=== PATIENT | male | born 1935 | race Caucasian/White ===

== ENCOUNTER → 2017-11-20 | Outpatient (REF) | payer MEDICARE, OTHER ==
[2017-11-21 13:00] LABS: FERRITIN 219 NG/ML (26-388)
== END ==
LOC: M LAB REF 12:25
DX: D64.9 Anemia, unspecified (principal)
CPT/HCPCS: 82728

== ENCOUNTER 2018-11-12 15:25 | Emergency (ER) | payer MEDICARE, OTHER ==
[~2018-11-12] VITALS: Ht 177.8 cm; Wt 84.6 kg
[~2018-11-12 15:25] MED LIST: /AUGM875TA; LIPI80TA; PACE0.05; TENO50TA; VITA500T; ZITH250T
[2018-11-12] MEDS ORDERED: AMIO200T PO (16:07)
[2018-11-12] MEDS ORDERED: PROT1TAB2 PO (16:07)
[2018-11-12] MEDS ORDERED: SAW160CA9 PO (16:07)
[2018-11-12] MEDS ORDERED: VITA1CAP25 PO (16:07)
[2018-11-12] MEDS ORDERED: TAMS1CAP17 PO (16:07)
[2018-11-12] MEDS ORDERED: WARF-21 PO (16:07)
[2018-11-12] MEDS ORDERED: WARF-23 PO (16:07)
[2018-11-12] MEDS ORDERED: CENT1TAB PO (16:07)
[2018-11-12] MEDS ORDERED: LIPI80TA PO (16:07)
[2018-11-12] MEDS ORDERED: ASPIRIN 81 MG CHEW TABLET PO ONE (16:15)
[2018-11-12 16:33] LABS: BASO % 0.3 % (0.0-1.0); EOS # 0.1 10^3/uL (0.0-0.50); EOS % 0.8 % (0.0-3.0); HEMATOCRIT 38.3 % (42.0-52.0); HEMOGLOBIN 12.6 g/dl (13.5-17.5); LYMPH # 1.1 10^3/uL (1.5-4.5); LYMPH % 12.6 % (24.0-44.0); MEAN CORPUSCULAR HEMOGLOBIN 29.9 pg (27.0-33.0); MEAN CORPUSCULAR HGB CONC 32.9 g/dl (32.0-36.5); MEAN CORPUSCULAR VOLUME 90.8 fl (80.0-96.0); MONO # 0.7 10^3/uL (0.0-0.8); MONO % 7.7 % (0.0-5.0); NEUTROPHILS % 78.2 % (36.0-66.0); PLATELET COUNT, AUTOMATED 250 10^3/uL (150-450); RED BLOOD COUNT 4.22 10^6/uL (4.30-6.10)
[2018-11-12 16:44] LABS: INR 2.66; PARTIAL THROMBOPLASTIN TIME 38.1 SECONDS (25.0-38.4); PROTHROMBIN TIME 28.2 SECONDS (11.8-14.0)
[2018-11-12 17:05] LABS: ALBUMIN 3.5 GM/DL (3.2-5.2); BILIRUBIN,DIRECT 0.1 MG/DL (0.0-0.2); BILIRUBIN,TOTAL 0.3 MG/DL (0.2-1.0); CALCIUM LEVEL 8.6 MG/DL (8.8-10.2); CK-MB VALUE MASS 4.6 NG/ML (<3.6); CREATININE FOR GFR 2.19 MG/DL (0.70-1.30); GLOMERULAR FILTRATION RATE 30.7 (>35); MB/CK RELATIVE INDEX 1.97 (< OR =4); POTASSIUM SERUM 4.7 MEQ/L (3.5-5.1); THYROID STIMULATING HORMONE 5.17 uIU/ML (0.358-3.740); TOTAL PROTEIN 6.7 GM/DL (6.4-8.2); TROPONIN I 0.13 NG/ML (< 0.10)
[2018-11-12] MEDS ORDERED: NS 500 ML IV ONE (18:00)
[2018-11-12 20:18] LABS: CK-MB VALUE MASS 5.2 NG/ML (<3.6); MB/CK RELATIVE INDEX 2.6 (< OR =4); TROPONIN I 0.4 NG/ML (< 0.10)
--- NOTE | 2018-11-12 20:51 | ECGEPIP ---
[facility] - ED Test Date: 2018-11-12 Pat Name: BRISA ROMO Department: Room: - Gender: Male Strategy Intern: : 1935 Requested By: DAMEON Gil Order Number: [id number] Reading MD: Alfredo Tran Measurements Intervals [place] Rate: 79 P: 53 HI: 215 QRS: -2 QRSD: 124 T: 40 QT: 400 QTc: 459 Interpretive Statements SINUS RHYTHM WITH FIRST DEGREE AV BLOCK RIGHT BUNDLE BRANCH BLOCK NO PRIORS FOR COMPARISON Electronically Signed on 11-12-2018 20:51:20 EDT by Alfredo Tran
--- NOTE | 2018-11-12 21:01 | ECGEPIP ---
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
[2018-11-12 22:00] VITALS: BP 140/76
--- NOTE | 2018-11-13 07:40 | REP ---
PORTABLE CHEST X-RAY: Single view. HISTORY: Chest pain. COMPARISON STUDY: March 08, 2016. FINDINGS: There is a large hiatal hernia behind the heart. Lungs are symmetrically aerated. Pleural angles are sharp. There is bibasilar plate-like atelectasis or fibrosis pattern in the lateral lung bases, which is new from the prior study. There are old healed rib fractures on the left. The thoracic aorta is slightly calcific. IMPRESSION: Mild cardiomegaly and large hiatal hernia. Bibasilar fibrosis versus plate-like atelectasis. Electronically Signed by Gregory Perez MD 11/13/2018 07:19 P
== END 2018-11-12 22:19 | disposition short-term general hospital (02) ==
LOC: M ED 15:25
DX: I24.9 Acute ischemic heart disease, unspecified (principal); I21.4 Non-ST elevation (NSTEMI) myocardial infarction; R00.1 Bradycardia, unspecified; I44.0 Atrioventricular block, first degree; I45.10 Unspecified right bundle-branch block; I48.91 Unspecified atrial fibrillation; K21.9 Gastro-esophageal reflux disease without esophagitis; E87.5 Hyperkalemia; R06.02 Shortness of breath; N40.0 Benign prostatic hyperplasia without lower urinary tract symptoms; R97.20 Elevated prostate specific antigen [PSA]; J44.9 Chronic obstructive pulmonary disease, unspecified; Z79.01 Long term (current) use of anticoagulants; Z79.899 Other long term (current) drug therapy

== ENCOUNTER → 2019-10-17 | Outpatient (REF) | payer MEDICARE, OTHER ==
[~2019-10-17] MED LIST changes: +AMIO200T3 PO; +CENT1TAB PO; +LIPI80TA PO; +PROT1TAB2 PO; +SAW160CA9 PO; +TAMS1CAP17 PO; +VITA1CAP25 PO; +WARF-21 PO; +WARF-23 PO
[2019-10-17 19:45] LABS: APPEARANCE, URINE HAZY (CLEAR); BACTERIA, URINE AUTO NEGATIVE (NEGATIVE); BILIRUBIN, URINE AUTO NEGATIVE (NEGATIVE); BLOOD, URINE BLOOD NEGATIVE (NEGATIVE); COLOR, URINE YELLOW (YELLOW); GLUCOSE, URINE (UA) AUTO NEGATIVE (NEGATIVE); KETONE, URINE AUTO NEGATIVE (NEGATIVE); LEUKOCYTE ESTERASE, URINE AUTO TRACE (NEGATIVE); NITRITE, URINE AUTO NEGATIVE (NEGATIVE); PROTEIN, URINE AUTO NEGATIVE (NEGATIVE); RBC, URINE AUTO 2 /HPF (0-3); SPECIFIC GRAVITY URINE AUTO 1.021 (1.002-1.035); SQUAMOUS EPITHELIAL CELL UR AU 0 /HPF (0-6); UROBILINOGEN, URINE AUTO 0.2 mg/dL (0.0-2.0); WBC, URINE AUTO 5 /HPF (0-3)
== END ==
LOC: M SMT 17:24
PROVIDERS: ATTEND Urology
DX: R97.20 Elevated prostate specific antigen [PSA] (principal); N40.0 Benign prostatic hyperplasia without lower urinary tract symptoms
CPT/HCPCS: 81001; 87086; G0463

== ENCOUNTER 2020-04-06 10:56 | Emergency (ER) | payer MEDICARE, OTHER ==
[~2020-04-06] VITALS: Ht 177.8 cm; Wt 87.5 kg
[2020-04-06 11:36] LABS: BASO % 0.4 % (0.0-1.0); HEMATOCRIT 39.4 % (42.0-52.0); HEMOGLOBIN 12.3 g/dl (13.5-17.5); LYMPH # 1.1 10^3/uL (1.5-5.0); LYMPH % 19.4 % (24.0-44.0); MEAN CORPUSCULAR HEMOGLOBIN 29.1 pg (27.0-33.0); MEAN CORPUSCULAR HGB CONC 31.2 g/dl (32.0-36.5); MEAN CORPUSCULAR VOLUME 93.4 fl (80.0-96.0); MONO # 0.4 10^3/uL (0.0-0.8); MONO % 7.8 % (0.0-5.0); NEUTROPHILS # 3.9 10^3/uL (1.5-8.5); PLATELET COUNT, AUTOMATED 172 10^3/uL (150-450); RED BLOOD COUNT 4.22 10^6/uL (4.30-6.10); WHITE BLOOD COUNT 5.4 10^3/uL (4.0-10.0)
[2020-04-06 11:51] LABS: INR 1.53; PROTHROMBIN TIME 18.7 SECONDS (12.5-14.3)
[2020-04-06 11:52] LABS: PARTIAL THROMBOPLASTIN TIME 38.1 SECONDS (24.2-38.5)
[2020-04-06 11:54] LABS: D-DIMER QUANT 1650.9 ng/ml (<500)
[2020-04-06 12:10] LABS: ALT/SGPT 26 U/L (12-78); BILIRUBIN,TOTAL 0.3 MG/DL (0.2-1.0); BLOOD UREA NITROGEN 34 MG/DL (7-18); C REACTIVE PROTEIN QUANTITATIV 6.29 MG/DL (0.00-0.30); CALCIUM LEVEL 7.7 MG/DL (8.8-10.2); CARBON DIOXIDE LEVEL 22 MEQ/L (21-32); CHLORIDE LEVEL 108 MEQ/L (98-107); CK-MB VALUE MASS 2.1 NG/ML (<3.6); CREATININE FOR GFR 1.74 MG/DL (0.70-1.30); GLUCOSE, FASTING 132 MG/DL (70-100); LDH LACTATE DEHYDROGENASE 318 U/L (87-241); MAGNESIUM LEVEL 2.2 MG/DL (1.8-2.4); POTASSIUM SERUM 4.2 MEQ/L (3.5-5.1); SODIUM LEVEL 136 MEQ/L (136-145); TOTAL PROTEIN 6.5 GM/DL (6.4-8.2); TROPONIN I < 0.02 NG/ML (< 0.10)
--- NOTE | 2020-04-06 12:11 | REP ---
INDICATION: multiple falls on coumadin - known man aquino is rn. COMPARISON: Comparison head CT study June 21, 2019.. TECHNIQUE: Helical scanning is acquired. 5 mm axial images were reformatted. Coronal MPR images were generated. FINDINGS: Bone window settings demonstrate an intact bony calvarium. There is no evidence of skull fracture or incidental bony calvarial lesion. The visualized paranasal sinuses appear clear. No intraorbital abnormality is seen. On soft tissue window setting images; the lateral, third, and fourth ventricles are normal in size and position. Montejo-white differentiation pattern is normal above and below the tentorium. There are is no evidence of intracranial hemorrhage. No mass, edema, infarction, or midline shift is seen. No extra-axial fluid collection is appreciated. There is generalized volume loss. Vascular calcification is observed. There are punctate physiologic calcifications in the basal ganglia bilaterally. These findings are unchanged. There are mucous retention cysts in the maxillary sinuses bilaterally noted incidentally. IMPRESSION: Generalized volume loss and vascular calcification. No acute intracranial abnormality.. <Electronically signed by Ankur Perez > 04/06/20 [id number]
--- NOTE | 2020-04-06 12:12 | REP ---
INDICATION: Coronavirus workup. COMPARISON: 11/11/2019. TECHNIQUE: SINGLE PORTABLE AP VIEW OF THE CHEST WAS PERFORMED. FINDINGS: There are mild interstitial fibrotic changes bilaterally which are stable. There is no acute infiltrate. The heart is not significantly enlarged. There is a large hiatal hernia again noted. There is calcification of the thoracic aorta. The mediastinal silhouette is unchanged. IMPRESSION: Stable chronic findings. No acute infiltrate identified. <Electronically signed by Giovanni Montejo > 04/06/20 [id number]
[2020-04-06 12:15] LABS: CPK CREATINE PHOSPHOKINASE 357 U/L (39-308); DIGOXIN LEVEL 0.2 NG/ML (0.5-2.0); FERRITIN 640 NG/ML (26-388); MB/CK RELATIVE INDEX 0.59 (< OR =4)
[2020-04-06] MEDS ORDERED: ACET-897 PO (13:04)
--- NOTE | 2020-04-06 14:56 | CR.PDOC ---
General Date of Consultation: Apr 06, 2020 Consultation Chief complaint: Who presented to the ER after he had fallen at home History of present illness: Patient is an 84-year-old male with a PMHx of A. fib (on Amiodarone / Coumadin), CAD (Hx of [place] 2018l w/o stent), DLP, BPH, Vitamin D deficiency, who presented to the emergency room after he was reported weakness and falls while at home. Patient reported that he had tested positive for COVID19 on 04/01/2020. Patient reported that he had had gone for testing after reporting flulike symptoms since 03/29. He has remained home under quarantine since that point. Patient denies any shortness of breath, cough, chest pain or palpitations. Has not experience any nausea, vomiting, abdominal pain, constipation, diarrhea, or urinary discomfort. Patient has a low-grade temperature of 100.2. While in the ER, however, had reported fevers while at home as per his . Patient reported some chills while at home. Patient denies any changes in his weight and reports that his appetite is fairly normal. Today patient reported that he was putting on his shoes and fell over to his side. He denied any lightheadedness or any loss of consciousness. Past Medical History: A. 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 Review of Systems: 10 point review of systems complete, all negative otherwise stated in HPI Physical exam: - Vitals: BP [145/70], HR [75], RR [20], Sat [93%RA], Temp [100.2F] - General: Lying in bed, No acute distress, Speaking in full sentences, AAOx3 - HEENT: NC, AT, PERRLA - CVS: IrIr, +S1S2 - Lungs: Fair air entry bilaterally, No appreciable wheezing / rales / rhonchi - Abdomen: Soft, Non-distended, Non-tender - Extremities: No lower extremity edema, No calf tenderness - Neuro: No focal motor or sensory deficit - Skin: No visible rashes Labs: See below Imaging: CXR 04/06: Stable chronic findings. No acute infiltrate identified. CT head 04/06: Generalized volume loss and vascular calcification. No acute intracranial abnormality. EKG: EKG 04/06: Atrial fibrillation Assessment and Plan: Weakness / Falls - likely 2/2 COIVD19 viral infection - Patient reports that he feels weak over the last 2 weeks; had fallen while putting on shoes at home - Orthostatic vital signs negative - Electrolyte reviewed - CT head negative for acute pathology - Patient has worked with physical therapy in the ER; as a home safety evaluation - patient has been cleared for DC home with services - I have discussed the case with PCP, Dr. Shlomo Rea and ER, Dr. Eduard Montejo; agreeable to plane to have patient discharged home with outpatient home services - confirmed that they will visit him in the home tomorrow (04/07/2020) - Patient has been advised to continue the use of a rolling walker while at home COVID19 - Currently patient appears to be experiencing weakness and fatigue - Hemodynamically stable; saturations have remains greater than 92% while at rest and have reached 100% with ambulation - Evaluate her markers are slightly elevated - Chest x-ray is without any acute pathology - Currently no indications to start corticosteroids or anti-viral therapy - [facility] follow up with saturations; confirmed visit tomorrow (04/07/2020) Chronic A. fib - Rate appears well controlled - INR sub-therapeutic - EKG reviewed - Currently on Amiodarone and Coumadin - Patient has been advised to take an extra half tablet of Coumadin tonight to bring INR into therapeutic range - Will have follow up with PCP for INR checks CKD3 - Creatinine 11/2018 was 2.19 - Cr currently of 1.74 - likely at baseline - Will avoid nephrotoxic medications CAD - Hx of [place] 2018l w/o stent DLP - c/w Atorvastatin BPH - c/w Tamsulosin Vitamin D deficiency - c/w Vitamin D supplementation DVT prophylaxis - Will c/w full anticoagulation with Coumadin Disposition: - I have called his , Marisol Loera and provided her with an update about the plan of care; advised her that I have reached out to Dr. Rea as well and will establish public health visit prior appointment prior to discharge - Patient has been advised to continue the use of a rolling walker while at home Vital Signs/I&O Vital Signs Date Time Temp Pulse Resp B/P (MAP) Pulse Ox O2 Delivery O2 Flow Rate FiO2 04/06/20 14:15 75 20 145/70 (95) 91 Nasal Cannula 1.0 04/06/20 11:49 100.2 Laboratory Data Labs 24H Laboratory Tests 2 04/06/20 11:27: Immature Granulocyte % (Auto) 0.4, Neutrophils (%) (Auto) 72.0H, Lymphocytes (%) (Auto) 19.4L, Monocytes (%) (Auto) 7.8H, Eosinophils (%) (Auto) 0.0, Basophils (%) (Auto) 0.4, Neutrophils # (Auto) 3.9, Lymphocytes # (Auto) 1.1L, Monocytes # (Auto) 0.4, Eosinophils # (Auto) 0.0, Basophils # (Auto) 0.0, Nucleated Red Blood Cells % (auto) 0.0, Prothrombin Time 18.7H, Prothromb Time International Ratio 1.53, Activated Partial Thromboplast Time 38.1, Fibrinogen 552H, D-Dimer, Quantitative 1650.90H, Anion Gap 6L, Glomerular Filtration Rate 40.0, Lactic Acid Level 1.3, Calcium Level 7.7L, Magnesium Level 2.2, Ferritin 640H, Total Bilirubin 0.3, Aspartate Amino Transf (AST/SGOT) 37, Alanine Aminotransferase (ALT/SGPT) 26, Alkaline Phosphatase 59, Lactate Dehydrogenase 318H, Total Creatine Kinase 357H, Creatine Kinase MB 2.1, Creatine Kinase MB Relative Index 0.59, Troponin I < 0.02, C-Reactive Protein, Quantitative 6.29H, Total Protein 6.5, Albumin 3.0L, Albumin/Globulin Ratio 0.9, Procalcitonin 0.24, Digoxin Level 0.2L CBC/BMP Laboratory Tests 04/06/20 11:27 Microbiology Microbiology 04/06/20 Blood Culture, Received Pending 04/06/20 Blood Culture, Received Pending Allergies Coded Allergies: No Known Allergies (Unverified , 11/12/18) Home Medications Scheduled Acetaminophen (Tylenol Extra Strength) 500 Mg Tablet, 1,000 MG PO TID, (Reported) STARTED 04/04/[address] REA'S DIRECTION FOR FEVER Amiodarone HCl (Amiodarone HCl) 200 Mg Tablet, 200 MG PO 5XW, (Reported) TAKES MONDAY-MONDAY Atorvastatin Calcium (Lipitor) 80 Mg Tablet, 80 MG PO 2XW, (Reported) Mon & morning Cholecalciferol (Vitamin D3) (Vitamin D3) 50,000 Unit Capsule, 50,000 CAP PO Q2WK, (Reported) Q2WK ON MONDAY AM. TOOK 04/06/20 Multivit-Min/FA/Lycopen/Lutein (Centrum Silver Tablet) 1 Each Tablet, 1 TAB PO BID, (Reported) Tamsulosin Hcl (Tamsulosin HCl) 0.4 Mg Capsule, 0.4 MG PO DAILY, (Reported) Warfarin Sodium (Warfarin Sodium) 5 Mg Tablet, 5 MG PO QPM, (Reported) DAVID JIMENEZ MD Apr 06, 2020 14:56
[2020-04-06 15:00] VITALS: BP 147/70
--- NOTE | 2020-04-07 06:14 | ECGEPIP ---
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
== END 2020-04-06 15:27 | disposition home or self-care (01) ==
LOC: M ED 10:56
DX: R29.6 Repeated falls (principal); U07.1 COVID-19; I45.19 Other right bundle-branch block; J44.9 Chronic obstructive pulmonary disease, unspecified; N40.0 Benign prostatic hyperplasia without lower urinary tract symptoms; K21.9 Gastro-esophageal reflux disease without esophagitis; I67.2 Cerebral atherosclerosis; I70.0 Atherosclerosis of aorta; K44.9 Diaphragmatic hernia without obstruction or gangrene; Z79.01 Long term (current) use of anticoagulants; Z79.899 Other long term (current) drug therapy

== ENCOUNTER 2020-04-11 14:26 | Inpatient (IN) | payer MEDICARE, OTHER ==
[~2020-04-11] VITALS: Ht 177.8 cm; Wt 88.6 kg
[~2020-04-11 14:26] MED LIST changes: +ACET-897 PO
[2020-04-11] MEDS ORDERED: methylPREDNISolone 125MG 2ML VIAL IV ONE (15:45)
--- NOTE | 2020-04-11 16:11 | REP ---
INDICATION: Coronavirus workup COMPARISON: 04/06/2020 TECHNIQUE: Portable AP view of the chest FINDINGS: Moderate to significant diffuse bilateral infiltrates and airspace disease consistent with COVID-19 pulmonary disease. No obvious effusion. No pneumothorax. Cardiac silhouette and mediastinum are stable including large hiatal hernia. IMPRESSION: Moderate to significant diffuse bilateral infiltrates consistent with COVID-19 pulmonary disease. Known large hiatal hernia. <Electronically signed by Dilshad Erickson > 04/11/20 0582
[2020-04-11] MEDS: ALBUTEROL 90 MCG/ACT 8GM HFA INHALER INH SCH ×2 (16:16→16:17)
[2020-04-11 16:17] LABS: ABG BASE EXCESS 0.3 (-2.0-2.0); ABG HCO3 22.8 MEQ/L (22.0-26.0); ABG O2 SATURATION 92.7 % (95.0-99.0); ABG PARTIAL PRESSURE CO2 30.7 mmHg (35.0-45.0); ABG PARTIAL PRESSURE O2 57.9 mmHg (75.0-100.0); ABG STANDARD HCO3 24.7 MEQ/L (22.0-26.0); ABG TOTAL CO2 23.8 MEQ/L (23.0-31.0); ABG pH (ARTERIAL) 7.489 UNITS (7.350-7.450)
[2020-04-11] MEDS ORDERED: cefTRIAXone SOD 2 GM in D5W MINI-BAG PLUS 50 ML IV ONE (16:50)
[2020-04-11 17:16] LABS: BASO % 0.2 % (0.0-1.0); EOS % 0.3 % (0.0-3.0); HEMATOCRIT 41.3 % (42.0-52.0); HEMOGLOBIN 12.8 g/dl (13.5-17.5); LYMPH # 2.4 10^3/uL (1.5-5.0); MEAN CORPUSCULAR HEMOGLOBIN 28.9 pg (27.0-33.0); MEAN CORPUSCULAR VOLUME 93.2 fl (80.0-96.0); MONO # 0.5 10^3/uL (0.0-0.8); MONO % 4.9 % (0.0-5.0); NEUTROPHILS # 6.6 10^3/uL (1.5-8.5); NEUTROPHILS % 68.1 % (36.0-66.0); PLATELET COUNT, AUTOMATED 319 10^3/uL (150-450); RED BLOOD COUNT 4.43 10^6/uL (4.30-6.10); WHITE BLOOD COUNT 9.8 10^3/uL (4.0-10.0)
[2020-04-11] MEDS ORDERED: DOXYCYCLINE HYCLATE 100 MG in D5W MINI-BAG PLUS 100 ML IV ONE (17:30)
[2020-04-11 17:43] LABS: ALBUMIN 2.8 GM/DL (3.2-5.2); ALT/SGPT 101 U/L (12-78); BILIRUBIN,TOTAL 0.5 MG/DL (0.2-1.0); BLOOD UREA NITROGEN 31 MG/DL (7-18); CALCIUM LEVEL 7.9 MG/DL (8.8-10.2); CARBON DIOXIDE LEVEL 24 MEQ/L (21-32); CHLORIDE LEVEL 108 MEQ/L (98-107); CK-MB VALUE MASS 1.1 NG/ML (<3.6); CPK CREATINE PHOSPHOKINASE 110 U/L (39-308); CREATININE FOR GFR 1.61 MG/DL (0.70-1.30); FERRITIN 1581 NG/ML (26-388); GLOMERULAR FILTRATION RATE 43.7 (>35); GLUCOSE, FASTING 142 MG/DL (70-100); LDH LACTATE DEHYDROGENASE 446 U/L (87-241); POTASSIUM SERUM 4.4 MEQ/L (3.5-5.1); SODIUM LEVEL 139 MEQ/L (136-145); TOTAL PROTEIN 6.6 GM/DL (6.4-8.2); TROPONIN I < 0.02 NG/ML (< 0.10)
[2020-04-11 17:46] LABS: INR 4.19; PROTHROMBIN TIME 41.4 SECONDS (12.5-14.3)
[2020-04-11 17:47] LABS: PARTIAL THROMBOPLASTIN TIME 68.4 SECONDS (24.2-38.5)
[2020-04-11 17:49] LABS: D-DIMER QUANT 1803.85 ng/ml (<500)
--- NOTE | 2020-04-11 19:11 | HPEPDOC ---
[facility] Medical History & Physical Date of Admission Apr 11, 2020 Date of Service: Apr 11, 2020 Attending Physician: AMNA SHEPARD MD History and Physical CHIEF COMPLAINT: Shortness of breath HISTORY OF PRESENT ILLNESS: 84 y.o male w/ PMH of CAD, Afib (on Coumadin), BPH & HTN who was recently diagnosed with COVID presents with worsening dyspnea. In the ED, he is febrile, hypoxemic with worsening CXR findings. He was not examined due to COVID status. He is seen from outside the room, laying comfo rtably in bed, on oxygen via NC, satting into the 90s. He is hemodynamically stable, doesn't appear distressed or tachypneic. PAST MEDICAL HISTORY: 1. CAD. 2. Afib 3. BPH PAST SURGICAL HISTORY: 1. not obtained SOCIAL HISTORY: Not obtained FAMILY HISTORY: Not obtained ALLERGIES: Please see below. REVIEW OF SYSTEMS: Not obtained HOME MEDICATIONS: Please see below. PHYSICAL EXAMINATION: Not examined LABORATORY DATA: See below. IMAGING: CXR w/ worsening infiltrates MICROBIOLOGY: Please see below. ASSESSMENT: 84 y.o w/ PMH of CAD, Afib & BPH is being admitted for worsening symptoms related to COVID pneumonia. PLAN: 1. COVID Pneumonia - ?superimposed bacterial pneumonia - febrile, hypoxemic, diagnosed ~10 days ago. - Decadron, Ceftriaxone, Doxy & supplemental oxygen. - Will hold off on Remdesivir - already on coumadin for Afib. - lactate elevated - gentle IV hydration 2) Afib - continue Amiodarone - INR Supratherapeutic, hold Coumadin today DVT Prophylaxis - INR supratherapeutic GI Prophylaxis - not needed Vital Signs Vital Signs Date Time Temp Pulse Resp B/P (MAP) Pulse Ox O2 Delivery O2 Flow Rate FiO2 04/11/20 14:50 18 90 Nasal Cannula 2.0 04/11/20 14:44 100.9 93 135/77 (96) Laboratory Data Labs 24H Laboratory Tests 2 04/11/20 16:10: Blood Gas Bicarbonate Standard 24.7, Arterial Blood pH 7.489H, Arterial Blood Partial Pressure CO2 30.7L, Arterial Blood Partial Pressure O2 57.9L, Arterial Blood Total CO2 23.8, Arterial Blood HCO3 22.8, Arterial Blood Base Excess 0.3, Arterial Blood Oxygen Saturation 92.7L 04/11/20 16:42: Immature Granulocyte % (Auto) 1.5, Neutrophils (%) (Auto) 68.1H, Lymphocytes (%) (Auto) 25.0, Monocytes (%) (Auto) 4.9, Eosinophils (%) (Auto) 0.3, Basophils (%) (Auto) 0.2, Neutrophils # (Auto) 6.6, Lymphocytes # (Auto) 2.4, Monocytes # (Auto) 0.5, Eosinophils # (Auto) 0.0, Basophils # (Auto) 0.0, Nucleated Red Blood Cells % (auto) 0.0, Prothrombin Time 41.4H, Prothromb Time International Ratio 4.19, Activated Partial Thromboplast Time 68.4H, Fibrinogen 750H, D-Dimer, Quantitative 1803.85H, Anion Gap 7L, Glomerular Filtration Rate 43.7, Lactic Acid Level 2.6*H, Calcium Level 7.9L, Magnesium Level 2.0, Ferritin 1581H, Total Bilirubin 0.5, Aspartate Amino Transf (AST/SGOT) 115H, Alanine Aminotransferase (ALT/SGPT) 101H, Alkaline Phosphatase 80, Lactate Dehydrogenase 446H, Total Creatine Kinase 110, Creatine Kinase MB 1.1, Creatine Kinase MB Relative Index 1.00, Troponin I < 0.02, C-Reactive Protein, Quantitative 15.20H, Total Protein 6.6, Albumin 2.8L, Albumin/Globulin Ratio 0.7, Procalcitonin 0.21 04/11/20 17:12: POC Glucose (Misc Panel) 141H, POC Sodium (Misc Panel) 140, POC Potassium (Misc Panel) 4.0, POC Chloride (Misc Panel) 106, POC Total CO2 (Misc Panel) 23.0, POC Blood Urea Nitrogen (Misc Panel 29H, POC Ionized Calcium (Misc Panel) 4.3L, POC Creatinine (Misc Panel) 1.6H, POC Hematocrit (Misc Panel) 40.0 CBC/BMP Laboratory Tests 04/11/20 16:42 Home Medications Scheduled Acetaminophen (Tylenol Extra Strength) 500 Mg Tablet, 1,000 MG PO TID STARTED 04/04/[address] REA'S DIRECTION FOR FEVER Amiodarone HCl (Amiodarone HCl) 200 Mg Tablet, 200 MG PO 5XW TAKES MONDAY-MONDAY Atorvastatin Calcium (Lipitor) 80 Mg Tablet, 80 MG PO 2XW Mon & Th morning Cholecalciferol (Vitamin D3) (Vitamin D3) 50,000 Unit Capsule, 50,000 CAP PO Q2WK Q2WK ON MONDAY AM. TOOK 04/06/20 Multivit-Min/FA/Lycopen/Lutein (Centrum Silver Tablet) 1 Each Tablet, 1 TAB PO BID Tamsulosin Hcl (Tamsulosin HCl) 0.4 Mg Capsule, 0.4 MG PO DAILY Warfarin Sodium (Warfarin Sodium) 5 Mg Tablet, 5 MG PO QPM Allergies Coded Allergies: No Known Allergies (Unverified , 11/12/18) A-FIB/CHADSVASC A-FIB History Current/History of A-Fib/PAF?: Yes Current PO Anticoag Therapy: Yes AMNA SHEPARD MD Apr 11, 2020 19:10
--- NOTE | 2020-04-11 19:22 | ECGEPIP ---
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
[2020-04-11] MEDS: NS 1,000 ML IV SCH (19:25)
[2020-04-12 02:56] VITALS: BP 156/66
[2020-04-12 06:00] VITALS: BP 154/62
[2020-04-12 06:49] LABS: HEMATOCRIT 39.2 % (42.0-52.0); HEMOGLOBIN 12.5 g/dl (13.5-17.5); MEAN CORPUSCULAR HEMOGLOBIN 29.6 pg (27.0-33.0); MEAN CORPUSCULAR HGB CONC 31.9 g/dl (32.0-36.5); MEAN CORPUSCULAR VOLUME 92.9 fl (80.0-96.0); PLATELET COUNT, AUTOMATED 336 10^3/uL (150-450); RED BLOOD COUNT 4.22 10^6/uL (4.30-6.10); WHITE BLOOD COUNT 7.4 10^3/uL (4.0-10.0)
[2020-04-12 07:11] LABS: ALBUMIN 2.5 GM/DL (3.2-5.2); BILIRUBIN,TOTAL 0.3 MG/DL (0.2-1.0); CALCIUM LEVEL 7.9 MG/DL (8.8-10.2); CREATININE FOR GFR 1.32 MG/DL (0.70-1.30); MAGNESIUM LEVEL 2.2 MG/DL (1.8-2.4); POTASSIUM SERUM 4.9 MEQ/L (3.5-5.1); TOTAL PROTEIN 6.3 GM/DL (6.4-8.2)
[2020-04-12 08:00] VITALS: BP 152/69
[2020-04-12] MEDS: TAMSULOSIN 0.4 MG CAP PO SCH (08:15)
[2020-04-12] MEDS: dexameTHASONE 4 MG/ML 1ML VIAL (J1100 PER 1MG) IV SCH (08:15)
[2020-04-12] MEDS: DOXYCYCLINE HYCLATE 100 MG in D5W MINI-BAG PLUS 100 ML IV SCH ×2 (08:15→20:26)
[2020-04-12] MEDS: NS 1,000 ML IV SCH (08:15)
[2020-04-12 11:59] VITALS: BP 144/72
--- NOTE | 2020-04-12 15:55 | IPNPDOC ---
Date Seen The patient was seen on 04/12/20. Progress Note SUBJECTIVE: Comfortable, no new complaints, respiratory status stable, no dyspnea at rest. PHYSICAL EXAMINATION: VITAL SIGNS: Please see below. GENERAL: No distress HEENT: moist mucous membranes NECK: Supple CARDIOVASCULAR EXAMINATION: S1, S2, no murmurs RESPIRATORY EXAMINATION: Scattered rhonchi, no wheezing ABDOMINAL EXAMINATION: Soft, nontender, nondistended, positive bowel sounds EXTREMITIES: Range of motion intact SKIN: No rash NEUROLOGICAL EXAMINATION: Alert and oriented 3, no focal deficits PSYCHIATRIC EXAMINATION: Calm and cooperative LABORATORY DATA, IMAGING STUDIES, MICROBIOLOGY: Please see below. ASSESSMENT AND PLAN: 84-year-old male with past medical history of atrial fi brillation and coronary artery disease is admitted for acute hypoxemic respiratory failure secondary to Covid pneumonia. PROBLEMS: 1. Acute hypoxemic respiratory failure secondary to Covid pneumonia: Requiring supplemental oxygen via nasal cannula, respiratory status has been stable over the past 24 hours. Continue Decadron and empiric antibiotics. 2. Acute on chronic kidney disease. Renal function improving, close to baseline, discontinue IV fluids, by mouth intake is adequate. 3. Atrial fibrillation. Continue amiodarone. INR pending, restart Coumadin. DVT prophylaxis: On Coumadin. GI prophylaxis: Not needed VS, I&O, 24H, Fishbone Vital Signs/I&O Vital Signs Date Time Temp Pulse Resp B/P (MAP) Pulse Ox O2 Delivery O2 Flow Rate FiO2 04/12/20 12:00 6.0 04/12/20 11:59 96.0 81 19 144/72 (96) 94 04/12/20 08:00 Nasal Cannula I&O- Last 24 Hours up to 6 AM 04/12/20 06:00 Intake Total 810 ml Output Total 0 ml Balance 810 ml Laboratory Data 24H LABS Laboratory Tests 2 04/11/20 16:10: Blood Gas Bicarbonate Standard 24.7, Arterial Blood pH 7.489H, Arterial Blood Partial Pressure CO2 30.7L, Arterial Blood Partial Pressure O2 57.9L, Arterial Blood Total CO2 23.8, Arterial Blood HCO3 22.8, Arterial Blood Base Excess 0.3, Arterial Blood Oxygen Saturation 92.7L 04/11/20 16:42: Immature Granulocyte % (Auto) 1.5, Neutrophils (%) (Auto) 68.1H, Lymphocytes (%) (Auto) 25.0, Monocytes (%) (Auto) 4.9, Eosinophils (%) (Auto) 0.3, Basophils (%) (Auto) 0.2, Neutrophils # (Auto) 6.6, Lymphocytes # (Auto) 2.4, Monocytes # (Auto) 0.5, Eosinophils # (Auto) 0.0, Basophils # (Auto) 0.0, Nucleated Red Blood Cells % (auto) 0.0, Prothrombin Time 41.4H, Prothromb Time International Ratio 4.19, Activated Partial Thromboplast Time 68.4H, Fibrinogen 750H, D-Dimer, Quantitative 1803.85H, Anion Gap 7L, Glomerular Filtration Rate 43.7, Lactic Acid Level 2.6*H, Calcium Level 7.9L, Magnesium Level 2.0, Ferritin 1581H, Total Bilirubin 0.5, Aspartate Amino Transf (AST/SGOT) 115H, Alanine Aminotransferase (ALT/SGPT) 101H, Alkaline Phosphatase 80, Lactate Dehydrogenase 446H, Total Creatine Kinase 110, Creatine Kinase MB 1.1, Creatine Kinase MB Relative Index 1.00, Troponin I < 0.02, C-Reactive Protein, Quantitative 15.20H, Total Protein 6.6, Albumin 2.8L, Albumin/Globulin Ratio 0.7, Procalcitonin 0.21 04/11/20 17:12: POC Glucose (Misc Panel) 141H, POC Sodium (Misc Panel) 140, POC Potassium (Misc Panel) 4.0, POC Chloride (Misc Panel) 106, POC Total CO2 (Misc Panel) 23.0, POC Blood Urea Nitrogen (Misc Panel 29H, POC Ionized Calcium (Misc Panel) 4.3L, POC Creatinine (Misc Panel) 1.6H, POC Hematocrit (Misc Panel) 40.0 04/11/20 21:37: Lactic Acid Followup at 4 Hours 1.7 04/12/20 06:08: Nucleated Red Blood Cells % (auto) 0.0, Anion Gap 9, Glomerular Filtration Rate 55.0, Calcium Level 7.9L, Magnesium Level 2.2, Total Bilirubin 0.3, Aspartate Amino Transf (AST/SGOT) 99H, Alanine Aminotransferase (ALT/SGPT) 99H, Alkaline Phosphatase 77, Total Protein 6.3L, Albumin 2.5L, Albumin/Globulin Ratio 0.7 CBC/BMP Laboratory Tests 04/11/20 16:42 04/12/20 06:08 AMNA SHEPARD MD Apr 12, 2020 15:55
[2020-04-12 16:00] VITALS: BP 133/75
[2020-04-12] MEDS: cefTRIAXone SOD 1 GM in D5W MINI-BAG PLUS 50 ML IV SCH (16:36)
[2020-04-12 17:42] LABS: PROTHROMBIN TIME 49.7 SECONDS (12.5-14.3)
[2020-04-12 17:51] LABS: INR 5.28
[2020-04-12 20:00] VITALS: BP 156/75
[2020-04-12] MEDS ORDERED: WARFARIN SOD 5MG TAB PO SCH (21:00)
[2020-04-13] VITALS: BP 176/79
[2020-04-13 04:00] VITALS: BP 156/75
[2020-04-13 07:49] VITALS: BP 140/73
[2020-04-13] MEDS ORDERED: ATORVASTATIN 20 MG TAB PO SCH (09:00)
[2020-04-13] MEDS: TAMSULOSIN 0.4 MG CAP PO SCH (09:42)
[2020-04-13] MEDS: AMIODARONE 200 MG TAB (PACERONE) PO SCH (09:42)
[2020-04-13] MEDS: dexameTHASONE 4 MG/ML 1ML VIAL (J1100 PER 1MG) IV SCH (09:42)
[2020-04-13] MEDS: DOXYCYCLINE HYCLATE 100 MG in D5W MINI-BAG PLUS 100 ML IV SCH ×2 (09:42→21:41)
[2020-04-13 10:46] LABS: HEMATOCRIT 39.3 % (42.0-52.0); HEMOGLOBIN 12.5 g/dl (13.5-17.5); MEAN CORPUSCULAR HEMOGLOBIN 29.8 pg (27.0-33.0); MEAN CORPUSCULAR HGB CONC 31.8 g/dl (32.0-36.5); MEAN CORPUSCULAR VOLUME 93.6 fl (80.0-96.0); PLATELET COUNT, AUTOMATED 413 10^3/uL (150-450); WHITE BLOOD COUNT 14.7 10^3/uL (4.0-10.0)
[2020-04-13 11:11] LABS: CALCIUM LEVEL 8.7 MG/DL (8.8-10.2); CREATININE FOR GFR 1.45 MG/DL (0.70-1.30); GLOMERULAR FILTRATION RATE 49.4 (>35); POTASSIUM SERUM 4.1 MEQ/L (3.5-5.1)
[2020-04-13 11:20] LABS: INR 4.99; PROTHROMBIN TIME 47.5 SECONDS (12.5-14.3)
[2020-04-13 12:00] VITALS: BP 130/67
[2020-04-13] MEDS ORDERED: DEXA2TA PO (12:32)
[2020-04-13] MEDS ORDERED: VENTAER INH (12:32)
[2020-04-13] MEDS ORDERED: AUGM875T28 PO (12:32)
[2020-04-13] MEDS ORDERED: WARF-20 PO (12:32)
--- NOTE | 2020-04-13 14:54 | IPNPDOC ---
Text Note Date of Service The patient was seen on 04/13/20. NOTE Subjective Comfortable, no new complaints, respiratory status stable, no dyspnea at rest. Physical examination GENERAL: No distress HEENT: moist mucous membranes NECK: Supple CARDIOVASCULAR EXAMINATION: S1, S2, no murmurs RESPIRATORY EXAMINATION: Scattered rhonchi, no wheezing ABDOMINAL EXAMINATION: Soft, nontender, nondistended, positive bowel sounds EXTREMITIES: Range of motion intact SKIN: No rash NEUROLOGICAL EXAMINATION: Alert and oriented 3, no focal deficits PSYCHIATRIC EXAMINATION: Calm and cooperative Labs reviewed Radiology reviewed Assessment and plan 84-year-old male with past medical history of atrial fibrillation and coronary artery disease is admitted for acute hypoxemic respiratory failure secondary to Covid pneumonia. 1. Acute hypoxemic respiratory failure secondary to Covid pneumonia: Improving and currently requiring only 3 L Requiring supplemental oxygen via nasal cannula, respiratory status has been stable over the past 24 hours. Continue Decadron and empiric antibiotics. PT, OT. 2. Acute on chronic kidney disease. Renal function improving, close to baseline, discontinue IV fluids, by mouth intake is adequate. 3. Atrial fibrillation. With supratherapeutic INR Continue amiodarone. Been held. GI prophylaxis: Not needed PT, OT evaluation. The patient is medically improving but on physical therapy standpoint would require a couple of worsening before the patient can be discharged home. Will require home O2 evaluation on discharge as well. VS,Fishbone, I+O VS, Fishbone, I+O Laboratory Tests 04/13/20 09:42 Vital Signs Date Time Temp Pulse Resp B/P (MAP) Pulse Ox O2 Delivery O2 Flow Rate FiO2 04/13/20 12:00 96.2 80 32 130/67 (88) 94 Nasal Cannula 4.0 I&O- Last 24 Hours up to 6 AM 04/13/20 06:00 Intake Total 1870 ml Output Total 1000 ml Balance 870 ml ANIBAL SOLIS MD Apr 13, 2020 14:54
[2020-04-13 16:31] VITALS: BP 135/67
[2020-04-13] MEDS: cefTRIAXone SOD 1 GM in D5W MINI-BAG PLUS 50 ML IV SCH (16:31)
[2020-04-13 20:00] VITALS: BP 141/65
[2020-04-14] VITALS: BP 174/96
[2020-04-14 04:00] VITALS: BP 155/91
[2020-04-14 08:00] VITALS: BP 178/91
[2020-04-14 09:26] LABS: INR 4.69; PROTHROMBIN TIME 45.2 SECONDS (12.5-14.3)
[2020-04-14] MEDS: AMIODARONE 200 MG TAB (PACERONE) PO SCH (10:11)
[2020-04-14] MEDS: dexameTHASONE 4 MG/ML 1ML VIAL (J1100 PER 1MG) IV SCH (10:11)
[2020-04-14] MEDS: TAMSULOSIN 0.4 MG CAP PO SCH (10:11)
[2020-04-14] MEDS: DOXYCYCLINE HYCLATE 100 MG in D5W MINI-BAG PLUS 100 ML IV SCH ×2 (10:14→20:22)
[2020-04-14 13:00] VITALS: BP 161/86
--- NOTE | 2020-04-14 14:59 | IPNPDOC ---
Text Note Date of Service The patient was seen on 04/14/20. NOTE Comfortable, no new complaints, respiratory status stable, no dyspnea at rest. Physical examination GENERAL: No distress HEENT: moist mucous membranes NECK: Supple CARDIOVASCULAR EXAMINATION: S1, S2, no murmurs RESPIRATORY EXAMINATION: Scattered rhonchi, no wheezing ABDOMINAL EXAMINATION: Soft, nontender, nondistended, positive bowel sounds EXTREMITIES: Range of motion intact SKIN: No rash NEUROLOGICAL EXAMINATION: Alert and oriented 3, no focal deficits PSYCHIATRIC EXAMINATION: Calm and cooperative Labs reviewed Radiology reviewed Assessment and plan 84-year-old male with past medical history of atrial fibrillation and coronary a rtery disease is admitted for acute hypoxemic respiratory failure secondary to Covid pneumonia. 1. Acute hypoxemic respiratory failure secondary to Covid pneumonia: Improving and currently on RA. PT, OT. 2. Acute on chronic kidney disease. Renal function resolved. discontinue IV fluids, by mouth intake is adequate. 3. Atrial fibrillation. With supratherapeutic INR. Continue amiodarone. GI prophylaxis: Not needed PT, OT evaluation. The patient is medically improving but on physical therapy standpoint would require a one more session before the patient can be discharged home. Will require home O2 evaluation on discharge as well. VS,Fishbone, I+O VS, Fishbone, I+O Vital Signs Date Time Temp Pulse Resp B/P (MAP) Pulse Ox O2 Delivery O2 Flow Rate FiO2 04/14/20 13:00 97.4 68 19 161/86 (111) 88 Room Air 04/14/20 04:00 5.0 I&O- Last 24 Hours up to 6 AM 04/14/20 06:00 Intake Total 960 ml Output Total 800 ml Balance 160 ml ANIBAL SOLIS MD Apr 14, 2020 14:59
[2020-04-14 16:00] VITALS: BP 156/86
[2020-04-14] MEDS: cefTRIAXone SOD 1 GM in D5W MINI-BAG PLUS 50 ML IV SCH (17:46)
[2020-04-14 20:00] VITALS: BP 141/73
[2020-04-15 04:00] VITALS: BP 163/79
[2020-04-15 07:09] LABS: INR 4.11; PROTHROMBIN TIME 40.8 SECONDS (12.5-14.3)
[2020-04-15] MEDS: dexameTHASONE 4 MG/ML 1ML VIAL (J1100 PER 1MG) IV SCH (10:30)
[2020-04-15] MEDS: AMIODARONE 200 MG TAB (PACERONE) PO SCH (10:30)
[2020-04-15] MEDS: TAMSULOSIN 0.4 MG CAP PO SCH (10:30)
[2020-04-15] MEDS: DOXYCYCLINE HYCLATE 100 MG in D5W MINI-BAG PLUS 100 ML IV SCH (10:30)
--- NOTE | 2020-04-15 10:46 | DS.PDOC ---
Discharge Summary General Date of Admission Apr 11, 2020 at 18:39 Date of Discharge 04/15/20 Discharge Summary Chief complaint Shortness of breath Final diagnosis Hypoxic respiratory failure Covid 19. Pneumonia Super therapeutic INR History of present illness and Hospital course 84 y.o male w/ PMH of CAD, Afib (on Coumadin), BPH & HTN who was recently diagnosed with COVID presents with worsening dyspnea. In the ED, he is febrile, hypoxemic with worsening CXR findings. . She was initially requiring around 4-5 L of oxygen and was started on dexamethasone and IV antibiotics with Rocephin and azithromycin. He was diagnosed with Covid 1910 days prior to his admission and was not a candidate for antiviral remdesvir. . He was continued on dexamethasone as well as prophylactic Lovenox for DVT prophylaxis. He improved and eventually is saturating well on room air. His lungs have been sounding better. He will be discharged on dexamethasone for the next 4 days along with Augmentin as there was suspicion for superimposed bacterial pneumonia as well. Physical therapy worked with him and he is cleared for discharge from physical therapy and occupational therapy standpoint as well. He also was having supratherapeutic INR and his Coumadin was held and currently it is 4.1. He was on 5 mg and it has been be escalated to 4 mg daily, and he has been advised to skip 3 more doses of his Coumadin and resume it after 3 days and get INR checked with the PCP follow-up in one week. He understands he is clinically stable for discharge. Also the home oxygen evaluation will be done on discharge in case he requires any oxygen. Physical examination GENERAL: No distress HEENT: moist mucous membranes NECK: Supple CARDIOVASCULAR EXAMINATION: S1, S2, no murmurs RESPIRATORY EXAMINATION: Scattered rhonchi, no wheezing ABDOMINAL EXAMINATION: Soft, nontender, nondistended, positive bowel sounds EXTREMITIES: Range of motion intact SKIN: No rash NEUROLOGICAL EXAMINATION: Alert and oriented 3, no focal deficits PSYCHIATRIC EXAMINATION: Calm and cooperative Mediictations. As per discharge reconciliation medication list Activity as tolerated Diet. 2 g sodium diet Follow-up appointments. PCP in 1 week. Condition on discharge. Patient is medically optimized for discharge Discharge disposition: Home Total time spent on this discharge including coordination of care, review of chart documentation and actual patient contact is around 35 minutes Vital Signs/I&Os Vital Signs Date Time Temp Pulse Resp B/P (MAP) Pulse Ox O2 Delivery O2 Flow Rate FiO2 04/15/20 04:00 97.3 61 18 163/79 (107) 92 Room Air 04/14/20 04:00 5.0 I&O- Last 24 Hours up to 6 AM 04/15/20 06:00 Intake Total 480 ml Output Total 1300 ml Balance -820 ml Laboratory Data Labs 24H Laboratory Tests 2 04/15/20 06:32: Prothrombin Time 40.8H, Prothromb Time International Ratio 4.11 Discharge Medications Scheduled Acetaminophen (Tylenol Extra Strength) 500 Mg Tablet, 1,000 MG PO TID, (Reported) STARTED 04/04/[address] REA'S DIRECTION FOR FEVER Amiodarone HCl (Amiodarone HCl) 200 Mg Tablet, 200 MG PO 5XW, (Reported) TAKES MONDAY-MONDAY Amoxicillin/Potassium Clav (Augmentin 875-125 Tablet) 1 Each Tablet, 875 MG PO BID Atorvastatin Calcium (Lipitor) 80 Mg Tablet, 80 MG PO 2XW, (Reported) Mon & morning Cholecalciferol (Vitamin D3) (Vitamin D3) 50,000 Unit Capsule, 50,000 CAP PO Q2WK, (Reported) Q2WK ON MONDAY AM. TOOK 04/06/20 Dexamethasone (Dexamethasone) 2 Mg Tablet, 2 MG PO DAILY Multivit-Min/FA/Lycopen/Lutein (Centrum Silver Tablet) 1 Each Tablet, 1 TAB PO BID, (Reported) Tamsulosin Hcl (Tamsulosin HCl) 0.4 Mg Capsule, 0.4 MG PO DAILY, (Reported) Warfarin Sodium (Warfarin Sodium) 4 Mg Tablet, 4 MG PO DAILY restart 04/17/20. at 4mg hs Scheduled PRN Albuterol Sulfate (Ventolin Hfa) 18 Gm Hfa.aer.ad, 2 PUFF INH Q4-6HP PRN for wheezing Allergies Coded Allergies: No Known Allergies (Unverified , 11/12/18) ANIBAL SOLIS MD Apr 15, 2020 10:42
[2020-04-15 14:33] VITALS: BP 148/88
== END 2020-04-15 15:45 | disposition home or self-care (01) | DRG 177 ==
LOC: M ED 14:26 → EDBEDREQSVC 17:37 → M ED INP 18:39 → M 4MAIN 04-12 02:57
PROVIDERS: ADMIT Internal Medicine; ATTEND Internal Medicine
DX: U07.1 COVID-19 (principal); J12.89 Other viral pneumonia; J96.01 Acute respiratory failure with hypoxia; I48.91 Unspecified atrial fibrillation; I25.10 Atherosclerotic heart disease of native coronary artery without angina pectoris; Z79.01 Long term (current) use of anticoagulants; I10 Essential (primary) hypertension; Z79.899 Other long term (current) drug therapy; N40.0 Benign prostatic hyperplasia without lower urinary tract symptoms

== ENCOUNTER 2020-05-02 08:23 | Inpatient (IN) | payer MEDICARE, OTHER ==
[~2020-05-02] VITALS: Ht 177.8 cm; Wt 80.3 kg
[~2020-05-02 08:23] MED LIST changes: +AUGM875T28 PO; +DEXA2TA PO; +VENTAER INH; +WARF-20 PO
[2020-05-02 09:04] LABS: BASO % 0.1 % (0.0-1.0); HEMATOCRIT 42.3 % (42.0-52.0); HEMOGLOBIN 13.5 g/dl (13.5-17.5); LYMPH # 1.4 10^3/uL (1.5-5.0); MEAN CORPUSCULAR HEMOGLOBIN 29.3 pg (27.0-33.0); MEAN CORPUSCULAR HGB CONC 31.9 g/dl (32.0-36.5); MONO # 0.8 10^3/uL (0.0-0.8); MONO % 4.5 % (0.0-5.0); NEUTROPHILS % 86.2 % (36.0-66.0); PLATELET COUNT, AUTOMATED 292 10^3/uL (150-450); WHITE BLOOD COUNT 17.4 10^3/uL (4.0-10.0)
--- OUTSIDE RECORDS SUMMARY | 2020-05-02 09:08 | CCD | Continuity of Care Document ---
Author Author Jamil BENITEZ-C Organization Unknown Address [address], [place] [address] Phone [phone] Care Team Providers Care Electrical Sign Servicer Name Role Phone Steven Alvares DO AUTM [phone] Saadia GaitanC AUTM [phone] Juan M Covarrubias MD AUTM [phone] Shlomo Goins MD AUTM [phone] Rebekah Burroughs MD AUTM [phone] Problems Active Problems Provider Date Atrial fibrillation Bal Tolbert MD Onset: 12/12/2011 Electrocardiogram abnormal Bal Tolbert MD Onset: 2011 Right bundle branch block Bal Tolbert MD Onset: 012 Atrioventricular block Bal Tolbert MD Onset: 12/12/2011 Dyspnea Bal Tolbert MD Onset: 12/12/2011 Mitral valve disorder Bal Tolbert MD Onset: 12/12/2011 Abnormal vision Bal Tolbert MD Onset: 12/12/2011 Pure hypercholesterolemia Bal Tolbert MD Onset: 012 Aortic valve disorder Bal Tolbert MD Onset: 12/26/2013 Disturbance in sleep behavior Bal Tolbert MD Onset: Paroxysmal atrial fibrillation Bal Tolbert MD Onset: Obstructive sleep apnea syndrome Bal Tolbert MD Onset: 03/08/2016 Hemoptysis Bal Tolbert MD Onset: 03/08/2016 Edema Bal Tolbert MD Onset: 08/17/2018 Precordial pain Bal Tolbert MD Onset: 12/04/2018 Premature beats Bal Tolbert MD Onset: 03/23/2020 Cough Bal Tolbert MD Onset: 03/23/2020 Social History Type Date Description Comments Sex Unknown Tobacco Use Start: Unknown Never Smoked Cigarettes ETOH Use Does not consume alcohol Tobacco Use Start: Unknown Patient has never smoked 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 Bal Tolbert MD 03/07/2016 Vitamin D [id number] Capsules 1 po every other week Lexx Givens MD 06/14/2012 Amiodarone HCL 200mg Tablets take one tablet by mouth every day for monday-monday 75tabs Michael Tolbert MD 12/11/2008 Warfarin Sodium 5mg Tablets Mitesh 1-2 Tablets By Mouth Daily as Directed 180tabs Bal de leon MD 08/03/2007 Flomax 0.4mg Caps ER 24HR 1 P O daily Lexx Gviens MD 05/15/2007 Multivitamins Tablets 1 PO d aily Unknown 05/15/2007 Immunizations Description No Information Available Vital Signs Date Vital Result Comment 03/23/2020 12:21pm Weight 192.00 lb Height 69 inches 5'9" BMI (Body Mass Index) 28.4 kg/m2 Heart Rate 62 /min regular Respiratory Rate 16 /min BP Systolic Sitting 123 mmHg Medium cuff, Ra BP Diastolic Sitting 64 mmHg Medium cuff, Ra BP Systolic Lying Down 138 mmHg BP Diastolic Lying Down 68 mmHg 09/25/2019 10:17am Weight 190.00 lb Height 69 inches 5'9" BMI (Body Mass Index) 28.1 kg/m2 Heart Rate 60 /min regular Respiratory Rate 16 /min BP Systolic Sitting 126 mmHg Medium cuff, Ra BP Diastolic Sitting 60 mmHg Medium cuff, Ra BP Systolic Lying Down 128 mmHg BP Diastolic Lying Down 66 mmHg Results Test Acquired Date Facility Test Result H/L Range Note Prothrombin Time (PT) 03/23/2020 [facility] Inr 2.2 High 0.9-1.2 1 Prothrombin Time 22.7 sec High 9.1-12.0 Laboratory test finding 03/23/2020 [facility] PDF [id number] SEE IMAGE Renal Profile 03/06/2020 [facility] Glucose 77 Blood Urea Nitrogen 33.7 Creatinine 1.6 GFR (Calculated) 41 Sodium 143.7 Potassium 4.4 Chloride 108.7 Carbon Dioxide 26.6 Calcium 8.6 Phosphorus 3.7 Albumin 3.9 CBC without Differential 03/06/2020 [facility] White Blood Count 7.9 Red Blood Count 4.32 Platelets 296 Hemoglobin 13.3 Hematocrit 40.6 Laboratory test finding 03/06/2020 [facility] Magnesium Level 1.83 Prothrombin Time (PT) 02/24/2020 [facility] Inr 1.9 High 0.9-1.2 2 Prothrombin Time 19.1 sec High 9.1-12.0 Laboratory test finding 02/24/2020 [facility] [id number] SEE IMAGE Prothrombin Time (PT) 01/23/2020 [facility] Inr 1.9 High 0.9-1.2 3 Prothrombin Time 19.3 sec High 9.1-12.0 4 Laboratory test finding 01/23/2020 [facility] [place] [id number] SEE IMAGE Laboratory test finding 12/25/2019 [facility] [place] [id number] SEE IMAGE Prothrombin Time (PT) 12/25/2019 [facility] Inr 2.3 High 0.8-1.2 5 Prothrombin Time 23.0 sec High 9.1-12.0 Lab Results 12/20/2019 [facility] T4 Free 1.17 ng/dL 0.76-1.46 Comprehensive Chem Profile 12/20/2019 [facility] CC D Import Glucose 93 mg/dL 74-99 6 BUN 36 mg/dL High 7-18 Creatinine 1.9 mg/dL High 0.6-1.3 Sodium 142 mEq/L 136-145 Potassium 4.5 mEq/L 3.5-5.1 Chloride 108 mEq/L High 98-107 Carbon Dioxide 27 mEq/L 21-32 Calcium 8.6 mg/dL 8.5-10.1 Alk. Phosphatase 68 mg/dL 46-116 Total Bilirubin 0.5 mg/dL 0.2-1.0 Ast (Sgot) 21 U/L 15-37 Alt (SGPT) 28 U/L 12-78 Albumin 3.8 g/dL 3.4-5.0 Total Protein 7.2 g/dL 6.4-8.2 A/G Ratio 1.12 CALC 1.00-1.90 GFR 34 mL/min Low GFR 41 mL/min Low 7 Lipid Profile 12/20/2019 [facility] Cholesterol 173 mg/dL 131-200 Triglycerides 106 mg/dL 30-150 HDL Cholesterol 42 mg/dL 35-60 LDL (Calculated) 110 CALC 50-159 Lab Results 12/20/2019 [facility] Thyroid Stimulating Hormone 4.02 uIU/mL High 0.36-3.74 Prothrombin Time (PT) 11/26/2019 [facility] Inr 2.2 High 0.8-1.2 8 Prothrombin Time 21.7 sec High 9.1-12.0 Laboratory test finding 11/26/2019 [facility] [place] [id number] SEE IMAGE Prothrombin Time (PT) 10/28/2019 [facility] Inr 2.3 High 0.8-1.2 9 Prothrombin Time 22.8 sec High 9.1-12.0 Laboratory test finding 10/28/2019 [facility] [place] [id number] SEE IMAGE 1 Reference interval is for no n-anticoagulated patients. Suggested INR therapeutic range for Vitamin K antagonist therapy: Standard Dose (moderate intensity therapeutic range): 2.0 - 3.0 Higher intensity therapeutic range 2.5 - 3.5 2 Reference interval is for no n-anticoagulated patients. Suggested INR therapeutic range for Vitamin K antagonist therapy: Standard Dose (moderate intensity therapeutic range): 2.0 - 3.0 Higher intensity therapeutic range 2.5 - 3.5 3 Reference interval is for no n-anticoagulated patients. Suggested INR therapeutic range for Vitamin K antagonist therapy: Standard Dose (moderate intensity therapeutic range): 2.0 - 3.0 Higher intensity therapeutic range 2.5 - 3.5 Please note reference interval change 4 Please note reference inte rval change 5 Reference interval is for no n-anticoagulated patients. Suggested INR therapeutic range for Vitamin K antagonist therapy: Standard Dose (moderate intensity therapeutic range): 2.0 - 3.0 Higher intensity therapeutic range 2.5 - 3.5 6 100-125 mg/dL PRE-DIABET ES/FASTING >126 mg/dL DIABETES/FASTING 7 CHRONIC KIDNEY DISEASE STAGI NG PER NKF STAGE I & II GFR >= 60 NORMAL TO MILDLY DECREASED STAGE III GFR 30-59 MODERATELY DECREASED STAGE IV GFR 15-29 SEVERELY DECREASED STAGE V GFR <15 VERY LITTLE GFR LEFT ESRD GFR <15 ON STITCH RUBBER 8 Reference interval is for no n-anticoagulated patients. Suggested INR therapeutic range for Vitamin K antagonist therapy: Standard Dose (moderate intensity therapeutic range): 2.0 - 3.0 Higher intensity therapeutic range 2.5 - 3.5 9 Reference interval is for no n-anticoagulated patients. Suggested INR therapeutic range for Vitamin K antagonist therapy: Standard Dose (moderate intensity therapeutic range): 2.0 - 3.0 Higher intensity therapeutic range 2.5 - 3.5 Procedures Date Code Description Status 04/20/2020 65273 Anticoagulant MGMT F or Patient Taking Warfarin, Inc Review & Intr Completed 03/24/2020 15907 Anticoagulant MGMT F or Patient Taking Warfarin, Inc Review & Intr Completed 03/23/2020 04409 ECG 12-Lead Completed 02/25/2020 86749 Anticoagulant MGMT F or Patient Taking Warfarin, Inc Review & Intr Completed 01/24/2020 95837 Anticoagulant MGMT F or Patient Taking Warfarin, Inc Review & Intr Completed 12/26/2019 96534 Anticoagulant MGMT F or Patient Taking Warfarin, Inc Review & Intr Completed 11/27/2019 24079 Anticoagulant MGMT F or Patient Taking Warfarin, Inc Review & Intr Completed 10/29/2019 00493 Anticoagulant MGMT F or Patient Taking Warfarin, Inc Review & Intr Completed Medical Devices Description No Information Available Encounters Type Date Location Provider Dx Diagnosis Office Visit 03/23/2020 12:15p Main Office Bal Tolbert MD R05 Cough I48.0 Paroxysmal atrial fibrillati on I49.3 Ventricular premature depola rization I45.19 Other right bundle-branch bl ock R94.31 Abnormal electrocardiogram [ ECG] [EKG] I34.0 Nonrheumatic mitral (valve) insufficiency G47.33 Obstructive sleep apnea (dillan lt) (pediatric) Assessments Date Code Description Provider 04/20/2020 I48.0 Paroxysmal atrial fibrillation Sebasitan Benitez PA-C 04/20/2020 Z79.01 alf (current) use of antic oagulants Lynsey Benitez PA-C 03/24/2020 I48.0 Paroxysmal atrial fibrillation Sebastian Benitez PA-C 03/24/2020 Z79.01 vermin exterminator (current) use of antic oagulants Lynsey Benitez, PA-C 03/23/2020 R05 Cough Bal Tolbert MD 03/23/2020 I48.0 Paroxysmal atrial fibrillation Peter Tolbert MD 03/23/2020 I49.3 Ventricular premature depolariza tion Bal Tolbert MD 03/23/2020 I45.19 Other right bundle-branch block Bal Tolbert MD 03/23/2020 R94.31 Abnormal electrocardiogram [ECG] [EKG] Bal Tolbert MD 03/23/2020 I34.0 Nonrheumatic mitral (valve) insu fficiency Bal Tolbert MD 03/23/2020 G47.33 Obstructive sleep apnea (adult) (pediatric) Bal Tolbert MD 02/25/2020 I48.0 Paroxysmal atrial fibrillation K yvonne Benitez, PA-C 02/25/2020 Z79.01 vermin exterminator (current) use of antic oagulants Lynsey Benitez, PA-C 01/24/2020 I48.0 Paroxysmal atrial fibrillation K yvonne Benitez, PA-C 01/24/2020 Z79.01 alf (current) use of antic oagulants Lynsey Benitez, PA-C 12/26/2019 I48.0 Paroxysmal atrial fibrillation A jaret Hillman, PA 12/26/2019 Z79.01 alf (current) use of antic oagulants Alicja Hillman PA 11/27/2019 Z79.01 vermin exterminator (current) use of antic oagulants INÉS Manriquez 10/29/2019 I48.0 Paroxysmal atrial fibrillation K yvonne Benitez, PA-C 10/29/2019 Z79.01 vermin exterminator (current) use of antic oagulants Lynsey Benitez, PA-C Plan of Treatment 03/23/2020 - Bal Tolbert MD* R05 Cough* Recommendations:* We will plan on obtaining follow-up pulmonary function testing next month. Have requested they keep me posted should his cough become more frequent or distressing. * I48.0 Paroxysmal atrial fibrillation* New Labs:* TSH Ultrasensitive, Ordered: 03/23/20 * Recommendations:* Has been free of any awareness of his heart action. His rhythm on examination is quite regular. EKG shows a sinus mechanism. Has been tolerating his amiodarone without problem but cough as mentioned above and chest x-ray last November showing some fibrotic changes. Should his pulmonary function test show worsening abnormalities, we will plan on a follow-up chest x-ray, otherwise follow-up chest x-ray will be next July. Stable borderline abnormal thyroid stimulating hormone level, a follow-up TSH will be obtained with his next PT blood draw next month. * I49.3 Ventricular premature depolarization* Recommendations:* As per assessment #2 * I45.19 Other right bundle-branch block* Recommendations:* No special measures deemed necessary at this time. We will continue to monitor his conduction disturbance. * R94.31 Abnormal electrocardiogram [ECG] [EKG]* Recommendations:* Remains on protective Lipitor and warfarin shown to reduce his risk of stroke and heart attack. Requested that he contact us should he develop effort related chest, jaw, or arm discomforts. * I34.0 Nonrheumatic mitral (valve) insufficiency* Recommendations:* No special measures deemed necessary. SBE antibiotic prophylaxis prior to dental or surgical procedures, is not indicated for this condition according to the [place] [employer] guidelines July 2006. * G47.33 Obstructive sleep apnea (adult) (pediatric)* Recommendations:* Encouraged his continued compliance with CPAP therapy as directed by pulmonary medicine. Their service also monitors his pulmonary function on his amiodarone therapy * All * Comments:* I will ensure that the aforementioned test findings are reported to you along with any further recommendations. Thank you for allowing me to participate in the care of your patient. Best regards. * Follow up:* Pending his pulmonary function test findings, we would tentatively plan for a followup appointment with EKG and blood work in 6 months. We would be pleased to reassess the patient at any time. Functional Status Functional Condition Comment Date Status Independent with all ADL's Activ e Mental Status Description No Information Available Referrals Description No Information Available
--- OUTSIDE RECORDS SUMMARY | 2020-05-02 09:08 | CCD | Continuity of Care Document ---
Author Author Jamil REA M.D. Organization Unknown Address [address] [place] [address] Phone [phone] Care Team Providers Care Survey Chief Name Role Phone Shlomo Rea MD AUTM [phone] Bal Tolbert MD AUTM Unavailable Juan M Covarrubias MD AUTM [phone] Rebekah Burroughs MD AUTM [phone] Problems Active Problems Provider Date Atrial fibrillation Shlomo Rea M.D. Onset: 09/18/2017 Long-term current use of anticoagulant Shlomo Rea M.D. Onset: 09/18/2017 Obstructive sleep apnea syndrome Shlomo Rea M.D. Onset: 09/18/2017 Pure hypercholesterolemia Shlomo Rea M.D. Onset: 2017 Chronic kidney disease stage 3 Shlomo Rea M.D. Onset: 0 09/18/2017 Social History Type Date Description Comments Sex Unknown ETOH Use Denies alcohol use Tobacco Use Start: Unknown Patient has never smoked Allergies, Adverse Reactions, Alerts Description No Known Drug Allergies Medications Active Medications SIG Qnty Indications Ordering Provide r Date Vitamin D (Ergocalciferol) 1.25mg (32138 Ut) Capsules take one once a week 24caps Shlomo Rea M.D. 12/23/2019 Triamcinolone Acetonide 0.5% Cream apply twice a day as directed - do not overuse, risk of atropy. 45gm Shlomo Rea M.D. 12/23/2019 Cefuroxime Axetil 500mg Tablets by mouth twice a day 20tabs Shlomo Rea M.D. 12/11/2018 Bill Rea M.D. 09/01 Tamsulosin HCL 0.4mg Capsules take one tablet by mouth daily 90caps Shlomo Rea M.D. Amiodarone HCL 200mg Tablets Take One Tablet By Mouth Mon, ,Mon, Th And Fri. Wi Bal cruz MD Warfarin Sodium 5mg Tablets Take One Tablet By Mouth Sun, , Mon,Mon And Sat. Take 7.5 On Mon And . Bal Tolbert MD Atorvastatin Calcium 80mg Tablets 1 by mouth twice a week (Monday and Unknown Centrum Men Tablets Take one tablet twice a week Unknown Amoxicillin/Clavulanate Potassium 875-125mg Tablets 1 by mouth twice a day Unknown Dexamethasone 2mg Tablets 2 p o b.i.d. Unknown Albuterol Sulfate HFA 108(90Base) mcg/Act Aerosol inhale 2 puffs by mouth four times daily as needed Unknown History Medications Vitamin A Powder take one once a week 24units Shlomo Rea M.D. 12/23/2019 - 2019 Medications Administered in Office Medication SIG Qnty Indications Ordering Provider Date Administration Of Flu Vaccine Inj tia Rea M.D. 12/23/2019 Administration Of Flu Vaccine Inj tia Rea M.D. 01/16/2019 Administration Of Flu Vaccine Inj tia Rea M.D. 01/04/2018 Immunizations CPT Code Status Date Vaccine Lot # [id number] Given 12/23/2019 Influenza Vaccin e Quadrivalent Preser/Antibiotic Free Im Use [id number] 07836 Given 11/27/2019 Adacel- Tetanus Diphtheria P ertussis (Age64 & Under) 67946 Given 01/16/2019 Influenza Vaccin e Quadrivalent Preser/Antibiotic Free Im Use [id number] 77440 Given 01/04/2018 Influenza Virus Vaccine, Quadrivalent (Cciiv4), Derived From Cell 486230 U-PneuC Given 01/02/2017 Prevnar 13 U-Flu Given 01/02/2017 Influenza,Unspecified 56898 Given 01/11/2012 Zostavax U-Td Given 01/11/2012 Td(Adult)(Tetanus, Diphtheri a) unspecified Vital Signs Date Vital Result Comment 04/20/2020 10:48am BP Systolic 102 mmHg BP Diastolic 58 mmHg Heart Rate 70 /min Height 65.5 inches 5'5.50" Weight 182.00 lb O2 % BldC Oximetry 94 % BMI (Body Mass Index) 29.8 kg/m2 12/23/2019 8:35am BP Systolic 118 mmHg BP Diastolic 70 mmHg Heart Rate 74 /min Weight 190.00 lb Results Test Acquired Date Facility Test Result H/L Range Note Istat Chem8+ Panel 04/11/2020 [facility] [address] [place] [address] [phone] iSTAT HCT 40.0 % Normal 38.0-51.0 iSTAT Glucose 141 mg/dL High 70-105 iSTAT Sodium 140 mEq/L Normal 136-145 iSTAT Potassium 4.0 mEq/L Normal 3.5-5.1 iSTAT CA++ 4.3 mg/dL Low 4.5-5.3 iSTAT Chloride 106 mEq/L Normal 98-109 iSTAT Co2 23.0 MM/L Normal 23.0-27.0 iSTAT BUN 29 mg/dL High 8-26 iSTAT Creatinine 1.6 mg/dL High 0.6-1.3 CBC With Differential 04/11/2020 [facility] [address] [place] [address] [phone] White Blood Count 9.8 10 Normal 4.0-10.0 Red Blood Count 4.43 10 Normal 4.30-6.10 Hemoglobin 12.8 g/dL Low 13.5-17.5 Hematocrit 41.3 % Low 42.0-52.0 Mean Corpuscular Volume 93.2 fl Normal 80.0-96.0 Mean Corpuscular Hemoglobin 28.9 pg Normal 27.0-33.0 Mean Corpuscular HGB Conc 31.0 g/dL Low 32.0-36.5 Red Cell Distribution Width 14.5 % Normal 11.5-14.5 Platelet Count, Automated 319 10 Normal 150-450 Neutrophils % 68.1 % High 36.0-66.0 Lymph % 25.0 % Normal 24.0-44.0 Tripp % 4.9 % Normal 0.0-5.0 Eos % 0.3 % Normal 0.0-3.0 Baso % 0.2 % Normal 0.0-1.0 Immature Granulocyte % 1.5 % Normal 0-3.0 Nucleated Red Blood Cell % 0.0 % Normal 0-0 Neutrophils # 6.6 10 Normal 1.5-8.5 Lymph # 2.4 10 Normal 1.5-5.0 Tripp # 0.5 10 Normal 0.0-0.8 Eos # 0.0 10 Normal 0.0-0.5 Baso # 0.0 10 Normal 0.0-0.2 Comprehensive Metabolic Profil 04/11/[address] [address] [phone] Glucose, Fasting 142 mg/dL High 70-100 Blood Urea Nitrogen 31 mg/dL High 7-18 Creatinine For GFR 1.61 mg/dL High 0.70-1.30 Glomerular Filtration Rate 43.7 Normal >35 1 Sodium Level 139 mEq/L Normal 136-145 Potassium Serum 4.4 mEq/L Normal 3.5-5.1 Chloride Level 108 mEq/L High 98-107 Carbon Dioxide Level 24 mEq/L Normal 21-32 Anion Gap 7 mEq/L Low 8-16 Calcium Level 7.9 mg/dL Low 8.8-10.2 Ast/Sgot 115 U/L High 7-37 Alt/SGPT 101 U/L High 12-78 Alkaline Phosphatase 80 U/L Normal 45-117 Bilirubin,Total 0.5 mg/dL Normal 0.2-1.0 Total Protein 6.6 GM/DL Normal 6.4-8.2 Albumin 2.8 GM/DL Low 3.2-5.2 Albumin/Globulin Ratio 0.7 Normal Cardiac Marker Panel 04/11/[address] [address] [phone] CPK Creatine Phosphokinase 110 U/L Normal 39-30 8 CK-MB Value Mass 1.1 NG/ML Normal <3.6 MB/CK Relative Index 1.00 Normal < Or =4 2 Troponin I < 0.02 NG/ML Normal < 0.10 3 Laboratory test finding 04/11/[address] [address] [phone] LDH Lactate Dehydrogenase 446 U/L High 87-241 Magnesium Level 2.0 mg/dL Normal 1.8-2.4 Ferritin 1581 NG/ML High 26-388 C Reactive Protein Quantitativ 15.20 mg/dL High 0.00-0.30 Lactic Acid Sepsis Protocol 2.6 mmol/L Critical high 0.4-2.0 4 PT & Aptt 04/11/2020 [facility] [address] [place] [address] [phone] Prothrombin Time 41.4 seconds High 12.5-14.3 Inr 4.19 Normal 5 Partial Thromboplastin Time 68.4 seconds High 24.2-38.5 Laboratory test finding 04/11/[address] [address] [phone] Fibrinogen 750 mg/dL High 221-452 D-Dimer Quant 1803.85 ng/ml High <500 Procalcitonin 0.21 Normal 6 Arterial Blood Gas 04/11/2020 [facility] [address] [place] [address] [phone] ABG pH (Arterial) 7.489 units High 7.350-7.450 ABG Partial Pressure Co2 30.7 mmHg Low 35.0-45.0 ABG Partial Pressure O2 57.9 mmHg Low 75.0-100.0 ABG Total Co2 23.8 mEq/L Normal 23.0-31.0 ABG Hco3 22.8 mEq/L Normal 22.0-26.0 ABG Base Excess 0.3 Normal -2.0-2.0 ABG Standard Hco3 24.7 mEq/L Normal 22.0-26.0 ABG O2 Saturation 92.7 % Low 95.0-99.0 Laboratory test finding 04/06/[address] [address] [phone] LDH Lactate Dehydrogenase 318 U/L High 87-241 Magnesium Level 2.2 mg/dL Normal 1.8-2.4 Digoxin Level 0.2 NG/ML Low 0.5-2.0 Ferritin 640 NG/ML High 26-388 C Reactive Protein Quantitativ 6.29 mg/dL High 0.00-0.30 Procalcitonin 0.24 Normal 7 Blood Culture No growth after <SEE NOTE> 8 Cardiac Marker Panel 04/06/2020 [facility] [address] [place] [address] [phone] CPK Creatine Phosphokinase 357 U/L High 39-30 8 CK-MB Value Mass 2.1 NG/ML Normal <3.6 MB/CK Relative Index 0.59 Normal < Or =4 9 Troponin I < 0.02 NG/ML Normal < 0.10 10 Comprehensive Metabolic Profil 04/06/2020 [facility] [address] [place] [address] [phone] Glucose, Fasting 132 mg/dL High 70-100 Blood Urea Nitrogen 34 mg/dL High 7-18 Creatinine For GFR 1.74 mg/dL High 0.70-1.30 Glomerular Filtration Rate 40.0 Normal >35 1 1 Sodium Level 136 mEq/L Normal 136-145 Potassium Serum 4.2 mEq/L Normal 3.5-5.1 Chloride Level 108 mEq/L High 98-107 Carbon Dioxide Level 22 mEq/L Normal 21-32 Anion Gap 6 mEq/L Low 8-16 Calcium Level 7.7 mg/dL Low 8.8-10.2 Ast/Sgot 37 U/L Normal 7-37 Alt/SGPT 26 U/L Normal 12-78 Alkaline Phosphatase 59 U/L Normal 45-117 Bilirubin,Total 0.3 mg/dL Normal 0.2-1.0 Total Protein 6.5 GM/DL Normal 6.4-8.2 Albumin 3.0 GM/DL Low 3.2-5.2 Albumin/Globulin Ratio 0.9 Normal Laboratory test finding 04/06/2020 [facility] [address] [place] [address] [phone] Fibrinogen 552 mg/dL High 221-452 D-Dimer Quant 1650.90 ng/ml High <500 Lactic Acid Sepsis Protocol 1.3 mmol/L Normal 0.4-2.0 12 PT & Aptt 04/06/2020 [facility] [address] [place] [address] [phone] Prothrombin Time 18.7 seconds High 12.5-14.3 Inr 1.53 Normal 13 Partial Thromboplastin Time 38.1 seconds Normal 24.2-38.5 CBC With Differential 04/06/2020 [facility] [address] [place] [address] [phone] White Blood Count 5.4 10 Normal 4.0-10.0 Red Blood Count 4.22 10 Low 4.30-6.10 Hemoglobin 12.3 g/dL Low 13.5-17.5 Hematocrit 39.4 % Low 42.0-52.0 Mean Corpuscular Volume 93.4 fl Normal 80.0-96.0 Mean Corpuscular Hemoglobin 29.1 pg Normal 27.0-33.0 Mean Corpuscular HGB Conc 31.2 g/dL Low 32.0-36.5 Red Cell Distribution Width 14.5 % Normal 11.5-14.5 Platelet Count, Automated 172 10 Normal 150-450 Neutrophils % 72.0 % High 36.0-66.0 Lymph % 19.4 % Low 24.0-44.0 Tripp % 7.8 % High 0.0-5.0 Eos % 0.0 % Normal 0.0-3.0 Baso % 0.4 % Normal 0.0-1.0 Immature Granulocyte % 0.4 % Normal 0-3.0 Nucleated Red Blood Cell % 0.0 % Normal 0-0 Neutrophils # 3.9 10 Normal 1.5-8.5 Lymph # 1.1 10 Low 1.5-5.0 Tripp # 0.4 10 Normal 0.0-0.8 Eos # 0.0 10 Normal 0.0-0.5 Baso # 0.0 10 Normal 0.0-0.2 Blood Culture 04/06/2020 [facility] [address] [place] [address] [phone] Blood Culture No growth after <SEE NOTE> 14 Laboratory test finding 12/20/2019 [facility] [employer] Wall Taper Helper: [place] [address] [phone] T4 Free 1.17 ng/dL 0.76 - 1.46 Complete Blood Count 12/20/2019 [facility] Wall Taper Helper: [place] [address] [phone] WBC 7.5 x10*3/UL 4.1 - 10.9 RBC 4.34 x10*6/UL 4.20 - 6.30 Hemoglobin 13.3 g/dL 12.0 - 18.0 Hematocrit 37.7 % 37.0 - 51.0 MCV 86.8 fL 80.0 - 97.0 MCH 30.7 pg 26.0 - 32.0 MCHC 35.3 g/dL 31.0 - 38.0 RDW 12.9 % 11.6 - 13.7 PLT 263 x10*3/UL 140 - 440 MPV 7.6 FL Low 7.8 - 11.0 Lymph % 19.9 % 10.0 - 58.5 Mid % 5.2 % 1.7 - 9.3 Neut % 74.9 % 37.0 - 92.0 Lymph # 1.4 x10*3/UL 0.6 - 4.1 Mid # 0.5 x10*3/UL 0.1 - 0.6 Neut # 5.6 x10*3/UL 2.0 - 7.8 Comprehensive Chem Profile 12/20/2019 [facility] Wall Taper Helper: Dr Hu [place] [address] [phone] Glucose 93 mg/dL 74 - 99 15 BUN 36 mg/dL High 7 - 18 Creatinine 1.9 mg/dL High 0.6 - 1.3 Sodium 142 mEq/L 136 - 145 Potassium 4.5 mEq/L 3.5 - 5.1 Chloride 108 mEq/L High 98 - 107 Carbon Dioxide 27 mEq/L 21 - 32 Calcium 8.6 mg/dL 8.5 - 10.1 Alk. Phosphatase 68 mg/dL 46 - 116 Total Bilirubin 0.5 mg/dL 0.2 - 1.0 Ast (Sgot) 21 U/L 15 - 37 Alt (SGPT) 28 U/L 12 - 78 Albumin 3.8 g/dL 3.4 - 5.0 Total Protein 7.2 g/dL 6.4 - 8.2 A/G Ratio 1.12 CALC 1.00 - 1.90 GFR 34 mL/min Low >60 GFR 41 mL/min Low >60 16 Lipid Profile 12/20/2019 [facility] Wall Taper Helper: Dr Hu [place] [address] [phone] Cholesterol 173 mg/dL 131 - 200 Triglycerides 106 mg/dL 30 - 150 HDL Cholesterol 42 mg/dL 35 - 60 LDL (Calculated) 110 CALC 50 - 159 Laboratory test finding 12/20/2019 [facility] Wall Taper Helper: Dr Hu [place] [address] [phone] Thyroid Stimulating Hormone 4.02 uIU/mL High 0.3 6 - 3.74 1 Units are mL/min/1.73 m2 Chronic Kidney Disease Staging per NKF: Stage I & II GFR >=60 Normal to Mildly Decreased Stage III GFR 30-59 Moderately Decreased Stage IV GFR 15-29 Severely Decreased Stage V GFR <15 Very Little GFR Left ESRD GFR <15 on RECYCLABLE MATERIALS COLLECTOR 2 DIAGNOSIS CRITERIA MMB ng/ml Relative Index (RI) NON-AMI < or = 5 N/A MATAMOROS ZONE > 5 < or = 4 AMI > 5 > 4 3 Troponin I Reference Interva l for [facility] [place] LOCI: 99th Percentile= 0.00-0.045 ng/ml Risk Stratification: <= 0.10 ng/ml Decreased Risk for Adverse Clinical Events. 0.10-1.50 ng/ml Increased Risk for Adv erse Clinical Events. Evaluation of additional criterion and/or repeat testing in 2-6 hours is suggested to rule out myocardial damage. >= 1.50 ng/ml Indicative of Myocardial Injury. 4 Y/N query for Sepsis Lactate Rule: Y 5 THERAPUTIC HUMAN INR VALUES INDICATIONS NORMAL RANGES PROPHYLAXIS/TREATMENT OF: VENOUS THROMBOSIS 2.0-3.0 PULMONARY EMBOLISM 2.0-3.0 PREVENTION OF SYSTEMIC EMBOLISM FROM: TISSUE HEART VALVES 2.0-3.0 ACUTE MYOCARDIAL INFARCTION 2.0-3.0 VALVULAR HEART DISEASE 2.0-3.0 ATRIAL FIBRILLATION 2.0-3.0 MECHANICAL VALVES(HIGH RISK) 2.5-3.5 RECURRENT MYOCARDIAL INFARCTION 2.5-3.5 6 SEPSIS INTERPRETATION OF RES ULTS <0.5 ng/ml Low risk for progression to severe sepsis and or septic shock. 0.50-2.00 ng/ml Sepsis should be consid ered. >2.00 ng/ml High risk for progression to severe sepsis and or septic shock. LOWER RESPIRATORY TRACT INFECTION REFERENCE INTERVAL <0.1 ng/ml Antibiotics strongly discouraged. 0.1-0.25 ng/ml Antibiotics are disc ouraged. 0.26-0.5 ng/ml Antibiotics are enco uraged. >0.5 ng/ml Antibiotics are strongly encouraged. 7 SEPSIS INTERPRETATION OF RES ULTS <0.5 ng/ml Low risk for progression to severe sepsis and or septic shock. 0.50-2.00 ng/ml Sepsis should be consid ered. >2.00 ng/ml High risk for progression to severe sepsis and or septic shock. LOWER RESPIRATORY TRACT INFECTION REFERENCE INTERVAL <0.1 ng/ml Antibiotics strongly discouraged. 0.1-0.25 ng/ml Antibiotics are disc ouraged. 0.26-0.5 ng/ml Antibiotics are enco uraged. >0.5 ng/ml Antibiotics are strongly encouraged. 8 No growth after 72 hours . A ll specimens observed for 5 days. Results final at that time. No growth after 48 hours . All specimens observed for 5 days. Results final at that time. No growth after 24 hours . All specimens observed for 5 days. Results final at that time. NO GROWTH AFTER 5 DAYS 9 DIAGNOSIS CRITERIA MMB ng/ml Relative Index (RI) NON-AMI < or = 5 N/A MATAMOROS ZONE > 5 < or = 4 AMI > 5 > 4 10 Troponin I Reference Interva l for [facility] [place] LOCI: 99th Percentile= 0.00-0.045 ng/ml Risk Stratification: <= 0.10 ng/ml Decreased Risk for Adverse Clinical Events. 0.10-1.50 ng/ml Increased Risk for Adv erse Clinical Events. Evaluation of additional criterion and/or repeat testing in 2-6 hours is suggested to rule out myocardial damage. >= 1.50 ng/ml Indicative of Myocardial Injury. 11 Units are mL/min/1.73 m2 Chronic Kidney Disease Staging per NKF: Stage I & II GFR >=60 Normal to Mildly Decreased Stage III GFR 30-59 Moderately Decreased Stage IV GFR 15-29 Severely Decreased Stage V GFR <15 Very Little GFR Left ESRD GFR <15 on RECYCLABLE MATERIALS COLLECTOR 12 Y/N query for Sepsis Lactate Rule: Y 13 THERAPUTIC HUMAN INR VALUES INDICATIONS NORMAL RANGES PROPHYLAXIS/TREATMENT OF: VENOUS THROMBOSIS 2.0-3.0 PULMONARY EMBOLISM 2.0-3.0 PREVENTION OF SYSTEMIC EMBOLISM FROM: TISSUE HEART VALVES 2.0-3.0 ACUTE MYOCARDIAL INFARCTION 2.0-3.0 VALVULAR HEART DISEASE 2.0-3.0 ATRIAL FIBRILLATION 2.0-3.0 MECHANICAL VALVES(HIGH RISK) 2.5-3.5 RECURRENT MYOCARDIAL INFARCTION 2.5-3.5 14 No growth after 72 hours . A ll specimens observed for 5 days. Results final at that time. No growth after 48 hours . All specimens observed for 5 days. Results final at that time. No growth after 24 hours . All specimens observed for 5 days. Results final at that time. NO GROWTH AFTER 5 DAYS 15 100-125 mg/dL PRE-DIABET ES/FASTING >126 mg/dL DIABETES/FASTING 16 CHRONIC KIDNEY DISEASE STAGI NG PER NKF STAGE I & II GFR >= 60 NORMAL TO MILDLY DECREASED STAGE III GFR 30-59 MODERATELY DECREASED STAGE IV GFR 15-29 SEVERELY DECREASED STAGE V GFR <15 VERY LITTLE GFR LEFT ESRD GFR <15 ON RECYCLABLE MATERIALS COLLECTOR Procedures Date Code Description Status 11/03/2008 05051042 Colonoscopy Completed Medical Devices Description No Information Available Encounters Description No Information Available Assessments Date Code Description Provider 12/23/2019 Z23 Encounter for immunization Shlomo Rea M.D. 12/20/2019 E78.00 Pure hypercholesterolemia, unspe cified Shlomo Rea M.D. 12/20/2019 E78.00 Pure hypercholesterolemia, unspe cified Lab Schedule 12/20/2019 N18.3 Chronic kidney disease, stage 3 (moderate) Shlomo Rea M.D. 12/20/2019 N18.3 Chronic kidney disease, stage 3 (moderate) Lab Schedule 12/20/2019 I48.91 Unspecified atrial fibrillation Shlomo Rea M.D. 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 12/20/2019 E07.9 Disorder of thyroid, unspecified Lab Schedule Plan of Treatment Future Appointment(s):* 06/22/2020 7:50 am - Lab Schedule at [facility] * 06/23/2020 8:30 am - Shlomo Rea M.D. at [facility] 12/23/2019 - Shlomo Rea M.D.* Z23 Encounter for immunization * Functional Status Description No Information Available Mental Status Description No Information Available Referrals Description No Information Available
--- OUTSIDE RECORDS SUMMARY | 2020-05-02 09:08 | CCD ---
Continuity of Care Document (CCD) Created on: 04/20/2020 Jamil Loera External Reference #: [id number] : [id number] Sex: Male Author Author Jamil BENITEZ-C Organization Unknown Address [address], [place] [address] Phone [phone] Care Team Providers Care General Claims Agent Name Role Phone Steven Alvares DO AUTM [phone] Saadia GaitanC AUTM [phone] Juan M Covarrubias MD AUTM [phone] Shlomo Goins MD AUTM [phone] Rebekah Burroughs MD AUTM [phone] Problems Active Problems Provider Date Atrial fibrillation [...] . Bal Tolbert MD 03/07/2016 Vitamin D 97556Hhih Capsules 1 po every other week Lexx Givens MD 06/14/2012 Amiodarone HCL 200mg Tablets take one tablet by mouth every day for monday-monday 75tabs Michael Tolbert MD 12/11/2008 Warfarin Sodium 5mg Tablets Mitesh 1-2 Tablets By Mouth Daily as Directed 180tabs Bal de leon MD 08/03/2007 Flomax 0.4mg Caps ER 24HR 1 P O daily Lexx Givens MD 05/15/2007 Multivitamins Tablets 1 PO d [...] Laboratory test finding 03/23/2020 [facility] PDF [id number] SEE IMAGE Renal Profile 03/06/2020 [facility] [...] sec High 9.1-12.0 [facility] test [facility] [id number] SEE IMAGE Prothrombin Time (PT) 01/23/2020 [facility] Inr 1.9 High 0.9-1.2 3 Prothrombin Time 19.3 sec High 9.1-12.0 4 Laboratory test finding 01/23/2020 [facility] PDF [id number] SEE IMAGE Laboratory test finding 12/25/2019 [facility] PDF [id number] SEE IMAGE Prothrombin Time (PT) 12/25/2019 [facility] [...] Laboratory test finding 11/26/2019 [facility] PDF [id number] SEE IMAGE Prothrombin Time (PT) 10/28/2019 [facility] Inr 2.3 High 0.8-1.2 9 Prothrombin Time 22.8 sec High 9.1-12.0 Laboratory test finding 10/28/2019 [facility] PDF [id number] SEE IMAGE 1 Reference interval is for [...] LITTLE GFR LEFT ESRD GFR <15 ON DEBURRING TECHNICIAN 8 Reference interval is for no n-anticoagulated [...] - 3.5 Procedures Date Code Description Status 03/24/2020 19458 Anticoagulant MGMT F or Patient Taking Warfarin, Inc Review & Intr Completed 03/23/2020 86975 ECG 12-Lead Completed 02/25/2020 00882 Anticoagulant MGMT F or Patient Taking Warfarin, Inc Review & Intr Completed 01/24/2020 71625 Anticoagulant MGMT F or Patient Taking Warfarin, Inc Review & Intr Completed 12/26/2019 00516 Anticoagulant MGMT F or Patient Taking Warfarin, Inc Review & Intr Completed 11/27/2019 48867 Anticoagulant MGMT F or Patient Taking Warfarin, Inc Review & Intr Completed 10/29/2019 18757 Anticoagulant MGMT F or Patient Taking Warfarin, [...] lt) (pediatric) Assessments Date Code Description Provider 03/24/2020 I48.0 Paroxysmal atrial fibrillation Sebastian Benitez PA-C 03/24/2020 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 Lynsey Benitez PA-C 03/23/2020 R05 Cough Bal Tolbert MD [...] fibrillation K yvonne Benitez, PA-C 02/25/2020 Z79.01 [facility]CC (current) use of antic oagulants Lynsey Hicksw, PA-C 01/24/2020 I48.0 Paroxysmal atrial fibrillation K yvonne Benitez, PA-C 01/24/2020 Z79.01 [facility] (current) use of antic oagulants Lynsey Hicksw, PA-C 12/26/2019 I48.0 Paroxysmal atrial fibrillation A INÉS Bautista 12/26/2019 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
--- OUTSIDE RECORDS SUMMARY | 2020-05-02 09:08 | CCD | Continuity of Care Document ---
Author Author Jamil REA M.D. Organization Unknown Address [address] [facility] [address] [place] [address] Phone [phone] Care Team Providers Care Computer Repair Technician Name Role Phone Shlomo Rea MD AUTM [phone] Bal Tolbert MD AUTM Unavailable Jaun M Covarrubias MD AUTM [phone] HeikeRebekah serra MD AUTM [phone] [facility] Hea AUTM [phone] Problems Active Problems Provider Date Atrial fibrillation Sholmo Rea M.D. Onset: 09/18/2017 Long-term current use [...] Provide r Date Vitamin D (Ergocalciferol) 1.25mg (83969 Ut) Capsules take one once a week 24caps Shlomo Rea M.D. 12/23/2019 Triamcinolone Acetonide 0.5% Cream apply twice a day as directed - do not overuse, risk of atropy. 45gm Shlomo Rea M.D. 12/23/2019 Cefuroxime Axetil 500mg Tablets by mouth twice a day 20tabs Shlomo Rea M.D. 12/11/2018 Cpap Shlomo Rea M.D. 09/01 Tamsulosin HCL 0.4mg Capsules take one tablet by mouth daily 90caps Shlomo Rea M.D. Amiodarone HCL 200mg Tablets Take One Tablet By Mouth Mon, ,Mon, And Fri. Wi Bal cruz MD Warfarin Sodium 5mg Tablets Take One Tablet By Mouth Mon, , Mon,Mon And Sat. Take 7.5 On [...] CPT Code Status Date Vaccine Lot # [id number] Given 12/23/2019 Influenza Vaccin e Quadrivalent Preser/Antibiotic Free Im Use [id number] 42854 Given 11/27/2019 Adacel- Tetanus Diphtheria P ertussis (Age64 & Under) 44260 Given 01/16/2019 Influenza Vaccin e Quadrivalent Preser/Antibiotic Free Im Use [id number] 82421 Given 01/04/2018 Influenza Virus Vaccine, Quadrivalent (Cciiv4), Derived From Cell [id number] -PneuC Given 01/02/2017 Prevnar 13 U-Flu Given 01/02/2017 Influenza,Unspecified 06257 Given 01/11/2012 Zostavax U-Td Given 01/11/2012 Td(Adult)(Tetanus, [...] Date Facility Test Result H/L Range Note Laboratory test finding 04/20/2020 Wi-Inr Inr 2.4 Istat Chem8+ Panel 04/11/2020 [facility] nter [address] [place] [address] [phone] iSTAT HCT 40.0 % Normal 38.0-51.0 iSTAT Glucose 141 mg/dL High 70-105 iSTAT Sodium 140 mEq/L Normal 136-145 iSTAT Potassium 4.0 mEq/L Normal 3.5-5.1 iSTAT CA++ 4.3 mg/dL Low 4.5-5.3 iSTAT Chloride 106 mEq/L Normal 98-109 iSTAT Co2 23.0 MM/L Normal 23.0-27.0 iSTAT BUN 29 mg/dL High 8-26 iSTAT Creatinine 1.6 mg/dL High 0.6-1.3 CBC With Differential 04/11/2020 [facility] [address] [place] [address] [phone] White Blood Count 9.8 10 Normal 4.0-10.0 [...] 36.0-66.0 Lymph % 25.0 % Normal 24.0-44.0 Terry % 4.9 % Normal 0.0-5.0 Eos % 0.3 % Normal 0.0-3.0 Baso % 0.2 % Normal 0.0-1.0 Immature Granulocyte % 1.5 % Normal 0-3.0 Nucleated Red Blood Cell % 0.0 % Normal 0-0 Neutrophils # 6.6 10 Normal 1.5-8.5 Lymph # 2.4 10 Normal 1.5-5.0 Terry # 0.5 10 Normal 0.0-0.8 Eos # 0.0 10 Normal 0.0-0.5 Baso # 0.0 10 Normal 0.0-0.2 Comprehensive Metabolic Profil 04/11/[address] [address] [phone] Glucose, Fasting 142 mg/dL High 70-100 Blood [...] Ratio 0.7 Normal Cardiac Marker Panel 04/11/[address] [address] [phone] CPK Creatine Phosphokinase 110 U/L Normal 39-30 8 CK-MB Value Mass 1.1 NG/ML Normal <3.6 MB/CK Relative Index 1.00 Normal < Or =4 2 Troponin I < 0.02 NG/ML Normal < 0.10 3 Laboratory test finding 04/11/2020 [place] [address] [phone] LDH Lactate Dehydrogenase 446 U/L High 87-241 Magnesium Level 2.0 mg/dL Normal 1.8-2.4 Ferritin 1581 NG/ML High 26-388 C Reactive Protein Quantitativ 15.20 mg/dL High 0.00-0.30 Lactic Acid Sepsis Protocol 2.6 mmol/L Critical high 0.4-2.0 4 PT & Aptt 04/11/[address] [address] [phone] Prothrombin Time 41.4 seconds High 12.5-14.3 Inr 4.19 Normal 5 Partial Thromboplastin Time 68.4 seconds High 24.2-38.5 Laboratory test finding 04/11/2020 [place] [id number] [phone] Fibrinogen 750 mg/dL High 221-452 D-Dimer Quant 1803.85 ng/ml High <500 Procalcitonin 0.21 Normal 6 Arterial Blood Gas 04/11/[address] [address] [phone] ABG pH (Arterial) 7.489 units High 7.350-7.450 ABG Partial Pressure Co2 30.7 mmHg Low 35.0-45.0 ABG Partial Pressure O2 57.9 mmHg Low 75.0-100.0 ABG Total Co2 23.8 mEq/L Normal 23.0-31.0 ABG Hco3 22.8 mEq/L Normal 22.0-26.0 ABG Base Excess 0.3 Normal -2.0-2.0 ABG Standard Hco3 24.7 mEq/L Normal 22.0-26.0 ABG O2 Saturation 92.7 % Low 95.0-99.0 Laboratory test finding 04/06/[address] [address] [phone] LDH Lactate Dehydrogenase 318 U/L High 87-241 Magnesium Level 2.2 mg/dL Normal 1.8-2.4 Digoxin Level 0.2 NG/ML Low 0.5-2.0 Ferritin 640 NG/ML High 26-388 C Reactive Protein Quantitativ 6.29 mg/dL High 0.00-0.30 Procalcitonin 0.24 Normal 7 Blood Culture No growth after <SEE NOTE> 8 Cardiac Marker Panel 04/06/2020 [facility] [address] [place] [address] [phone] CPK Creatine Phosphokinase 357 U/L High 39-30 8 CK-MB Value Mass 2.1 NG/ML Normal <3.6 MB/CK Relative Index 0.59 Normal < Or =4 9 Troponin I < 0.02 NG/ML Normal < 0.10 10 Comprehensive Metabolic Profil 04/06/[address] [address] [phone] Glucose, Fasting 132 mg/dL High 70-100 Blood [...] Ratio 0.9 Normal Laboratory test finding 04/06/2020 [facility] [address] [place] [address] [phone] Fibrinogen 552 mg/dL High 221-452 D-Dimer Quant 1650.90 ng/ml High <500 Lactic Acid Sepsis Protocol 1.3 mmol/L Normal 0.4-2.0 12 PT & Aptt 04/06/2020 [facility] n[facility] [address] [place] [address] [phone] Prothrombin Time 18.7 seconds High 12.5-14.3 Inr 1.53 Normal 13 Partial Thromboplastin Time 38.1 seconds Normal 24.2-38.5 CBC With Differential 04/06/2020 [place] [address] [place] [address] [phone] White Blood Count 5.4 10 Normal 4.0-10.0 [...] 36.0-66.0 Lymph % 19.4 % Low 24.0-44.0 Terry % 7.8 % High 0.0-5.0 Eos % 0.0 % Normal 0.0-3.0 Baso % 0.4 % Normal 0.0-1.0 Immature Granulocyte % 0.4 % Normal 0-3.0 Nucleated Red Blood Cell % 0.0 % Normal 0-0 Neutrophils # 3.9 10 Normal 1.5-8.5 Lymph # 1.1 10 Low 1.5-5.0 Terry # 0.4 10 Normal 0.0-0.8 Eos # 0.0 10 Normal 0.0-0.5 Baso # 0.0 10 Normal 0.0-0.2 Blood Culture 04/06/2020 [facility] [address] [place] [address] [phone] Blood Culture No growth after <SEE NOTE> 14 Laboratory test finding 12/20/2019 [facility] Chronic Disease Manager: [place] [address] [phone] T4 Free 1.17 ng/dL 0.76 - 1.46 Complete Blood Count 12/20/2019 [facility] Chronic Disease Manager: [place] [address] [phone] WBC 7.5 x10*3/UL 4.1 - 10.9 RBC [...] 2.0 - 7.8 Comprehensive Chem Profile 12/20/2019 [facility] Chronic Disease Manager: [place] [address] [phone] Glucose 93 mg/dL 74 - 99 15 [...] mL/min Low >60 16 Lipid Profile 12/20/2019 [facility] Chronic Disease Manager: [place] [address] [phone] Cholesterol 173 mg/dL 131 - 200 Triglycerides 106 mg/dL 30 - 150 HDL Cholesterol 42 mg/dL 35 - 60 LDL (Calculated) 110 CALC 50 - 159 Laboratory test finding 12/20/2019 [facility] Chronic Disease Manager: [place] [address] [phone] Thyroid Stimulating Hormone 4.02 uIU/mL High 0.3 6 - 3.74 1 Units are mL/min/1.73 m2 Chronic Kidney Disease Staging per NKF: Stage I & II GFR >=60 Normal to Mildly Decreased Stage III GFR 30-59 Moderately Decreased Stage IV GFR 15-29 Severely Decreased Stage V GFR <15 Very Little GFR Left ESRD GFR <15 on OIL DISPENSER 2 DIAGNOSIS CRITERIA MMB ng/ml Relative Index (RI) NON-AMI < or = 5 N/A MATAMOROS ZONE > 5 < or = 4 AMI > 5 > 4 3 Troponin I Reference Interva l for [place] LOCI: 99th Percentile= 0.00-0.045 ng/ml Risk Stratification: [...] 10 Troponin I Reference Interva l for [place] LOCI: 99th Percentile= 0.00-0.045 ng/ml Risk Stratification: [...] Little GFR Left ESRD GFR <15 on OIL DISPENSER 12 Y/N query for Sepsis Lactate Rule: [...] LITTLE GFR LEFT ESRD GFR <15 ON OIL DISPENSER Procedures Date Code Description Status 11/03/2008 13134812 Colonoscopy Completed Medical Devices Description No Information Available Encounters Type Date Location Provider Dx Diagnosis Office Visit 04/20/2020 11:00a [facility] Shlomo Rea M.D. J12.82 Pneumonia due to coronavirus disease 201 9 J96.01 Acute respiratory failure wi th hypoxia Assessments Date Code Description Provider 04/20/2020 J12.82 Pneumonia due to coronavirus dis ease 2018 Shlomo Rea M.D. 04/20/2020 J96.01 Acute respiratory failure with h ypoxia Shlomo Rea M.D. 12/23/2019 Z23 Encounter for immunization Shlomo Rea M.D. 12/20/2019 E78.00 Pure hypercholesterolemia, unspe cified Shlomo Rea M.D. 12/20/2019 E78.00 Pure hypercholesterolemia, unspe cified Lab Schedule 12/20/2019 N18.3 Chronic kidney disease, stage 3 (moderate) Shlomo Rea M.D. 12/20/2019 N18.3 Chronic kidney disease, stage 3 (moderate) Lab Schedule 12/20/2019 I48.91 Unspecified atrial fibrillation Shlomo Rea M.D. 12/20/2019 I48.91 Unspecified atrial fibrillation Lab Schedule 12/20/2019 Z79.01 detention (current) use of antic oagulants Shlomo Rea M.D. 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 12/20/2019 E07.9 Disorder of thyroid, unspecified Lab Schedule Plan of Treatment Future Appointment(s):* 06/22/2020 7:50 am - [facility] * 06/23/2020 8:30 am - Shlomo Rea M.D. at [facility] 04/20/2020 - Shlomo Rea M.D.* J12.82 Pneumonia due to coronavirus disease 2019 * J96.01 Acute respiratory failure with hypoxia * * Comments:* 1. Pneumonia due to coronavirus disease 2019: He appears to be recovering well from Covid-19. He is active now and has no significant breathing issues. I have encouraged them to go to the ER if his oxygen saturation level goes down or if he has significant issues with heavy breathing. 2. Acute respiratory failure with hypoxia: Improved oxygen saturations. He is doing well at home. Her is monitoring his oxygen saturation closely at home. We will monitor.Ongoing cares: They will call us in 2 weeks and let us know how he is doing. We will obtain INR level today and will send it to Dr. Tolbert's office. Education was done on Covid-19 vaccine. I have encouraged them to get the Covid-19 vaccine appropriately after 3 months as they have been exposed to coronavirus lately. I am going to see him again as scheduled. If he has new problems or issues sooner he will let us know. Functional Status Description No Information Available Mental Status Description No Information Available Referrals Description No Information Available
--- OUTSIDE RECORDS SUMMARY | 2020-05-02 09:09 | CCD | Continuity of Care Document ---
Author Organization Unknown Address Unknown Phone Unavailable Care Team Providers Care Spooling Supervisor Name Role Phone Shlomo Goins MD AUTM [phone] Bal Tolbert MD AUTM Unavailable Juan M Covarrubias MD AUTM [phone] Rebekah Burroughs MD AUTM [phone] Problems Active Problems Provider Date Atrial fibrillation Shlomo Goins M.D. Onset: 09/18/2017 Long-term current use of anticoagulant Shlomo Goins M.D. Onset: 09/18/2017 Obstructive sleep apnea syndrome Shlomo Goins M.D. Onset: 09/18/2017 Pure hypercholesterolemia Shlomo Goins M.D. Onset: 2017 Chronic kidney disease stage 3 Shlomo Goins M.D. Onset: 0 09/18/2017 Social History Type Date Description Comments Sex Unknown ETOH Use Denies alcohol use Tobacco Use Start: Unknown Patient has never smoked Allergies, Adverse Reactions, Alerts Description No Known Drug Allergies Medications Active Medications SIG Qnty Indications Ordering Provide r Date Vitamin D (Ergocalciferol) 1.25mg (36695 Ut) Capsules take one once a week 24caps Shlomo Goins M.D. 12/23/2019 Triamcinolone Acetonide 0.5% Cream apply twice a day as directed - do not overuse, risk of atropy. 45gm Shlomo Goins M.D. 12/23/2019 Cefuroxime Axetil 500mg Tablets by mouth twice a day 20tabs Shlomo Goins M.D. 12/11/2018 Cpap Shlomo Goins M.D. 09/01 Tamsulosin HCL 0.4mg Capsules take one tablet by mouth daily 90caps Shlomo Goins M.D. Amiodarone HCL 200mg Tablets Take One Tablet By Mouth Mon, ,Mon, ur And Fri. Bal Barlow MD Warfarin Sodium 5mg Tablets Take One Tablet By Mouth Sun, , Mon,Mon And Sat. Take 7.5 On Mon And . Bal Tolbert MD Atorvastatin Calcium 80mg Tablets 1 by mouth twice a week (Monday and Unknown Centrum Men Tablets Take one tablet twice a week Unknown History Medications Vitamin A Powder take one once a week 24units Shlomo Goins M.D. 12/23/2019 - 2019 Medications Administered in Office Medication SIG Qnty Indications Ordering Provider Date Administration Of Flu Vaccine Inj boniion Shlomo Goins M.D. 12/23/2019 Administration Of Flu Vaccine Inj ection Shlomo Goins M.D. 01/16/2019 Administration Of Flu Vaccine Inj ection Shlomo Goins M.D. 01/04/2018 Immunizations CPT Code Status Date Vaccine Lot # [id number] Given 12/23/2019 Influenza Vaccin e Quadrivalent Preser/Antibiotic Free Im Use [id number] 38024 Given 11/27/2019 Adacel- Tetanus Diphtheria P ertussis (Age64 & Under) 95141 Given 01/16/2019 Influenza Vaccin e Quadrivalent Preser/Antibiotic Free Im Use [id number] 66208 Given 01/04/2018 Influenza Virus Vaccine, Quadrivalent (Cciiv4), Derived From Cell [id number] U-PneuC Given 01/02/2017 Prevnar 13 U-Flu Given 01/02/2017 Influenza,Unspecified 32089 Given 01/11/2012 Zostavax U-Td Given 01/11/2012 Td(Adult)(Tetanus, Diphtheri a) unspecified Vital Signs Date Vital Result Comment 12/23/2019 8:35am BP Systolic 118 mmHg BP Diastolic 70 mmHg Heart Rate 74 /min Weight 190.00 lb 06/12/2019 8:08am BP Systolic 114 mmHg BP Diastolic 58 mmHg Heart Rate 75 /min Height 65.5 inches 5'5.50" Weight 196.38 lb BMI (Body Mass Index) 32.2 kg/m2 Results Test Acquired Date Facility Test Result H/L Range Note CBC With Differential 04/06/2020 [facility] [address] [place] [address] [phone] White Blood Count 5.4 10 Normal 4.0-10.0 [...] 36.0-66.0 Lymph % 19.4 % Low 24.0-44.0 [place] % 7.8 % High 0.0-5.0 Eos % 0.0 % Normal 0.0-3.0 Baso % 0.4 % Normal 0.0-1.0 Immature Granulocyte % 0.4 % Normal 0-3.0 Nucleated Red Blood Cell % 0.0 % Normal 0-0 Neutrophils # 3.9 10 Normal 1.5-8.5 Lymph # 1.1 10 Low 1.5-5.0 [place] # 0.4 10 Normal 0.0-0.8 Eos # 0.0 10 Normal 0.0-0.5 Baso # 0.0 10 Normal 0.0-0.2 PT & Aptt 04/06/2020 [facility] nter [address] [place] [address] [phone] Prothrombin Time 18.7 seconds High 12.5-14.3 Inr 1.53 Normal 1 Partial Thromboplastin Time 38.1 seconds Normal 24.2-38.5 Laboratory test finding 04/06/2020 [facility] [address] [place] [address] [phone] Fibrinogen 552 mg/dL High 221-452 D-Dimer Quant 1650.90 ng/ml High <500 Lactic Acid Sepsis Protocol 1.3 mmol/L Normal 0.4-2.0 2 Comprehensive Metabolic Profil 04/06/2020 [facility] [address] [place] [address] [phone] Glucose, Fasting 132 mg/dL High 70-100 Blood Urea Nitrogen 34 mg/dL High 7-18 Creatinine For GFR 1.74 mg/dL High 0.70-1.30 Glomerular Filtration Rate 40.0 Normal >35 3 Sodium Level 136 mEq/L Normal 136-145 Potassium [...] GM/DL Low 3.2-5.2 Albumin/Globulin Ratio 0.9 Normal Cardiac Marker Panel 04/06/2020 [facility] [address] [place] [address] [phone] CPK Creatine Phosphokinase 357 U/L High 39-30 8 CK-MB Value Mass 2.1 NG/ML Normal <3.6 MB/CK Relative Index 0.59 Normal < Or =4 4 Troponin I < 0.02 NG/ML Normal < 0.10 5 Laboratory test finding 04/06/2020 [facility] [address] [place] [address] [phone] LDH Lactate Dehydrogenase 318 U/L High 87-241 Magnesium Level 2.2 mg/dL Normal 1.8-2.4 Digoxin Level 0.2 NG/ML Low 0.5-2.0 Ferritin 640 NG/ML High 26-388 C Reactive Protein Quantitativ 6.29 mg/dL High 0.00-0.30 Procalcitonin 0.24 Normal 6 Laboratory test finding 12/20/2019 [facility] Sewer Pipe Layer: Dr Lui [place], [place] [address] [phone] T4 Free 1.17 ng/dL 0.76 - 1.46 Complete Blood Count 12/20/2019 [facility] Sewer Pipe Layer: [place] [address] [phone] WBC 7.5 x10*3/UL 4.1 - 10.9 RBC [...] 2.0 - 7.8 Comprehensive Chem Profile 12/20/2019 [facility] Sewer Pipe Layer: [place] [address] [phone] Glucose 93 mg/dL 74 - 99 7 BUN 36 mg/dL High 7 - 18 [...] Low >60 GFR 41 mL/min Low >60 8 Lipid Profile 12/20/2019 [facility] Sewer Pipe Layer: Dr Hu Reina [place], [place] [address] [phone] Cholesterol 173 mg/dL 131 - 200 Triglycerides 106 mg/dL 30 - 150 HDL Cholesterol 42 mg/dL 35 - 60 LDL (Calculated) 110 CALC 50 - 159 Laboratory test finding 12/20/2019 [facility] Sewer Pipe Layer: [place] [address] [phone] Thyroid Stimulating Hormone 4.02 uIU/mL High 0.3 6 - 3.74 1 THERAPUTIC HUMAN INR VALUES INDICATIONS NORMAL RANGES PROPHYLAXIS/TREATMENT OF: VENOUS THROMBOSIS 2.0-3.0 PULMONARY EMBOLISM 2.0-3.0 PREVENTION OF SYSTEMIC EMBOLISM FROM: TISSUE HEART VALVES 2.0-3.0 ACUTE MYOCARDIAL INFARCTION 2.0-3.0 VALVULAR HEART DISEASE 2.0-3.0 ATRIAL FIBRILLATION 2.0-3.0 MECHANICAL VALVES(HIGH RISK) 2.5-3.5 RECURRENT MYOCARDIAL INFARCTION 2.5-3.5 2 Y/N query for Sepsis Lactate Rule: Y 3 Units are mL/min/1.73 m2 Chronic Kidney Disease Staging per NKF: Stage I & II GFR >=60 Normal to Mildly Decreased Stage III GFR 30-59 Moderately Decreased Stage IV GFR 15-29 Severely Decreased Stage V GFR <15 Very Little GFR Left ESRD GFR <15 on PLASTIC MAKER 4 DIAGNOSIS CRITERIA MMB ng/ml Relative Index (RI) NON-AMI < or = 5 N/A MATAMOROS ZONE > 5 < or = 4 AMI > 5 > 4 5 Troponin I Reference Interva l for [employer] LOCI: 99th Percentile= 0.00-0.045 ng/ml Risk Stratification: <= 0.10 ng/ml Decreased Risk for Adverse Clinical Events. 0.10-1.50 ng/ml Increased Risk for Adv erse Clinical Events. Evaluation of additional criterion and/or repeat testing in 2-6 hours is suggested to rule out myocardial damage. >= 1.50 ng/ml Indicative of Myocardial Injury. 6 SEPSIS INTERPRETATION OF RES ULTS <0.5 [...] >0.5 ng/ml Antibiotics are strongly encouraged. 7 100-125 mg/dL PRE-DIABET ES/FASTING >126 mg/dL DIABETES/FASTING 8 CHRONIC KIDNEY DISEASE STAGI NG PER NKF STAGE I & II GFR >= 60 NORMAL TO MILDLY DECREASED STAGE III GFR 30-59 MODERATELY DECREASED STAGE IV GFR 15-29 SEVERELY DECREASED STAGE V GFR <15 VERY LITTLE GFR LEFT ESRD GFR <15 ON PLASTIC MAKER Procedures Date Code Description Status 11/03/2008 [id number] Colonoscopy Completed Medical Devices Description No Information Available Encounters Description No Information Available Assessments Date Code Description Provider 12/23/2019 Z23 Encounter for immunization Shlomo Goins M.D. 12/20/2019 E78.00 Pure hypercholesterolemia, unspe cified Shlomo Goins M.D. 12/20/2019 E78.00 Pure hypercholesterolemia, unspe cified Lab Schedule 12/20/2019 N18.3 Chronic kidney disease, stage 3 (moderate) Shlomo oGins M.D. 12/20/2019 N18.3 Chronic kidney disease, stage 3 (moderate) Lab Schedule 12/20/2019 I48.91 Unspecified atrial fibrillation Shlomo Goins M.D. 12/20/2019 I48.91 Unspecified atrial fibrillation Lab Schedule 12/20/2019 Z79.01 FPC (current) use of antic oagulants Shlomo Goins M.D. 12/20/2019 Z79.01 FPC (current) use of antic oagulants Lab Schedule 12/20/2019 E07.9 Disorder of thyroid, unspecified Shlomo Goins M.D. 12/20/2019 E07.9 Disorder of thyroid, unspecified Lab Schedule Plan of Treatment Future Appointment(s):* 06/22/2020 7:50 am - Lab Schedule at [facility] * 06/23/2020 8:30 am - [facility]. at [facility] 12/23/2019 - Shlomo Goins M.D.* Z23 Encounter for immunization * Functional Status Description No Information Available Mental Status Description No Information Available Referrals Description No Information Available
--- OUTSIDE RECORDS SUMMARY | 2020-05-02 09:09 | CCD | Continuity of Care Document ---
Author Author Jamil REA M.D. Organization Unknown Address [address] [place] [address] Phone [phone] Care Team Providers Care Director Of Reimbursement Name Role Phone Shlomo Rea MD AUTM [phone] Bal Tolbert MD AUTM Unavailable Juan M Covarrubias MD AUTM [phone] Rebekah Burroughs MD AUTM [phone] Problems Active Problems Provider Date Atrial fibrillation [...] Provide r Date Vitamin D (Ergocalciferol) 1.25mg (36700 Ut) Capsules take one once a week [...] Take One Tablet By Mouth Mon, ,Mon, Thur And Fri. Wi Bal cruz MD Warfarin [...] Provider Date Administration Of Flu Vaccine Inj ection Shlomo Rea M.D. 12/23/2019 Administration Of Flu Vaccine Inj ection Shlomo Rea M.D. 01/16/2019 Administration Of Flu Vaccine Inj ection Shlomo Rea M.D. 01/04/2018 Immunizations CPT Code Status Date Vaccine Lot # [id number] Given 12/23/2019 Influenza Vaccin e Quadrivalent Preser/Antibiotic Free Im Use [id number] 03346 Given 11/27/2019 Adacel- Tetanus Diphtheria P ertussis (Age64 & Under) 78609 Given 01/16/2019 Influenza Vaccin e Quadrivalent Preser/Antibiotic Free Im Use [id number] 90600 Given 01/04/2018 Influenza Virus Vaccine, Quadrivalent (Cciiv4), Derived From Cell [id number] U-PneuC Given 01/02/2017 Prevnar 13 U-Flu Given 01/02/2017 Influenza,Unspecified 50508 Given 01/11/2012 Zostavax U-Td Given 01/11/2012 Td(Adult)(Tetanus, [...] H/L Range Note Istat Chem8+ Panel 04/11/2020 [facility] nter [address] [place], [place] [id number] [phone] iSTAT HCT 40.0 % Normal 38.0-51.0 iSTAT Glucose 141 mg/dL High 70-105 iSTAT Sodium 140 mEq/L Normal 136-145 iSTAT Potassium 4.0 mEq/L Normal 3.5-5.1 iSTAT CA++ 4.3 mg/dL Low 4.5-5.3 iSTAT Chloride 106 mEq/L Normal 98-109 iSTAT Co2 23.0 MM/L Normal 23.0-27.0 iSTAT BUN 29 mg/dL High 8-26 iSTAT Creatinine 1.6 mg/dL High 0.6-1.3 CBC With Differential 04/11/2020 [facility] [address] [place], [place] [id number] [phone] White Blood Count 9.8 10 Normal 4.0-10.0 [...] 36.0-66.0 Lymph % 25.0 % Normal 24.0-44.0 [place] % 4.9 % Normal 0.0-5.0 Eos % 0.3 % Normal 0.0-3.0 Baso % 0.2 % Normal 0.0-1.0 Immature Granulocyte % 1.5 % Normal 0-3.0 Nucleated Red Blood Cell % 0.0 % Normal 0-0 Neutrophils # 6.6 10 Normal 1.5-8.5 Lymph # 2.4 10 Normal 1.5-5.0 [place] # 0.5 10 Normal 0.0-0.8 Eos # 0.0 10 Normal 0.0-0.5 Baso # 0.0 10 Normal 0.0-0.2 Comprehensive Metabolic Profil 04/11/[address] [address] [phone] Glucose, Fasting 142 mg/dL High 70-100 Blood [...] Ratio 0.7 Normal Cardiac Marker Panel 04/11/[address] [address] [phone] CPK Creatine Phosphokinase 110 U/L Normal 39-30 8 CK-MB Value Mass 1.1 NG/ML Normal <3.6 MB/CK Relative Index 1.00 Normal < Or =4 2 Troponin I < 0.02 NG/ML Normal < 0.10 3 Laboratory test finding 04/11/2020 [facility] [address] [place] [address] [phone] LDH Lactate Dehydrogenase 446 U/L High 87-241 Magnesium Level 2.0 mg/dL Normal 1.8-2.4 Ferritin 1581 NG/ML High 26-388 C Reactive Protein Quantitativ 15.20 mg/dL High 0.00-0.30 Lactic Acid Sepsis Protocol 2.6 mmol/L Critical high 0.4-2.0 4 PT & Aptt 04/11/2020 [facility] nter [address] [place] [address] [phone] Prothrombin Time 41.4 seconds High 12.5-14.3 Inr 4.19 Normal 5 Partial Thromboplastin Time 68.4 seconds High 24.2-38.5 Laboratory test finding 04/11/2020 [facility] [address] [place] [address] [phone] Fibrinogen 750 mg/dL High 221-452 D-Dimer Quant 1803.85 ng/ml High <500 Procalcitonin 0.21 Normal 6 Arterial Blood Gas 04/11/2020 [facility] nter [address] [place] [address] [phone] ABG pH (Arterial) 7.489 units High 7.350-7.450 ABG Partial Pressure Co2 30.7 mmHg Low 35.0-45.0 ABG Partial Pressure O2 57.9 mmHg Low 75.0-100.0 ABG Total Co2 23.8 mEq/L Normal 23.0-31.0 ABG Hco3 22.8 mEq/L Normal 22.0-26.0 ABG Base Excess 0.3 Normal -2.0-2.0 ABG Standard Hco3 24.7 mEq/L Normal 22.0-26.0 ABG O2 Saturation 92.7 % Low 95.0-99.0 Laboratory test finding 04/06/2020 [facility] [address] [place] [address] [phone] LDH Lactate Dehydrogenase 318 U/L High 87-241 Magnesium Level 2.2 mg/dL Normal 1.8-2.4 Digoxin Level 0.2 NG/ML Low 0.5-2.0 Ferritin 640 NG/ML High 26-388 C Reactive Protein Quantitativ 6.29 mg/dL High 0.00-0.30 Procalcitonin 0.24 Normal 7 Blood Culture No growth after <SEE NOTE> 8 Cardiac Marker Panel 04/06/2020 [facility] enter [address] [place] [address] [phone] CPK Creatine Phosphokinase 357 U/L High 39-30 8 CK-MB Value Mass 2.1 NG/ML Normal <3.6 MB/CK Relative Index 0.59 Normal < Or =4 9 Troponin I < 0.02 NG/ML Normal < 0.10 10 Comprehensive Metabolic Profil 04/06/[address] [address] [phone] Glucose, Fasting 132 mg/dL High 70-100 Blood [...] Ratio 0.9 Normal Laboratory test finding 04/06/2020 [facility] [address] [place] [address] [phone] Fibrinogen 552 mg/dL High 221-452 D-Dimer Quant 1650.90 ng/ml High <500 Lactic Acid Sepsis Protocol 1.3 mmol/L Normal 0.4-2.0 12 PT & Aptt 04/06/2020 [facility] n[facility] [address] [place] [address] [phone] Prothrombin Time 18.7 seconds High 12.5-14.3 Inr 1.53 Normal 13 Partial Thromboplastin Time 38.1 seconds Normal 24.2-38.5 CBC With Differential 04/06/[address] [address] [phone] White Blood Count 5.4 10 Normal 4.0-10.0 [...] 36.0-66.0 Lymph % 19.4 % Low 24.0-44.0 [place] % 7.8 % High 0.0-5.0 Eos % 0.0 % Normal 0.0-3.0 Baso % 0.4 % Normal 0.0-1.0 Immature Granulocyte % 0.4 % Normal 0-3.0 Nucleated Red Blood Cell % 0.0 % Normal 0-0 Neutrophils # 3.9 10 Normal 1.5-8.5 Lymph # 1.1 10 Low 1.5-5.0 [place] # 0.4 10 Normal 0.0-0.8 Eos # 0.0 10 Normal 0.0-0.5 Baso # 0.0 10 Normal 0.0-0.2 Blood Culture 04/06/2020 [facility] nter [address] [place] [address] [phone] Blood Culture No growth after <SEE NOTE> 14 Laboratory test finding 12/20/2019 [facility] First Aid Instructor: [place] [address] [phone] T4 Free 1.17 ng/dL 0.76 - 1.46 Complete Blood Count 12/20/2019 [facility] First Aid Instructor: [place] [address] [phone] WBC 7.5 x10*3/UL 4.1 - 10.9 RBC [...] 2.0 - 7.8 Comprehensive Chem Profile 12/20/2019 [facility], First Aid Instructor: [place] [address] [phone] Glucose 93 mg/dL 74 - 99 15 [...] mL/min Low >60 16 Lipid Profile 12/20/2019 [facility] , First Aid Instructor: [place] [address] [phone] Cholesterol 173 mg/dL 131 - 200 Triglycerides 106 mg/dL 30 - 150 HDL Cholesterol 42 mg/dL 35 - 60 LDL (Calculated) 110 CALC 50 - 159 Laboratory test finding 12/20/2019 [facility] [employer] First Aid Instructor: [place] [address] [phone] Thyroid Stimulating Hormone 4.02 uIU/mL High 0.3 6 - 3.74 1 Units are mL/min/1.73 m2 Chronic Kidney Disease Staging per NKF: Stage I & II GFR >=60 Normal to Mildly Decreased Stage III GFR 30-59 Moderately Decreased Stage IV GFR 15-29 Severely Decreased Stage V GFR <15 Very Little GFR Left ESRD GFR <15 on FRUIT PEELER 2 DIAGNOSIS CRITERIA MMB ng/ml Relative Index (RI) NON-AMI < or = 5 N/A MATAMOROS ZONE > 5 < or = 4 AMI > 5 > 4 3 Troponin I Reference Interva l for [employer] LOCI: 99th Percentile= 0.00-0.045 ng/ml Risk Stratification: [...] 10 Troponin I Reference Interva l for [employer] [place] LOCI: 99th Percentile= 0.00-0.045 ng/ml Risk Stratification: [...] Little GFR Left ESRD GFR <15 on FRUIT PEELER 12 Y/N query for Sepsis Lactate Rule: [...] LITTLE GFR LEFT ESRD GFR <15 ON FRUIT PEELER Procedures Date Code Description Status 11/03/2008 [id number] Colonoscopy Completed Medical Devices Description No Information [...] Unspecified atrial fibrillation Lab Schedule 12/20/2019 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 12/20/2019 E07.9 Disorder of thyroid, unspecified Lab Schedule Plan of Treatment Future Appointment(s):* 06/22/2020 7:50 am - Lab Schedule at [facility] * 06/23/2020 8:30 am - Shlomo Rea M.D. at [facility] 12/23/2019 - Shlomo Rea M.D.* Z23 Encounter for immunization * Functional Status Description No Information Available Mental Status Description No Information Available Referrals Description No Information Available
--- OUTSIDE RECORDS SUMMARY | 2020-05-02 09:09 | CCD | Continuity of Care Document ---
Author Organization Unknown Address Unknown Phone Unavailable Care Team Providers Care [employer]cher [employer] Name Role Phone Shlomo Goins MD AUTM [phone] Bal Tolbert MD AUTM Unavailable Juan M Covarrubias MD AUTM [phone] Rebekah Burroughs MD AUTM [phone] Problems Active Problems Provider Date Atrial fibrillation [...] Provide r Date Vitamin D (Ergocalciferol) 1.25mg (58460 Ut) Capsules take one once a week [...] CPT Code Status Date Vaccine Lot # 21939 Given 12/23/2019 Influenza Vaccin e Quadrivalent Preser/Antibiotic Free Im Use 247261 00142 Given 11/27/2019 Adacel- Tetanus Diphtheria P ertussis (Age64 & Under) 68283 Given 01/16/2019 Influenza Vaccin e Quadrivalent Preser/Antibiotic Free Im Use 379246 83072 Given 01/04/2018 Influenza Virus Vaccine, Quadrivalent (Cciiv4), Derived From Cell [id number] U-PneuC Given 01/02/2017 Prevnar 13 U-Flu Given 01/02/2017 Influenza,Unspecified 66146 Given 01/11/2012 Zostavax U-Td Given 01/11/2012 Td(Adult)(Tetanus, [...] Date Facility Test Result H/L Range Note Blood Culture 04/06/2020 [facility] nter [address] [place] [address] [phone] Blood Culture No growth after <SEE NOTE> 1 CBC With Differential 04/06/[address] [address] [phone] White Blood Count 5.4 10 Normal 4.0-10.0 [...] 36.0-66.0 Lymph % 19.4 % Low 24.0-44.0 [place] % 7.8 % High 0.0-5.0 Eos % 0.0 % Normal 0.0-3.0 Baso % 0.4 % Normal 0.0-1.0 Immature Granulocyte % 0.4 % Normal 0-3.0 Nucleated Red Blood Cell % 0.0 % Normal 0-0 Neutrophils # 3.9 10 Normal 1.5-8.5 Lymph # 1.1 10 Low 1.5-5.0 [place] # 0.4 10 Normal 0.0-0.8 Eos # 0.0 10 Normal 0.0-0.5 Baso # 0.0 10 Normal 0.0-0.2 PT & Aptt 04/06/2020 [facility] nter [address] [place] [address] [phone] Prothrombin Time 18.7 seconds High 12.5-14.3 Inr 1.53 Normal 2 Partial Thromboplastin Time 38.1 seconds Normal 24.2-38.5 Laboratory test finding 04/06/[address], [place] [address] [phone] Fibrinogen 552 mg/dL High 221-452 D-Dimer Quant 1650.90 ng/ml High <500 Lactic Acid Sepsis Protocol 1.3 mmol/L Normal 0.4-2.0 3 Comprehensive Metabolic Profil 04/06/2020 [facility] [address] [place] [address] [phone] Glucose, Fasting 132 mg/dL High 70-100 Blood Urea Nitrogen 34 mg/dL High 7-18 Creatinine For GFR 1.74 mg/dL High 0.70-1.30 Glomerular Filtration Rate 40.0 Normal >35 4 Sodium Level 136 mEq/L Normal 136-145 Potassium [...] Ratio 0.9 Normal Cardiac Marker Panel 04/06/2020 [facility] enter [address] [place] [address] [phone] CPK Creatine Phosphokinase 357 U/L High 39-30 8 CK-MB Value Mass 2.1 NG/ML Normal <3.6 MB/CK Relative Index 0.59 Normal < Or =4 5 Troponin I < 0.02 NG/ML Normal < 0.10 6 Laboratory test finding 04/06/2020 [facility] [address] [place] [address] [phone] LDH Lactate Dehydrogenase 318 U/L High 87-241 Magnesium Level 2.2 mg/dL Normal 1.8-2.4 Digoxin Level 0.2 NG/ML Low 0.5-2.0 Ferritin 640 NG/ML High 26-388 C Reactive Protein Quantitativ 6.29 mg/dL High 0.00-0.30 Procalcitonin 0.24 Normal 7 Blood Culture No growth after <SEE NOTE> 8 Laboratory test finding 12/20/2019 [facility] [employer] [employer] Cloud Infrastructure Architect: [place] [address] [phone] T4 Free 1.17 ng/dL 0.76 - 1.46 Complete Blood Count 12/20/2019 [facility] Infrastructure Architect: [place] [address] [phone] WBC 7.5 x10*3/UL 4.1 - 10.9 RBC [...] 2.0 - 7.8 Comprehensive Chem Profile 12/20/2019 [facility] [employer] Cloud Infrastructure Architect: [place] [address] [phone] Glucose 93 mg/dL 74 - 99 9 BUN 36 mg/dL High 7 - 18 [...] Low >60 GFR 41 mL/min Low >60 10 Lipid Profile 12/20/2019 [facility] , Cloud Infrastructure Architect: Dr Hu Reina [place], [place] [address] [phone] Cholesterol 173 mg/dL 131 - 200 Triglycerides 106 mg/dL 30 - 150 HDL Cholesterol 42 mg/dL 35 - 60 LDL (Calculated) 110 CALC 50 - 159 Laboratory test finding 12/20/2019 [facility] [employer] [employer] [facility] [employer], Cloud Infrastructure Architect: Dr Hu Reina [place], [place] [id number] [phone] Thyroid Stimulating Hormone 4.02 uIU/mL High 0.3 6 - 3.74 1 No growth after 24 hours . A ll specimens observed for 5 days. Results final at that time. No Growth after 48 hours. All Specimens observed for 5 days. Results final at that time. 2 THERAPUTIC HUMAN INR VALUES INDICATIONS NORMAL RANGES PROPHYLAXIS/TREATMENT OF: VENOUS THROMBOSIS 2.0-3.0 PULMONARY EMBOLISM 2.0-3.0 PREVENTION OF SYSTEMIC EMBOLISM FROM: TISSUE HEART VALVES 2.0-3.0 ACUTE MYOCARDIAL INFARCTION 2.0-3.0 VALVULAR HEART DISEASE 2.0-3.0 ATRIAL FIBRILLATION 2.0-3.0 MECHANICAL VALVES(HIGH RISK) 2.5-3.5 RECURRENT MYOCARDIAL INFARCTION 2.5-3.5 3 Y/N query for Sepsis Lactate Rule: Y 4 Units are mL/min/1.73 m2 Chronic Kidney Disease Staging per NKF: Stage I & II GFR >=60 Normal to Mildly Decreased Stage III GFR 30-59 Moderately Decreased Stage IV GFR 15-29 Severely Decreased Stage V GFR <15 Very Little GFR Left ESRD GFR <15 on HAY BUCKLER 5 DIAGNOSIS CRITERIA MMB ng/ml Relative Index (RI) NON-AMI < or = 5 N/A MATAMOROS ZONE > 5 < or = 4 AMI > 5 > 4 6 Troponin I Reference Interva l for [employer] LOCI: 99th Percentile= 0.00-0.045 ng/ml Risk Stratification: <= 0.10 ng/ml Decreased Risk for Adverse Clinical Events. 0.10-1.50 ng/ml Increased Risk for Adv erse Clinical Events. Evaluation of additional criterion and/or repeat testing in 2-6 hours is suggested to rule out myocardial damage. >= 1.50 ng/ml Indicative of Myocardial Injury. 7 SEPSIS INTERPRETATION OF RES ULTS <0.5 [...] are strongly encouraged. 8 No growth after 24 hours . A ll specimens observed for 5 days. Results final at that time. No Growth after 48 hours. All Specimens observed for 5 days. Results final at that time. 9 100-125 mg/dL PRE-DIABET ES/FASTING >126 mg/dL DIABETES/FASTING 10 CHRONIC KIDNEY DISEASE STAGI NG PER NKF STAGE I & II GFR >= 60 NORMAL TO MILDLY DECREASED STAGE III GFR 30-59 MODERATELY DECREASED STAGE IV GFR 15-29 SEVERELY DECREASED STAGE V GFR <15 VERY LITTLE GFR LEFT ESRD GFR <15 ON HAY BUCKLER Procedures Date Code Description Status 11/03/2008 [id number] Colonoscopy Completed Medical Devices Description No Information Available Encounters Description No Information Available Assessments Date Code Description Provider 12/23/2019 Z23 Encounter for immunization Shlomo Goins M.D. 12/20/2019 E78.00 Pure hypercholesterolemia, unspe cified Shlomo Goins M.D. 12/20/2019 E78.00 Pure hypercholesterolemia, unspe cified Lab Schedule 12/20/2019 N18.3 Chronic kidney disease, stage 3 (moderate) Shlomo Goins M.D. 12/20/2019 N18.3 Chronic kidney disease, stage 3 (moderate) Lab Schedule 12/20/2019 I48.91 Unspecified atrial fibrillation Shlomo Goins M.D. 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 12/20/2019 E07.9 Disorder of thyroid, unspecified Lab Schedule Plan of Treatment Future Appointment(s):* 06/22/2020 7:50 am - Lab Schedule at [facility] * 06/23/2020 8:30 am - Shlomo Goins M.D. at [facility] 12/23/2019 - Shlomo Goins M.D.* Z23 Encounter for immunization * Functional Status Description No Information Available Mental Status Description No Information Available Referrals Description No Information Available
--- OUTSIDE RECORDS SUMMARY | 2020-05-02 09:09 | CCD | Continuity of Care Document ---
Author Organization Unknown Address Unknown Phone Unavailable Care Team Providers Care Payment Collector Name Role Phone Shlomo Goins MD AUTM [phone] Bla Tolbert MD AUTM Unavailable Juan M Covarrubias MD AUTM [phone] Rebekah Burroughs MD AUTM [phone] Problems Active Problems Provider Date Atrial fibrillation [...] Provide r Date Vitamin D (Ergocalciferol) 1.25mg (66162 Ut) Capsules take one once a week [...] CPT Code Status Date Vaccine Lot # [id number] Given 12/23/2019 Influenza Vaccin e Quadrivalent Preser/Antibiotic Free Im Use [id number] [id number] Given 11/27/2019 Adacel- Tetanus Diphtheria P ertussis (Age64 & Under) 33710 Given 01/16/2019 Influenza Vaccin e Quadrivalent Preser/Antibiotic Free Im Use [id number] Given 01/04/2018 Influenza Virus Vaccine, Quadrivalent (Cciiv4), Derived From Cell [id number] U-PneuC Given 01/02/2017 Prevnar 13 U-Flu Given 01/02/2017 Influenza,Unspecified 58471 Given 01/11/2012 Zostavax U-Td Given 01/11/2012 Td(Adult)(Tetanus, [...] H/L Range Note Istat Chem8+ Panel 04/11/2020 [facility] nter [address] [place] [address] [phone] iSTAT HCT 40.0 % Normal 38.0-51.0 iSTAT Glucose 141 mg/dL High 70-105 iSTAT Sodium 140 mEq/L Normal 136-145 iSTAT Potassium 4.0 mEq/L Normal 3.5-5.1 iSTAT CA++ 4.3 mg/dL Low 4.5-5.3 iSTAT Chloride 106 mEq/L Normal 98-109 iSTAT Co2 23.0 MM/L Normal 23.0-27.0 iSTAT BUN 29 mg/dL High 8-26 iSTAT Creatinine 1.6 mg/dL High 0.6-1.3 CBC With Differential 04/11/2020 [facility] [address] [place] [address] [phone] White Blood Count 9.8 10 Normal 4.0-10.0 [...] 36.0-66.0 Lymph % 25.0 % Normal 24.0-44.0 [place] % 4.9 % Normal 0.0-5.0 Eos % 0.3 % Normal 0.0-3.0 Baso % 0.2 % Normal 0.0-1.0 Immature Granulocyte % 1.5 % Normal 0-3.0 Nucleated Red Blood Cell % 0.0 % Normal 0-0 Neutrophils # 6.6 10 Normal 1.5-8.5 Lymph # 2.4 10 Normal 1.5-5.0 [place] # 0.5 10 Normal 0.0-0.8 Eos # 0.0 10 Normal 0.0-0.5 Baso # 0.0 10 Normal 0.0-0.2 Comprehensive Metabolic Profil 04/11/2020 [place] [id number] [phone] Glucose, Fasting 142 mg/dL High 70-100 Blood [...] Ratio 0.7 Normal Cardiac Marker Panel 04/11/2020 [place] [address] [place] [address] [phone] CPK Creatine Phosphokinase 110 U/L Normal 39-30 8 CK-MB Value Mass 1.1 NG/ML Normal <3.6 MB/CK Relative Index 1.00 Normal < Or =4 2 Troponin I < 0.02 NG/ML Normal < 0.10 3 Laboratory test finding 04/11/2020 [facility] [address] [place] [address] [phone] LDH Lactate Dehydrogenase 446 U/L High 87-241 Magnesium Level 2.0 mg/dL Normal 1.8-2.4 Ferritin 1581 NG/ML High 26-388 C Reactive Protein Quantitativ 15.20 mg/dL High 0.00-0.30 Lactic Acid Sepsis Protocol 2.6 mmol/L Critical high 0.4-2.0 4 PT & Aptt 04/11/2020 [facility] nter [address] [place] [address] [phone] Prothrombin Time 41.4 seconds High 12.5-14.3 Inr 4.19 Normal 5 Partial Thromboplastin Time 68.4 seconds High 24.2-38.5 Laboratory test finding 04/11/[address] [address] [phone] Fibrinogen 750 mg/dL High 221-452 D-Dimer Quant 1803.85 ng/ml High <500 Procalcitonin 0.21 Normal 6 Arterial Blood Gas 04/11/2020 [facility] [address] [place] [address] [phone] ABG pH (Arterial) 7.489 units High 7.350-7.450 ABG Partial Pressure Co2 30.7 mmHg Low 35.0-45.0 ABG Partial Pressure O2 57.9 mmHg Low 75.0-100.0 ABG Total Co2 23.8 mEq/L Normal 23.0-31.0 ABG Hco3 22.8 mEq/L Normal 22.0-26.0 ABG Base Excess 0.3 Normal -2.0-2.0 ABG Standard Hco3 24.7 mEq/L Normal 22.0-26.0 ABG O2 Saturation 92.7 % Low 95.0-99.0 Laboratory test finding 04/06/[address] [address] [phone] LDH Lactate Dehydrogenase 318 U/L High 87-241 Magnesium Level 2.2 mg/dL Normal 1.8-2.4 Digoxin Level 0.2 NG/ML Low 0.5-2.0 Ferritin 640 NG/ML High 26-388 C Reactive Protein Quantitativ 6.29 mg/dL High 0.00-0.30 Procalcitonin 0.24 Normal 7 Blood Culture No growth after <SEE NOTE> 8 Cardiac Marker Panel 04/06/2020 [facility] enter [address] [place] [address] [phone] CPK Creatine Phosphokinase 357 U/L High 39-30 8 CK-MB Value Mass 2.1 NG/ML Normal <3.6 MB/CK Relative Index 0.59 Normal < Or =4 9 Troponin I < 0.02 NG/ML Normal < 0.10 10 Comprehensive Metabolic Profil 04/06/2020 [facility] [address] [place] [address] [phone] Glucose, Fasting 132 mg/dL High 70-100 Blood [...] Ratio 0.9 Normal Laboratory test finding 04/06/2020 [facility] [address] [place] [address] [phone] Fibrinogen 552 mg/dL High 221-452 D-Dimer Quant 1650.90 ng/ml High <500 Lactic Acid Sepsis Protocol 1.3 mmol/L Normal 0.4-2.0 12 PT & Aptt 04/06/2020 [facility] nter [address] [place] [address] [phone] Prothrombin Time 18.7 seconds High 12.5-14.3 Inr 1.53 Normal 13 Partial Thromboplastin Time 38.1 seconds Normal 24.2-38.5 CBC With Differential 04/06/2020 [facility] [address] [place] [address] [phone] White Blood Count 5.4 10 Normal 4.0-10.0 [...] 36.0-66.0 Lymph % 19.4 % Low 24.0-44.0 [place] % 7.8 % High 0.0-5.0 Eos % 0.0 % Normal 0.0-3.0 Baso % 0.4 % Normal 0.0-1.0 Immature Granulocyte % 0.4 % Normal 0-3.0 Nucleated Red Blood Cell % 0.0 % Normal 0-0 Neutrophils # 3.9 10 Normal 1.5-8.5 Lymph # 1.1 10 Low 1.5-5.0 [place] # 0.4 10 Normal 0.0-0.8 Eos # 0.0 10 Normal 0.0-0.5 Baso # 0.0 10 Normal 0.0-0.2 Blood Culture 04/06/2020 [facility] nter [address], [place] [id number] [phone] Blood Culture No growth after <SEE NOTE> 14 Laboratory test finding 12/20/2019 [facility] Retail Grocer: [place] [address] [phone] T4 Free 1.17 ng/dL 0.76 - 1.46 Complete Blood Count 12/20/2019 [facility] [employer] Retail Grocer: [place] [address] [phone] WBC 7.5 x10*3/UL 4.1 - 10.9 RBC [...] 2.0 - 7.8 Comprehensive Chem Profile 12/20/2019 [facility] Retail Grocer: [place] [address] [phone] Glucose 93 mg/dL 74 - 99 15 [...] mL/min Low >60 16 Lipid Profile 12/20/2019 [facility] Retail Grocer: [place] [address] [phone] Cholesterol 173 mg/dL 131 - 200 Triglycerides 106 mg/dL 30 - 150 HDL Cholesterol 42 mg/dL 35 - 60 LDL (Calculated) 110 CALC 50 - 159 Laboratory test finding 12/20/2019 [facility] Retail Grocer: [place] [address] [phone] Thyroid Stimulating Hormone 4.02 uIU/mL High 0.3 6 - 3.74 1 Units are mL/min/1.73 m2 Chronic Kidney Disease Staging per NKF: Stage I & II GFR >=60 Normal to Mildly Decreased Stage III GFR 30-59 Moderately Decreased Stage IV GFR 15-29 Severely Decreased Stage V GFR <15 Very Little GFR Left ESRD GFR <15 on DRAMATIC ARTS HISTORIAN 2 DIAGNOSIS CRITERIA MMB ng/ml Relative Index (RI) NON-AMI < or = 5 N/A MATAMOROS ZONE > 5 < or = 4 AMI > 5 > 4 3 Troponin I Reference Interva l for [employer] [place] LOCI: 99th Percentile= 0.00-0.045 ng/ml Risk Stratification: [...] 10 Troponin I Reference Interva l for [employer] [place] LOCI: 99th Percentile= 0.00-0.045 ng/ml Risk Stratification: [...] Little GFR Left ESRD GFR <15 on DRAMATIC ARTS HISTORIAN 12 Y/N query for Sepsis Lactate Rule: [...] LITTLE GFR LEFT ESRD GFR <15 ON DRAMATIC ARTS HISTORIAN Procedures Date Code Description Status 11/03/2008 38992078 Colonoscopy Completed Medical Devices Description No Information [...] Unspecified atrial fibrillation Lab Schedule 12/20/2019 Z79.01 [facility] (current) use of antic oagulants Shlomo Goins M.D. 12/20/2019 Z79.01 [facility] (current) use of antic oagulants Lab Schedule 12/20/2019 E07.9 Disorder of thyroid, unspecified Shlomo Goins M.D. 12/20/2019 E07.9 Disorder of thyroid, unspecified Lab Schedule Plan of Treatment Future Appointment(s):* 06/22/2020 7:50 am - Lab Schedule at [facility] * 06/23/2020 8:30 am - Shlomo Goins M.D. at [facility] 12/23/2019 - Shlomo Goins M.D.* Z23 Encounter for immunization * Functional Status Description No Information Available Mental Status Description No Information Available Referrals Description No Information Available
--- OUTSIDE RECORDS SUMMARY | 2020-05-02 09:09 | CCD | Continuity of Care Document ---
Author Organization Unknown Address Unknown Phone Unavailable Care Team Providers Care Epic Beacon Analyst Name Role Phone Shlomo Goins MD AUTM [phone] Bal Tolbert MD AUTM Unavailable Juan M Covarrubias MD AUTM [phone] Rebekah Burroughs MD AUTM [phone] Problems Active Problems Provider Date Atrial fibrillation [...] Provide r Date Vitamin D (Ergocalciferol) 1.25mg (11715 Ut) Capsules take one once a week [...] CPT Code Status Date Vaccine Lot # [id number] Given 12/23/2019 Influenza Vaccin e Quadrivalent Preser/Antibiotic Free Im Use [id number] 95389 Given 11/27/2019 Adacel- Tetanus Diphtheria P ertussis (Age64 & Under) 78102 Given 01/16/2019 Influenza Vaccin e Quadrivalent Preser/Antibiotic Free Im Use [id number] 96944 Given 01/04/2018 Influenza Virus Vaccine, Quadrivalent (Cciiv4), Derived From Cell 234189 U-PneuC Given 01/02/2017 Prevnar 13 U-Flu Given 01/02/2017 Influenza,Unspecified 92691 Given 01/11/2012 Zostavax U-Td Given 01/11/2012 Td(Adult)(Tetanus, [...] H/L Range Note Istat Chem8+ Panel 04/11/2020 [facility] nter [address] [place] [address] [phone] iSTAT HCT 40.0 % Normal 38.0-51.0 iSTAT Glucose 141 mg/dL High 70-105 iSTAT Sodium 140 mEq/L Normal 136-145 iSTAT Potassium 4.0 mEq/L Normal 3.5-5.1 iSTAT CA++ 4.3 mg/dL Low 4.5-5.3 iSTAT Chloride 106 mEq/L Normal 98-109 iSTAT Co2 23.0 MM/L Normal 23.0-27.0 iSTAT BUN 29 mg/dL High 8-26 iSTAT Creatinine 1.6 mg/dL High 0.6-1.3 CBC With Differential 04/11/2020 [facility] [address] [place] [address] [phone] White Blood Count 9.8 10 Normal 4.0-10.0 [...] 36.0-66.0 Lymph % 25.0 % Normal 24.0-44.0 [place] % 4.9 % Normal 0.0-5.0 Eos % 0.3 % Normal 0.0-3.0 Baso % 0.2 % Normal 0.0-1.0 Immature Granulocyte % 1.5 % Normal 0-3.0 Nucleated Red Blood Cell % 0.0 % Normal 0-0 Neutrophils # 6.6 10 Normal 1.5-8.5 Lymph # 2.4 10 Normal 1.5-5.0 [place] # 0.5 10 Normal 0.0-0.8 Eos # 0.0 10 Normal 0.0-0.5 Baso # 0.0 10 Normal 0.0-0.2 Comprehensive Metabolic Profil 04/11/2020 [place] [id number] [phone] Glucose, Fasting 142 mg/dL High 70-100 Blood [...] Ratio 0.7 Normal Cardiac Marker Panel 04/11/2020 [place] [address] [place] [address] [phone] CPK Creatine Phosphokinase 110 U/L Normal 39-30 8 CK-MB Value Mass 1.1 NG/ML Normal <3.6 MB/CK Relative Index 1.00 Normal < Or =4 2 Troponin I < 0.02 NG/ML Normal < 0.10 3 Laboratory test finding 04/11/2020 [facility] [address] [place] [address] [phone] LDH Lactate Dehydrogenase 446 U/L High 87-241 Magnesium Level 2.0 mg/dL Normal 1.8-2.4 Ferritin 1581 NG/ML High 26-388 C Reactive Protein Quantitativ 15.20 mg/dL High 0.00-0.30 Lactic Acid Sepsis Protocol 2.6 mmol/L Critical high 0.4-2.0 4 PT & Aptt 04/11/2020 [facility] nter [address] [place] [address] [phone] Prothrombin Time 41.4 seconds High 12.5-14.3 Inr 4.19 Normal 5 Partial Thromboplastin Time 68.4 seconds High 24.2-38.5 Laboratory test finding 04/11/[address] [address] [phone] Fibrinogen 750 mg/dL High 221-452 D-Dimer Quant 1803.85 ng/ml High <500 Procalcitonin 0.21 Normal 6 Arterial Blood Gas [facility] [address] [place] [address] [phone] ABG pH (Arterial) 7.489 units High 7.350-7.450 ABG Partial Pressure Co2 30.7 mmHg Low 35.0-45.0 ABG Partial Pressure O2 57.9 mmHg Low 75.0-100.0 ABG Total Co2 23.8 mEq/L Normal 23.0-31.0 ABG Hco3 22.8 mEq/L Normal 22.0-26.0 ABG Base Excess 0.3 Normal -2.0-2.0 ABG Standard Hco3 24.7 mEq/L Normal 22.0-26.0 ABG O2 Saturation 92.7 % Low 95.0-99.0 Laboratory test finding 04/06/[address] [address] [phone] LDH Lactate Dehydrogenase 318 U/L High 87-241 Magnesium Level 2.2 mg/dL Normal 1.8-2.4 Digoxin Level 0.2 NG/ML Low 0.5-2.0 Ferritin 640 NG/ML High 26-388 C Reactive Protein Quantitativ 6.29 mg/dL High 0.00-0.30 Procalcitonin 0.24 Normal 7 Blood Culture No growth after <SEE NOTE> 8 Cardiac Marker Panel 04/06/2020 [facility] enter [address] [place] [address] [phone] CPK Creatine Phosphokinase 357 U/L High 39-30 8 CK-MB Value Mass 2.1 NG/ML Normal <3.6 MB/CK Relative Index 0.59 Normal < Or =4 9 Troponin I < 0.02 NG/ML Normal < 0.10 10 Comprehensive Metabolic Profil 04/06/2020 [facility] [address] [place] [address] [phone] Glucose, Fasting 132 mg/dL High 70-100 Blood [...] Ratio 0.9 Normal Laboratory test finding 04/06/2020 [facility] [address] [place] [address] [phone] Fibrinogen 552 mg/dL High 221-452 D-Dimer Quant 1650.90 ng/ml High <500 Lactic Acid Sepsis Protocol 1.3 mmol/L Normal 0.4-2.0 12 PT & Aptt 04/06/2020 [facility] nter [address] [place] [address] [phone] Prothrombin Time 18.7 seconds High 12.5-14.3 Inr 1.53 Normal 13 Partial Thromboplastin Time 38.1 seconds Normal 24.2-38.5 CBC With Differential 04/06/2020 [facility] [address] [place] [address] [phone] White Blood Count 5.4 10 Normal 4.0-10.0 [...] 36.0-66.0 Lymph % 19.4 % Low 24.0-44.0 [place] % 7.8 % High 0.0-5.0 Eos % 0.0 % Normal 0.0-3.0 Baso % 0.4 % Normal 0.0-1.0 Immature Granulocyte % 0.4 % Normal 0-3.0 Nucleated Red Blood Cell % 0.0 % Normal 0-0 Neutrophils # 3.9 10 Normal 1.5-8.5 Lymph # 1.1 10 Low 1.5-5.0 [place] # 0.4 10 Normal 0.0-0.8 Eos # 0.0 10 Normal 0.0-0.5 Baso # 0.0 10 Normal 0.0-0.2 Blood Culture 04/06/2020 [facility] nter [address] [place], [place] [address] [phone] Blood Culture No growth after <SEE NOTE> 14 Laboratory test finding 12/20/2019 [facility] [facility] Manager Wellness: [place] [address] [phone] T4 Free 1.17 ng/dL 0.76 - 1.46 Complete Blood Count 12/20/2019 [facility] Manager Wellness: [place] [address] [phone] WBC 7.5 x10*3/UL 4.1 - 10.9 RBC [...] 2.0 - 7.8 Comprehensive Chem Profile 12/20/2019 [facility], Manager Wellness: [place] [address] [phone] Glucose 93 mg/dL 74 - 99 15 [...] mL/min Low >60 16 Lipid Profile 12/20/2019 [facility] Manager Wellness: [place] [address] [phone] Cholesterol 173 mg/dL 131 - 200 Triglycerides 106 mg/dL 30 - 150 HDL Cholesterol 42 mg/dL 35 - 60 LDL (Calculated) 110 CALC 50 - 159 Laboratory test finding 12/20/2019 [facility] Manager Wellness: [place] [address] [phone] Thyroid Stimulating Hormone 4.02 uIU/mL High 0.3 6 - 3.74 1 Units are mL/min/1.73 m2 Chronic Kidney Disease Staging per NKF: Stage I & II GFR >=60 Normal to Mildly Decreased Stage III GFR 30-59 Moderately Decreased Stage IV GFR 15-29 Severely Decreased Stage V GFR <15 Very Little GFR Left ESRD GFR <15 on WET WASH ASSEMBLER 2 DIAGNOSIS CRITERIA MMB ng/ml Relative Index (RI) NON-AMI < or = 5 N/A MATAMOROS ZONE > 5 < or = 4 AMI > 5 > 4 3 Troponin I Reference Interva l for [employer] [place] LOCI: 99th Percentile= 0.00-0.045 ng/ml Risk Stratification: [...] 10 Troponin I Reference Interva l for [employer] [place] LOCI: 99th Percentile= 0.00-0.045 ng/ml Risk Stratification: [...] Little GFR Left ESRD GFR <15 on WET WASH ASSEMBLER 12 Y/N query for Sepsis Lactate Rule: [...] LITTLE GFR LEFT ESRD GFR <15 ON WET WASH ASSEMBLER Procedures Date Code Description Status 11/03/2008 [id number] Colonoscopy Completed Medical Devices Description No Information [...] Unspecified atrial fibrillation Lab Schedule 12/20/2019 Z79.01 custodial (current) use of antic oagulants Shlomo Goins M.D. 12/20/2019 Z79.01 custodial (current) use of antic oagulants Lab Schedule 12/20/2019 E07.9 Disorder of thyroid, unspecified Shlomo Goins M.D. 12/20/2019 E07.9 Disorder of thyroid, unspecified Lab Schedule Plan of Treatment Future Appointment(s):* 06/22/2020 7:50 am - Lab Schedule at [facility] * 06/23/2020 8:30 am - Shlomo Goins M.D. at [facility] 12/23/2019 - Shlomo Goins M.D.* Z23 Encounter for immunization * Functional Status Description No Information Available Mental Status Description No Information Available Referrals Description No Information Available
--- OUTSIDE RECORDS SUMMARY | 2020-05-02 09:09 | CCD | Continuity of Care Document ---
Author Author Jamil REA M.D. Organization Unknown Address [address] [place] [address] Phone [phone] Care Team Providers Care Exhibition Carver Name Role Phone Shlomo Rea MD AUTM [phone] Bal Tolbert MD AUTM Unavailable Juan M Covarrubias MD AUTM [phone] Rebekah Burroughs MD AUTM [phone] Problems Active Problems Provider Date Atrial fibrillation [...] Provide r Date Vitamin D (Ergocalciferol) 1.25mg (64645 Ut) Capsules take one once a week [...] CPT Code Status Date Vaccine Lot # [id number] Given 12/23/2019 Influenza Vaccin e Quadrivalent Preser/Antibiotic Free Im Use [id number] Given 11/27/2019 Adacel- Tetanus Diphtheria P ertussis (Age64 & Under) 99430 Given 01/16/2019 Influenza Vaccin e Quadrivalent Preser/Antibiotic Free Im Use [id number] 61383 Given 01/04/2018 Influenza Virus Vaccine, Quadrivalent (Cciiv4), Derived From Cell 978316 U-PneuC Given 01/02/2017 Prevnar 13 U-Flu Given 01/02/2017 Influenza,Unspecified 14121 Given 01/11/2012 Zostavax U-Td Given 01/11/2012 Td(Adult)(Tetanus, [...] H/L Range Note Istat Chem8+ Panel 04/11/2020 [facility] [address] [place], [place] [id number] [phone] iSTAT HCT 40.0 % Normal 38.0-51.0 iSTAT Glucose 141 mg/dL High 70-105 iSTAT Sodium 140 mEq/L Normal 136-145 iSTAT Potassium 4.0 mEq/L Normal 3.5-5.1 iSTAT CA++ 4.3 mg/dL Low 4.5-5.3 iSTAT Chloride 106 mEq/L Normal 98-109 iSTAT Co2 23.0 MM/L Normal 23.0-27.0 iSTAT BUN 29 mg/dL High 8-26 iSTAT Creatinine 1.6 mg/dL High 0.6-1.3 CBC With Differential 04/11/2020 [facility] [address] [place], [place] [id number] [phone] White Blood Count 9.8 10 Normal 4.0-10.0 [...] 36.0-66.0 Lymph % 25.0 % Normal 24.0-44.0 Hickman % 4.9 % Normal 0.0-5.0 Eos % 0.3 % Normal 0.0-3.0 Baso % 0.2 % Normal 0.0-1.0 Immature Granulocyte % 1.5 % Normal 0-3.0 Nucleated Red Blood Cell % 0.0 % Normal 0-0 Neutrophils # 6.6 10 Normal 1.5-8.5 Lymph # 2.4 10 Normal 1.5-5.0 Hickman # 0.5 10 Normal 0.0-0.8 Eos # 0.0 10 Normal 0.0-0.5 Baso # 0.0 10 Normal 0.0-0.2 Comprehensive Metabolic Profil 04/11/[address] [address] [phone] Glucose, Fasting 142 mg/dL High 70-100 Blood [...] Ratio 0.7 Normal Cardiac Marker Panel 04/11/[address] [address] [phone] CPK Creatine Phosphokinase 110 U/L Normal 39-30 8 CK-MB Value Mass 1.1 NG/ML Normal <3.6 MB/CK Relative Index 1.00 Normal < Or =4 2 Troponin I < 0.02 NG/ML Normal < 0.10 3 Laboratory test finding 04/11/[address] [facility] [address] [place] [address] [phone] LDH Lactate Dehydrogenase 446 U/L High 87-241 Magnesium Level 2.0 mg/dL Normal 1.8-2.4 Ferritin 1581 NG/ML High 26-388 C Reactive Protein Quantitativ 15.20 mg/dL High 0.00-0.30 Lactic Acid Sepsis Protocol 2.6 mmol/L Critical high 0.4-2.0 4 PT & Aptt 04/11/2020 [facility] [address] [place] [address] [phone] Prothrombin Time 41.4 seconds High 12.5-14.3 Inr 4.19 Normal 5 Partial Thromboplastin Time 68.4 seconds High 24.2-38.5 Laboratory test finding 04/11/[address] [facility] [address] [place] [address] [phone] Fibrinogen 750 mg/dL High 221-452 D-Dimer Quant 1803.85 ng/ml High <500 Procalcitonin 0.21 Normal 6 Arterial Blood Gas 04/11/2020 [facility] [address] [place] [address] [phone] ABG pH (Arterial) 7.489 units High 7.350-7.450 ABG Partial Pressure Co2 30.7 mmHg Low 35.0-45.0 ABG Partial Pressure O2 57.9 mmHg Low 75.0-100.0 ABG Total Co2 23.8 mEq/L Normal 23.0-31.0 ABG Hco3 22.8 mEq/L Normal 22.0-26.0 ABG Base Excess 0.3 Normal -2.0-2.0 ABG Standard Hco3 24.7 mEq/L Normal 22.0-26.0 ABG O2 Saturation 92.7 % Low 95.0-99.0 Laboratory test finding 04/06/2020 [address] [place] [address] [phone] LDH Lactate Dehydrogenase 318 U/L High 87-241 Magnesium Level 2.2 mg/dL Normal 1.8-2.4 Digoxin Level 0.2 NG/ML Low 0.5-2.0 Ferritin 640 NG/ML High 26-388 C Reactive Protein Quantitativ 6.29 mg/dL High 0.00-0.30 Procalcitonin 0.24 Normal 7 Blood Culture No growth after <SEE NOTE> 8 Cardiac Marker Panel 04/06/2020 [facility] [address] [place] [address] [phone] CPK Creatine Phosphokinase 357 U/L High 39-30 8 CK-MB Value Mass 2.1 NG/ML Normal <3.6 MB/CK Relative Index 0.59 Normal < Or =4 9 Troponin I < 0.02 NG/ML Normal < 0.10 10 Comprehensive Metabolic Profil 04/06/[address] [address] [phone] Glucose, Fasting 132 mg/dL High 70-100 Blood [...] Ratio 0.9 Normal Laboratory test finding 04/06/[address] [facility] [address] [place] [address] [phone] Fibrinogen 552 mg/dL High 221-452 D-Dimer Quant 1650.90 ng/ml High <500 Lactic Acid Sepsis Protocol 1.3 mmol/L Normal 0.4-2.0 12 PT & Aptt 04/06/2020 [facility] [address] [place] [address] [phone] Prothrombin Time 18.7 seconds High 12.5-14.3 Inr 1.53 Normal 13 Partial Thromboplastin Time 38.1 seconds Normal 24.2-38.5 CBC With Differential 04/06/[address] [address] [phone] White Blood Count 5.4 10 Normal 4.0-10.0 [...] 36.0-66.0 Lymph % 19.4 % Low 24.0-44.0 Hickman % 7.8 % High 0.0-5.0 Eos % 0.0 % Normal 0.0-3.0 Baso % 0.4 % Normal 0.0-1.0 Immature Granulocyte % 0.4 % Normal 0-3.0 Nucleated Red Blood Cell % 0.0 % Normal 0-0 Neutrophils # 3.9 10 Normal 1.5-8.5 Lymph # 1.1 10 Low 1.5-5.0 Hickman # 0.4 10 Normal 0.0-0.8 Eos # 0.0 10 Normal 0.0-0.5 Baso # 0.0 10 Normal 0.0-0.2 Blood Culture 04/06/2020 [facility] [address] [place] [address] [phone] Blood Culture No growth after <SEE NOTE> 14 Laboratory test finding 12/20/2019 [facility] [employer]ard Plate Maker: [place] [address] [phone] T4 Free 1.17 ng/dL 0.76 - 1.46 Complete Blood Count 12/20/2019 [facility] [employer] Plate Maker: [place] [address] [phone] WBC 7.5 x10*3/UL 4.1 - 10.9 RBC [...] 2.0 - 7.8 Comprehensive Chem Profile 12/20/2019 [facility] [employer] Plate Maker: [place] [address] [phone] Glucose 93 mg/dL 74 - 99 15 [...] mL/min Low >60 16 Lipid Profile 12/20/2019 [facility] , Jacquard Plate Maker: [place] [address] [phone] Cholesterol 173 mg/dL 131 - 200 Triglycerides 106 mg/dL 30 - 150 HDL Cholesterol 42 mg/dL 35 - 60 LDL (Calculated) 110 CALC 50 - 159 Laboratory test finding 12/20/2019 [facility] [employer], nikkie Jacquard Plate Maker: [place] [address] [phone] Thyroid Stimulating Hormone 4.02 uIU/mL High 0.3 6 - 3.74 1 Units are mL/min/1.73 m2 Chronic Kidney Disease Staging per NKF: Stage I & II GFR >=60 Normal to Mildly Decreased Stage III GFR 30-59 Moderately Decreased Stage IV GFR 15-29 Severely Decreased Stage V GFR <15 Very Little GFR Left ESRD GFR <15 on WASHER ENGINEER 2 DIAGNOSIS CRITERIA MMB ng/ml Relative Index (RI) NON-AMI < or = 5 N/A [place] ZONE > 5 < or = 4 AMI > 5 > 4 3 Troponin I Reference Interva l for [employer] LOCI: 99th Percentile= 0.00-0.045 ng/ml Risk Stratification: [...] 10 Troponin I Reference Interva l for [employer] [place] LOCI: 99th Percentile= 0.00-0.045 ng/ml Risk Stratification: [...] Little GFR Left ESRD GFR <15 on WASHER ENGINEER 12 Y/N query for Sepsis Lactate Rule: [...] LITTLE GFR LEFT ESRD GFR <15 ON WASHER ENGINEER Procedures Date Code Description Status 11/03/2008 [id number] Colonoscopy Completed Medical Devices Description No Information [...] Unspecified atrial fibrillation Lab Schedule 12/20/2019 Z79.01 terminologist (current) use of antic oagulants Shlomo Rea M.D. 12/20/2019 Z79.01 terminologist (current) use of antic oagulants Lab Schedule 12/20/2019 E07.9 Disorder of thyroid, unspecified Shlomo Rea M.D. 12/20/2019 E07.9 Disorder of thyroid, unspecified Lab Schedule Plan of Treatment Future Appointment(s):* 06/22/2020 7:50 am - Lab Schedule at [facility] * 06/23/2020 8:30 am - Shlomo Rea M.D. at [facility] 12/23/2019 - Shlomo Rea M.D.* Z23 Encounter for immunization * Functional Status Description No Information Available Mental Status Description No Information Available Referrals Description No Information Available
--- OUTSIDE RECORDS SUMMARY | 2020-05-02 09:11 | CCD ---
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 Name Role Phone Gurpreet Goins MD Unavailable Unavailable Gurpreet Goins MD Unavailable Unavailable Gurpreet Goins MD Unavailable Unavailable Gurpreet Goins MD Unavailable Unavailable Gurpreet Goins MD Unavailable Unavailable Gurpreet Goins MD Unavailable Unavailable Gurpreet Goins MD Unavailable Unavailable Gurpreet Goins MD Unavailable Unavailable Gurpreet Goins MD Unavailable Unavailable Gurpreet Goins MD Unavailable Unavailable Gurpreet Goins MD Unavailable Unavailable Gurpreet Goins MD Unavailable Unavailable Gurpreet Goins MD Unavailable Unavailable Gurpreet Goins MD Unavailable Unavailable Gurpreet Goins MD Unavailable Unavailable Gurpreet Goins MD Unavailable Unavailable Gurpreet Goins MD Unavailable Unavailable Gurpreet Goins MD Unavailable Unavailable Gurpreet Goins MD Unavailable Unavailable Gurpreet Goins MD Unavailable Unavailable Gurpreet Goins MD Unavailable Unavailable Gurpreet Goins MD Unavailable Unavailable Gurpreet Goins MD Unavailable Unavailable Gurpreet Goins MD Unavailable Unavailable Gurpreet Goins MD Unavailable Unavailable Gurpreet Goins MD Unavailable Unavailable Gurpreet Goins MD Unavailable Unavailable Gurpreet Goins MD Unavailable Unavailable Gurpreet Goins MD Unavailable Unavailable Gurpreet Goins MD Unavailable Unavailable Gurpreet Goins MD Unavailable Unavailable Gurpreet Goins MD Unavailable Unavailable Gurpreet Goins MD Unavailable Unavailable Gurpreet Goins MD Unavailable Unavailable Gurpreet Goins MD Unavailable Unavailable Gurpreet Goins MD Unavailable Unavailable Gurpreet Goins MD Unavailable Unavailable Gurpreet Goins MD Unavailable Unavailable Gurpreet Goins MD Unavailable Unavailable Gurpreet Goins MD Unavailable Unavailable Gurpreet Goins MD Unavailable Unavailable Gurpreet Goins MD Unavailable Unavailable Gurpreet Goins MD Unavailable Unavailable Gurpreet Goins MD Unavailable Unavailable Gurpreet Goins MD Unavailable Unavailable Gurpreet Goins MD Unavailable Unavailable Gurpreet Goins MD Unavailable Unavailable Gurpreet Goins MD Unavailable Unavailable Gurpreet Goins MD Unavailable Unavailable Gurpreet Goins MD Unavailable Unavailable Gurpreet Goins MD Unavailable Unavailable Gurpreet Goins MD Unavailable Unavailable Gurpreet Goins MD Unavailable Unavailable Gurpreet Goins MD Unavailable Unavailable Gurpreet Goins MD Unavailable Unavailable Gurpreet Goins MD Unavailable Unavailable Gurpreet Goins MD Unavailable Unavailable Gurpreet Goins MD Unavailable Unavailable Gurpreet Goins MD Unavailable Unavailable Gurpreet Goins MD Unavailable Unavailable Gurpreet Goins MD Unavailable Unavailable Gurpreet Goins MD Unavailable Unavailable Gurpreet Goins MD Unavailable Unavailable Gurpreet Goins MD Unavailable Unavailable Gurpreet Goins MD Unavailable Unavailable Gurpreet Goins MD Unavailable Unavailable Gurpreet Goins MD Unavailable Unavailable Gurpreet Goins MD Unavailable Unavailable Gurpreet Goins MD Unavailable Unavailable Gurpreet Goins MD Unavailable Unavailable Gurpreet Goins MD Unavailable Unavailable Gurpreet Goins MD Unavailable Unavailable Gurpreet Goins MD Unavailable Unavailable Marie MUKHERJEE MD Unavailable Unavailable Marie MUKHERJEE MD Unavailable Unavailable Marie MUKHERJEE MD Unavailable Unavailable Marie MUKHERJEE MD Unavailable Unavailable Marie MUKHERJEE MD Unavailable Unavailable Marie MUKHERJEE MD Unavailable Unavailable Marie MUKHERJEE MD Unavailable Unavailable Marie MUKHERJEE MD Unavailable Unavailable Marie MUKHERJEE MD Unavailable Unavailable Marie MUKHERJEE MD Unavailable Unavailable Marie MUKHERJEE MD Unavailable Unavailable Marie MUKHERJEE MD Unavailable Unavailable Marie MUKHERJEE MD Unavailable Unavailable Marie MUKHERJEE MD Unavailable Unavailable Marie MUKHERJEE MD Unavailable Unavailable Marie MUKHERJEE MD Unavailable Unavailable Marie MUKHERJEE MD Unavailable Unavailable Marie MUKHERJEE MD Unavailable Unavailable Marie MUKHERJEE MD Unavailable Unavailable Marie MUKHERJEE MD Unavailable Unavailable Marie MUKHERJEE MD Unavailable Unavailable Marie MUKHERJEE MD Unavailable Unavailable Marie MUKHERJEE MD Unavailable Unavailable Marie MUKHERJEE MD Unavailable Unavailable Marie MUKHERJEE MD Unavailable Unavailable Marie MUKHERJEE MD Unavailable Unavailable Marie MUKHERJEE MD Unavailable Unavailable MUKHERJEE E ORAL NOYOLA Unavailable Unavailable MUKHERJEE, E ORAL NOYOLA Unavailable Unavailable MUKHERJEE, E ORAL NOYOLA Unavailable Unavailable MUKHERJEE, E ORAL NOYOLA Unavailable Unavailable MUKHERJEE, E ORAL NOYOLA Unavailable Unavailable MUKHERJEE, E ORAL NOYOLA Unavailable Unavailable MUKHERJEE, E ORAL NOYOLA Unavailable Unavailable MUKHERJEE, E ORAL NOYOLA Unavailable Unavailable MUKHERJEE, E ORAL NOYOLA Unavailable Unavailable MUKHERJEE, E ORAL NOYOLA Unavailable Unavailable MUKHERJEE, E ORAL NOYOLA Unavailable Unavailable MUKHERJEE, E ORAL NOYOLA Unavailable Unavailable MUKHERJEE, E ORAL NOYOLA Unavailable Unavailable MUKHERJEE, E ORAL NOYOLA Unavailable Unavailable MUKHERJEE, E ORAL NOYOLA Unavailable Unavailable MUKHERJEE, E ORAL NOYOLA Unavailable Unavailable MUKHERJEE, E ORAL NOYOLA Unavailable Unavailable MUKHERJEE, E ORAL NOYOLA Unavailable Unavailable MUKHERJEE, E ORAL NOYOLA Unavailable Unavailable MUKHERJEE, E ORAL NOYOLA Unavailable Unavailable MUKHERJEE, E ORAL NOYOLA Unavailable Unavailable MUKHERJEE, E ORAL NOYOLA Unavailable Unavailable MUKHERJEE, E ORAL NOYOLA Unavailable Unavailable MUKHERJEE, E ORAL NOYOLA Unavailable Unavailable MUKHERJEE, E ORAL NOYOLA Unavailable Unavailable MUKHERJEE, E ORAL NOYOLA Unavailable Unavailable MUKHERJEE, E ORAL NOYOLA Unavailable Unavailable MUKHERJEE, E ORAL NOYOLA Unavailable Unavailable MUKHERJEE, E ORAL NOYOLA Unavailable Unavailable MUKHERJEE, E ORAL NOYOLA Unavailable Unavailable Barrett, Calli STORAGE WHARFAGE CLERK Unavailable Unavailable Barrett, Calli STORAGE WHARFAGE CLERK Unavailable Unavailable Barrett, Calli STORAGE WHARFAGE CLERK Unavailable Unavailable Barrett, Calli STORAGE WHARFAGE CLERK Unavailable Unavailable Barrett, Calli STORAGE WHARFAGE CLERK Unavailable Unavailable Barrett, Calli STORAGE WHARFAGE CLERK Unavailable Unavailable Barrett, Calli STORAGE WHARFAGE CLERK Unavailable Unavailable Barrett, Calli STORAGE WHARFAGE CLERK Unavailable Unavailable Barrett, Calli STORAGE WHARFAGE CLERK Unavailable Unavailable Barrett, Calli STORAGE WHARFAGE CLERK Unavailable Unavailable Barrett, Calli STORAGE WHARFAGE CLERK Unavailable Unavailable LETTIERE, A JENNYFER PA Unavailable Unavailable LETTIERE, A JENNYFER PA Unavailable Unavailable LETTIERE, A JENNYFER PA Unavailable Unavailable LETTIERE, A JENNYFER PA Unavailable Unavailable LETTIERE, A JENNYFER PA Unavailable Unavailable LETTIERE, A JENNYFER PA Unavailable Unavailable LETTIERE, A JENNYFER PA Unavailable Unavailable LETTIERE, A JENNYFER PA Unavailable Unavailable LETTIERE, A JENNYFER PA Unavailable Unavailable LETTIERE, A JENNYFER PA Unavailable Unavailable LETTIERE, A JENNYFER PA Unavailable Unavailable LETTIERE, A JENNYFER PA Unavailable Unavailable LETTIERE, A JENNYFER PA Unavailable Unavailable LETTIERE, A JENNFYER PA Unavailable Unavailable LETTIERE, A JENNYFER PA Unavailable Unavailable LETTIERE, A JENNYFER PA Unavailable Unavailable LETTIERE, A JENNYFER PA Unavailable Unavailable LETTIERE, A JENNYFER PA Unavailable Unavailable LETTIERE, A JENNYFER PA Unavailable Unavailable LETTIERE, A JENNYFER PA Unavailable Unavailable LETTIERE, A JENNYFER PA Unavailable Unavailable LETTIERE, A JENNYFER PA Unavailable Unavailable LETTIERE, A JENNYFER PA Unavailable Unavailable LETTIERE, A JENNYFER PA Unavailable Unavailable LETTIERE, A JENNYFER PA Unavailable Unavailable LETTIERE, A JENNYFER PA Unavailable Unavailable LETTIERE, A JENNYFER PA Unavailable Unavailable LETTIERE, A JENNYFER PA Unavailable Unavailable LETTIERE, A JENNYFER PA Unavailable Unavailable Re-disclosure Warning The records that you are about to access may contain information from federally-assisted alcohol or drug abuse programs. If such information is present, then the following federally mandated warning applies: This information has been disclosed to you from records protected by federal confidentiality rules (42 CFR part 2). The federal rules prohibit you from making any further disclosure of this information unless further disclosure is expressly permitted by the written consent of the person to whom it pertains or as otherwise permitted by 42 CFR part 2. A general authorization for the release of medical or other information is NOT sufficient for this purpose. The Federal rules restrict any use of the information to criminally investigate or prosecute any alcohol or drug abuse patient.The records that you are about to access may contain highly sensitive health information, the redisclosure of which is protected by Article 27-F of the [facility] Public Health law. If you continue you may have access to information: Regarding HIV / AIDS; Provided by facilities licensed or operated by the [facility] Office of Mental Health; or Provided by the [facility] Office for People With Developmental Disabilities. If such information is present, then the following [facility] mandated warning applies: This information has been disclosed to you from confidential records which are protected by state law. State law prohibits you from making any further disclosure of this information without the specific written consent of the person to whom it pertains, or as otherwise permitted by law. Any unauthorized further disclosure in violation of state law may result in a fine or residential sentence or both. A general authorization for the release of medical or other information is NOT sufficient authorization for further disc losure. Family History Family Member Name Family Member Gender Family Member Status Date o f Status Description Data Source(s) Unknown Unknown Problem [facility] ([facility]) daughters, all healthy Unknown Unknown Problem [facility] ([facility]) Unknown Male Problem [facility] ([facility] () Unknown Female Problem [facility] ([facility]) Encounters Encounter Providers Location Date Indications Data Source(s ) Outpatient Attender: Shlomo San 04/20 10:00:00 AM EST MEDENT ([facility] ) Outpatient Attender: JENNYFER savage 04/01/2020 03:50:00 PM EST MED[facility] ([facility]) Outpatient Attender: ORAL MUKHERJEE MD Main Office 03/23/2020 11:15:00 AM EST MED[facility] ([facility]) Outpatient Attender: Calli rico 11/27/2019 03:20:00 PM EDT MED[facility] ([facility]) Outpatient [facility] [address] 10/17/2019 12:00:00 AM EDT eCW1 ([facility]) Outpatient Attender: ORAL MUKHERJEE MD Main Office 09/25/2019 10:15:00 AM EDT MED[facility] ([facility]) Outpatient Nuno San 06/12/2019 08:00:00 AM EDT MED[facility] ([facility]) Outpatient Attender: ORAL MUKHERJEE MD Main Office 03/12/2019 11:30:00 AM EST MED[facility] ([facility]) Immunizations Vaccine Date Status Description Data Source(s) Influenza, injectable, MDCK, preservative free, anaya valent 12/23/2019 09:44:00 AM EDT completed MED[facility] ([facility]) Tdap 11/27/2019 03:56:00 PM EDT completed M EDENT ([facility]) Tdap 11/27/2019 03:55:00 PM EDT completed M EDENT ([facility], [facility]) Medications Medication Brand Name Start Date Product Form Dose Route Admi nistrative Instructions Pharmacy Instructions Status Indications Reaction Description Data Source(s) 875-125 mg 04/13/2020 12:00:00 AM EST tablet 8 TAKE ONE TABLET BY MOUTH TWICE A DAY TAKE ONE TABLET BY MOUTH TWICE A DAY SOLD: 04/15/2020 [facility] 4 mg 04/13/2020 12:00:00 AM EST tablet 30 TAKE ONE TABLET BY MOUTH AT BEDTIME RESTART 04/17/2020 TAKE ONE TABLET BY MOUTH AT BEDTIME RESTART 04/17/2020 SOLD: 04/15/2020 [facility] 90 mcg/actuation 04/13/2020 12:00:00 AM EST HFA aerosol inha ler 18 INHALE 2 PUFFS BY MOUTH EVERY 4-6 HOUR NEEDED FOR WHEEZING INHALE 2 PUFFS BY MOUTH EVERY 4-6 HOUR NEEDED FOR WHEEZING SOLD: 04/15/2020 [facility] 2 mg 04/13/2020 12:00:00 AM EST tablet 5 TAKE ONE TABLET BY MOUTH EVERY DAY TAKE ONE TABLET BY MOUTH EVERY DAY SOLD: 04/15/2020 [facility] Amiodarone hydrochloride 200 MG Oral Tablet AMIODARONE HCL 03/16/2020 12:00:00 AM EST tablet 75 TAKE ONE TABLET BY MOUTH BRANDEE Monday-MONDAY TAKE ONE TABLET BY MOUTH EVERY DAY MONDAY-MONDAY SOLD: 03/17/2020 [facility] 1,250 mcg (50,000 unit) 12/30/2019 12:00:00 AM EDT capsule 12 TAKE 1 CAPSULE BY MOUTH ONCE WEEKLY TAKE 1 CAPSULE BY MOUTH ONCE WEEKLY SOLD: 04/10/2020 [facility] 1,250 mcg (50,000 unit) 12/30/2019 12:00:00 AM EDT capsule 12 TAKE 1 CAPSULE BY MOUTH ONCE WEEKLY TAKE 1 CAPSULE BY MOUTH ONCE WEEKLY SOLD: 01/06/2020 [facility] 0.5 % 12/23/2019 12:00:00 AM EDT cream 45 APPLY TWO TIMES A DAY DIRECTED, DO NOT OVERUSE, RISK OF ATROPY APPLY TWO TIMES A DAY DIRECTED, DO NO T OVERUSE, RISK OF ATROPY SOLD: 12/25/2019 [facility] Vitamin A 12/23/2019 12:00:00 AM EDT complete d MEDENT ([facility]) Administration Of Flu Vaccine 12/23/2019 12:00:00 AM EDT completed [facility] ([facility]) Medication administered onsite 0.4 mg 12/23/2019 12:00:00 AM EDT capsule 90 TAKE ONE CAPSULE BY MOUTH EVERY DAY TAKE ONE CAPSULE BY MOUTH EVERY DAY SOLD: 04/10/2020 [facility] 0.4 mg 12/23/2019 12:00:00 AM EDT capsule 90 TAKE ONE CAPSULE BY MOUTH EVERY DAY TAKE ONE CAPSULE BY MOUTH EVERY DAY SOLD: 12/25/2019 [facility] 500 mg 12/23/2019 12:00:00 AM EDT tablet 20 TAKE ONE TABLET BY MOUTH TWICE A DAY TAKE ONE TABLET BY MOUTH TWICE A DAY SOLD: 12/25/2019 [facility] Ergocalciferol 44139 UNT Oral Capsule Vitamin D (Ergocalcife rol) 12/23/2019 12:00:00 AM EDT active M EDENT ([facility]) Triamcinolone Acetonide 5 MG/ML Topical Cream Triamcinolone Acetonide 12/23/2019 12:00:00 AM EDT active M EDENT ([facility]) Mupirocin 0.02 MG/MG Topical Ointment Mupirocin 11/27/2019 12:00:00 AM EDT completed MEDENT ([facility]) Amoxicillin 875 MG / Clavulanate 125 MG Oral Tablet Am oxicillin/Clavulanate Potassium 11/27/2019 12:00:00 AM EDT ORAL completed [facility] ([facility]) 2 % 11/27/2019 12:00:00 AM EDT ointment 22 APPLY TO AFFECTED AREA(S) TWO TIMES A DAY FOR 7 DAYS APPLY TO AFFECTED AREA(S) TWO TIMES A DAY FOR 7 DAYS SOLD: 11/27/2019 [facility] 875-125 mg 11/27/2019 12:00:00 AM EDT tablet 20 TAKE ONE TABLET BY MOUTH TWICE A DAY DIRECTED FOR 10 DAYS TAKE ONE TABLET BY MOUTH TWICE A DAY DIRECTED FOR 10 DAYS SOLD: 11/27/2019 [facility] 5 mg 02/15/2019 12:00:00 AM EST tablet 170 KAMI 1-2 TABLETS BY MOUTH DAILY DIRECTED KAMI 1-2 TABLETS BY MOUTH DAILY DIRECTED SOLD: 08/05/2019 [facility] 5 mg 02/15/2019 12:00:00 AM EST tablet 180 KAMI 1-2 TABLETS BY MOUTH DAILY DIRECTED KAMI 1-2 TABLETS BY MOUTH DAILY DIRECTED SOLD: 01/31/2020 [facility] 200 mg 01/15/2019 12:00:00 AM EDT tablet 75 TAKE ONE TABLET BY MOUTH EVERY DAY FOR MONDAY-MONDAY TAKE ONE TABLET BY MOUTH EVERY DAY FOR S OLD: 08/03/2019 [facility] 200 mg 01/15/2019 12:00:00 AM EDT tablet 75 TAKE ONE TABLET BY MOUTH EVERY DAY FOR TAKE ONE TABLET BY MOUTH EVERY DAY FOR S OLD: 04/27/2019 [facility] 200 mg 01/15/2019 12:00:00 AM EDT tablet 75 TAKE ONE TABLET BY MOUTH EVERY DAY FOR MONDAY-MONDAY TAKE ONE TABLET BY MOUTH EVERY DAY FOR S OLD: 12/02/2019 [facility] 0.4 mg 12/11/2018 12:00:00 AM EDT capsule 90 TAKE ONE CAPSULE BY MOUTH EVERY DAY TAKE ONE CAPSULE BY MOUTH EVERY DAY SOLD: 09/30/2019 [facility] 0.4 mg 12/11/2018 12:00:00 AM EDT capsule 90 TAKE ONE CAPSULE BY MOUTH EVERY DAY TAKE ONE CAPSULE BY MOUTH EVERY DAY SOLD: 06/15/2019 [facility] 1,250 mcg (50,000 unit) 12/11/2018 12:00:00 AM EDT capsule 12 TAKE 1 CAPSULE BY MOUTH ONCE A WEEK TAKE 1 CAPSULE BY MOUTH ONCE A WEEK SOLD: 10/30/2019 [facility] 0.4 mg 12/11/2018 12:00:00 AM EDT capsule 90 TAKE ONE CAPSULE BY MOUTH EVERY DAY TAKE ONE CAPSULE BY MOUTH EVERY DAY SOLD: 03/29/2019 [facility] 1,250 mcg (50,000 unit) 12/11/2018 12:00:00 AM EDT capsule 12 TAKE 1 CAPSULE BY MOUTH ONCE A WEEK TAKE 1 CAPSULE BY MOUTH ONCE A WEEK SOLD: 08/05/2019 [facility] Insurance Providers Payer name Policy type / Coverage type Policy ID Covered alliance party ID Covered alliance party's relationship to mathew Policy Mathew Plan Information [facility] [id number] WI2 [id number] MEDICARE [id number] SP [id number] MEDICARE C [id number] S [id number] [facility] O [id number] S [id number] MEDICARE [id number] SP [id number] A [facility] [id number] WI2 [id number] UMR [id number] Spo [id number] MEDICARE [id number] Beatrice [id number] UMR [id number] MEDICARE [id number] [facility] [id number] WI2 [id number] [place] Medigap Part B [id number] Family Dependent [id number] Medicare [facility] Medicare Primary [id number] Self [id number] [place] Medigap Part B [id number] Family Dependent [id number] Umr Commercial [id number] Family Dependent [id number] Umr Medigap Part B [id number] Family Dependent [id number] Medicare (Part B) Medicare Primary [id number] Self [id number] Medicare (Part B) Medicare Primary [id number] Self [id number] [place] PHCS Ppo Medigap Part B [id number] Self [id number] Umr Medigap Part B [id number] Family Dependent [id number] Medicare (Part B) Medicare Primary [id number] Self [id number] Medicare (Part B) Medicare Primary [id number] Self [id number] [place]/Umr (Old) Medigap Part B [id number] Family Dependent [id number] Umr (New [place]) Medigap Part B [id number] Family Dependent [id number] Medicare [place] Govt Serv Medicare Primary [id number] Self [id number] Umr Medigap Part B [id number] Family Dependent [id number] Medicare (Part B) Medicare Primary [id number] Self [id number] Medicare (Part B) Medicare Primary [id number] Self [id number] Umr Medigap Part B [id number] Family Dependent [id number] Medicare (Part B) Medicare Primary [id number] Self [id number] Medicare (Part B) Medicare Primary [id number] Self [id number] MEDICARE C [id number] S [id number] A [place] Medigap Part B [id number] Family Dependent [id number] [place] Primary [id number] Self [id number] [place]/Um[place] (Old) Medigap Part B [id number] Family Dependent [id number] Medicare Natl Govt Servic Medicare Primary [id number] Self [id number] [employer] PPO O [id number] P [id number] Medicare (Part B) Medicare Primary [id number] Self [id number] [place] PHCS Ppo Medigap Part B [id number] Self [id number] Medicare (Part B) Medicare Primary [id number] Self [id number] [place] Ppo Medigap Part B [id number] Family Dependent [id number] Medicare [place] Govt Servic Medicare Primary [id number] Self [id number] [place] Ppo Medigap Part B [id number] Family Dependent [id number] Medicare [place] Govt Servic Medicare Primary [id number] Self [id number] Medicare (Part B) Medicare Primary [id number] Self [id number] [place] Ppo Medigap Part B [id number] Family Dependent [id number] Medicare Natl Govt Servic Medicare Primary Self POMCO [id number] [place]2 [id number] [place] UNAVAILABLE UNAVAILA BLE Medicare (Part B) Medicare Primary Self [place] Medigap Part B Family Dependent [place] (pr) Medigap Part B Family Dependent [place] Primary Self Medicare Medicare Primary Self [employer]OM[employer] O [id number] U [id number] MEDICARE INPATIENT M [id number] S [id number] A [id number] Problems, Conditions, and Diagnoses Code Display Name Description Problem Type Effective Dates Data Source(s) 72469563 Cough Cough Problem 03/23/2020 12:00:00 AM ES T MEDLADI ([facility]) 11815324 Premature beats Premature beats Problem 03/23/2020 12:0 0:00 AM EST MEDENT ([facility]) R97.20 Elevated PSA Elevated PSA Problem 10/17/2019 12:00:00 A M EDT eCW1 ([facility]) Surgeries/Procedures Procedure Description Date Indications Data Source(s) Anticoagulant MGMT For Patient Taking Warfarin, Inc Review & Intr 04/20/2020 12:00:00 AM EST MED[facility] ([facility]) Anticoagulant MGMT For Patient Taking Warfarin, Inc Review & Intr 03/24/2020 12:00:00 AM EST [facility] ([facility]) ECG ROUTINE ECG W/LEAST 12 LDS W/I&R 03/23/2020 12:00: 00 AM EST MED[facility] ([facility]) Anticoagulant MGMT For Patient Taking Warfarin, Inc Review & Intr 02/25/2020 12:00:00 AM EST [facility] ([facility]) Anticoagulant MGMT For Patient Taking Warfarin, Inc Review & Intr 01/24/2020 12:00:00 AM EDT MED[facility] ([facility]) Anticoagulant MGMT For Patient Taking Warfarin, Inc Review & Intr 12/26/2019 12:00:00 AM EDT MED[facility] ([facility]) Anticoagulant MGMT For Patient Taking Warfarin, Inc Review & Intr 11/27/2019 12:00:00 AM EDT MED[facility] ([facility]) Anticoagulant MGMT For Patient Taking Warfarin, Inc Review & Intr 10/29/2019 12:00:00 AM EDT MED[facility] ([facility]) ECHO TTHRC R-T 2D W/WOM-MODE COMPL SPEC&COLR DOP 10/15 12:00:00 AM EDT MED[facility] ([facility]) Anticoagulant MGMT For Patient Taking Warfarin, Inc Review & Intr 10/01/2019 12:00:00 AM EDT MED[facility] ([facility]) ECG ROUTINE ECG W/LEAST 12 LDS W/I&R 09/25/2019 12:00: 00 AM EDT MED[facility] ([facility]) Anticoagulant MGMT For Patient Taking Warfarin, Inc Review & Intr 08/30/2019 12:00:00 AM EDT MED[facility] ([facility]) Anticoagulant MGMT For Patient Taking Warfarin, Inc Review & Intr 08/02/2019 12:00:00 AM EDT MED[facility] ([facility]) Anticoagulant MGMT For Patient Taking Warfarin, Inc Review & Intr 06/27/2019 12:00:00 AM EDT MED[facility] ([facility]) Anticoagulant MGMT For Patient Taking Warfarin, Inc Review & Intr 05/29/2019 12:00:00 AM EST [facility] ([facility]) Anticoagulant MGMT For Patient Taking Warfarin, Inc Review & Intr 05/02/2019 12:00:00 AM EST [facility] ([facility]) Anticoagulant MGMT For Patient Taking Warfarin, Inc Review & Intr 04/18/2019 12:00:00 AM EST [facility] ([facility]) Anticoagulant MGMT For Patient Taking Warfarin, Inc Review & Intr 03/22/2019 12:00:00 AM EST [facility] ([facility]) ECG ROUTINE ECG W/LEAST 12 LDS W/I&R 03/12/2019 12:00: 00 AM EST MED[facility] ([facility]) Results ID Date Data Source [id number] 04/20/2020 12:42:00 PM EST MEDENT ([facility]) Name Value Range Interpretation Code Description Data Gabriela rce(s) Supporting Document(s) INR in Platelet poor plasma by Coagulation assay 2.4 [facility] ID Date Data Source [id number] 04/11/2020 05:12:00 PM EST MEDENT ([facility]) Name Value Range Interpretation Code Description Data Gabriela rce(s) Supporting Document(s) Laboratory test finding (navigational concept) 40.0 % 38.0-51.0 MED[facility] ([facility]) Laboratory test finding (navigational concept) 141 mg/dL 70-105 MED[facility] ([facility]) Laboratory test finding (navigational concept) 4.0 meq/L 3.5-5.1 [facility] ([facility]) Laboratory test finding (navigational concept) 140 meq/L 136-145 MED[facility] ([facility]) Laboratory test finding (navigational concept) 4.3 mg/dL 4.5-5.3 [facility] ([facility]) Laboratory test finding (navigational concept) 106 meq/L 98-109 [facility] ([facility]) Laboratory test finding (navigational concept) 23.0 MM/L 23.0-27.0 [facility] ([facility]) Laboratory test finding (navigational concept) 1.6 mg/dL 0.6-1.3 [facility] ([facility]) Laboratory test finding (navigational concept) 29 mg/dL 8-26 [facility] ([facility]) ID Date Data Source [id number] 04/11/2020 04:42:00 PM EST [facility] Name Value Range Interpretation Code Description Data Gabriela rce(s) Supporting Document(s) Fibrinogen [Mass/volume] in Platelet poor plasma by Coagulat ion assay 750 mg/dL 221-452 [facility] ([facility]) Fibrin D-dimer FEU [Mass/volume] in Platelet poor plasma 1803.85 ng/m L [facility] ([facility]) Procalcitonin [Mass/volume] in Serum or Plasma 0.21 [facility] <content>SEPSIS INTERPRETATION OF RESULT S</content>
<content><0.5 ng/ml Low risk for progression to severe</content>
<content>sepsis and or septic shock.</content>
<content>0.50-2.00 ng/ml Sepsis should be considered.</content>
<content>>2.00 ng/ml High risk for progression to severe</content>
<content>sepsis and or septic shock.</content>
<content></content>
<content>LOWER RESPIRATORY TRACT INFECTION REFERENCE INTERVAL</content>
<content><0.1 ng/ml Antibiotics strongly discouraged.</content>
<content>0.1-0.25 ng/ml Antibiotics are discouraged.</content>
<content>0.26-0.5 ng/ml Antibiotics are encouraged.</content>
<content>>0.5 ng/ml Antibiotics are strongly encouraged.</content>
<content></content> ID Date Data Source [id number] 04/11/2020 04:42:[address] [facility] ([facility]) Name Value Range Interpretation Code Description Data Gabriela rce(s) Supporting Document(s) Inr 4.19 [facility] ([facility]) THERAPUTIC HUMAN INR VALUES INDICATIONS NORMAL RANGES PROPHYLAXIS/TREATMENT OF: VENOUS THROMBOSIS 2.0-3.0 PULMONARY EMBOLISM 2.0-3.0 PREVENTION OF SYSTEMIC EMBOLISM FROM: TISSUE HEART VALVES 2.0-3.0 ACUTE MYOCARDIAL INFARCTION 2.0-3.0 VALVULAR HEART DISEASE 2.0-3.0 ATRIAL FIBRILLATION 2.0-3.0 MECHANICAL VALVES(HIGH RISK) 2.5-3.5 RECURRENT MYOCARDIAL INFARCTION 2.5-3.5 Prothrombin Time 41.4 s 12.5-14.3 [facility] ([facility]) Partial Thromboplastin Time 68.4 s 24.2-38.5 [facility] ([facility]) ID Date Data Source [id number] 04/11/2020 04:42:00 PM EST [facility] ([facility]) Name Value Range Interpretation Code Description Data Gabriela rce(s) Supporting Document(s) Lactate dehydrogenase [Enzymatic activit y/volume] in Serum or Plasma by Lactate to pyruvate reaction 446 U/L 87-241 [facility] ([facility]) Magnesium [Moles/volume] in Serum or Plasma 2.0 mg/dL 1.8-2.4 [facility] ([facility]) Ferritin [Mass/volume] in Serum or Plasma 1581 ng/mL 26-388 [facility] Lactate [Mass/volume] in Serum or Plasma 2.6 mmol/L 0.4-2.[address] panic limits [facility] ([facility]) Y/N query for Sepsis Lactate Rule: Y C reactive protein [Mass/volume] in Serum or Plasma by High sensitivity method 15.20 mg/dL 0.00-0.30 [facility] ([facility] ID Date Data Source [id number] 04/11/2020 04:42:[address] [facility] ([facility]) Name Value Range Interpretation Code Description Data Gabriela rce(s) Supporting Document(s) CPK Creatine Phosphokinase 110 U/L 39-308 [facility]) MB/CK Relative Index 1.00 [facility] ([facility] <content>DIAGNOSIS CRITERIA</content>
<content>MMB ng/ml Relative Index (RI)</content>
<content>NON-AMI < or = 5 N/A</content>
<content>MATAMOROS ZONE > 5 < or = 4</content>
<content>AMI > 5 > 4</content>
<content></content> CK-MB Value Mass 1.1 ng/mL [facility] ([facility]) Troponin I Laboratory test result [facility] ([facility]) <content>Troponin I Reference Interval f or Siemens [place] LOCI:</content>
<content></content>
<content>99th Percentile= 0.00-0.045 ng/ml</content>
<content></content>
<content>Risk Stratification:</content>
<content><= 0.10 ng/ml Decreased Risk for Adverse Clinical</content>
<content>Events.</content>
<content>0.10-1.50 ng/ml Increased Risk for Adverse Clinical</content>
<content>Events. Evaluation of additional</content>
<content>criterion and/or repeat testing in 2-6</content>
<content>hours is suggested to rule out myocardial</content>
<content>damage.</content>
<content>>= 1.50 ng/ml Indicative of Myocardial Injury.</content>
<content></content> ID Date Data Source [id number] 04/11/2020 04:42:00 PM EST [facility] ([facility]) Name Value Range Interpretation Code Description Data Gabriela rce(s) Supporting Document(s) Glucose, Fasting 142 mg/dL 70-100 [facility] ([facility]) Blood Urea Nitrogen 31 mg/dL 7-18 [facility] ([facility]) Creatinine For GFR 1.61 mg/dL 0.70-1.30 [facility] ([facility]) Glomerular Filtration Rate 43.7 [facility] ([facility]) <content>Units are mL/min/1.73 m2</content>
<content></content>
<content>Chronic Kidney Disease Staging per NKF:</content>
<content></content>
<content>Stage I & II GFR >=60 Normal to Mildly Decreased</content>
<content>Stage III GFR 30- 59 Moderately Decreased</content>
<content>Stage IV GFR 15-29 Severely Decreased</content>
<content>Stage V GFR <15 Very Little GFR Left</content>
<content>ESRD GFR <15 on SECRETARY OFFICE CLERK</content>
<content></content> Sodium Level 139 meq/L 136-145 [facility] ([facility]) Potassium Serum 4.4 meq/L 3.5-5.1 [facility] ([facility]) Chloride Level 108 meq/L 98-107 [facility] ([facility]) Carbon Dioxide Level 24 meq/L 21-32 [facility] ([facility]) Anion Gap 7 meq/L 8-16 [facility] ([facility]) Calcium Level 7.9 mg/dL 8.8-10.2 [facility] ([facility]) Ast/Sgot 115 U/L 7-37 [facility] ([facility]) Alt/SGPT 101 U/L 12-78 [facility] ([facility]) Total Protein 6.6 GM/DL 6.4-8.2 [facility] ([facility]) Bilirubin,Total 0.5 mg/dL 0.2-1.0 [facility] ([facility]) Alkaline Phosphatase 80 U/L 45-117 [facility] ([facility]) Albumin/Globulin Ratio 0.7 [facility] ([facility]) Albumin 2.8 GM/DL 3.2-5.2 [facility] ([facility]) ID Date Data Source [id number] 04/11/2020 04:42:00 PM EST [facility] ([facility]) Name Value Range Interpretation Code Description Data Gabriela rce(s) Supporting Document(s) White Blood Count 9.8 10 4.0-10.0 [facility] ([facility]) Hemoglobin 12.8 g/dL 13.5-17.5 [facility] ([facility]) Red Blood Count 4.43 10 4.30-6.10 [facility] ([facility]) Hematocrit 41.3 % 42.0-52.0 [facility] ([facility]) Mean Corpuscular Volume 93.2 fl 80.0-96.0 [facility] ([facility]) Mean Corpuscular Hemoglobin 28.9 pg 27.0-33.0 [facility] ([facility]) Platelet Count, Automated 319 10 150-450 [facility] ([facility]) Mean Corpuscular HGB Conc 31.0 g/dL 32.0-36.5 [facility] ([facility]) Red Cell Distribution Width 14.5 % 11.5-14.5 [facility] ([facility]) Walker % 4.9 % 0.0-5.0 [facility] ([facility]) Lymph % 25.0 % 24.0-44.0 [facility] ([facility]) Neutrophils % 68.1 % 36.0-66.0 [facility] ([facility]) Eos % 0.3 % 0.0-3.0 [facility] ([facility]) Immature Granulocyte % 1.5 % 0-3.0 [facility] ([facility]) Baso % 0.2 % 0.0-1.0 [facility] ([facility]) Nucleated Red Blood Cell % 0.0 % 0-0 [facility] ([facility]) Walker # 0.5 10 0.0-0.8 [facility] ([facility]) Neutrophils # 6.6 10 1.5-8.5 [facility] ([facility]) Lymph # 2.4 10 1.5-5.0 [facility] ([facility]) Baso # 0.0 10 0.0-0.2 [facility] ([facility]) Eos # 0.0 10 0.0-0.5 [facility] ([facility]) ID Date Data Source [id number] 04/11/2020 04:10:00 PM EST [facility] ([facility]) Name Value Range Interpretation Code Description Data Gabriela rce(s) Supporting Document(s) ABG Partial Pressure Co2 30.7 mmHg 35.0-45.0 [facility] ([facility]) ABG pH (Arterial) 7.489 units 7.350-7.450 [facility] ( [facility]) ABG Partial Pressure O2 57.9 mmHg 75.0-100.0 [facility] ([facility]) ABG Total Co2 23.8 meq/L 23.0-31.0 [facility] ([facility]) ABG Hco3 22.8 meq/L 22.0-26.0 [facility] ABG Standard Hco3 24.7 meq/L 22.0-26.0 [facility] ([facility]) ABG O2 Saturation 92.7 % 95.0-99.0 [facility] ([facility]) ABG Base Excess 0.3 [facility] ([facility]) ID Date Data Source [id number] 04/06/2020 11:34:[address] [facility] ([facility]) Name Value Range Interpretation Code Description Data Gabriela rce(s) Supporting Document(s) Blood Culture Laboratory test result [facility] ([facility]) No growth after 72 hours . All specimens observed for 5 days. Results final at that time. No growth after 48 hours . All specimens observed for 5 days. Results final at that time. No growth after 24 hours . All specimens observed for 5 days. Results final at that time. NO GROWTH AFTER 5 DAYS ID Date Data Source [id number] 04/06/2020 11:27:[address] [facility] ([facility]) Name Value Range Interpretation Code Description Data Gabriela rce(s) Supporting Document(s) White Blood Count 5.4 10 4.0-10.0 [facility] ([facility]) Red Blood Count 4.22 10 4.30-6.10 [facility] ([facility]) Hematocrit 39.4 % 42.0-52.0 [facility] Mean Corpuscular Volume 93.4 fl 80.0-96.0 [facility] ([facility]) Hemoglobin 12.3 g/dL 13.5-17.5 [facility] Mean Corpuscular Hemoglobin 29.1 pg 27.0-33.0 [facility] ([facility]) Mean Corpuscular HGB Conc 31.2 g/dL 32.0-36.5 [facility] Red Cell Distribution Width 14.5 % 11.5-14.5 [facility] ([facility]) Platelet Count, Automated 172 10 150-450 [facility] ([facility]) Neutrophils % 72.0 % 36.0-66.0 [facility] ([facility]) Walker % 7.8 % 0.0-5.0 [facility] Lymph % 19.4 % 24.0-44.0 [facility] Eos % 0.0 % 0.0-3.0 [facility] ([facility]) Nucleated Red Blood Cell % 0.0 % 0-0 [facility] ([facility]) Immature Granulocyte % 0.4 % 0-3.0 [facility] ([facility]) Baso % 0.4 % 0.0-1.0 [facility] ([facility]) Neutrophils # 3.9 10 1.5-8.5 [facility] ([facility]) Lymph # 1.1 10 1.5-5.0 [facility] Walker # 0.4 10 0.0-0.8 [facility] ([facility]) Eos # 0.0 10 0.0-0.5 [facility] ([facility]) Baso # 0.0 10 0.0-0.2 [facility] ID Date Data Source [id number] 04/06/2020 11:27:00 AM EST [facility] ([facility]) Name Value Range Interpretation Code Description Data Gabriela rce(s) Supporting Document(s) Inr 1.53 [facility] ([facility]) THERAPUTIC HUMAN INR VALUES INDICATIONS NORMAL RANGES PROPHYLAXIS/TREATMENT OF: VENOUS THROMBOSIS 2.0-3.0 PULMONARY EMBOLISM 2.0-3.0 PREVENTION OF SYSTEMIC EMBOLISM FROM: TISSUE HEART VALVES 2.0-3.0 ACUTE MYOCARDIAL INFARCTION 2.0-3.0 VALVULAR HEART DISEASE 2.0-3.0 ATRIAL FIBRILLATION 2.0-3.0 MECHANICAL VALVES(HIGH RISK) 2.5-3.5 RECURRENT MYOCARDIAL INFARCTION 2.5-3.5 Partial Thromboplastin Time 38.1 s 24.2-38.5 [facility] ([facility]) Prothrombin Time 18.7 s 12.5-14.3 [facility] ([facility]) ID Date Data Source [id number] 04/06/2020 11:27:00 AM EST [facility] ([facility]) Name Value Range Interpretation Code Description Data Gabriela rce(s) Supporting Document(s) Fibrinogen [Mass/volume] in Platelet poor plasma by Coagulat ion assay 552 mg/dL 221-452 [facility] ([facility]) Fibrin D-dimer FEU [Mass/volume] in Platelet poor plasma 1650.90 ng/m L [facility] ([facility]) Lactate [Mass/volume] in Serum or Plasma 1.3 mmol/L 0.4-2.0 [facility] ([facility]) Y/N query for Sepsis Lactate Rule: Y ID Date Data Source [id number] 04/06/2020 11:27:00 AM EST [facility] ([facility]) Name Value Range Interpretation Code Description Data Gabriela rce(s) Supporting Document(s) Glucose, Fasting 132 mg/dL 70-100 [facility] ([facility]) Creatinine For GFR 1.74 mg/dL 0.70-1.30 [facility] ([facility]) Blood Urea Nitrogen 34 mg/dL 7-18 [facility] ([facility]) Potassium Serum 4.2 meq/L 3.5-5.1 [facility] ([facility]) Glomerular Filtration Rate 40.0 [facility] ([facility]) <content>Units are mL/min/1.73 m2</content>
<content></content>
<content>Chronic Kidney Disease Staging per NKF:</content>
<content></content>
<content>Stage I & II GFR >=60 Normal to Mildly Decreased</content>
<content>Stage III GFR 30- 59 Moderately Decreased</content>
<content>Stage IV GFR 15-29 Severely Decreased</content>
<content>Stage V GFR <15 Very Little GFR Left</content>
<content>ESRD GFR <15 on SECRETARY OFFICE CLERK</content>
<content></content> Sodium Level 136 meq/L 136-145 [facility] ([facility]) Chloride Level 108 meq/L 98-107 [facility] ([facility]) Anion Gap 6 meq/L 8-16 [facility] ([facility]) Carbon Dioxide Level 22 meq/L 21-32 [facility] Calcium Level 7.7 mg/dL 8.8-10.2 [facility] ([facility]) Alt/SGPT 26 U/L 12-78 [facility] ([facility]) Ast/Sgot 37 U/L 7-37 [facility] ([facility]) Bilirubin,Total 0.3 mg/dL 0.2-1.0 [facility] ([facility]) Total Protein 6.5 GM/DL 6.4-8.2 [facility] ([facility]) Alkaline Phosphatase 59 U/L 45-117 [facility] ([facility]) Albumin/Globulin Ratio 0.9 [facility] ([facility]) Albumin 3.0 GM/DL 3.2-5.2 [facility] ([facility]) ID Date Data Source [id number] 04/06/2020 11:27:00 AM EST [facility] Name Value Range Interpretation Code Description Data Gabriela rce(s) Supporting Document(s) CPK Creatine Phosphokinase 357 U/L 39-308 [facility] ([facility]) MB/CK Relative Index 0.59 [facility] ([facility]) <content>DIAGNOSIS CRITERIA</content>
<content>MMB ng/ml Relative Index (RI)</content>
<content>NON-AMI < or = 5 N/A</content>
<content>MATAMOROS ZONE > 5 < or = 4</content>
<content>AMI > 5 > 4</content>
<content></content> CK-MB Value Mass 2.1 ng/mL [facility] Troponin I Laboratory test result [facility] ([facility]) <content>Troponin I Reference Interval f or Siemens [place] LOCI:</content>
<content></content>
<content>99th Percentile= 0.00-0.045 ng/ml</content>
<content></content>
<content>Risk Stratification:</content>
<content><= 0.10 ng/ml Decreased Risk for Adverse Clinical</content>
<content>Events.</content>
<content>0.10-1.50 ng/ml Increased Risk for Adverse Clinical</content>
<content>Events. Evaluation of additional</content>
<content>criterion and/or repeat testing in 2-6</content>
<content>hours is suggested to rule out myocardial</content>
<content>damage.</content>
<content>>= 1.50 ng/ml Indicative of Myocardial Injury.</content>
<content></content> ID Date Data Source [id number] 04/06/2020 11:27:00 AM EST [facility] ([facility]) Name Value Range Interpretation Code Description Data Gabriela rce(s) Supporting Document(s) Lactate dehydrogenase [Enzymatic activit y/volume] in Serum or Plasma by Lactate to pyruvate reaction 318 U/L 87-241 [facility] ([facility] Magnesium [Moles/volume] in Serum or Plasma 2.2 mg/dL 1.8-2.4 [facility] ([facility]) Digoxin [Mass/volume] in Serum or Plasma 0.2 ng/mL 0.5-2.0 [facility] ([facility]) Ferritin [Mass/volume] in Serum or Plasma 640 ng/mL 26-388 [facility] ([facility]) C reactive protein [Mass/volume] in Serum or Plasma by High sensitivity method 6.29 mg/dL 0.00-0.30 [facility] ([facility] Procalcitonin [Mass/volume] in Serum or Plasma 0.24 [facility] ([facility] <content>SEPSIS INTERPRETATION OF RESULT S</content>
<content><0.5 ng/ml Low risk for progression to severe</content>
<content>sepsis and or septic shock.</content>
<content>0.50-2.00 ng/ml Sepsis should be considered.</content>
<content>>2.00 ng/ml High risk for progression to severe</content>
<content>sepsis and or septic shock.</content>
<content></content>
<content>LOWER RESPIRATORY TRACT INFECTION REFERENCE INTERVAL</content>
<content><0.1 ng/ml Antibiotics strongly discouraged.</content>
<content>0.1-0.25 ng/ml Antibiotics are discouraged.</content>
<content>0.26-0.5 ng/ml Antibiotics are encouraged.</content>
<content>>0.5 ng/ml Antibiotics are strongly encouraged.</content>
<content></content> Bacteria identified in Blood by Culture Laboratory test result [facility] ([facility]) No growth after 72 hours . All specimens observed for 5 days. Results final at that time. No growth after 48 hours . All specimens observed for 5 days. Results final at that time. No growth after 24 hours . All specimens observed for 5 days. Results final at that time. NO GROWTH AFTER 5 DAYS ID Date Data Source [id number] 04/01/2020 12:00:00 AM EST [facility] Name Value Range Interpretation Code Description Data Gabriela rce(s) Supporting Document(s) [facility] This lab was reported by [facility]. ID Date Data Source [id number] 03/23/2020 09:36:00 AM EST [facility] Name Value Range Interpretation Code Description Data Gabriela rce(s) Supporting Document(s) Laboratory test finding (navigational concept) Laboratory test result [facility] ([facility]) ID Date Data Source [id number] 03/23/2020 09:36:00 AM EST [facility] Name Value Range Interpretation Code Description Data Gabriela rce(s) Supporting Document(s) INR in Platelet poor plasma by Coagulation assay 2.2 0.9-1.2 [facility] ([facility]) Reference interval is for non-anticoagul ated patients. Suggested INR therapeutic range for Vitamin K antagonist therapy: Standard Dose (moderate intensity therapeutic range): 2.0 - 3.0 Higher intensity therapeutic range 2.5 - 3.5 Prothrombin time (PT) 22.7 sec 9.1-12.0 [facility] ([facility]) ID Date Data Source [id number] 03/24/2020 06:05:00 AM EST [facility] Name Value Range Interpretation Code Description Data Gabriela rce(s) Supporting Document(s) INR 2.2 0.9-1.2 Above high normal [facility] Reference interval is for non-anticoagulated patients. Suggested INR therapeutic range for Vitamin K antagonist therapy: Standard Dose (moderate intensity therapeutic range): 2.0 - 3.0 Higher intensity therapeutic range 2.5 - 3.5 Prothrombin Time 22.7 sec 9.1-12.0 Above high normal [facility] ID Date Data Source [id number] 03/06/2020 08:17:00 AM EST [facility] Name Value Range Interpretation Code Description Data Gabriela rce(s) Supporting Document(s) Magnesium Level 1.83 [facility] ([facility]) ID Date Data Source [id number] 03/06/2020 08:17:00 AM EST [facility] ([facility] Name Value Range Interpretation Code Description Data Gabriela rce(s) Supporting Document(s) White Blood Count 7.9 [facility] ([facility]) Red Blood Count 4.32 [facility] ([facility]) Platelets 296 [facility] Hemoglobin 13.3 [facility] ([facility]) Hematocrit 40.6 [facility] ([facility]) ID Date Data Source [id number] 03/06/2020 08:17:00 AM EST [facility] ([facility]) Name Value Range Interpretation Code Description Data Gabriela rce(s) Supporting Document(s) Glucose 77 [facility] ([facility]) Blood Urea Nitrogen 33.7 [facility] ([facility]) Glomerular filtration rate/1.73 sq M.pre dicted [Volume Rate/Area] in Serum or Plasma by Creatinine-based formula (MDRD) 41 [facility] ([facility]) Sodium 143.7 [facility] ([facility]) Creatinine 1.6 [facility] ([facility]) Potassium 4.4 [facility] ([facility]) Carbon Dioxide 26.6 [facility] ([facility]iol [facility]) Chloride 108.7 [facility] ([facility]) Calcium 8.6 [facility] ([facility]) Phosphorus 3.7 [facility] ([facility]) Albumin 3.9 [facility] ([facility]) ID Date Data Source [id number] 02/24/2020 08:11:00 AM EST [facility] ([facility]) Name Value Range Interpretation Code Description Data Gabriela rce(s) Supporting Document(s) Laboratory test finding (navigational concept) Laboratory test result [facility] ([facility]) ID Date Data Source [id number] 02/24/2020 08:11:00 AM EST [facility] ([facility]) Name Value Range Interpretation Code Description Data Gabriela rce(s) Supporting Document(s) Prothrombin time (PT) 19.1 sec 9.1-12.0 [facility] ([facility]) INR in Platelet poor plasma by Coagulation assay 1.9 0.9-1.2 [facility] ([facility]) Reference interval is for non-anticoagul ated patients. Suggested INR therapeutic range for Vitamin K antagonist therapy: Standard Dose (moderate intensity therapeutic range): 2.0 - 3.0 Higher intensity therapeutic range 2.5 - 3.5 ID Date Data Source [id number] 02/25/2020 06:05:00 AM EST [facility] Name Value Range Interpretation Code Description Data Gabriela rce(s) Supporting Document(s) INR 1.9 0.9-1.2 Above high normal [facility] Reference interval is for non-anticoagulated patients. Suggested INR therapeutic range for Vitamin K antagonist therapy: Standard Dose (moderate intensity therapeutic range): 2.0 - 3.0 Higher intensity therapeutic range 2.5 - 3.5 Prothrombin Time 19.1 sec 9.1-12.0 Above high normal [facility] ID Date Data Source [id number] 01/23/2020 07:55:00 AM EDT [facility] ([facility]) Name Value Range Interpretation Code Description Data Gabriela rce(s) Supporting Document(s) Laboratory test finding (navigational concept) Laboratory test result [facility] ([facility] [place]) ID Date Data Source [id number] 01/23/2020 07:55:00 AM EDT [facility] ([facility] [place]) Name Value Range Interpretation Code Description Data Gabriela rce(s) Supporting Document(s) INR in Platelet poor plasma by Coagulation assay 1.9 0.9-1.2 [facility] ([facility] [place]) Reference interval is for non-anticoagul ated patients. Suggested INR therapeutic range for Vitamin K antagonist therapy: Standard Dose (moderate intensity therapeutic range): 2.0 - 3.0 Higher intensity therapeutic range 2.5 - 3.5 Please note reference interval change Prothrombin time (PT) 19.3 sec 9.1-12.0 [facility] ([facility] [place]) Please note reference interval change* * ID Date Data Source [id number] 01/24/2020 06:05:00 AM EDT [facility] Name Value Range Interpretation Code Description Data Gabriela rce(s) Supporting Document(s) INR 1.9 0.9-1.2 Above high normal [facility] Reference interval is for non-anticoagulated patients. Suggested INR therapeutic range for Vitamin K antagonist therapy: Standard Dose (moderate intensity therapeutic range): 2.0 - 3.0 Higher intensity therapeutic range 2.5 - 3.5 Please note reference interval change Prothrombin Time 19.3 sec 9.1-12.0 Above high normal [facility] Please no te reference interval change ID Date Data Source [id number] 12/25/2019 07:53:00 AM EDT [facility] ([facility] [place]) Name Value Range Interpretation Code Description Data Gabriela rce(s) Supporting Document(s) INR in Platelet poor plasma by Coagulation assay 2.3 0.8-1.2 [facility] ([facility] [place]) Reference interval is for non-anticoagul ated patients. Suggested INR therapeutic range for Vitamin K antagonist therapy: Standard Dose (moderate intensity therapeutic range): 2.0 - 3.0 Higher intensity therapeutic range 2.5 - 3.5 Prothrombin time (PT) 23.0 sec 9.1-12.0 [facility] ([facility]) ID Date Data Source [id number] 12/25/2019 07:53:00 AM EDT [facility] ([facility] [place]) Name Value Range Interpretation Code Description Data Gabriela rce(s) Supporting Document(s) Laboratory test finding (navigational concept) Laboratory test result [facility] ([facility]) ID Date Data Source [id number] 12/26/2019 06:05:00 AM EDT [facility] Name Value Range Interpretation Code Description Data Gabriela rce(s) Supporting Document(s) INR 2.3 0.8-1.2 Above high normal [facility] Reference interval is for non-anticoagulated patients. Suggested INR therapeutic range for Vitamin K antagonist therapy: Standard Dose (moderate intensity therapeutic range): 2.0 - 3.0 Higher intensity therapeutic range 2.5 - 3.5 Prothrombin Time 23.0 sec 9.1-12.0 Above high normal [facility] ID Date Data Source [id number] 12/20/2019 09:11:00 AM EDT [facility] ([facility]) Name Value Range Interpretation Code Description Data Gabriela rce(s) Supporting Document(s) Thyroxine (T4) free [Mass/volume] in Serum or Plasma 1.17 ng/dL 0.76- 1.46 [facility] ([facility]) ID Date Data Source [id number] 12/20/2019 09:11:00 AM EDT [facility] ([facility] [place]) Name Value Range Interpretation Code Description Data Gabriela rce(s) Supporting Document(s) Thyroxine (T4) free [Mass/volume] in Serum or Plasma 1.17 ng/dL 0.76- 1.46 [facility] ([facility] [place]) ID Date Data Source [id number] 12/20/2019 09:10:00 AM EDT [facility] ([facility]) Name Value Range Interpretation Code Description Data Gabriela rce(s) Supporting Document(s) Thyrotropin [Units/volume] in Serum or Plasma by Detec tion limit <= 0.05 mIU/L 4.02 uIU/mL 0.36-3.74 [facility] ([facility] ) ID Date Data Source [id number] 12/20/2019 09:10:00 AM EDT [facility] ([facility]) Name Value Range Interpretation Code Description Data Gabriela rce(s) Supporting Document(s) Triglyceride [Mass/volume] in Serum or Plasma 106 mg/dL 30-150 [facility] ([facility]) Cholesterol [Mass/volume] in Serum or Plasma 173 mg/dL 131-200 [facility] ([facility]) Cholesterol in HDL [Mass/volume] in Serum or Plasma 42 mg/dL 35-60 [facility] ([facility]) Cholesterol in LDL [Mass/volume] in Serum or Plasma by calcu lation 110 CALC 50-159 [facility] ([facility]) ID Date Data Source [id number] 12/20/2019 09:10:00 AM EDT [facility] ([facility]) Name Value Range Interpretation Code Description Data Gabriela rce(s) Supporting Document(s) Glucose [Mass/volume] in Serum or Plasma 93 mg/dL 74-99 [facility] ([facility]) 100-125 mg/dL PRE-DIABETES/FASTING >126 mg/dL DIABETES/FASTING Urea nitrogen [Mass/volume] in Serum or Plasma 36 mg/dL 7-18 [facility] ([facility]) Sodium [Moles/volume] in Serum or Plasma 142 meq/L 136-145 [facility] ([facility]) Creatinine 1.9 mg/dL 0.6-1.3 [facility] Chloride [Moles/volume] in Serum or Plasma 108 meq/L 98-107 [facility] ([facility]) Carbon dioxide, total [Moles/volume] in Serum or Plasma 27 meq/L 21 -32 [facility] ([facility]) Potassium [Moles/volume] in Serum or Plasma 4.5 meq/L 3.5-5.1 [facility] ([facility]) Alkaline phosphatase isoenzyme [Units/volume] in Serum or Pl asma 68 mg/dL 46-116 [facility] ([facility]) Calcium [Mass/volume] in Serum or Plasma 8.6 mg/dL 8.5-10.1 [facility] ([facility]) Total Bilirubin 0.5 mg/dL 0.2-1.0 [facility] ([facility]) Aspartate aminotransferase [Enzymatic activity/volume] in Serum or Plasma 21 U/L 15-37 [facility] ([facility] ) Albumin [Mass/volume] in Serum or Plasma 3.8 g/dL 3.4-5.0 [facility] ([facility]) Alanine aminotransferase [Enzymatic activity/volume] in Seru m or Plasma 28 U/L 12-78 [facility] ([facility]) Glomerular filtration rate/1.73 sq M pre dicted among blacks [Volume Rate/Area] in Serum or Plasma by Creatinine-based formula (MDRD) 41 mL/min [facility] <content>CHRONIC KIDNEY DISEASE STAGING PER NKF</content>
<content></content>
<content>STAGE I & II GFR >= 60 NORMAL TO MILDLY DECREASED</content>
<content>STAGE III GFR 30-59 MODERATELY DECREASED</content>
<content>STAGE IV GFR 15-29 SEVERELY DECREASED</content>
<content>STAGE V GFR <15 VERY LITTLE GFR LEFT</content>
<content>ESRD GFR <15 ON SECRETARY OFFICE CLERK</content>
<content></content> Glomerular filtration rate/1.73 sq M pre dicted among non-blacks [Volume Rate/Area] in Serum or Plasma by Creatinine-based formula (MDRD) 34 mL/min [facility] A/G Ratio 1.12 CALC 1.00-1.90 [facility] Proteinase 3 Ab [Units/volume] in Serum 7.2 g/dL 6.4-8.2 [facility] ([facility]) ID Date Data Source [id number] 12/20/2019 09:10:[address] [facility] ([facility]) Name Value Range Interpretation Code Description Data Gabriela rce(s) Supporting Document(s) Leukocytes [#/volume] in Blood by Automated count 7.5 x10*3/UL 4.1-[address] [facility] ([facility]) Erythrocytes [#/volume] in Blood by Automated count 4.34 x10*6/UL 4.2 0-6.30 [facility] ([facility]) Hematocrit [Volume Fraction] of Blood by Automated count 37.7 % 3 7.0-51.0 [facility] ([facility]) MCV 86.8 fL 80.0-97.0 [facility] Hemoglobin [Mass/volume] in Blood 13.3 g/dL 12.0-18.0 [facility] ([facility]) Erythrocyte distribution width [Ratio] by Automated count 12.9 % 11.6-13.7 [facility] ([facility]) MCHC 35.3 g/dL 31.0-38.0 [facility] MCH 30.7 pg 26.0-32.0 [facility] Platelets [#/volume] in Blood by Automated count 263 x10*3/UL 140-440 [facility] ([facility]) Lymph % 19.9 % 10.0-58.5 [facility] MPV 7.6 FL 7.8-11.0 [facility] Mid % 5.2 % 1.7-9.3 [facility] Lymph # 1.4 x10*3/UL 0.6-4.1 [facility] ([facility]) Neut % 74.9 % 37.0-92.0 [facility] Neut # 5.6 x10*3/UL 2.0-7.8 [facility] ([facility]) Mid # 0.5 x10*3/UL 0.1-0.6 [facility] ([facility]) ID Date Data Source [id number] 12/20/2019 09:10:00 AM EDT [facility] ([facility]) Name Value Range Interpretation Code Description Data Gabriela rce(s) Supporting Document(s) Thyrotropin [Units/volume] in Serum or Plasma by Detec tion limit <= 0.05 mIU/L 4.02 uIU/mL 0.36-3.74 [facility] ([employer] [facility]) ID Date Data Source [id number] 12/20/2019 09:10:00 AM EDT [facility] ([facility] [place]) Name Value Range Interpretation Code Description Data Gabriela rce(s) Supporting Document(s) Triglyceride [Mass/volume] in Serum or Plasma 106 mg/dL 30-150 [facility] ([facility]) Cholesterol in HDL [Mass/volume] in Serum or Plasma 42 mg/dL 35-60 [facility] ([facility]) Cholesterol [Mass/volume] in Serum or Plasma 173 mg/dL 131-200 [facility] ([facility]) Cholesterol in LDL [Mass/volume] in Serum or Plasma by calcu lation 110 CALC 50-159 [facility] ([facility]) ID Date Data Source [id number] 12/20/2019 09:10:00 AM EDT [facility] ([facility] [place]) Name Value Range Interpretation Code Description Data Gabriela rce(s) Supporting Document(s) Urea nitrogen [Mass/volume] in Serum or Plasma 36 mg/dL 7-18 [facility] ([facility]) Glucose [Mass/volume] in Serum or Plasma 93 mg/dL 74-99 [facility] ([facility]) 100-125 mg/dL PRE-DIABETES/FASTING >126 mg/dL DIABETES/FASTING Creatinine 1.9 mg/dL 0.6-1.3 [facility] ([facility]) Sodium [Moles/volume] in Serum or Plasma 142 meq/L 136-145 [facility] ([facility]) Potassium [Moles/volume] in Serum or Plasma 4.5 meq/L 3.5-5.1 [facility] ([facility]) Chloride [Moles/volume] in Serum or Plasma 108 meq/L 98-107 [facility] ([facility]) Calcium [Mass/volume] in Serum or Plasma 8.6 mg/dL 8.5-10.1 [facility] ([facility]) Alkaline phosphatase isoenzyme [Units/volume] in Serum or Pl asma 68 mg/dL 46-116 [facility] ([facility]) Carbon dioxide, total [Moles/volume] in Serum or Plasma 27 meq/L 21 -32 [facility] ([facility]) Aspartate aminotransferase [Enzymatic activity/volume] in Serum or Plasma 21 U/L 15-37 [facility] ([employer] [facility]) Total Bilirubin 0.5 mg/dL 0.2-1.0 [facility] ([facility]) Alanine aminotransferase [Enzymatic activity/volume] in Seru m or Plasma 28 U/L 12-78 [facility] ([facility]) A/G Ratio 1.12 CALC 1.00-1.90 [facility] ([facility]) Proteinase 3 Ab [Units/volume] in Serum 7.2 g/dL 6.4-8.2 [facility] ([facility]) Albumin [Mass/volume] in Serum or Plasma 3.8 g/dL 3.4-5.0 [facility] ([facility]) Glomerular filtration rate/1.73 sq M pre dicted among blacks [Volume Rate/Area] in Serum or Plasma by Creatinine-based formula (MDRD) 41 mL/min [facility] ([facility]) <content>CHRONIC KIDNEY DISEASE STAGING PER NKF</content>
<content></content>
<content>STAGE I & II GFR >= 60 NORMAL TO MILDLY DECREASED</content>
<content>STAGE III GFR 30-59 MODERATELY DECREASED</content>
<content>STAGE IV GFR 15-29 SEVERELY DECREASED</content>
<content>STAGE V GFR <15 VERY LITTLE GFR LEFT</content>
<content>ESRD GFR <15 ON SECRETARY OFFICE CLERK</content>
<content></content>
<content></content> Glomerular filtration rate/1.73 sq M pre dicted among non-blacks [Volume Rate/Area] in Serum or Plasma by Creatinine-based formula (MDRD) 34 mL/min [facility] ([facility]) ID Date Data Source [id number] 11/26/2019 08:24:00 AM EDT [facility] ([facility]) Name Value Range Interpretation Code Description Data Gabriela rce(s) Supporting Document(s) Laboratory test finding (navigational concept) Laboratory test result [facility] ([facility]) ID Date Data Source [id number] 11/26/2019 08:24:00 AM EDT [facility] Name Value Range Interpretation Code Description Data Gabriela rce(s) Supporting Document(s) INR in Platelet poor plasma by Coagulation assay 2.2 0.8-1.2 [facility] ([facility]) Reference interval is for non-anticoagul ated patients. Suggested INR therapeutic range for Vitamin K antagonist therapy: Standard Dose (moderate intensity therapeutic range): 2.0 - 3.0 Higher intensity therapeutic range 2.5 - 3.5 Prothrombin time (PT) 21.7 sec 9.1-12.0 [facility] ([facility]) ID Date Data Source [id number] 11/27/2019 06:05:00 AM EDT [facility] Name Value Range Interpretation Code Description Data Gabriela rce(s) Supporting Document(s) INR 2.2 0.8-1.2 Above high normal [facility] Reference interval is for non-anticoagulated patients. Suggested INR therapeutic range for Vitamin K antagonist therapy: Standard Dose (moderate intensity therapeutic range): 2.0 - 3.0 Higher intensity therapeutic range 2.5 - 3.5 Prothrombin Time 21.7 sec 9.1-12.0 Above high normal [facility] ID Date Data Source [id number] 11/11/2019 12:00:00 AM EDT [facility] Patient Name: RILEY LOERA [facility] Date of : 1935[address] Date of Exam: 11/11/2019LESLIE Case [id number]#: Fax: [phone] EXAM: CHEST (2 VIEW) X-RAYCLINICAL INFORMATION: History of atrial fibrillation.Comparison, multiples, the latest 08/17/2018.Two views.The cardiomediastinal silhouette is unchanged. The heart is not enlarged.There is a hiatal hernia, status quo. Mild fibrotic changes are again seenthroughout the lung brush with basilar predominance, status quo. No acutepatchy parenchymal opacities or pleural effusions have developed. There isno significant change in the appearance of the osseous structures.IMPRESSION:Stable appearing chronic changes without evidence of acute cardiopulmonarydisease.JOSE LUIS Allen JP/Siddharth you for referring BRISA LOERA to our office. Electronically Signed - JANNET PENDLETON DO 11/11/19 19:42 Name Value Range Interpretation Code Description Data Gabriela rce(s) Supporting Document(s) ID Date Data Source [id number] 10/28/2019 08:42:00 AM EDT [facility] ([facility] [place]) Name Value Range Interpretation Code Description Data Gabriela rce(s) Supporting Document(s) Prothrombin time (PT) 22.8 sec 9.1-12.0 [facility] ([facility]) INR in Platelet poor plasma by Coagulation assay 2.3 0.8-1.2 [facility] ([facility]) Reference interval is for non-anticoagul ated patients. Suggested INR therapeutic range for Vitamin K antagonist therapy: Standard Dose (moderate intensity therapeutic range): 2.0 - 3.0 Higher intensity therapeutic range 2.5 - 3.5 ID Date Data Source [id number] 10/28/2019 08:42:00 AM EDT [facility] ([facility] [place]) Name Value Range Interpretation Code Description Data Gabriela rce(s) Supporting Document(s) Laboratory test finding (navigational concept) Laboratory test result [facility] ([facility]) ID Date Data Source [id number] 10/29/2019 08:06:00 AM EDT [facility] Name Value Range Interpretation Code Description Data Gabriela rce(s) Supporting Document(s) INR 2.3 0.8-1.2 Above high normal [facility] Reference interval is for non-anticoagulated patients. Suggested INR therapeutic range for Vitamin K antagonist therapy: Standard Dose (moderate intensity therapeutic range): 2.0 - 3.0 Higher intensity therapeutic range 2.5 - 3.5 Prothrombin Time 22.8 sec 9.1-12.0 Above high normal [facility] ID Date Data Source [id number] 10/01/2019 06:05:00 AM EDT [facility] Name Value Range Interpretation Code Description Data Gabriela rce(s) Supporting Document(s) INR 2.2 0.8-1.2 Above high normal [facility] Reference interval is for non-anticoagulated patients. Suggested INR therapeutic range for Vitamin K antagonist therapy: Standard Dose (moderate intensity therapeutic range): 2.0 - 3.0 Higher intensity therapeutic range 2.5 - 3.5 Prothrombin Time 21.2 sec 9.1-12.0 Above high normal [facility] ID Date Data Source [id number] 09/30/2019 08:08:00 AM EDT [facility] ([facility] [place]) Name Value Range Interpretation Code Description Data Gabriela rce(s) Supporting Document(s) Laboratory test finding (navigational concept) Laboratory test result [facility] ([facility] [place]) ID Date Data Source [id number] 09/30/2019 08:08:00 AM EDT [facility] ([facility] [place]) Name Value Range Interpretation Code Description Data Gabriela rce(s) Supporting Document(s) INR in Platelet poor plasma by Coagulation assay 2.2 0.8-1.2 [facility] ([facility]) Reference interval is for non-anticoagul ated patients. Suggested INR therapeutic range for Vitamin K antagonist therapy: Standard Dose (moderate intensity therapeutic range): 2.0 - 3.0 Higher intensity therapeutic range 2.5 - 3.5 Prothrombin time (PT) 21.2 sec 9.1-12.0 [facility] ([facility] [place]) ID Date Data Source [id number] 10/01/2019 08:06:00 AM EDT [facility] Name Value Range Interpretation Code Description Data Gabriela rce(s) Supporting Document(s) Protein, Total 6.8 g/dL 6.0-8.5 [facility] Albumin 4.3 g/dL 3.6-4.6 [facility] Bilirubin, Total 0.3 mg/dL 0.0-1.2 [facility] Bilirubin, Direct 0.07 mg/dL 0.00-0.40 [facility] Alkaline Phosphatase 62 IU/L 39-117 [facility] AST (SGOT) 23 IU/L 0-40 [facility] ALT (SGPT) 20 IU/L 0-44 [facility] ID Date Data Source [id number] 10/01/2019 08:06:00 AM EDT [facility] Name Value Range Interpretation Code Description Data Gabriela rce(s) Supporting Document(s) TSH 3.760 uIU/mL 0.450-4.500 [facility] ID Date Data Source [id number] 09/30/2019 08:07:00 AM EDT [facility] ([facility] [place]) Name Value Range Interpretation Code Description Data Gabriela rce(s) Supporting Document(s) Laboratory test finding (navigational concept) Laboratory test result [facility] ([facility]) ID Date Data Source [id number] 09/30/2019 08:07:00 AM EDT [facility] ([facility] [place]) Name Value Range Interpretation Code Description Data Gabriela rce(s) Supporting Document(s) Protein [Mass/volume] in Serum or Plasma 6.8 g/dL 6.0-8.5 [facility] ([facility]) Albumin [Mass/volume] in Serum or Plasma 4.3 g/dL 3.6-4.6 [facility] ([facility]) Alkaline phosphatase [Enzymatic activity/volume] in Serum or Plasma 62 IU/L 39-117 [facility] ([facility]) Bilirubin.direct [Mass/volume] in Serum or Plasma 0.07 mg/dL 0.00-0.4 0 [facility] ([facility]) Bilirubin.total [Mass/volume] in Serum or Plasma 0.3 mg/dL 0.0-1.2 [facility] ([facility]) Alanine aminotransferase [Enzymatic activity/volume] in Seru m or Plasma 20 IU/L 0-44 [facility] ([facility]) Aspartate aminotransferase [Enzymatic activity/volume] in Serum or Plasma 23 IU/L 0-40 [facility] ([employer] [facility]) ID Date Data Source [id number] 09/30/2019 08:07:00 AM EDT [facility] ([facility] [place]) Name Value Range Interpretation Code Description Data Gabriela rce(s) Supporting Document(s) TSH 3.760 uIU/mL 0.450-4.500 [facility] ID Date Data Source [id number] 09/05/2019 02:24:00 PM EDT [facility] ([facility]) Name Value Range Interpretation Code Description Data Gabriela rce(s) Supporting Document(s) Platelets 269 130-400 [facility] White Blood Count 8.0 4.3-10.9 [facility] ([facility]) Red Blood Count 3.98 4.70-6.20 [facility] Hemoglobin 12.6 13.0-17.0 [facility] ([facility]) Hematocrit 36.1 39.0-50.0 [facility] ([facility]) ID Date Data Source [id number] 09/05/2019 02:24:00 PM EDT [facility] ([facility]) Name Value Range Interpretation Code Description Data Gabriela rce(s) Supporting Document(s) Glucose 89 70-100 [facility] Blood Urea Nitrogen 26.3 5-21 [facility] ([facility] Creatinine 1.64 0.6-1.5 [facility] ([facility]) Potassium 4.25 3.5-5.3 [facility] Sodium 138.6 136-146 [facility] Glomerular filtration rate/1.73 sq M.pre dicted [Volume Rate/Area] in Serum or Plasma by Creatinine-based formula (MDRD) 40 [facility] ([facility]) Calcium 8.24 8.4-10.4 [facility] Chloride 106.6 98-110 [facility] Carbon Dioxide 27.3 20-32 [facility] ([facility] Albumin 3.9 3.5-4.7 [facility] Phosphorus 3.15 [facility] ([facility]) ID Date Data Source [id number] 08/30/2019 06:05:00 AM EDT [facility] Name Value Range Interpretation Code Description Data Gabriela rce(s) Supporting Document(s) INR 3.0 0.8-1.2 Above high normal [facility] Reference interval is for non-anticoagulated patients. Suggested INR therapeutic range for Vitamin K antagonist therapy: Standard Dose (moderate intensity therapeutic range): 2.0 - 3.0 Higher intensity therapeutic range 2.5 - 3.5 Prothrombin Time 28.2 sec 9.1-12.0 Above high normal [facility] ID Date Data Source [id number] 08/29/2019 08:12:00 AM EDT [facility] ([facility] [place]) Name Value Range Interpretation Code Description Data Gabriela rce(s) Supporting Document(s) Laboratory test finding (navigational concept) Laboratory test result [facility] ([facility]) ID Date Data Source [id number] 08/29/2019 08:12:00 AM EDT [facility] ([facility] [place]) Name Value Range Interpretation Code Description Data Gabriela rce(s) Supporting Document(s) Prothrombin time (PT) 28.2 sec 9.1-12.0 [facility] ([facility]) INR in Platelet poor plasma by Coagulation assay 3.0 0.8-1.2 [facility] ([facility]) Reference interval is for non-anticoagul ated patients. Suggested INR therapeutic range for Vitamin K antagonist therapy: Standard Dose (moderate intensity therapeutic range): 2.0 - 3.0 Higher intensity therapeutic range 2.5 - 3.5 ID Date Data Source [id number] 08/01/2019 07:48:00 AM EDT [facility] ([facility] [place]) Name Value Range Interpretation Code Description Data Gabriela rce(s) Supporting Document(s) Laboratory test finding (navigational concept) Laboratory test result [facility] ([facility]) ID Date Data Source [id number] 08/01/2019 07:48:00 AM EDT [facility] ([facility] [place]) Name Value Range Interpretation Code Description Data Gabriela rce(s) Supporting Document(s) Prothrombin time (PT) 24.1 sec 9.1-12.0 [facility] ([facility]) INR in Platelet poor plasma by Coagulation assay 2.5 0.8-1.2 [facility] ([facility]) Reference interval is for non-anticoagul ated patients. Suggested INR therapeutic range for Vitamin K antagonist therapy: Standard Dose (moderate intensity therapeutic range): 2.0 - 3.0 Higher intensity therapeutic range 2.5 - 3.5 ID Date Data Source [id number] 08/02/2019 06:05:00 AM EDT [facility] Name Value Range Interpretation Code Description Data Gabriela rce(s) Supporting Document(s) INR 2.5 0.8-1.2 Above high normal [facility] Reference interval is for non-anticoagulated patients. Suggested INR therapeutic range for Vitamin K antagonist therapy: Standard Dose (moderate intensity therapeutic range): 2.0 - 3.0 Higher intensity therapeutic range 2.5 - 3.5 Prothrombin Time 24.1 sec 9.1-12.0 Above high normal [facility] ID Date Data Source [id number] 07/04/2019 07:49:00 AM EDT [facility] ([facility] [place]) Name Value Range Interpretation Code Description Data Gabriela rce(s) Supporting Document(s) Laboratory test finding (navigational concept) Laboratory test result [facility] ([facility]) ID Date Data Source [id number] 07/04/2019 07:49:00 AM EDT [facility] ([facility] [place]) Name Value Range Interpretation Code Description Data Gabriela rce(s) Supporting Document(s) INR in Platelet poor plasma by Coagulation assay 2.6 0.8-1.2 [facility] ([facility]) Reference interval is for non-anticoagul ated patients. Suggested INR therapeutic range for Vitamin K antagonist therapy: Standard Dose (moderate intensity therapeutic range): 2.0 - 3.0 Higher intensity therapeutic range 2.5 - 3.5 Prothrombin time (PT) 25.1 sec 9.1-12.0 [facility] ([facility]) ID Date Data Source [id number] 07/05/2019 06:05:00 AM EDT [facility] Name Value Range Interpretation Code Description Data Gabriela rce(s) Supporting Document(s) INR 2.6 0.8-1.2 Above high normal [facility] Reference interval is for non-anticoagulated patients. Suggested INR therapeutic range for Vitamin K antagonist therapy: Standard Dose (moderate intensity therapeutic range): 2.0 - 3.0 Higher intensity therapeutic range 2.5 - 3.5 Prothrombin Time 25.1 sec 9.1-12.0 Above high normal [facility] ID Date Data Source [id number] 06/26/2019 07:58:00 AM EDT [facility] ([facility] [place]) Name Value Range Interpretation Code Description Data Gabriela rce(s) Supporting Document(s) Prothrombin time (PT) 40.5 sec 9.1-12.0 [facility] ([facility]) INR in Platelet poor plasma by Coagulation assay 4.5 0.8-1.2 [facility] ([facility]) Reference interval is for non-anticoagul ated patients. Suggested INR therapeutic range for Vitamin K antagonist therapy: Standard Dose (moderate intensity therapeutic range): 2.0 - 3.0 Higher intensity therapeutic range 2.5 - 3.5 ID Date Data Source [id number] 06/27/2019 06:05:00 AM EDT [facility] Name Value Range Interpretation Code Description Data Gabriela rce(s) Supporting Document(s) INR 4.5 0.8-1.2 Above high normal [facility] Reference interval is for non-anticoagulated patients. Suggested INR therapeutic range for Vitamin K antagonist therapy: Standard Dose (moderate intensity therapeutic range): 2.0 - 3.0 Higher intensity therapeutic range 2.5 - 3.5 Prothrombin Time 40.5 sec 9.1-12.0 Above high normal [facility] ID Date Data Source [id number] 06/26/2019 07:58:00 AM EDT [facility] ([facility] [place]) Name Value Range Interpretation Code Description Data Gabriela rce(s) Supporting Document(s) Laboratory test finding (navigational concept) Laboratory test result [facility] ([facility] [place]) ID Date Data Source [id number] 06/11/2019 07:37:[address] [facility] ([facility] [place]) Name Value Range Interpretation Code Description Data Gabriela rce(s) Supporting Document(s) Prostate specific Ag [Mass/volume] in Serum or Plasma 11.17 ng/mL [facility] ([facility] [place]) NOTE: RESULT VERIFIED. This assay was performed on the Siemens Image Stream Medical EXL using the B- Galactosidase/CPRG methodology and should not be compared interchangeably with other methods. The PSA should not be used alone as a screening test for the presence or absence of malignant disease. Thyrotropin [Units/volume] in Serum or Plasma by Detec tion limit <= 0.05 mIU/L 3.85 uIU/mL 0.36-3.74 [facility] ([employer] [employer] [facility]) Thyroxine (T4) free [Mass/volume] in Serum or Plasma 1.15 ng/dL 0.76- 1.46 [facility] ([facility]) ID Date Data Source [id number] 06/11/2019 07:37:00 AM EDT [facility] ([facility] [place]) Name Value Range Interpretation Code Description Data Gabriela rce(s) Supporting Document(s) Cholesterol [Mass/volume] in Serum or Plasma 197 mg/dL 131-200 [facility] ([facility]) Cholesterol in HDL [Mass/volume] in Serum or Plasma 39 mg/dL 35-60 [facility] ([facility]) Cholesterol in LDL [Mass/volume] in Serum or Plasma by calcu lation 138 CALC 50-159 [facility] ([facility] [place]) Triglyceride [Mass/volume] in Serum or Plasma 102 mg/dL 30-150 [facility] ([facility] [place]) ID Date Data Source [id number] 06/11/2019 07:37:00 AM EDT [facility] ([facility]) Name Value Range Interpretation Code Description Data Gabriela rce(s) Supporting Document(s) Prostate specific Ag [Mass/volume] in Serum or Plasma 11.17 ng/mL [facility] ([facility]) NOTE: RESULT VERIFIED. This assay was performed on the Siemens Dimension EXL using the B- Galactosidase/CPRG methodology and should not be compared interchangeably with other methods. The PSA should not be used alone as a screening test for the presence or absence of malignant disease. ID Date Data Source [id number] 06/11/2019 07:37:00 AM EDT [facility] ([facility]) Name Value Range Interpretation Code Description Data Gabriela rce(s) Supporting Document(s) Thyroxine (T4) free [Mass/volume] in Serum or Plasma 1.15 ng/dL 0.76- 1.46 [facility] ([facility]) Thyrotropin [Units/volume] in Serum or Plasma by Detec tion limit <= 0.05 mIU/L 3.85 uIU/mL 0.36-3.74 [facility] ([facility] ) ID Date Data Source [id number] 06/11/2019 07:37:00 AM EDT [facility] ([facility]) Name Value Range Interpretation Code Description Data Gabriela rce(s) Supporting Document(s) Triglyceride [Mass/volume] in Serum or Plasma 102 mg/dL 30-150 [facility] ([facility]) Cholesterol [Mass/volume] in Serum or Plasma 197 mg/dL 131-200 [facility] ([facility]) Cholesterol in LDL [Mass/volume] in Serum or Plasma by calcu lation 138 CALC 50-159 [facility] ([facility]) Cholesterol in HDL [Mass/volume] in Serum or Plasma 39 mg/dL 35-60 [facility] ([facility]) ID Date Data Source [id number] 06/11/2019 07:37:00 AM EDT [facility] ([facility]) Name Value Range Interpretation Code Description Data Gabriela rce(s) Supporting Document(s) Creatinine 1.8 mg/dL 0.6-1.3 [facility] Urea nitrogen [Mass/volume] in Serum or Plasma 39 mg/dL 7-18 [facility] ([facility]) Glucose [Mass/volume] in Serum or Plasma 96 mg/dL 74-99 [facility] ([facility]) 100-125 mg/dL PRE-DIABETES/FASTING >126 mg/dL DIABETES/FASTING Potassium [Moles/volume] in Serum or Plasma 4.4 meq/L 3.5-5.1 [facility] ([facility]) Chloride [Moles/volume] in Serum or Plasma 109 meq/L 98-107 [facility] ([facility]) Sodium [Moles/volume] in Serum or Plasma 144 meq/L 136-145 [facility] ([facility]) Carbon dioxide, total [Moles/volume] in Serum or Plasma 26 meq/L 21 -32 [facility] ([facility]) Calcium [Mass/volume] in Serum or Plasma 8.5 mg/dL 8.5-10.1 [facility] ([facility]) Alkaline phosphatase isoenzyme [Units/volume] in Serum or Pl asma 73 mg/dL 46-116 [facility] ([facility]) Total Bilirubin 0.4 mg/dL 0.2-1.0 [facility] ([facility]) Aspartate aminotransferase [Enzymatic activity/volume] in Serum or Plasma 18 U/L 15-37 [facility] ([facility] ) Alanine aminotransferase [Enzymatic activity/volume] in Seru m or Plasma 28 U/L 12-78 [facility] ([facility]) A/G Ratio 1.29 CALC 1.00-1.90 [facility] ([facility]) Proteinase 3 Ab [Units/volume] in Serum 7.1 g/dL 6.4-8.2 [facility] ([facility]) Albumin [Mass/volume] in Serum or Plasma 4.0 g/dL 3.4-5.0 [facility] ([facility]) Glomerular filtration rate/1.73 sq M pre dicted among blacks [Volume Rate/Area] in Serum or Plasma by Creatinine-based formula (MDRD) 44 mL/min [facility] ([facility]) <content>CHRONIC KIDNEY DISEASE STAGING PER NKF</content>
<content></content>
<content>STAGE I & II GFR >= 60 NORMAL TO MILDLY DECREASED</content>
<content>STAGE III GFR 30-59 MODERATELY DECREASED</content>
<content>STAGE IV GFR 15-29 SEVERELY DECREASED</content>
<content>STAGE V GFR <15 VERY LITTLE GFR LEFT</content>
<content>ESRD GFR <15 ON SECRETARY OFFICE CLERK</content>
<content></content> Glomerular filtration rate/1.73 sq M pre dicted among non-blacks [Volume Rate/Area] in Serum or Plasma by Creatinine-based formula (MDRD) 36 mL/min [facility] ([facility]) ID Date Data Source [id number] 06/11/2019 07:37:00 AM EDT [facility] ([facility]) Name Value Range Interpretation Code Description Data Gabriela rce(s) Supporting Document(s) Leukocytes [#/volume] in Blood by Automated count 6.2 x10*3/UL 4.1-10 .9 [facility] ([facility]) Hemoglobin [Mass/volume] in Blood 13.3 g/dL 12.0-18.0 [facility] ([facility]) Hematocrit [Volume Fraction] of Blood by Automated count 39.8 % 3 7.0-51.0 [facility] ([facility]) Erythrocytes [#/volume] in Blood by Automated count 4.48 x10*6/UL 4.2 0-6.30 [facility] ([facility]) MCV 89.0 fL 80.0-97.0 [facility]) MCH 29.7 pg 26.0-32.0 [facility] MCHC 33.4 g/dL 31.0-38.0 [facility] Erythrocyte distribution width [Ratio] by Automated count 13.4 % 11.6-13.7 [facility] ([facility]) Platelets [#/volume] in Blood by Automated count 233 x10*3/UL 140-440 [facility] ([facility]) Lymph % 20.7 % 10.0-58.5 [facility] MPV 8.4 FL 7.8-11.0 [facility] Mid % 5.9 % 1.7-9.3 [facility] ([facility] Mid # 0.5 x10*3/UL 0.1-0.6 [facility] ([facility]) Lymph # 1.2 x10*3/UL 0.6-4.1 [facility] ([facility]) Neut % 73.4 % 37.0-92.0 [facility]) Neut # 4.5 x10*3/UL 2.0-7.8 [facility] ([facility]) ID Date Data Source [id number] 05/28/2019 08:10:00 AM EST [facility] ([facility] [place]) Name Value Range Interpretation Code Description Data Gabriela rce(s) Supporting Document(s) Laboratory test finding (navigational concept) Laboratory test result [facility] ([facility]) ID Date Data Source [id number] 05/28/2019 08:10:00 AM EST [facility] ([facility] [place]) Name Value Range Interpretation Code Description Data Gabriela rce(s) Supporting Document(s) INR in Platelet poor plasma by Coagulation assay 3.0 0.8-1.2 [facility] ([facility]) Reference interval is for non-anticoagul ated patients. Suggested INR therapeutic range for Vitamin K antagonist therapy: Standard Dose (moderate intensity therapeutic range): 2.0 - 3.0 Higher intensity therapeutic range 2.5 - 3.5 Prothrombin time (PT) 27.8 sec 9.1-12.0 [facility] ([facility]) ID Date Data Source [id number] 05/29/2019 06:05:00 AM EST [facility] Name Value Range Interpretation Code Description Data Gabriela rce(s) Supporting Document(s) INR 3.0 0.8-1.2 Above high normal [facility] Reference interval is for non-anticoagulated patients. Suggested INR therapeutic range for Vitamin K antagonist therapy: Standard Dose (moderate intensity therapeutic range): 2.0 - 3.0 Higher intensity therapeutic range 2.5 - 3.5 Prothrombin Time 27.8 sec 9.1-12.0 Above high normal [facility] ID Date Data Source [id number] 05/01/2019 08:52:00 AM EST [facility] ([facility] [place]) Name Value Range Interpretation Code Description Data Gabriela rce(s) Supporting Document(s) Laboratory test finding (navigational concept) Laboratory test result [facility] ([facility]) ID Date Data Source [id number] 05/01/2019 08:52:00 AM EST [facility] ([facility] [place]) Name Value Range Interpretation Code Description Data Gabriela rce(s) Supporting Document(s) Prothrombin time (PT) 20.2 sec 9.1-12.0 [facility] ([facility]) INR in Platelet poor plasma by Coagulation assay 2.1 0.8-1.2 [facility] ([facility]) Reference interval is for non-anticoagul ated patients. Suggested INR therapeutic range for Vitamin K antagonist therapy: Standard Dose (moderate intensity therapeutic range): 2.0 - 3.0 Higher intensity therapeutic range 2.5 - 3.5 ID Date Data Source [id number] 05/02/2019 06:05:00 AM EST [facility] Name Value Range Interpretation Code Description Data Gabriela rce(s) Supporting Document(s) INR 2.1 0.8-1.2 Above high normal [facility] Reference interval is for non-anticoagulated patients. Suggested INR therapeutic range for Vitamin K antagonist therapy: Standard Dose (moderate intensity therapeutic range): 2.0 - 3.0 Higher intensity therapeutic range 2.5 - 3.5 Prothrombin Time 20.2 sec 9.1-12.0 Above high normal [facility] ID Date Data Source [id number] 04/17/2019 08:35:00 AM EST [facility] ([facility] Name Value Range Interpretation Code Description Data Gabriela rce(s) Supporting Document(s) Laboratory test finding (navigational concept) Laboratory test result [facility] ([facility]) ID Date Data Source [id number] 04/17/2019 08:35:00 AM EST [facility] ([facility] [place]) Name Value Range Interpretation Code Description Data Gabriela rce(s) Supporting Document(s) Prothrombin time (PT) 17.7 sec 9.1-12.0 [facility] ([facility]) INR in Platelet poor plasma by Coagulation assay 1.8 0.8-1.2 [facility] ([facility]) Reference interval is for non-anticoagul ated patients. Suggested INR therapeutic range for Vitamin K antagonist therapy: Standard Dose (moderate intensity therapeutic range): 2.0 - 3.0 Higher intensity therapeutic range 2.5 - 3.5 ID Date Data Source [id number] 04/18/2019 06:05:00 AM EST [facility] Name Value Range Interpretation Code Description Data Gabriela rce(s) Supporting Document(s) INR 1.8 0.8-1.2 Above high normal [facility] Reference interval is for non-anticoagulated patients. Suggested INR therapeutic range for Vitamin K antagonist therapy: Standard Dose (moderate intensity therapeutic range): 2.0 - 3.0 Higher intensity therapeutic range 2.5 - 3.5 Prothrombin Time 17.7 sec 9.1-12.0 Above high normal [facility] ID Date Data Source [id number] 03/21/2019 09:51:00 AM EST [facility] ([facility] [place]) Name Value Range Interpretation Code Description Data Gabriela rce(s) Supporting Document(s) Laboratory test finding (navigational concept) Laboratory test result [facility] ([facility]) ID Date Data Source [id number] 03/21/2019 09:51:00 AM EST [facility] ([facility] [place]) Name Value Range Interpretation Code Description Data Gabriela rce(s) Supporting Document(s) INR in Platelet poor plasma by Coagulation assay 2.0 0.8-1.2 [facility] ([facility]) Reference interval is for non-anticoagul ated patients. Suggested INR therapeutic range for Vitamin K antagonist therapy: Standard Dose (moderate intensity therapeutic range): 2.0 - 3.0 Higher intensity therapeutic range 2.5 - 3.5 Prothrombin time (PT) 20.0 sec 9.1-12.0 [facility] ([facility]) ID Date Data Source [id number] 03/22/2019 06:05:00 AM EST [facility] Name Value Range Interpretation Code Description Data Gabriela rce(s) Supporting Document(s) INR 2.0 0.8-1.2 Above high normal [facility] Reference interval is for non-anticoagulated patients. Suggested INR therapeutic range for Vitamin K antagonist therapy: Standard Dose (moderate intensity therapeutic range): 2.0 - 3.0 Higher intensity therapeutic range 2.5 - 3.5 Prothrombin Time 20.0 sec 9.1-12.0 Above high normal [facility] ID Date Data Source [id number] 03/07/2019 12:55:00 PM EST [facility] ([facility] [place]) Name Value Range Interpretation Code Description Data Gabriela rce(s) Supporting Document(s) White Blood Count 8.2 [facility] ([facility]) Red Blood Count 4.29 [facility] ([facility]) Platelets 357 [facility] ([facility]) Hematocrit 39.0 [facility] ([facility]) Hemoglobin 12.8 [facility] ([facility]) ID Date Data Source [id number] 03/07/2019 12:55:00 PM EST [facility] ([facility] [place]) Name Value Range Interpretation Code Description Data Gabriela rce(s) Supporting Document(s) Creatinine 1.87 [facility] ([facility]) Glucose 102 [facility] Blood Urea Nitrogen 31.2 [facility] ([facility] Glomerular filtration rate/1.73 sq M.pre dicted [Volume Rate/Area] in Serum or Plasma by Creatinine-based formula (MDRD) 35 [facility] ([facility]) Sodium 139.8 [facility] Potassium 4.38 [facility] ([facility] Chloride 108.2 [facility] ([facility] Carbon Dioxide 29.4 [facility] ([facility]) Calcium 8.69 [facility] Phosphorus 2.73 [facility] ([facility]) Albumin 3.9 [facility] ([facility] Procedure Social History Code Duration Value Status Description Data Source(s ) Smoking 04/01/2020 12:00:00 AM EST Patient has never smoked co mpleted Patient has never smoked [facility] ([facility]) Smoking 10/17/2019 12:00:00 AM EDT Never Smoker completed Never S papi eCW1 ([facility]) Smoking 10/07/2019 12:00:00 AM EDT Patient has never smoked co mpleted Patient has never smoked [facility] ([facility], ) Vital Signs ID Date Data Source [id number] Name Value Range Interpretation Code Description Data Source(s) Body mass index (BMI) [Ratio] 29.8 kg/m2 29.8 k g/m2 [facility] ([facility]) Oxygen saturation in Arterial blood by Pulse oximetry 94 % 94 % [facility] ([facility]) Body weight 182.00 [lb_av] 182.00 [lb_av] [facility] ([facility]) Body height 65.5 [in_i] 65.5 [in_i] [facility] ([facility]) 5'5.50" Heart rate 70 /min 70 /min [facility] ([facility]) Diastolic blood pressure 58 mm[Hg] 58 mm[Hg] [facility] ([facility]) Systolic blood pressure 102 mm[Hg] 102 mm[Hg] M [facility] ([facility]) Body weight 195.00 [lb_av] 195.00 [lb_av] [facility] ([facility]) Body temperature 97.8 [degF] 97.8 [degF] [facility] ([facility], [facility]) Oxygen saturation in Arterial blood by Pulse oximetry 95 % 95 % [facility] ([facility], [facility]) Respiratory rate 16 /min 16 /min [facility] ( [facility], [facility]) Heart rate 96 /min 96 /min [facility] ([facility], [facility]) Diastolic blood pressure 76 mm[Hg] 76 mm[Hg] [facility] ([facility], [facility]) Systolic blood pressure 132 mm[Hg] 132 mm[Hg] [facility], [facility]) Diastolic blood pressure--supine 68 mm[Hg] 68 mm[Hg] [facility] ([facility]) Systolic blood pressure--supine 138 mm[Hg] 138 mm[Hg] [facility]) Diastolic blood pressure--sitting 64 mm[Hg] 64 mm[Hg] [facility] ([facility]) Medium cuff, Ra Systolic blood pressure--sitting 123 mm[Hg] 123 mm[Hg] [facility] ([facility]) Medium cuff, Ra Respiratory rate 16 /min 16 /min [facility] ( [facility]) Heart rate 62 /min 62 /min [facility] ([facility]) regular Body mass index (BMI) [Ratio] 28.4 kg/m2 28.4 k g/m2 [facility] ([facility]) Body height 69 [in_i] 69 [in_i] [facility] ([facility]) 5'9" Body weight 192.00 [lb_av] 192.00 [lb_av] [facility] ([facility]) Body weight 190.00 [lb_av] 190.00 [lb_av] [facility] ([facility]) Heart rate 74 /min 74 /min [facility] ([facility]) Diastolic blood pressure 70 mm[Hg] 70 mm[Hg] [facility] ([facility]) Systolic blood pressure 118 mm[Hg] 118 mm[Hg] [facility]) Body mass index (BMI) [Ratio] 27.3 kg/m2 27.3 k g/m2 [facility] ([facility]) Body height 70 [in_i] 70 [in_i] [facility] ([facility]) 5'10" Body weight 190.00 [lb_av] 190.00 [lb_av] [facility] T ([facility], [facility]) Body temperature 98.1 [degF] 98.1 [degF] [facility] ([facility]) Oxygen saturation in Arterial blood by Pulse oximetry 95 % 95 % [facility] ([facility], [facility]) Respiratory rate 12 /min 12 /min [facility] ( [facility]) Heart rate 81 /min 81 /min [facility] ([facility]) Diastolic blood pressure 76 mm[Hg] 76 mm[Hg] [facility] ([facility]) Systolic blood pressure 127 mm[Hg] 127 mm[Hg] M [facility] ([facility]) Diastolic blood pressure mm[Hg] eCW1 ([facility]) Systolic blood pressure 118 mm[Hg] 118 mm[Hg] e CW1 ([facility]) Body temperature 97.9 [degF] 97.9 [degF] eCW1 ( [facility]) Respiratory rate 17 /min 17 /min eCW1 ([facility]) Heart rate 77 /min 77 /min eCW1 ([facility]) Body mass index (BMI) [Ratio] 27.76 kg/m2 27.76 kg/m2 W1 ([facility]) Body height 69 [in_i] 69 [in_i] eCW1 ([facility]) Body weight 188 [lb_av] 188 [lb_av] eCW1 ([facility]) Body weight 85.277 kg 85.277 kg [facility] ([facility], ) Body mass index (BMI) [Ratio] 30.8 kg/m2 30.8 k g/m2 [facility] ([facility], ) Body weight 188.00 [lb_av] 188.00 [lb_av] MED[facility] T ([facility]) Body height 65.5 [in_i] 65.5 [in_i] [facility] ([facility]) 5'5.50" Body temperature 97.5 [degF] 97.5 [degF] [facility] ([facility]) Oxygen saturation in Arterial blood by Pulse oximetry 96 % 96 % [facility] ([facility]) Heart rate 64 /min 64 /min MEDENT ([facility]) Diastolic blood pressure 72 mm[Hg] 72 mm[Hg] MEDENT ([facility]) Systolic blood pressure 122 mm[Hg] 122 mm[Hg] M EDENT ([facility]) Diastolic blood pressure--supine 66 mm[Hg] 66 mm[Hg] MEDENT ([facility]) Systolic blood pressure--supine 128 mm[Hg] 128 mm[Hg] MED[facility] ([facility]) Diastolic blood pressure--sitting 60 mm[Hg] 60 mm[Hg] MED[facility] ([facility]) Medium cuff, Ra Systolic blood pressure--sitting 126 mm[Hg] 126 mm[Hg] MED[facility] ([facility]) Medium cuff, Ra Respiratory rate 16 /min 16 /min MED[facility] ( [facility]) Heart rate 60 /min 60 /min [facility] ([facility] regular Body mass index (BMI) [Ratio] 28.1 kg/m2 28.1 k g/m2 MED[facility] ([facility]) Body height 69 [in_i] 69 [in_i] [facility] ([facility] 5'9" Body weight 190.00 [lb_av] 190.00 [lb_av] MEDEN T ([facility]) Body mass index (BMI) [Ratio] 32.2 kg/m2 32.2 k g/m2 MEDENT ([facility]) Body weight 196.38 [lb_av] 196.38 [lb_av] MEDEN T ([facility]) Body height 65.5 [in_i] 65.5 [in_i] MEDENT ([facility]) 5'5.50" Heart rate 75 /min 75 /min MEDENT ([facility]) Diastolic blood pressure 58 mm[Hg] 58 mm[Hg] MEDENT ([facility]) Systolic blood pressure 114 mm[Hg] 114 mm[Hg] M EDENT ([facility]) Oxygen saturation in Arterial blood by Pulse oximetry 94 % 94 % MEDENT ([facility]) Diastolic blood pressure--supine 56 mm[Hg] 56 mm[Hg] MEDENT ([facility]) Systolic blood pressure--supine 132 mm[Hg] 132 mm[Hg] MEDENT ([facility]) Diastolic blood pressure--sitting 56 mm[Hg] 56 mm[Hg] MEDENT ([facility]) Medium cuff, Ra Systolic blood pressure--sitting 124 mm[Hg] 124 mm[Hg] MEDENT ([facility]) Medium cuff, Ra Respiratory rate 16 /min 16 /min MED[facility] ( [facility]) Heart rate 56 /min 56 /min MED[facility] ([facility]) regular with occasional irregularity Body mass index (BMI) [Ratio] 28.4 kg/m2 28.4 k g/m2 MED[facility] ([facility]) Body height 69 [in_i] 69 [in_i] [facility] ([facility] 5'9" Body weight 192.00 [lb_av] 192.00 [lb_av] KHAI Ulloa ([facility])
[2020-05-02] MEDS ORDERED: PANTOPRAZOLE SODIUM 40 MG in D5W 50 ML IV SCH (09:30)
[2020-05-02 09:32] LABS: ALBUMIN 2.9 GM/DL (3.2-5.2); BILIRUBIN,DIRECT 0.1 MG/DL (0.0-0.2); BILIRUBIN,TOTAL 0.4 MG/DL (0.2-1.0); CALCIUM LEVEL 9.9 MG/DL (8.8-10.2); CREATININE FOR GFR 1.75 MG/DL (0.70-1.30); GLOMERULAR FILTRATION RATE 39.7 (>35); POTASSIUM SERUM 4.4 MEQ/L (3.5-5.1); TOTAL PROTEIN 8.6 GM/DL (6.4-8.2)
[2020-05-02] MEDS ORDERED: PANTOPRAZOLE 40MG VIAL (C9113 PER 1) IV ONE (09:45)
[2020-05-02] MEDS ORDERED: LR 1,000 ML IV SCH (10:00)
[2020-05-02] MEDS ORDERED: VITA50005 PO (10:01)
[2020-05-02] MEDS ORDERED: WARF-20 PO (10:01)
[2020-05-02 10:05] LABS: INR 1.99; TROPONIN I 0.03 NG/ML (< 0.10)
[2020-05-02 10:06] LABS: PARTIAL THROMBOPLASTIN TIME 34.4 SECONDS (24.2-38.5)
[2020-05-02] MEDS ORDERED: ISOVUE-370 76% 100ML VIAL As Ordered ONE (10:18)
[2020-05-02] MEDS ORDERED: LR 1,000 ML IV ONE (10:30)
--- NOTE | 2020-05-02 10:32 | REP ---
INDICATION: abdominal pain, look for air under diaphragm. COMPARISON: Comparison chest x-ray April 11, 2020.. TECHNIQUE: Portable AP sitting chest radiograph. FINDINGS: Moderate cardiomegaly is observed. Extensive bilateral peripheral infiltrates are again seen similar to the prior study. These are a little more prominent in the left apex and right mid lung field. No new infiltrate is appreciated. There is no evidence of free subdiaphragmatic air. IMPRESSION: Moderate cardiomegaly. No free subdiaphragmatic air. Bilateral infiltrates somewhat more prominent than on April 11, 2020. <Electronically signed by Ankur Perez > 05/02/20 102
--- NOTE | 2020-05-02 10:52 | REP ---
INDICATION: Peptic ulcer disease and coffee ground emesis. COMPARISON: Comparison pelvic CT study January 01, 2016.. TECHNIQUE: Helical scanning was acquired and 4 mm axial images are re-formatted. Coronal and sagittal MPR images were generated and reviewed. The contrast enhancement dose is 50 mL of intravenous Isovue 370. 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 Axial CT images with lung window settings demonstrate platelike atelectatic changes in the left base and bibasilar interstitial fibrosis. No pleural effusion is seen. The stomach is distended with fluid moderate in degree. The stomach is inverted into a large hiatal hernia and most of the body and antrum of the stomach are in the chest. The duodenum is not dilated. No abnormality is noted in the pancreas. Normal adrenal glands are seen. There is an opaque calcified gallstone in the gallbladder. The gallbladder is not distended. Small parapelvic cysts are seen in the left kidney. Mild bilateral cortical atrophy is seen in the kidneys. There is a cyst in the right kidney measuring 1.9 cm in greatest diameter. Small and large bowel loops are normal in the abdomen and pelvis except for some scattered diverticulosis in the distal colon. The prostate is moderately enlarged and elevates the bladder base unchanged from the [address] study. No bony destructive lesion is seen. No other abdominal wall defect is seen. No evidence of free air or free fluid. IMPRESSION: Large hiatal hernia containing most of the fluid dilated stomach. The esophagus is fluid dilated as well. Question functional gastric outlet obstruction. The duodenum and small intestine are normal in caliber. Cholelithiasis, prostate enlargement, and left colonic diverticulosis are additional findings. <Electronically signed by Ankur Perez > 05/02/20 1428
[2020-05-02 11:43] LABS: APPEARANCE, URINE CLEAR (CLEAR); BACTERIA, URINE AUTO NEGATIVE (NEGATIVE); BILIRUBIN, URINE AUTO NEGATIVE (NEGATIVE); BLOOD, URINE BLOOD NEGATIVE (NEGATIVE); COLOR, URINE YELLOW (YELLOW); GLUCOSE, URINE (UA) AUTO NEGATIVE (NEGATIVE); KETONE, URINE AUTO NEGATIVE (NEGATIVE); LEUKOCYTE ESTERASE, URINE AUTO 1+ (NEGATIVE); NITRITE, URINE AUTO NEGATIVE (NEGATIVE); PROTEIN, URINE AUTO 1+ mg/dL (NEGATIVE); RBC, URINE AUTO 7 /HPF (0-3); SPECIFIC GRAVITY URINE AUTO 1.058 (1.002-1.035); SQUAMOUS EPITHELIAL CELL UR AU 1 /HPF (0-6); UROBILINOGEN, URINE AUTO 0.2 mg/dL (0.0-2.0); WBC, URINE AUTO 18 /HPF (0-3)
[2020-05-02] MEDS ORDERED: MORPHINE 2 MG/ML 1ML VIAL (J2270) IV ONE (11:45)
[2020-05-02] MEDS ORDERED: ONDANSETRON 4MG/2ML VIAL IV ONE (11:45)
[2020-05-02] MEDS ORDERED: MAALOX 30 ML SUSP *UDC PO PRN (12:15)
[2020-05-02] MEDS ORDERED: ACETAMINOPHEN TAB 650MG DOSE (2X325MG) PO PRN (12:15)
[2020-05-02] MEDS ORDERED: MOM 30ML SUSPENSION UDC PO PRN (12:15)
--- OUTSIDE RECORDS SUMMARY | 2020-05-02 12:42 | CCD ---
Author Author [facility] Organization [facility] Address Unknown Phone Unavailable Care Team Providers Care Application Helper Name Role Phone Gurpreet Goins MD Unavailable [...] ORAL NOYOLA Unavailable Unavailable MUKHERJEE, E ORAL NOOYLA Unavailable Unavailable MUKHERJEE, E ORAL NOYOLA Unavailable [...] E ORAL NOYOLA Unavailable Unavailable Barrett, Calli BRIM POUNCING MACHINE OPERATOR Unavailable Unavailable Barrett, Calli BRIM POUNCING MACHINE OPERATOR Unavailable Unavailable Barrett, Calli BRIM POUNCING MACHINE OPERATOR Unavailable Unavailable Barrett, Calli BRIM POUNCING MACHINE OPERATOR Unavailable Unavailable Barrett, Calli BRIM POUNCING MACHINE OPERATOR Unavailable Unavailable Barrett, Calli BRIM POUNCING MACHINE OPERATOR Unavailable Unavailable Barrett, Calli BRIM POUNCING MACHINE OPERATOR Unavailable Unavailable Barrett, Calli BRIM POUNCING MACHINE OPERATOR Unavailable Unavailable Barrett, Calli BRIM POUNCING MACHINE OPERATOR Unavailable Unavailable Barrett, Calli BRIM POUNCING MACHINE OPERATOR Unavailable Unavailable Barrett, Calli BRIM POUNCING MACHINE OPERATOR Unavailable Unavailable LETTIERE, A JENNYFER PA Unavailable [...] is protected by Article 27-F of the [facility] Public Health law. If you continue you may have access to information: Regarding HIV / AIDS; Provided by facilities licensed or operated by the [facility] Office of Mental Health; or Provided by the [facility] Office for People With Developmental Disabilities. If such information is present, then the following [facility] mandated warning applies: This information has been [...] law may result in a fine or custodial sentence or both. A general authorization for the release of medical or other information is NOT sufficient authorization for further disc losure. Family History Family Member Name Family Member Gender Family Member Status Date o f Status Description Data Source(s) Unknown Unknown Problem [facility] ([facility]) daughters, all healthy Unknown Unknown Problem [facility] ([facility]) Unknown Male Problem [facility] () Unknown Female Problem [facility] ([facility]) Encounters Encounter Providers Location Date Indications Data Source(s ) Outpatient Attender: Shlomo San 04/20 10:00:00 AM EST [facility] ([facility] ) Outpatient Attender: JENNYFER savage 04/01/2020 03:50:00 PM EST [facility] ([facility]) Outpatient Attender: ORAL MUKHERJEE MD Main Office 03/23/2020 11:15:00 AM EST [facility] ([facility]) Outpatient Attender: Calli rico 11/27/2019 03:20:00 PM EDT [facility] ([facility], [facility]) Outpatient [facility] [place] [address] 10/17/2019 12:00:00 AM EDT eCW1 (Pending sale to [facility]) Outpatient Attender: ORAL MUKHERJEE MD Main Office 09/25/2019 10:15:00 AM EDT [facility] ([facility]) Outpatient Nuno San 06/12/2019 08:00:00 AM EDT [facility] ([facility]) Outpatient Attender: ORAL MUKHERJEE MD Main Office 03/12/2019 11:30:00 AM EST [facility] ([facility]) Immunizations Vaccine Date Status Description Data Source(s) Influenza, injectable, MDCK, preservative free, anaya valent 12/23/2019 09:44:00 AM EDT completed [facility] ([facility]) Tdap 11/27/2019 03:56:00 PM EDT completed M EDENT ([facility]) Tdap 11/27/2019 03:55:00 PM EDT completed M [facility] ([facility], [facility]) Medications Medication Brand Name Start Date Product [...] 12/23/2019 12:00:00 AM EDT complete d [facility] ([facility]) Administration Of Flu Vaccine 12/23/2019 12:00:00 AM EDT completed [facility] ([facility]) Medication administered onsite 0.4 mg [...] A DAY SOLD: 12/25/2019 [facility] Ergocalciferol 25772 UNT Oral Capsule Vitamin D (Ergocalcife rol) 12/23/2019 12:00:00 AM EDT active M EDENT ([facility]) Triamcinolone Acetonide 5 MG/ML Topical Cream Triamcinolone Acetonide 12/23/2019 12:00:00 AM EDT active M EDENT ([facility]) Mupirocin 0.02 MG/MG Topical Ointment Mupirocin 11/27/2019 12:00:00 AM EDT completed MED[facility] ([facility], [facility]) Amoxicillin 875 MG / Clavulanate 125 MG Oral Tablet Am oxicillin/Clavulanate Potassium 11/27/2019 12:00:00 AM EDT ORAL completed [facility] ([facility], [facility]) 2 % 11/27/2019 12:00:00 AM EDT ointment [...] type / Coverage type Policy ID Covered libertarian ID Covered libertarian's relationship to mathew Policy Mathew Plan Information [facility] [id number] WI2 [id number] MEDICARE [id number] SP [id number] A83 MEDICARE C [id number] S [id number] A83 [facility] O [id number] S [id number] MEDICARE [id number] SP [id number] A [facility] [id number] WI2 [id number] UMR [id number] Spo [id number] MEDICARE [id number] Beatrice [id number] A83 UMR [id number] MEDICARE [id number] UMR [facility] [id number] WI2 [id number] [place] Medigap Part B [id number] Family Dependent [id number] Medicare [facility] Medicare Primary [id number] Self [id number] [place] Medigap Part B [id number] Family Dependent [id number] Umr Commercial [id number] Family Dependent [id number] Umr Medigap Part B [id number] Family Dependent [id number] Medicare (Part B) Medicare Primary [id number] Self [id number] Medicare (Part B) Medicare Primary [id number] Self [id number] [place] PHCS Ppo Medigap Part B [id number] Self [id number] Umr Medigap Part B [id number] Family Dependent [id number] Medicare (Part B) Medicare Primary [id number] Self [id number] Medicare (Part B) Medicare Primary [id number] Self [id number] [place]/Umr (Old) Medigap Part B [id number] Family Dependent [id number] Umr (New [place]) Medigap Part B [id number] Family Dependent [id number] Medicare [place] Govt Serv Medicare Primary [id number] Self [id number] Umr Medigap Part B [id number] Family Dependent [id number] Medicare (Part B) Medicare Primary [id number] Self [id number] Medicare (Part B) Medicare Primary [id number] Self [id number] Umr Medigap Part B [id number] Family Dependent [id number] Medicare (Part B) Medicare Primary [id number] Self [id number] Medicare (Part B) Medicare Primary [id number] Self [id number] MEDICARE C [id number] S [id number] A [place] Medigap Part B [id number] Family Dependent [id number] [place] Primary [id number] Self [id number] [place]/Umr (Old) Medigap Part B [id number] Family Dependent [id number] Medicare [place] Govt Servic Medicare Primary [id number] Self [id number] [place] PPO O [id number] P [id number] Medicare (Part B) Medicare Primary [id number] Self [id number] [place] PHCS Ppo Medigap Part B [id number] Self [id number] Medicare (Part B) Medicare Primary [id number] Self [id number] [place] Ppo Medigap Part B [id number] Family Dependent [id number] Medicare [place] Serv[place] Medicare Primary [id number] Self [id number] [place] Ppo Medigap Part B [id number] Family Dependent [id number] Medicare [place] Govt Servic Medicare Primary [id number] Self [id number] Medicare (Part B) Medicare Primary [id number] Self [id number] [place] Ppo Medigap Part B [id number] Family Dependent [id number] Medicare [place] Govt Servic Medicare Primary Self POMCO [id number] WI2 [id number] [place] UNAVAILABLE UNAVAILA BLE Medicare (Part B) Medicare Primary Self [place] Medigap Part B Family Dependent [place] (pr) Medigap Part B Family Dependent [place] Primary Self Medicare Medicare Primary Self [place]OM[place] O [id number] U [id number] MEDICARE INPATIENT M [id number] S [id number] A [id number] Problems, Conditions, and Diagnoses Code Display Name Description Problem Type Effective Dates Data Source(s) 75642462 Cough Cough Problem 03/23/2020 12:00:00 AM ES T MEDLADI ([facility]) [id number] Premature beats Premature beats Problem 03/23/2020 12:0 0:00 AM EST [facility] ([facility]) R97.20 Elevated PSA Elevated PSA Problem 10/17/2019 12:00:00 A M EDT eCW1 ([facility]) Surgeries/Procedures Procedure Description Date Indications Data Source(s) Anticoagulant MGMT For Patient Taking Warfarin, Inc Review & Intr 04/20/2020 12:00:00 AM EST [facility] ([facility]) Anticoagulant MGMT For Patient Taking Warfarin, Inc Review & Intr 03/24/2020 12:00:00 AM EST [facility] ([facility]) ECG ROUTINE ECG W/LEAST 12 LDS W/I&R 03/23/2020 12:00: 00 AM EST [facility] ([facility]) Anticoagulant MGMT For Patient Taking Warfarin, Inc Review & Intr 02/25/2020 12:00:00 AM EST [facility] ([facility]) Anticoagulant MGMT For Patient Taking Warfarin, Inc Review & Intr 01/24/2020 12:00:00 AM EDT [facility] ([facility]) Anticoagulant MGMT For Patient Taking Warfarin, Inc Review & Intr 12/26/2019 12:00:00 AM EDT [facility] ([facility]) Anticoagulant MGMT For Patient Taking Warfarin, Inc Review & Intr 11/27/2019 12:00:00 AM EDT [facility] ([facility]) Anticoagulant MGMT For Patient Taking Warfarin, Inc Review & Intr 10/29/2019 12:00:00 AM EDT [facility] ([facility]) ECHO TTHRC R-T 2D W/WOM-MODE COMPL SPEC&COLR DOP 10/15 12:00:00 AM EDT [facility] ([facility]) Anticoagulant MGMT For Patient Taking Warfarin, Inc Review & Intr 10/01/2019 12:00:00 AM EDT [facility] ([facility]) ECG ROUTINE ECG W/LEAST 12 LDS W/I&R 09/25/2019 12:00: 00 AM EDT [facility] ([facility]) Anticoagulant MGMT For Patient Taking Warfarin, Inc Review & Intr 08/30/2019 12:00:00 AM EDT [facility] ([facility]) Anticoagulant MGMT For Patient Taking Warfarin, Inc Review & Intr 08/02/2019 12:00:00 AM EDT [facility] ([facility]) Anticoagulant MGMT For Patient Taking Warfarin, Inc Review & Intr 06/27/2019 12:00:00 AM EDT [facility] ([facility]) Anticoagulant MGMT For Patient Taking Warfarin, Inc Review & Intr 05/29/2019 12:00:00 AM EST [facility] ([facility]) Anticoagulant MGMT For Patient Taking Warfarin, Inc Review & Intr 05/02/2019 12:00:00 AM EST [facility] ([facility]) Anticoagulant MGMT For Patient Taking Warfarin, Inc Review & Intr 04/18/2019 12:00:00 AM EST [facility] ([facility]) Anticoagulant MGMT For Patient Taking Warfarin, Inc Review & Intr 03/22/2019 12:00:00 AM EST [facility] ([facility]) ECG ROUTINE ECG W/LEAST 12 LDS W/I&R 03/12/2019 12:00: 00 AM EST [facility] ([facility]) Results ID Date Data Source [id number] 04/20/2020 12:42:00 PM EST [facility] ([facility]) Name Value Range Interpretation Code Description Data Gabriela rce(s) Supporting Document(s) INR in Platelet poor plasma by Coagulation assay 2.4 [facility] ID Date Data Source [id number] 04/11/2020 05:12:00 PM EST [facility] ([facility]) Name Value Range Interpretation Code Description Data Gabriela rce(s) Supporting Document(s) Laboratory test finding (navigational concept) 40.0 % 38.0-51.0 [facility] ([facility]) Laboratory test finding (navigational concept) 141 mg/dL 70-105 [facility] ([facility]) Laboratory test finding (navigational concept) 4.0 meq/L 3.5-5.1 [facility] ([facility]) Laboratory test finding (navigational concept) 140 meq/L 136-145 [facility] ([facility]) Laboratory test finding (navigational concept) 4.3 mg/dL 4.5-5.3 [facility] ([facility]) Laboratory test finding (navigational concept) 106 meq/L 98-109 [facility] ([facility]) Laboratory test finding (navigational concept) 23.0 MM/L 23.0-27.0 [facility] ([facility]) Laboratory test finding (navigational concept) 1.6 mg/dL 0.6-1.3 [facility] ([facility]) Laboratory test finding (navigational concept) 29 mg/dL 8-26 [facility] ([facility]) ID Date Data Source [id number] 04/11/2020 04:42:00 PM EST [facility] Name Value Range Interpretation Code Description Data Gabriela rce(s) Supporting Document(s) Fibrinogen [Mass/volume] in Platelet poor plasma by Coagulat ion assay 750 mg/dL 221-452 [facility] ([facility]) Fibrin D-dimer FEU [Mass/volume] in Platelet poor plasma 1803.85 ng/m L [facility] ([facility]) Procalcitonin [Mass/volume] in Serum or Plasma 0.21 [facility] <content>SEPSIS INTERPRETATION OF RESULT S</content>
<content><0.5 [...] strongly encouraged.</content>
<content></content> ID Date Data Source [id number] 04/11/2020 04:42:00 PM EST [facility] ([facility]) Name Value Range Interpretation Code Description Data Gabriela rce(s) Supporting Document(s) Inr 4.19 [facility] ([facility]) THERAPUTIC HUMAN INR VALUES INDICATIONS NORMAL RANGES PROPHYLAXIS/TREATMENT OF: VENOUS THROMBOSIS 2.0-3.0 PULMONARY EMBOLISM 2.0-3.0 PREVENTION OF SYSTEMIC EMBOLISM FROM: TISSUE HEART VALVES 2.0-3.0 ACUTE MYOCARDIAL INFARCTION 2.0-3.0 VALVULAR HEART DISEASE 2.0-3.0 ATRIAL FIBRILLATION 2.0-3.0 MECHANICAL VALVES(HIGH RISK) 2.5-3.5 RECURRENT MYOCARDIAL INFARCTION 2.5-3.5 Prothrombin Time 41.4 s 12.5-14.3 [facility] ([facility]) Partial Thromboplastin Time 68.4 s 24.2-38.5 [facility] ([facility]) ID Date Data Source [id number] 04/11/2020 04:42:00 PM EST [facility] Name Value Range Interpretation Code Description Data Gabriela rce(s) Supporting Document(s) Lactate dehydrogenase [Enzymatic activit y/volume] in Serum or Plasma by Lactate to pyruvate reaction 446 U/L 87-241 [facility] ([facility]) Magnesium [Moles/volume] in Serum or Plasma 2.0 mg/dL 1.8-2.4 [facility] ([facility]) Ferritin [Mass/volume] in Serum or Plasma 1581 ng/mL 26-388 [facility] Lactate [Mass/volume] in Serum or Plasma 2.6 mmol/L 0.4-2.0 Above upper panic limits [facility] ([facility]) Y/N query for Sepsis Lactate Rule: Y C reactive protein [Mass/volume] in Serum or Plasma by High sensitivity method 15.20 mg/dL 0.00-0.30 [facility] ID Date Data Source [id number] 04/11/2020 04:42:00 PM EST [facility] ([facility]) Name Value Range Interpretation Code Description Data Gabriela rce(s) Supporting Document(s) CPK Creatine Phosphokinase 110 U/L 39-308 [facility] MB/CK Relative Index 1.00 [facility] <content>DIAGNOSIS CRITERIA</content>
<content>MMB ng/ml Relative Index (RI)</content>
<content>NON-AMI < or = 5 N/A</content>
<content>MATAMOROS ZONE > 5 < or = 4</content>
<content>AMI > 5 > 4</content>
<content></content> CK-MB Value Mass 1.1 ng/mL [facility] ([facility]) Troponin I Laboratory test result [facility] <content>Troponin I Reference Interval f or Siemens Crowell LOCI:</content>
<content></content>
<content>99th Percentile= 0.00-0.045 ng/ml</content>
<content></content>
<content>Risk Stratification:</content>
<content><= 0.10 ng/ml Decreased Risk for Adverse Clinical</content>
<content>Events.</content>
<content>0.10-1.50 ng/ml Increased Risk for Adverse Clinical</content>
<content>Events. Evaluation of additional</content>
<content>criterion and/or repeat testing in 2-6</content>
<content>hours is suggested to rule out myocardial</content>
<content>damage.</content>
<content>>= 1.50 ng/ml Indicative of Myocardial Injury.</content>
<content></content> ID Date Data Source [id number] 04/11/2020 04:42:00 PM EST [facility] ([facility]) Name Value Range Interpretation Code Description Data Gabriela rce(s) Supporting Document(s) Glucose, Fasting 142 mg/dL 70-100 [facility] ([facility]) Blood Urea Nitrogen 31 mg/dL 7-18 [facility] ([facility]) Creatinine For GFR 1.61 mg/dL 0.70-1.30 [facility] ([facility]) Glomerular Filtration Rate 43.7 [facility] ([facility]) <content>Units are mL/min/1.73 m2</content>
<content></content>
<content>Chronic Kidney Disease Staging per NKF:</content>
<content></content>
<content>Stage I & II GFR >=60 Normal to Mildly Decreased</content>
<content>Stage III GFR 30- 59 Moderately Decreased</content>
<content>Stage IV GFR 15-29 Severely Decreased</content>
<content>Stage V GFR <15 Very Little GFR Left</content>
<content>ESRD GFR <15 on CLOTH NEUTRALIZER</content>
<content></content> Sodium Level 139 meq/L 136-145 [facility] ([facility]) Potassium Serum 4.4 meq/L 3.5-5.1 [facility] ([facility]) Chloride Level 108 meq/L 98-107 [facility] ([facility]) Carbon Dioxide Level 24 meq/L 21-32 [facility] ([facility]) Anion Gap 7 meq/L 8-16 [facility] ([facility]) Calcium Level 7.9 mg/dL 8.8-10.2 [facility] ([facility]) Ast/Sgot 115 U/L 7-37 [facility] ([facility]) Alt/SGPT 101 U/L 12-78 [facility] ([facility]) Total Protein 6.6 GM/DL 6.4-8.2 [facility] ([facility]) Bilirubin,Total 0.5 mg/dL 0.2-1.0 [facility] ([facility]) Alkaline Phosphatase 80 U/L 45-117 [facility] ([facility]) Albumin/Globulin Ratio 0.7 [facility] ([facility]) Albumin 2.8 GM/DL 3.2-5.2 [facility] ([facility]) ID Date Data Source [id number] 04/11/2020 04:42:00 PM EST [facility] ([facility]) Name Value Range Interpretation Code Description Data Gabriela rce(s) Supporting Document(s) White Blood Count 9.8 10 4.0-10.0 [facility] ([facility]) Hemoglobin 12.8 g/dL 13.5-17.5 [facility] ([facility]) Red Blood Count 4.43 10 4.30-6.10 [facility] ([facility]) Hematocrit 41.3 % 42.0-52.0 [facility] ([facility]) Mean Corpuscular Volume 93.2 fl 80.0-96.0 [facility] ([facility]) Mean Corpuscular Hemoglobin 28.9 pg 27.0-33.0 [facility] ([facility]) Platelet Count, Automated 319 10 150-450 [facility] ([facility]) Mean Corpuscular HGB Conc 31.0 g/dL 32.0-36.5 [facility] ([facility]) Red Cell Distribution Width 14.5 % 11.5-14.5 [facility] ([facility]) [place] % 4.9 % 0.0-5.0 [facility] ([facility]) Lymph % 25.0 % 24.0-44.0 [facility] ([facility]) Neutrophils % 68.1 % 36.0-66.0 [facility] ([facility]) Eos % 0.3 % 0.0-3.0 [facility] ([facility]) Immature Granulocyte % 1.5 % 0-3.0 [facility] ([facility]) Baso % 0.2 % 0.0-1.0 [facility] ([facility]) Nucleated Red Blood Cell % 0.0 % 0-0 [facility] ([facility]) [place] # 0.5 10 0.0-0.8 [facility] ([facility]) Neutrophils # 6.6 10 1.5-8.5 [facility] ([facility]) Lymph # 2.4 10 1.5-5.0 [facility] ([facility]) Baso # 0.0 10 0.0-0.2 [facility] ([facility]) Eos # 0.0 10 0.0-0.5 [facility] ([facility]) ID Date Data Source [id number] 04/11/2020 04:10:00 PM EST [facility] ([facility]) Name Value Range Interpretation Code Description Data Gabriela rce(s) Supporting Document(s) ABG Partial Pressure Co2 30.7 mmHg 35.0-45.0 [facility] ([facility]) ABG pH (Arterial) 7.489 units 7.350-7.450 [facility] ( [facility]) ABG Partial Pressure O2 57.9 mmHg 75.0-100.0 [facility] T ([facility]) ABG Total Co2 23.8 meq/L 23.0-31.0 [facility] ([facility]) ABG Hco3 22.8 meq/L 22.0-26.0 [facility] ABG Standard Hco3 24.7 meq/L 22.0-26.0 [facility] ([facility]) ABG O2 Saturation 92.7 % 95.0-99.0 [facility] ([facility]) ABG Base Excess 0.3 [facility] ([facility]) ID Date Data Source [id number] 04/06/2020 11:34:00 AM EST [facility] ([facility]) Name Value Range Interpretation Code Description Data Gabriela rce(s) Supporting Document(s) Blood Culture Laboratory test result [facility] No growth after 72 hours . All specimens observed for 5 days. Results final at that time. No growth after 48 hours . All specimens observed for 5 days. Results final at that time. No growth after 24 hours . All specimens observed for 5 days. Results final at that time. NO GROWTH AFTER 5 DAYS ID Date Data Source [id number] 04/06/2020 11:27:00 AM EST [facility] ([facility]) Name Value Range Interpretation Code Description Data Gabriela rce(s) Supporting Document(s) White Blood Count 5.4 10 4.0-10.0 [facility] ([facility]) Red Blood Count 4.22 10 4.30-6.10 [facility] ([facility]) Hematocrit 39.4 % 42.0-52.0 [facility] Mean Corpuscular Volume 93.4 fl 80.0-96.0 [facility] ([facility]) Hemoglobin 12.3 g/dL 13.5-17.5 [facility]) Mean Corpuscular Hemoglobin 29.1 pg 27.0-33.0 [facility] ([facility]) Mean Corpuscular HGB Conc 31.2 g/dL 32.0-36.5 [facility] Red Cell Distribution Width 14.5 % 11.5-14.5 [facility] ([facility]) Platelet Count, Automated 172 10 150-450 [facility] ([facility]) Neutrophils % 72.0 % 36.0-66.0 [facility] ([facility]) [place] % 7.8 % 0.0-5.0 [facility] Lymph % 19.4 % 24.0-44.0 [facility] Eos % 0.0 % 0.0-3.0 [facility] ([facility]) Nucleated Red Blood Cell % 0.0 % 0-0 [facility] ([facility]) Immature Granulocyte % 0.4 % 0-3.0 [facility] ([facility]) Baso % 0.4 % 0.0-1.0 [facility] ([facility]) Neutrophils # 3.9 10 1.5-8.5 [facility] ([facility]) Lymph # 1.1 10 1.5-5.0 [facility] [place] # 0.4 10 0.0-0.8 [facility] ([facility]) Eos # 0.0 10 0.0-0.5 [facility] ([facility]) Baso # 0.0 10 0.0-0.2 [facility] ID Date Data Source [id number] 04/06/2020 11:27:00 AM EST [facility] ([facility]) Name Value Range Interpretation Code Description Data Gabriela rce(s) Supporting Document(s) Inr 1.53 [facility] ([facility]) THERAPUTIC HUMAN INR VALUES INDICATIONS NORMAL RANGES PROPHYLAXIS/TREATMENT OF: VENOUS THROMBOSIS 2.0-3.0 PULMONARY EMBOLISM 2.0-3.0 PREVENTION OF SYSTEMIC EMBOLISM FROM: TISSUE HEART VALVES 2.0-3.0 ACUTE MYOCARDIAL INFARCTION 2.0-3.0 VALVULAR HEART DISEASE 2.0-3.0 ATRIAL FIBRILLATION 2.0-3.0 MECHANICAL VALVES(HIGH RISK) 2.5-3.5 RECURRENT MYOCARDIAL INFARCTION 2.5-3.5 Partial Thromboplastin Time 38.1 s 24.2-38.5 [facility] ([facility]) Prothrombin Time 18.7 s 12.5-14.3 [facility] ([facility]) ID Date Data Source [id number] 04/06/2020 11:27:00 AM EST [facility] ([facility]) Name Value Range Interpretation Code Description Data Gabriela rce(s) Supporting Document(s) Fibrinogen [Mass/volume] in Platelet poor plasma by Coagulat ion assay 552 mg/dL 221-452 [facility]) Fibrin D-dimer FEU [Mass/volume] in Platelet poor plasma 1650.90 ng/m L [facility] ([facility]) Lactate [Mass/volume] in Serum or Plasma 1.3 mmol/L 0.4-2.0 [facility]) Y/N query for Sepsis Lactate Rule: Y ID Date Data Source [id number] 04/06/2020 11:27:00 AM EST [facility] ([facility]) Name Value Range Interpretation Code Description Data Gabriela rce(s) Supporting Document(s) Glucose, Fasting 132 mg/dL 70-100 [facility] ([facility]) Creatinine For GFR 1.74 mg/dL 0.70-1.30 [facility] ([facility]) Blood Urea Nitrogen 34 mg/dL 7-18 [facility] ([facility]) Potassium Serum 4.2 meq/L 3.5-5.1 [facility] ([facility]) Glomerular Filtration Rate 40.0 [facility] ([facility]) <content>Units are mL/min/1.73 m2</content>
<content></content>
<content>Chronic Kidney Disease Staging per NKF:</content>
<content></content>
<content>Stage I & II GFR >=60 Normal to Mildly Decreased</content>
<content>Stage III GFR 30- 59 Moderately Decreased</content>
<content>Stage IV GFR 15-29 Severely Decreased</content>
<content>Stage V GFR <15 Very Little GFR Left</content>
<content>ESRD GFR <15 on CLOTH NEUTRALIZER</content>
<content></content> Sodium Level 136 meq/L 136-145 [facility] ([facility]) Chloride Level 108 meq/L 98-107 [facility] ([facility]) Anion Gap 6 meq/L 8-16 [facility] ([facility]) Carbon Dioxide Level 22 meq/L 21-32 [facility] Calcium Level 7.7 mg/dL 8.8-10.2 [facility] ([facility]) Alt/SGPT 26 U/L 12-78 [facility] ([facility]) Ast/Sgot 37 U/L 7-37 [facility] ([facility]) Bilirubin,Total 0.3 mg/dL 0.2-1.0 [facility] ([facility]) Total Protein 6.5 GM/DL 6.4-8.2 [facility] ([facility]) Alkaline Phosphatase 59 U/L 45-117 [facility] ([facility]) Albumin/Globulin Ratio 0.9 [facility] ([facility]) Albumin 3.0 GM/DL 3.2-5.2 [facility] ([facility]) ID Date Data Source [id number] 04/06/2020 11:27:00 AM EST [facility] Name Value Range Interpretation Code Description Data Gabriela rce(s) Supporting Document(s) CPK Creatine Phosphokinase 357 U/L 39-308 [facility] MB/CK Relative Index 0.59 [facility] ([facility]) <content>DIAGNOSIS CRITERIA</content>
<content>MMB ng/ml Relative Index (RI)</content>
<content>NON-AMI < or = 5 N/A</content>
<content>MATAMOROS ZONE > 5 < or = 4</content>
<content>AMI > 5 > 4</content>
<content></content> CK-MB Value Mass 2.1 ng/mL [facility] Troponin I Laboratory test result [facility] ([facility]) <content>Troponin I Reference Interval f or Siemens Crowell LOCI:</content>
<content></content>
<content>99th Percentile= 0.00-0.045 ng/ml</content>
<content></content>
<content>Risk Stratification:</content>
<content><= 0.10 ng/ml Decreased Risk for Adverse Clinical</content>
<content>Events.</content>
<content>0.10-1.50 ng/ml Increased Risk for Adverse Clinical</content>
<content>Events. Evaluation of additional</content>
<content>criterion and/or repeat testing in 2-6</content>
<content>hours is suggested to rule out myocardial</content>
<content>damage.</content>
<content>>= 1.50 ng/ml Indicative of Myocardial Injury.</content>
<content></content> ID Date Data Source [id number] 04/06/2020 11:27:00 AM EST [facility] ([facility]) Name Value Range Interpretation Code Description Data Gabriela rce(s) Supporting Document(s) Lactate dehydrogenase [Enzymatic activit y/volume] in Serum or Plasma by Lactate to pyruvate reaction 318 U/L 87-241 [facility] Magnesium [Moles/volume] in Serum or Plasma 2.2 mg/dL 1.8-2.4 [facility] ([facility]) Digoxin [Mass/volume] in Serum or Plasma 0.2 ng/mL 0.5-2.0 [facility] ([facility]) Ferritin [Mass/volume] in Serum or Plasma 640 ng/mL 26-388 [facility] ([facility]) C reactive protein [Mass/volume] in Serum or Plasma by High sensitivity method 6.29 mg/dL 0.00-0.30 [facility] Procalcitonin [Mass/volume] in Serum or Plasma 0.24 [facility] <content>SEPSIS INTERPRETATION OF RESULT S</content>
<content><0.5 [...] Blood by Culture Laboratory test result [facility] ([facility]) No growth after 72 hours . All specimens observed for 5 days. Results final at that time. No growth after 48 hours . All specimens observed for 5 days. Results final at that time. No growth after 24 hours . All specimens observed for 5 days. Results final at that time. NO GROWTH AFTER 5 DAYS ID Date Data Source [id number] 04/01/2020 12:00:00 AM EST [facility] Name Value Range Interpretation Code Description Data Gabriela rce(s) Supporting Document(s) SARS-CoV2 Rapid Antigen [facility] This lab was reported by [facility]. ID Date Data Source [id number] 03/23/2020 09:36:00 AM EST [facility] Name Value Range Interpretation Code Description Data Gabriela rce(s) Supporting Document(s) Laboratory test finding (navigational concept) Laboratory test result [facility] ([facility]) ID Date Data Source [id number] 03/23/2020 09:36:00 AM EST [facility] Name Value Range Interpretation Code Description Data Gabriela rce(s) Supporting Document(s) INR in Platelet poor plasma by Coagulation assay 2.2 0.9-1.2 [facility] ([facility]) Reference interval is for non-anticoagul ated patients. Suggested INR therapeutic range for Vitamin K antagonist therapy: Standard Dose (moderate intensity therapeutic range): 2.0 - 3.0 Higher intensity therapeutic range 2.5 - 3.5 Prothrombin time (PT) 22.7 sec 9.1-12.0 [facility] ([facility]) ID Date Data Source [id number] 03/24/2020 06:05:00 AM EST [facility] Name Value [...] normal [facility] ID Date Data Source [id number] 03/06/2020 08:17:00 AM EST [facility] ([facility]) Name Value Range Interpretation Code Description Data Gabriela rce(s) Supporting Document(s) Magnesium Level 1.83 [facility] ([facility]) ID Date Data Source [id number] 03/06/2020 08:17:00 AM EST [facility] ([facility]) Name Value Range Interpretation Code Description Data Gabriela rce(s) Supporting Document(s) White Blood Count 7.9 [facility] ([facility]) Red Blood Count 4.32 [facility] ([facility]) Platelets 296 [facility] Hemoglobin 13.3 [facility] ([facility]) Hematocrit 40.6 [facility] ([facility]) ID Date Data Source [id number] 03/06/2020 08:17:00 AM EST [facility] ([facility]) Name Value Range Interpretation Code Description Data Gabriela rce(s) Supporting Document(s) Glucose 77 [facility] ([facility]) Blood Urea Nitrogen 33.7 [facility] ([facility]) Glomerular filtration rate/1.73 sq M.pre dicted [Volume Rate/Area] in Serum or Plasma by Creatinine-based formula (MDRD) 41 [facility] ([facility]) Sodium 143.7 [facility] ([facility]) Creatinine 1.6 [facility] ([facility]) Potassium 4.4 [facility] ([facility]) Carbon Dioxide 26.6 [facility] ([facility] Chloride 108.7 [facility] ([facility]) Calcium 8.6 [facility] ([facility]) Phosphorus 3.7 [facility] ([facility]) Albumin 3.9 [facility] ([facility]) ID Date Data Source [id number] 02/24/2020 08:11:00 AM EST [facility] ([facility]) Name Value Range Interpretation Code Description Data Gabriela rce(s) Supporting Document(s) Laboratory test finding (navigational concept) Laboratory test result [facility] ([facility]) ID Date Data Source [id number] 02/24/2020 08:11:00 AM EST [facility] ([facility]) Name Value Range Interpretation Code Description Data Gabriela rce(s) Supporting Document(s) Prothrombin time (PT) 19.1 sec 9.1-12.0 [facility] ([facility]) INR in Platelet poor plasma by Coagulation assay 1.9 0.9-1.2 [facility] ([facility]) Reference interval is for non-anticoagul ated patients. Suggested INR therapeutic range for Vitamin K antagonist therapy: Standard Dose (moderate intensity therapeutic range): 2.0 - 3.0 Higher intensity therapeutic range 2.5 - 3.5 ID Date Data Source [id number] 02/25/2020 06:05:00 AM EST [facility] Name Value [...] normal [facility] ID Date Data Source [id number] 01/23/2020 07:55:00 AM EDT [facility] ([facility]) Name Value Range Interpretation Code Description Data Gabriela rce(s) Supporting Document(s) Laboratory test finding (navigational concept) Laboratory test result [facility] ([facility]) ID Date Data Source [id number] 01/23/2020 07:55:00 AM EDT [facility] ([facility]) Name Value Range Interpretation Code Description Data Gabriela rce(s) Supporting Document(s) INR in Platelet poor plasma by Coagulation assay 1.9 0.9-1.2 [facility] ([facility]) Reference interval is for non-anticoagul ated patients. Suggested INR therapeutic range for Vitamin K antagonist therapy: Standard Dose (moderate intensity therapeutic range): 2.0 - 3.0 Higher intensity therapeutic range 2.5 - 3.5 Please note reference interval change Prothrombin time (PT) 19.3 sec 9.1-12.0 [facility] ([facility]) Please note reference interval change* * ID Date Data Source [id number] 01/24/2020 06:05:00 AM EDT [facility] Name Value [...] reference interval change ID Date Data Source [id number] 12/25/2019 07:53:00 AM EDT [facility] ([facility]) Name Value Range Interpretation Code Description Data Gabriela rce(s) Supporting Document(s) INR in Platelet poor plasma by Coagulation assay 2.3 0.8-1.2 [facility] ([facility]) Reference interval is for non-anticoagul ated patients. Suggested INR therapeutic range for Vitamin K antagonist therapy: Standard Dose (moderate intensity therapeutic range): 2.0 - 3.0 Higher intensity therapeutic range 2.5 - 3.5 Prothrombin time (PT) 23.0 sec 9.1-12.0 [facility] ([facility]) ID Date Data Source [id number] 12/25/2019 07:53:00 AM EDT [facility] ([facility]) Name Value Range Interpretation Code Description Data Gabriela rce(s) Supporting Document(s) Laboratory test finding (navigational concept) Laboratory test result [facility] ([facility]) ID Date Data Source [id number] 12/26/2019 06:05:00 AM EDT [facility] Name Value [...] normal [facility] ID Date Data Source [id number] 12/20/2019 09:11:00 AM EDT [facility] ([facility]) Name Value Range Interpretation Code Description Data Gabriela rce(s) Supporting Document(s) Thyroxine (T4) free [Mass/volume] in Serum or Plasma 1.17 ng/dL 0.76- 1.46 [facility] ([facility]) ID Date Data Source [id number] 12/20/2019 09:11:00 AM EDT [facility] ([facility]) Name Value Range Interpretation Code Description Data Gabriela rce(s) Supporting Document(s) Thyroxine (T4) free [Mass/volume] in Serum or Plasma 1.17 ng/dL 0.76- 1.46 [facility] ([facility]) ID Date Data Source [id number] 12/20/2019 09:10:00 AM EDT [facility] ([facility]) Name Value Range Interpretation Code Description Data Gabriela rce(s) Supporting Document(s) Thyrotropin [Units/volume] in Serum or Plasma by Detec tion limit <= 0.05 mIU/L 4.02 uIU/mL 0.36-3.74 [facility] ([facility] ) ID Date Data Source [id number] 12/20/2019 09:10:00 AM EDT [facility] ([facility]) Name Value Range Interpretation Code Description Data Gabriela rce(s) Supporting Document(s) Triglyceride [Mass/volume] in Serum or Plasma 106 mg/dL 30-150 [facility] ([facility]) Cholesterol [Mass/volume] in Serum or Plasma 173 mg/dL 131-200 [facility] ([facility]) Cholesterol in HDL [Mass/volume] in Serum or Plasma 42 mg/dL 35-60 [facility] ([facility]) Cholesterol in LDL [Mass/volume] in Serum or Plasma by calcu lation 110 CALC 50-159 [facility] ([facility]) ID Date Data Source [id number] 12/20/2019 09:10:00 AM EDT [facility] ([facility]) Name Value Range Interpretation Code Description Data Gabriela rce(s) Supporting Document(s) Glucose [Mass/volume] in Serum or Plasma 93 mg/dL 74-99 [facility] ([facility]) 100-125 mg/dL PRE-DIABETES/FASTING >126 mg/dL DIABETES/FASTING Urea nitrogen [Mass/volume] in Serum or Plasma 36 mg/dL 7-18 [facility] ([facility]) Sodium [Moles/volume] in Serum or Plasma 142 meq/L 136-145 [facility] ([facility]) Creatinine 1.9 mg/dL 0.6-1.3 [facility] ([facility]) Chloride [Moles/volume] in Serum or Plasma 108 meq/L 98-107 [facility] ([facility]) Carbon dioxide, total [Moles/volume] in Serum or Plasma 27 meq/L 21 -32 [facility] ([facility]) Potassium [Moles/volume] in Serum or Plasma 4.5 meq/L 3.5-5.1 [facility] ([facility]) Alkaline phosphatase isoenzyme [Units/volume] in Serum or Pl asma 68 mg/dL 46-116 [facility] ([facility]) Calcium [Mass/volume] in Serum or Plasma 8.6 mg/dL 8.5-10.1 [facility] ([facility]) Total Bilirubin 0.5 mg/dL 0.2-1.0 [facility] ([facility]) Aspartate aminotransferase [Enzymatic activity/volume] in Serum or Plasma 21 U/L 15-37 [facility] ([facility] ) Albumin [Mass/volume] in Serum or Plasma 3.8 g/dL 3.4-5.0 [facility] ([facility]) Alanine aminotransferase [Enzymatic activity/volume] in Seru m or Plasma 28 U/L 12-78 [facility] ([facility]) Glomerular filtration rate/1.73 sq M pre dicted among blacks [Volume Rate/Area] in Serum or Plasma by Creatinine-based formula (MDRD) 41 mL/min [facility] <content>CHRONIC KIDNEY DISEASE STAGING PER NKF</content>
<content></content>
<content>STAGE I & II GFR >= 60 NORMAL TO MILDLY DECREASED</content>
<content>STAGE III GFR 30-59 MODERATELY DECREASED</content>
<content>STAGE IV GFR 15-29 SEVERELY DECREASED</content>
<content>STAGE V GFR <15 VERY LITTLE GFR LEFT</content>
<content>ESRD GFR <15 ON CLOTH NEUTRALIZER</content>
<content></content> Glomerular filtration rate/1.73 sq M pre dicted among non-blacks [Volume Rate/Area] in Serum or Plasma by Creatinine-based formula (MDRD) 34 mL/min [facility] A/G Ratio 1.12 CALC 1.00-1.90 [facility] ([facility]) Proteinase 3 Ab [Units/volume] in Serum 7.2 g/dL 6.4-8.2 [facility] ([facility]) ID Date Data Source [id number] 12/20/2019 09:10:00 AM EDT [facility] ([facility]) Name Value Range Interpretation Code Description Data Gabriela rce(s) Supporting Document(s) Leukocytes [#/volume] in Blood by Automated count 7.5 x10*3/UL 4.1-10 .9 [facility] ([facility]) Erythrocytes [#/volume] in Blood by Automated count 4.34 x10*6/UL 4.2 0-6.30 [facility] ([facility]) Hematocrit [Volume Fraction] of Blood by Automated count 37.7 % 3 7.0-51.0 [facility] ([facility]) MCV 86.8 fL 80.0-97.0 [facility] Hemoglobin [Mass/volume] in Blood 13.3 g/dL 12.0-18.0 [facility] ([facility]) Erythrocyte distribution width [Ratio] by Automated count 12.9 % 11.6-13.7 [facility] ([facility]) MCHC 35.3 g/dL 31.0-38.0 [facility] MCH 30.7 pg 26.0-32.0 [facility] Platelets [#/volume] in Blood by Automated count 263 x10*3/UL 140-440 [facility] ([facility]) Lymph % 19.9 % 10.0-58.5 [facility] MPV 7.6 FL 7.8-11.0 [facility] Mid % 5.2 % 1.7-9.3 [facility] Lymph # 1.4 x10*3/UL 0.6-4.1 [facility] ([facility]) Neut % 74.9 % 37.0-92.0 [facility] Neut # 5.6 x10*3/UL 2.0-7.8 [facility] ([facility]) Mid # 0.5 x10*3/UL 0.1-0.6 [facility] ([facility]) ID Date Data Source [id number] 12/20/2019 09:10:00 AM EDT [facility] ([facility]) Name Value Range Interpretation Code Description Data Gabriela rce(s) Supporting Document(s) Thyrotropin [Units/volume] in Serum or Plasma by Detec tion limit <= 0.05 mIU/L 4.02 uIU/mL 0.36-3.74 [facility] ([facility]) ID Date Data Source [id number] 12/20/2019 09:10:00 AM EDT [facility] ([facility]) Name Value Range Interpretation Code Description Data Gabriela rce(s) Supporting Document(s) Triglyceride [Mass/volume] in Serum or Plasma 106 mg/dL 30-150 [facility] ([facility]) Cholesterol in HDL [Mass/volume] in Serum or Plasma 42 mg/dL 35-60 [facility] ([facility]) Cholesterol [Mass/volume] in Serum or Plasma 173 mg/dL 131-200 [facility] ([facility]) Cholesterol in LDL [Mass/volume] in Serum or Plasma by calcu lation 110 CALC 50-159 [facility] ([facility]) ID Date Data Source [id number] 12/20/2019 09:10:00 AM EDT [facility] ([facility]) Name Value Range Interpretation Code Description Data Gabriela rce(s) Supporting Document(s) Urea nitrogen [Mass/volume] in Serum or Plasma 36 mg/dL 7-18 [facility] ([facility]) Glucose [Mass/volume] in Serum or Plasma 93 mg/dL 74-99 [facility] ([facility]) 100-125 mg/dL PRE-DIABETES/FASTING >126 mg/dL DIABETES/FASTING Creatinine 1.9 mg/dL 0.6-1.3 [facility] ([facility]) Sodium [Moles/volume] in Serum or Plasma 142 meq/L 136-145 [facility] ([facility]) Potassium [Moles/volume] in Serum or Plasma 4.5 meq/L 3.5-5.1 [facility] ([facility]) Chloride [Moles/volume] in Serum or Plasma 108 meq/L 98-107 [facility] ([facility]) Calcium [Mass/volume] in Serum or Plasma 8.6 mg/dL 8.5-10.1 [facility] ([facility]) Alkaline phosphatase isoenzyme [Units/volume] in Serum or Pl asma 68 mg/dL 46-116 [facility] ([facility]) Carbon dioxide, total [Moles/volume] in Serum or Plasma 27 meq/L 21 -32 [facility] ([facility]) Aspartate aminotransferase [Enzymatic activity/volume] in Serum or Plasma 21 U/L 15-37 [facility] ([facility]) Total Bilirubin 0.5 mg/dL 0.2-1.0 [facility] ([facility]) Alanine aminotransferase [Enzymatic activity/volume] in Seru m or Plasma 28 U/L 12-78 [facility] ([facility]) A/G Ratio 1.12 CALC 1.00-1.90 [facility] ([facility] Proteinase 3 Ab [Units/volume] in Serum 7.2 g/dL 6.4-8.2 [facility] ([facility]) Albumin [Mass/volume] in Serum or Plasma 3.8 g/dL 3.4-5.0 [facility] ([facility]) Glomerular filtration rate/1.73 sq M pre dicted among blacks [Volume Rate/Area] in Serum or Plasma by Creatinine-based formula (MDRD) 41 mL/min [facility] ([facility]) <content>CHRONIC KIDNEY DISEASE STAGING PER NKF</content>
<content></content>
<content>STAGE I & II GFR >= 60 NORMAL TO MILDLY DECREASED</content>
<content>STAGE III GFR 30-59 MODERATELY DECREASED</content>
<content>STAGE IV GFR 15-29 SEVERELY DECREASED</content>
<content>STAGE V GFR <15 VERY LITTLE GFR LEFT</content>
<content>ESRD GFR <15 ON CLOTH NEUTRALIZER</content>
<content></content>
<content></content> Glomerular filtration rate/1.73 sq M pre dicted among non-blacks [Volume Rate/Area] in Serum or Plasma by Creatinine-based formula (MDRD) 34 mL/min [facility] ([facility]) ID Date Data Source [id number] 11/26/2019 08:24:00 AM EDT [facility] ([facility]) Name Value Range Interpretation Code Description Data Gabriela rce(s) Supporting Document(s) Laboratory test finding (navigational concept) Laboratory test result [facility] ([facility]) ID Date Data Source [id number] 11/26/2019 08:24:00 AM EDT [facility] Name Value Range Interpretation Code Description Data Gabriela rce(s) Supporting Document(s) INR in Platelet poor plasma by Coagulation assay 2.2 0.8-1.2 [facility] ([facility]) Reference interval is for non-anticoagul ated patients. Suggested INR therapeutic range for Vitamin K antagonist therapy: Standard Dose (moderate intensity therapeutic range): 2.0 - 3.0 Higher intensity therapeutic range 2.5 - 3.5 Prothrombin time (PT) 21.7 sec 9.1-12.0 [facility] ([facility]) ID Date Data Source [id number] 11/27/2019 06:05:00 AM EDT [facility] Name Value [...] normal [facility] ID Date Data Source [id number] 11/11/2019 12:00:00 AM EDT [facility] Patient Name: RILEY LOERA [facility] Date of : 1935[address] Date of Exam: 11/11/2019LESLIE Case [id number]#: Fax: [phone] EXAM: CHEST (2 VIEW) X-RAYCLINICAL [...] rce(s) Supporting Document(s) ID Date Data Source [id number] 10/28/2019 08:42:00 AM EDT [facility] Name Value Range Interpretation Code Description Data Gabriela rce(s) Supporting Document(s) Prothrombin time (PT) 22.8 sec 9.1-12.0 [facility] ([facility]) INR in Platelet poor plasma by Coagulation assay 2.3 0.8-1.2 [facility] ([facility]) Reference interval is for non-anticoagul ated patients. Suggested INR therapeutic range for Vitamin K antagonist therapy: Standard Dose (moderate intensity therapeutic range): 2.0 - 3.0 Higher intensity therapeutic range 2.5 - 3.5 ID Date Data Source [id number] 10/28/2019 08:42:00 AM EDT [facility] ([facility] Name Value Range Interpretation Code Description Data Gabriela rce(s) Supporting Document(s) Laboratory test finding (navigational concept) Laboratory test result [facility] ([facility]) ID Date Data Source [id number] 10/29/2019 08:06:00 AM EDT [facility] Name Value [...] normal [facility] ID Date Data Source [id number] 10/01/2019 06:05:00 AM EDT [facility] Name Value [...] normal [facility] ID Date Data Source [id number] 09/30/2019 08:08:00 AM EDT [facility] ([facility]) Name Value Range Interpretation Code Description Data Gabriela rce(s) Supporting Document(s) Laboratory test finding (navigational concept) Laboratory test result [facility] ([facility] [place]) ID Date Data Source [id number] 09/30/2019 08:08:00 AM EDT [facility] ([facility]) Name Value Range Interpretation Code Description Data Gabriela rce(s) Supporting Document(s) INR in Platelet poor plasma by Coagulation assay 2.2 0.8-1.2 [facility] ([facility]) Reference interval is for non-anticoagul ated patients. Suggested INR therapeutic range for Vitamin K antagonist therapy: Standard Dose (moderate intensity therapeutic range): 2.0 - 3.0 Higher intensity therapeutic range 2.5 - 3.5 Prothrombin time (PT) 21.2 sec 9.1-12.0 [facility] ([facility] [place]) ID Date Data Source [id number] 10/01/2019 08:06:00 AM EDT [facility] Name Value Range Interpretation Code Description Data Gabriela rce(s) Supporting Document(s) Protein, Total 6.8 g/dL 6.0-8.5 [facility] Albumin 4.3 g/dL 3.6-4.6 [facility] Bilirubin, Total 0.3 mg/dL 0.0-1.2 [facility] Bilirubin, Direct 0.07 mg/dL 0.00-0.40 [facility] Alkaline Phosphatase 62 IU/L 39-117 [facility] AST (SGOT) 23 IU/L 0-40 [facility] ALT (SGPT) 20 IU/L 0-44 [facility] ID Date Data Source [id number] 10/01/2019 08:06:00 AM EDT [facility] Name Value Range Interpretation Code Description Data Gabriela rce(s) Supporting Document(s) TSH 3.760 uIU/mL 0.450-4.500 [facility] ID Date Data Source [id number] 09/30/2019 08:07:00 AM EDT [facility] ([facility]) Name Value Range Interpretation Code Description Data Gabriela rce(s) Supporting Document(s) Laboratory test finding (navigational concept) Laboratory test result [facility] ([facility]) ID Date Data Source [id number] 09/30/2019 08:07:00 AM EDT [facility] ([facility]) Name Value Range Interpretation Code Description Data Gabriela rce(s) Supporting Document(s) Protein [Mass/volume] in Serum or Plasma 6.8 g/dL 6.0-8.5 [facility] ([facility]) Albumin [Mass/volume] in Serum or Plasma 4.3 g/dL 3.6-4.6 [facility] ([facility]) Alkaline phosphatase [Enzymatic activity/volume] in Serum or Plasma 62 IU/L 39-117 [facility] ([facility]) Bilirubin.direct [Mass/volume] in Serum or Plasma 0.07 mg/dL 0.00-0.4 0 [facility] ([facility]) Bilirubin.total [Mass/volume] in Serum or Plasma 0.3 mg/dL 0.0-1.2 [facility] ([facility]) Alanine aminotransferase [Enzymatic activity/volume] in Seru m or Plasma 20 IU/L 0-44 [facility] ([facility]) Aspartate aminotransferase [Enzymatic activity/volume] in Serum or Plasma 23 IU/L 0-40 [facility] ([facility]) ID Date Data Source [id number] 09/30/2019 08:07:00 AM EDT [facility] ([facility]) Name Value Range Interpretation Code Description Data Gabriela rce(s) Supporting Document(s) TSH 3.760 uIU/mL 0.450-4.500 [facility] ID Date Data Source [id number] 09/05/2019 02:24:00 PM EDT [facility] ([facility] Name Value Range Interpretation Code Description Data Gabriela rce(s) Supporting Document(s) Platelets 269 130-400 [facility] White Blood Count 8.0 4.3-10.9 [facility] ([facility]) Red Blood Count 3.98 4.70-6.20 [facility] Hemoglobin 12.6 13.0-17.0 [facility] ([facility]) Hematocrit 36.1 39.0-50.0 [facility] ([facility]) ID Date Data Source [id number] 09/05/2019 02:24:00 PM EDT [facility] ([facility]) Name Value Range Interpretation Code Description Data [...] [facility]) ID Date Data Source [id number] 08/30/2019 06:05:00 AM EDT [facility] Name Value [...] normal [facility] ID Date Data Source [id number] 08/29/2019 08:12:00 AM EDT [facility] ([facility]) Name Value Range Interpretation Code Description Data Gabriela rce(s) Supporting Document(s) Laboratory test finding (navigational concept) Laboratory test result [facility] ([facility] [place]) ID Date Data Source [id number] 08/29/2019 08:12:00 AM EDT [facility] ([facility]) Name Value Range Interpretation Code Description Data Gabriela rce(s) Supporting Document(s) Prothrombin time (PT) 28.2 sec 9.1-12.0 [facility] ([facility]) INR in Platelet poor plasma by Coagulation assay 3.0 0.8-1.2 [facility] ([facility]) Reference interval is for non-anticoagul ated patients. Suggested INR therapeutic range for Vitamin K antagonist therapy: Standard Dose (moderate intensity therapeutic range): 2.0 - 3.0 Higher intensity therapeutic range 2.5 - 3.5 ID Date Data Source [id number] 08/01/2019 07:48:00 AM EDT [facility] ([facility]) Name Value Range Interpretation Code Description Data Gabriela rce(s) Supporting Document(s) Laboratory test finding (navigational concept) Laboratory test result [facility] ([facility]) ID Date Data Source [id number] 08/01/2019 07:48:00 AM EDT [facility] ([facility]) Name Value Range Interpretation Code Description Data Gabriela rce(s) Supporting Document(s) Prothrombin time (PT) 24.1 sec 9.1-12.0 [facility] ([facility]) INR in Platelet poor plasma by Coagulation assay 2.5 0.8-1.2 [facility] ([facility] Reference interval is for non-anticoagul ated patients. Suggested INR therapeutic range for Vitamin K antagonist therapy: Standard Dose (moderate intensity therapeutic range): 2.0 - 3.0 Higher intensity therapeutic range 2.5 - 3.5 ID Date Data Source [id number] 08/02/2019 06:05:00 AM EDT [facility] Name Value [...] normal [facility] ID Date Data Source [id number] 07/04/2019 07:49:00 AM EDT [facility] ([facility]) Name Value Range Interpretation Code Description Data Gabriela rce(s) Supporting Document(s) Laboratory test finding (navigational concept) Laboratory test result [facility] ([facility]) ID Date Data Source [id number] 07/04/2019 07:49:00 AM EDT [facility] ([facility]) Name Value Range Interpretation Code Description Data Gabriela rce(s) Supporting Document(s) INR in Platelet poor plasma by Coagulation assay 2.6 0.8-1.2 [facility] ([facility]) Reference interval is for non-anticoagul ated patients. Suggested INR therapeutic range for Vitamin K antagonist therapy: Standard Dose (moderate intensity therapeutic range): 2.0 - 3.0 Higher intensity therapeutic range 2.5 - 3.5 Prothrombin time (PT) 25.1 sec 9.1-12.0 [facility] ([facility]) ID Date Data Source [id number] 07/05/2019 06:05:00 AM EDT [facility] Name Value [...] normal [facility] ID Date Data Source [id number] 06/26/2019 07:58:00 AM EDT [facility] ([facility]) Name Value Range Interpretation Code Description Data Gabriela rce(s) Supporting Document(s) Prothrombin time (PT) 40.5 sec 9.1-12.0 [facility] ([facility] [place]) INR in Platelet poor plasma by Coagulation assay 4.5 0.8-1.2 [facility] ([facility] [place]) Reference interval is for non-anticoagul ated patients. Suggested INR therapeutic range for Vitamin K antagonist therapy: Standard Dose (moderate intensity therapeutic range): 2.0 - 3.0 Higher intensity therapeutic range 2.5 - 3.5 ID Date Data Source [id number] 06/27/2019 06:05:00 AM EDT [facility] Name Value [...] normal [facility] ID Date Data Source [id number] 06/26/2019 07:58:00 AM EDT [facility] ([facility]) Name Value Range Interpretation Code Description Data Gabriela rce(s) Supporting Document(s) Laboratory test finding (navigational concept) Laboratory test result [facility] ([facility] [place]) ID Date Data Source [id number] 06/11/2019 07:37:00 AM EDT [facility] ([facility]) Name Value Range Interpretation Code Description Data Gabriela rce(s) Supporting Document(s) Prostate specific Ag [Mass/volume] in Serum or Plasma 11.17 ng/mL [facility] ([facility] [place]) NOTE: RESULT VERIFIED. This assay was performed on the Siemens Zirtual EXL using the B- Galactosidase/CPRG methodology and should not be compared interchangeably with other methods. The PSA should not be used alone as a screening test for the presence or absence of malignant disease. Thyrotropin [Units/volume] in Serum or Plasma by Detec tion limit <= 0.05 mIU/L 3.85 uIU/mL 0.36-3.74 [facility] ([facility]) Thyroxine (T4) free [Mass/volume] in Serum or Plasma 1.15 ng/dL 0.76- 1.46 [facility] ([facility]) ID Date Data Source [id number] 06/11/2019 07:37:00 AM EDT [facility] ([facility]) Name Value Range Interpretation Code Description Data Gabriela rce(s) Supporting Document(s) Cholesterol [Mass/volume] in Serum or Plasma 197 mg/dL 131-200 [facility] ([facility]) Cholesterol in HDL [Mass/volume] in Serum or Plasma 39 mg/dL 35-60 [facility] ([facility]) Cholesterol in LDL [Mass/volume] in Serum or Plasma by calcu lation 138 CALC 50-159 [facility] ([facility] [place]) Triglyceride [Mass/volume] in Serum or Plasma 102 mg/dL 30-150 [facility] ([facility] [place]) ID Date Data Source [id number] 06/11/2019 07:37:00 AM EDT [facility] Name Value Range Interpretation Code Description Data Gabriela rce(s) Supporting Document(s) Prostate specific Ag [Mass/volume] in Serum or Plasma 11.17 ng/mL [facility] NOTE: RESULT VERIFIED. This assay was performed on the Siemens Dimension EXL using the B- Galactosidase/CPRG methodology and should not be compared interchangeably with other methods. The PSA should not be used alone as a screening test for the presence or absence of malignant disease. ID Date Data Source [id number] 06/11/2019 07:37:00 AM EDT [facility] Name Value Range Interpretation Code Description Data Gabriela rce(s) Supporting Document(s) Thyroxine (T4) free [Mass/volume] in Serum or Plasma 1.15 ng/dL 0.76- 1.46 [facility] Thyrotropin [Units/volume] in Serum or Plasma by Detec tion limit <= 0.05 mIU/L 3.85 uIU/mL 0.36-3.74 [facility] ([facility] ) ID Date Data Source [id number] 06/11/2019 07:37:00 AM EDT [facility] ([facility]) Name Value Range Interpretation Code Description Data Gabriela rce(s) Supporting Document(s) Triglyceride [Mass/volume] in Serum or Plasma 102 mg/dL 30-150 [facility] ([facility]) Cholesterol [Mass/volume] in Serum or Plasma 197 mg/dL 131-200 [facility] ([facility]) Cholesterol in LDL [Mass/volume] in Serum or Plasma by calcu lation 138 CALC 50-159 [facility] ([facility]) Cholesterol in HDL [Mass/volume] in Serum or Plasma 39 mg/dL 35-60 [facility] ([facility]) ID Date Data Source [id number] 06/11/2019 07:37:00 AM EDT [facility] ([facility]) Name Value Range Interpretation Code Description Data Gabriela rce(s) Supporting Document(s) Creatinine 1.8 mg/dL 0.6-1.3 [facility] ([facility] Urea nitrogen [Mass/volume] in Serum or Plasma 39 mg/dL 7-18 [facility] ([facility]) Glucose [Mass/volume] in Serum or Plasma 96 mg/dL 74-99 [facility] ([facility]) 100-125 mg/dL PRE-DIABETES/FASTING >126 mg/dL DIABETES/FASTING Potassium [Moles/volume] in Serum or Plasma 4.4 meq/L 3.5-5.1 [facility] ([facility]) Chloride [Moles/volume] in Serum or Plasma 109 meq/L 98-107 [facility] ([facility]) Sodium [Moles/volume] in Serum or Plasma 144 meq/L 136-145 [facility] ([facility]) Carbon dioxide, total [Moles/volume] in Serum or Plasma 26 meq/L 21 -32 [facility] ([facility]) Calcium [Mass/volume] in Serum or Plasma 8.5 mg/dL 8.5-10.1 [facility] ([facility]) Alkaline phosphatase isoenzyme [Units/volume] in Serum or Pl asma 73 mg/dL 46-116 [facility] ([facility]) Total Bilirubin 0.4 mg/dL 0.2-1.0 [facility] ([facility]) Aspartate aminotransferase [Enzymatic activity/volume] in Serum or Plasma 18 U/L 15-37 [facility] ([facility] ) Alanine aminotransferase [Enzymatic activity/volume] in Seru m or Plasma 28 U/L 12-78 [facility] ([facility]) A/G Ratio 1.29 CALC 1.00-1.90 [facility] ([facility]) Proteinase 3 Ab [Units/volume] in Serum 7.1 g/dL 6.4-8.2 [facility] ([facility]) Albumin [Mass/volume] in Serum or Plasma 4.0 g/dL 3.4-5.0 [facility] ([facility]) Glomerular filtration rate/1.73 sq M pre dicted among blacks [Volume Rate/Area] in Serum or Plasma by Creatinine-based formula (MDRD) 44 mL/min [facility] <content>CHRONIC KIDNEY DISEASE STAGING PER NKF</content>
<content></content>
<content>STAGE I & II GFR >= 60 NORMAL TO MILDLY DECREASED</content>
<content>STAGE III GFR 30-59 MODERATELY DECREASED</content>
<content>STAGE IV GFR 15-29 SEVERELY DECREASED</content>
<content>STAGE V GFR <15 VERY LITTLE GFR LEFT</content>
<content>ESRD GFR <15 ON CLOTH NEUTRALIZER</content>
<content></content> Glomerular filtration rate/1.73 sq M pre dicted among non-blacks [Volume Rate/Area] in Serum or Plasma by Creatinine-based formula (MDRD) 36 mL/min [facility] ID Date Data Source [id number] 06/11/2019 07:37:00 AM EDT [facility] Name Value Range Interpretation Code Description Data Gabriela rce(s) Supporting Document(s) Leukocytes [#/volume] in Blood by Automated count 6.2 x10*3/UL 4.1-10 .9 [facility] ([facility]) Hemoglobin [Mass/volume] in Blood 13.3 g/dL 12.0-18.0 [facility] ([facility]) Hematocrit [Volume Fraction] of Blood by Automated count 39.8 % 3 7.0-51.0 [facility] ([facility]) Erythrocytes [#/volume] in Blood by Automated count 4.48 x10*6/UL 4.2 0-6.30 [facility] ([facility]) MCV 89.0 fL 80.0-97.0 [facility]) MCH 29.7 pg 26.0-32.0 [facility] MCHC 33.4 g/dL 31.0-38.0 [facility] Erythrocyte distribution width [Ratio] by Automated count 13.4 % 11.6-13.7 [facility] ([facility]) Platelets [#/volume] in Blood by Automated count 233 x10*3/UL 140-440 [facility] ([facility]) Lymph % 20.7 % 10.0-58.5 [facility] MPV 8.4 FL 7.8-11.0 [facility] Mid % 5.9 % 1.7-9.3 [facility] Mid # 0.5 x10*3/UL 0.1-0.6 [facility] ([facility]) Lymph # 1.2 x10*3/UL 0.6-4.1 [facility] ([facility]) Neut % 73.4 % 37.0-92.0 [facility]) Neut # 4.5 x10*3/UL 2.0-7.8 [facility] ([facility]) ID Date Data Source [id number] 05/28/2019 08:10:00 AM EST [facility] ([facility]) Name Value Range Interpretation Code Description Data Gabriela rce(s) Supporting Document(s) Laboratory test finding (navigational concept) Laboratory test result [facility] ([facility] [place]) ID Date Data Source [id number] 05/28/2019 08:10:00 AM EST [facility] ([facility]) Name Value Range Interpretation Code Description Data Gabriela rce(s) Supporting Document(s) INR in Platelet poor plasma by Coagulation assay 3.0 0.8-1.2 [facility] ([facility]) Reference interval is for non-anticoagul ated patients. Suggested INR therapeutic range for Vitamin K antagonist therapy: Standard Dose (moderate intensity therapeutic range): 2.0 - 3.0 Higher intensity therapeutic range 2.5 - 3.5 Prothrombin time (PT) 27.8 sec 9.1-12.0 [facility] ([facility]) ID Date Data Source [id number] 05/29/2019 06:05:00 AM EST [facility] Name Value [...] normal [facility] ID Date Data Source [id number] 05/01/2019 08:52:00 AM EST [facility] ([facility]) Name Value Range Interpretation Code Description Data Gabriela rce(s) Supporting Document(s) Laboratory test finding (navigational concept) Laboratory test result [facility] ([facility] [place]) ID Date Data Source [id number] 05/01/2019 08:52:00 AM EST [facility] ([facility]) Name Value Range Interpretation Code Description Data Gabriela rce(s) Supporting Document(s) Prothrombin time (PT) 20.2 sec 9.1-12.0 [facility] ([facility]) INR in Platelet poor plasma by Coagulation assay 2.1 0.8-1.2 [facility] ([facility] Reference interval is for non-anticoagul ated patients. Suggested INR therapeutic range for Vitamin K antagonist therapy: Standard Dose (moderate intensity therapeutic range): 2.0 - 3.0 Higher intensity therapeutic range 2.5 - 3.5 ID Date Data Source [id number] 05/02/2019 06:05:00 AM EST [facility] Name Value [...] normal [facility] ID Date Data Source [id number] 04/17/2019 08:35:00 AM EST [facility] Name Value Range Interpretation Code Description Data Gabriela rce(s) Supporting Document(s) Laboratory test finding (navigational concept) Laboratory test result [facility] ([facility]) ID Date Data Source [id number] 04/17/2019 08:35:00 AM EST [facility] ([facility]) Name Value Range Interpretation Code Description Data Gabriela rce(s) Supporting Document(s) Prothrombin time (PT) 17.7 sec 9.1-12.0 [facility] ([facility]) INR in Platelet poor plasma by Coagulation assay 1.8 0.8-1.2 [facility] ([facility]) Reference interval is for non-anticoagul ated patients. Suggested INR therapeutic range for Vitamin K antagonist therapy: Standard Dose (moderate intensity therapeutic range): 2.0 - 3.0 Higher intensity therapeutic range 2.5 - 3.5 ID Date Data Source [id number] 04/18/2019 06:05:00 AM EST [facility] Name Value [...] normal [facility] ID Date Data Source [id number] 03/21/2019 09:51:00 AM EST [facility] ([facility]) Name Value Range Interpretation Code Description Data Gabriela rce(s) Supporting Document(s) Laboratory test finding (navigational concept) Laboratory test result [facility] ([facility]) ID Date Data Source [id number] 03/21/2019 09:51:00 AM EST [facility] ([facility]) Name Value Range Interpretation Code Description Data Gabriela rce(s) Supporting Document(s) INR in Platelet poor plasma by Coagulation assay 2.0 0.8-1.2 [facility] ([facility]) Reference interval is for non-anticoagul ated patients. Suggested INR therapeutic range for Vitamin K antagonist therapy: Standard Dose (moderate intensity therapeutic range): 2.0 - 3.0 Higher intensity therapeutic range 2.5 - 3.5 Prothrombin time (PT) 20.0 sec 9.1-12.0 [facility] ([facility]) ID Date Data Source [id number] 03/22/2019 06:05:00 AM EST [facility] Name Value [...] normal [facility] ID Date Data Source [id number] 03/07/2019 12:55:00 PM EST [facility] ([facility]) Name Value Range Interpretation Code Description Data Gabriela rce(s) Supporting Document(s) White Blood Count 8.2 [facility] ([facility]) Red Blood Count 4.29 [facility] [place]) Platelets 357 [facility] ([facility]) Hematocrit 39.0 [facility] ([facility]) Hemoglobin 12.8 [facility] ([facility]) ID Date Data Source [id number] 03/07/2019 12:55:00 PM EST [facility] ([facility]) Name Value Range Interpretation Code Description Data Gabriela rce(s) Supporting Document(s) Creatinine 1.87 [facility] ([facility]) Glucose 102 [facility] Blood Urea Nitrogen 31.2 [facility] ([facility] Glomerular filtration rate/1.73 sq M.pre dicted [Volume Rate/Area] in Serum or Plasma by Creatinine-based formula (MDRD) 35 [facility]) Sodium 139.8 [facility] ([facility] Potassium 4.38 [facility] Chloride 108.2 [facility] ([facility] Carbon Dioxide 29.4 [facility] ([facility]) Calcium 8.69 [facility] ([facility] Phosphorus 2.73 [facility] ([facility]) Albumin 3.9 [facility] ([facility] Procedure Social History Code Duration Value Status Description Data Source(s ) Smoking 04/01/2020 12:00:00 AM EST Patient has never smoked co mpleted Patient has never smoked [facility] ([facility]) Smoking 10/17/2019 12:00:00 AM EDT Never Smoker completed Never S papi eCW1 ([facility]) Smoking 10/07/2019 12:00:00 AM EDT Patient has never smoked co mpleted Patient has never smoked [facility] ([facility] ) Vital Signs ID Date Data Source UNK Name Value Range Interpretation Code Description Data Source(s) Body mass index (BMI) [Ratio] 29.8 kg/m2 29.8 k g/m2 [facility] ([facility]) Oxygen saturation in Arterial blood by Pulse oximetry 94 % 94 % [facility] ([facility]) Body weight 182.00 [lb_av] 182.00 [lb_av] [facility] ([facility]) Body height 65.5 [in_i] 65.5 [in_i] [facility] ([facility]) 5'5.50" Heart rate 70 /min 70 /min [facility] ([facility]) Diastolic blood pressure 58 mm[Hg] 58 mm[Hg] [facility] ([facility]) Systolic blood pressure 102 mm[Hg] 102 mm[Hg] M [facility] ([facility]) Body weight 195.00 [lb_av] 195.00 [lb_av] [facility] ([facility]) Body temperature 97.8 [degF] 97.8 [degF] [facility] ([facility]) Oxygen saturation in Arterial blood by Pulse oximetry 95 % 95 % [facility] ([employer] [facility], [facility]) Respiratory rate 16 /min 16 /min MED[facility] ( [facility], [facility]) Heart rate 96 /min 96 /min [facility] ([facility], [facility]) Diastolic blood pressure 76 mm[Hg] 76 mm[Hg] [facility] ([employer] [facility], [facility]) Systolic blood pressure 132 mm[Hg] 132 mm[Hg] [facility] ([facility], [facility]) Diastolic blood pressure--supine 68 mm[Hg] 68 mm[Hg] [facility] ([facility]) Systolic blood pressure--supine 138 mm[Hg] 138 mm[Hg] [facility] ([facility]) Diastolic blood pressure--sitting 64 mm[Hg] 64 mm[Hg] [facility] ([facility]) Medium cuff, Ra Systolic blood pressure--sitting 123 mm[Hg] 123 mm[Hg] [facility] ([facility]) Medium cuff, Ra Respiratory rate 16 /min 16 /min MED[facility] ( [facility]) Heart rate 62 /min 62 /min [facility] ([facility]) regular Body mass index (BMI) [Ratio] 28.4 kg/m2 28.4 k g/m2 [facility] ([facility]) Body height 69 [in_i] 69 [in_i] [facility] ([facility]) 5'9" Body weight 192.00 [lb_av] 192.00 [lb_av] MEDEN T ([facility]) Body weight 190.00 [lb_av] 190.00 [lb_av] MEDEN T ([facility]) Heart rate 74 /min 74 /min [facility] ([facility]) Diastolic blood pressure 70 mm[Hg] 70 mm[Hg] [facility] ([facility]) Systolic blood pressure 118 mm[Hg] 118 mm[Hg] M [facility] ([facility]) Body mass index (BMI) [Ratio] 27.3 kg/m2 27.3 k g/m2 MEDENT ([facility]) Body height 70 [in_i] 70 [in_i] [facility] ([facility]) 5'10" Body weight 190.00 [lb_av] 190.00 [lb_av] MEDEN T ([facility], [facility]) Body temperature 98.1 [degF] 98.1 [degF] MEDENT ([facility]) Oxygen saturation in Arterial blood by Pulse oximetry 95 % 95 % [facility] ([facility], [facility]) Respiratory rate 12 /min 12 /min MED[facility] ( [facility]) Heart rate 81 /min 81 /min MED[facility] ([facility], [facility]) Diastolic blood pressure 76 mm[Hg] 76 mm[Hg] MED[facility] ([facility]) Systolic blood pressure 127 mm[Hg] 127 mm[Hg] M EDENT ([facility]) Diastolic blood pressure mm[Hg] eCW1 ([facility]) Systolic blood pressure 118 mm[Hg] 118 mm[Hg] e CW1 ([facility]) Body temperature 97.9 [degF] 97.9 [degF] eCW1 ( [facility]) Respiratory rate 17 /min 17 /min eCW1 ([facility]) Heart rate 77 /min 77 /min eCW1 ([facility]) Body mass index (BMI) [Ratio] 27.76 kg/m2 27.76 kg/m2 W1 ([facility]) Body height 69 [in_i] 69 [in_i] eCW1 ([facility]) Body weight 188 [lb_av] 188 [lb_av] eCW1 ([facility]) Body weight 85.277 kg 85.277 kg MEDENT ([facility], ) Body mass index (BMI) [Ratio] 30.8 kg/m2 30.8 k g/m2 MED[facility] ([facility], ) Body weight 188.00 [lb_av] 188.00 [lb_av] MEDEN T ([facility]) Body height 65.5 [in_i] 65.5 [in_i] MED[facility] ([facility]) 5'5.50" Body temperature 97.5 [degF] 97.5 [degF] [facility] ([facility]) Oxygen saturation in Arterial blood by Pulse oximetry 96 % 96 % MED[facility] ([facility]) Heart rate 64 /min 64 /min MED[facility] ([facility]) Diastolic blood pressure 72 mm[Hg] 72 mm[Hg] [facility] ([facility]) Systolic blood pressure 122 mm[Hg] 122 mm[Hg] M EDENT ([facility]) Diastolic blood pressure--supine 66 mm[Hg] 66 mm[Hg] [facility] ([facility]) Systolic blood pressure--supine 128 mm[Hg] 128 mm[Hg] [facility] ([facility]) Diastolic blood pressure--sitting 60 mm[Hg] 60 mm[Hg] [facility] ([facility]) Medium cuff, Ra Systolic blood pressure--sitting 126 mm[Hg] 126 mm[Hg] [facility] ([facility]) Medium cuff, Ra Respiratory rate 16 /min 16 /min MED[facility] ( [facility]) Heart rate 60 /min 60 /min [facility] ([facility]) regular Body mass index (BMI) [Ratio] 28.1 kg/m2 28.1 k g/m2 MED[facility] ([facility]) Body height 69 [in_i] 69 [in_i] [facility] ([facility]) 5'9" Body weight 190.00 [lb_av] 190.00 [lb_av] MEDEN T ([facility]) Body mass index (BMI) [Ratio] 32.2 kg/m2 32.2 k g/m2 MED[facility] ([facility]) Body weight 196.38 [lb_av] 196.38 [lb_av] MEDEN T ([facility]) Body height 65.5 [in_i] 65.5 [in_i] MED[facility] ([facility]) 5'5.50" Heart rate 75 /min 75 /min MED[facility] ([facility]) Diastolic blood pressure 58 mm[Hg] 58 mm[Hg] [facility] ([facility]) Systolic blood pressure 114 mm[Hg] 114 mm[Hg] M EDENT ([facility]) Oxygen saturation in Arterial blood by Pulse oximetry 94 % 94 % [facility] ([facility]) Diastolic blood pressure--supine 56 mm[Hg] 56 mm[Hg] [facility] ([facility]) Systolic blood pressure--supine 132 mm[Hg] 132 mm[Hg] [facility] ([facility]) Diastolic blood pressure--sitting 56 mm[Hg] 56 mm[Hg] [facility] ([facility]) Medium cuff, Ra Systolic blood pressure--sitting 124 mm[Hg] 124 mm[Hg] [facility] ([facility]) Medium cuff, Ra Respiratory rate 16 /min 16 /min MED[facility] ( [facility]) Heart rate 56 /min 56 /min [facility] ([facility]) regular with occasional irregularity Body mass index (BMI) [Ratio] 28.4 kg/m2 28.4 k g/m2 [facility] ([facility]) Body height 69 [in_i] 69 [in_i] [facility] ([facility]) 5'9" Body weight 192.00 [lb_av] 192.00 [lb_av] KHAI Ulloa ([facility])
[2020-05-02] MEDS ORDERED: VANCOMYCIN HCL 1,000 MG, VIAL MATE ADAPTER 1 EACH in D5W 250 ML IV ONE (14:00)
--- NOTE | 2020-05-02 14:16 | HPEPDOC ---
[facility] Medical History & Physical Date of Admission May 02, 2020 Date of Service: May 02, 2020 History and Physical CHIEF COMPLAINT: Abdominal pain HISTORY OF PRESENT ILLNESS: This is an 84-year-old male history of coronary artery disease, atrial fibrillation, BPH, hypertension, who comes to the hospital due to acute onset of abdominal pain at 6 PM last evening associated with coffee-ground emesis at home. Patient brought a bucket to demonstrate his coffee-ground emesis to the hospital. His abdominal pain was initially rated as 10 out of 10 associated with nausea vomiting. In the emergency department CT of the abdomen was done demonstrate a hiatal hernia with suspected gastritis Dr. White surgery was consulted from the ED recommended NG tube placement this decongest the patient and relieve his abdominal pain completely at the time that I saw him. Patient was comfortable and did not complain of any nausea vomiting or abdominal pain. Patient will be admitted for further medical and possible surgical management if needed. Patient denies any chest pain or shortness of breath he denies abdominal pain at this time. He denies fevers or chills. PAST MEDICAL/SURGICAL HISTORY: Coronary artery disease Atrial fibrillation BPH Hypertension Right inguinal hernia repair SOCIAL HISTORY: Denies alcohol use Denies tobacco use Denies illicit drug use FAMILY HISTORY: Reviewed and none contributory to this admission ALLERGIES: Please see below. REVIEW OF SYSTEMS: 10 point review of systems complete all negative otherwise stated in HPI HOME MEDICATIONS: Please see below. PHYSICAL EXAMINATION: Constitutional: Awake and alert, in no apparent distress ENT: Sclera are clear. NG tube in place to intermittent suction with small volume less than 100 mL of coffee-ground emesis collected Respiratory: Lungs CTA bilaterally. No respiratory distress. No use of accessory muscles. Saturating well on room air Cardiovascular: RRR S1 and S2 are normal, no murmur Gastrointestinal: Abdomen is soft, non distended, non tender, BS present. Musculoskeletal: No lower extremity edema. Neurologic: No focal neurological deficit. Mental Status: A&O x3, normal affect Skin: Warm, dry LABORATORY DATA: See below. IMAGING: See chart MICROBIOLOGY: Please see below. ASSESSMENT/PLAN 84-year-old male history of coronary artery disease, atrial fibrillation, BPH, hypertension who presents with abdominal pain suspected to be secondary to possible peptic ulcer disease or gastritis with hiatal hernia. Surgery was consulted. Patient's abdominal pain resolved with NG tube. Patient is admitted for further medical or possible surgical management. # Abdominal pain: This is likely related to gastritis secondary to his hiatal hernia. Dr. White surgeries consulted and I appreciate his recommendations. For now patient is NPO with NG tube to low intermittent suction. NG tube seems to have resolved patient's abdominal pain we will continue to monitor and follow surgeries recommendations. IV PPI, Carafate 4 times a day. No need to reverse and she correlation for now INR is 2 but may be necessary should emergent surgery be required. Patient appears to be clinically doing better. # Lactic acidosis and leukocytosis: It is unclear if this is infectious at this time. I ordered a pro-calcitonin. The leukocytosis may be reactive with a gastritis and coffee-ground emesis. His lactic acidosis might also be related to this. It is 3.7 at time of admission. Trend lactate. Trend CBC. Empirically started on vancomycin and Zosyn. Fu BCx. # CKD: Creatinine appears to be close to baseline. We'll continue to monitor this and avoid nephrotoxins. # History of Covid 19 infection: This was back in March 2020, there doesn't seem to be active illness although his oxygen saturation does however in the low 90s but he has not required supplemental oxygen yet. Covid has been known to often cause residual symptoms for months after the illness. We will continue to monitor this. # Coronary artery disease: Continue statin and no aspirin at this time # Atrial fibrillation: Rate is controlled, continue amiodarone. Hold warfarin for now given coffee-ground emesis. INR 2 at time of admission. # Hypertension: Continue home meds. Monitor and titrate # BPH: Continue home medication. A Yousef Hospitalist Vital Signs Vital Signs Date Time Temp Pulse Resp B/P (MAP) Pulse Ox O2 Delivery O2 Flow Rate FiO2 05/02/20 14:00 92 153/72 (99) 86 05/02/20 12:02 20 05/02/20 08:24 97.4 Room Air Laboratory Data Labs 24H Laboratory Tests 2 05/02/20 08:48: Immature Granulocyte % (Auto) 1.2, Neutrophils (%) (Auto) 86.2H, Lymphocytes (%) (Auto) 8.0L, Monocytes (%) (Auto) 4.5, Eosinophils (%) (Auto) 0.0, Basophils (%) (Auto) 0.1, Neutrophils # (Auto) 15.0H, Lymphocytes # (Auto) 1.4L, Monocytes # (Auto) 0.8, Eosinophils # (Auto) 0.0, Basophils # (Auto) 0.0, Nucleated Red Blood Cells % (auto) 0.0, Prothrombin Time 23.0H, Prothromb Time International Ratio 1.99, Activated Partial Thromboplast Time 34.4, Anion Gap 14, Glomerular Filtration Rate 39.7, Calcium Level 9.9, Total Bilirubin 0.4, Direct Bilirubin 0.1, Aspartate Amino Transf (AST/SGOT) 27, Alanine Aminotransferase (ALT/SGPT) 31, Alkaline Phosphatase 92, Troponin I 0.03, Total Protein 8.6H, Albumin 2.9L, Albumin/Globulin Ratio 0.5, Amylase Level 61, Lipase 81, Procalcitonin 0.10 05/02/20 08:49: Lactic Acid Level 3.7*H 05/02/20 11:05: Urine Color YELLOW, Urine Appearance CLEAR, Urine pH 7.0, Urine Specific [place] 1.058, Urine Protein 1+H, Urine Glucose (Auto)(UA) NEGATIVE, Urine Ketones (Auto) NEGATIVE, Urine Blood NEGATIVE, Urine Nitrite NEGATIVE, Urine Bilirubin NEGATIVE, Urine Urobilinogen 0.2, Urine Leukocyte Esterase (Auto) 1+H, Urine WBC (Auto) 18H, Urine RBC (Auto) 7H, Urine Hyaline Casts (Auto) 0, Urine Bacteria (Auto) NEGATIVE, Urine Squamous Epithelial Cells 1, Urine Sperm (Auto) 05/02/20 12:47: Lactic Acid Followup at 4 Hours 3.9*H CBC/BMP Laboratory Tests 05/02/20 08:48 Microbiology Microbiology 05/02/20 Blood Culture, Received Pending 05/02/20 Blood Culture, Received Pending Home Medications Scheduled Acetaminophen (Tylenol Extra Strength) 500 Mg Tablet, 1,000 MG PO TID STARTED 04/04/[address] REA'S DIRECTION FOR FEVER Amiodarone HCl (Amiodarone HCl) 200 Mg Tablet, 200 MG PO 5XW TAKES MONDAY-MONDAY Atorvastatin Calcium (Lipitor) 80 Mg Tablet, 80 MG PO 2XW Mon & morning Ergocalciferol (Vitamin D2) (Vitamin D2) 50,000 Units Cap, 50,000 UNITS PO Q2WK EVERY OTHER MONDAY Multivit-Min/FA/Lycopen/Lutein (Centrum Silver Tablet) 1 Each Tablet, 1 TAB PO BID Tamsulosin Hcl (Tamsulosin HCl) 0.4 Mg Capsule, 0.4 MG PO DAILY Warfarin Sodium (Warfarin Sodium) 4 Mg Tablet, 4 MG PO QHS Allergies Coded Allergies: No Known Allergies (Unverified , 11/12/18) A-FIB/CHADSVASC A-FIB History Current/History of A-Fib/PAF?: No CLAY SHARP MD May 02, 2020 14:16
[2020-05-02] MEDS: NS 1,000 ML IV SCH ×2 (14:17→16:29)
[2020-05-02] MEDS: PIPERACILLIN/TAZOBACTAM SOD 4.5 GM in D5W MINI-BAG PLUS 50 ML IV SCH ×2 (14:17→20:28)
[2020-05-02] MEDS ORDERED: VANCOMYCIN HCL 750 MG, VIAL MATE ADAPTER 1 EACH in D5W 250 ML IV ONE (15:00)
[2020-05-02 15:50] VITALS: BP 123/75
[2020-05-02] MEDS: DOCUSATE SODIUM 100MG CAPSULE PO SCH ×2 (16:10→20:28)
[2020-05-02] MEDS: SUCRALFATE SUSP 1GM/10ML UD PO SCH ×2 (16:11→17:38)
--- NOTE | 2020-05-02 16:41 | ECGEPIP ---
[facility] - ED Test Date: 2020-05-02 Pat Name: BRISA ROMO Department: Room: - Gender: Male [employer]: : 1935 Requested By: JAQUELINE Avelar Order Number: [id number] Reading MD: Yuliya Dejesus Measurements Intervals [place] Rate: 102 P: TX: 0 QRS: -11 QRSD: 114 T: 44 QT: 372 QTc: 487 Interpretive Statements sinus rhythm pacs INCOMPLETE RIGHT BUNDLE BRANCH BLOCK NSTTW abnormalities vs baseline artifact Electronically Signed on 05-02-2020 16:40:55 EST by Yuliya Dejesus
[2020-05-02 16:46] VITALS: O2SAT 91
[2020-05-02] MEDS: PANTOPRAZOLE 40MG VIAL (C9113 PER 1) IV SCH (20:28)
[2020-05-02 22:00] VITALS: BP 123/73
[2020-05-03] MEDS: SUCRALFATE SUSP 1GM/10ML UD PO SCH ×5 (00:36→23:49)
[2020-05-03] MEDS: NS 1,000 ML IV SCH ×2 (03:55→14:40)
[2020-05-03] MEDS: PIPERACILLIN/TAZOBACTAM SOD 4.5 GM in D5W MINI-BAG PLUS 50 ML IV SCH ×3 (05:08→20:59)
[2020-05-03 06:00] VITALS: BP 125/68
[2020-05-03 07:47] LABS: BASO % 0.3 % (0.0-1.0); EOS # 0.4 10^3/uL (0.0-0.5); EOS % 4.1 % (0.0-3.0); HEMATOCRIT 32.6 % (42.0-52.0); HEMOGLOBIN 10.2 g/dl (13.5-17.5); LYMPH # 1.5 10^3/uL (1.5-5.0); MEAN CORPUSCULAR HEMOGLOBIN 29.1 pg (27.0-33.0); MEAN CORPUSCULAR HGB CONC 31.3 g/dl (32.0-36.5); MEAN CORPUSCULAR VOLUME 93.1 fl (80.0-96.0); MONO # 0.7 10^3/uL (0.0-0.8); MONO % 7.2 % (0.0-5.0); NEUTROPHILS # 7.4 10^3/uL (1.5-8.5); NEUTROPHILS % 72.7 % (36.0-66.0); PLATELET COUNT, AUTOMATED 215 10^3/uL (150-450); WHITE BLOOD COUNT 10.2 10^3/uL (4.0-10.0)
[2020-05-03 07:48] LABS: INR 2.98; PROTHROMBIN TIME 31.7 SECONDS (12.5-14.3)
[2020-05-03 07:58] LABS: CREATININE FOR GFR 1.48 MG/DL (0.70-1.30); GLOMERULAR FILTRATION RATE 48.2 (>35); POTASSIUM SERUM 4.1 MEQ/L (3.5-5.1)
[2020-05-03] MEDS: PANTOPRAZOLE 40MG VIAL (C9113 PER 1) IV SCH ×2 (08:49→20:59)
[2020-05-03] MEDS: DOCUSATE SODIUM 100MG CAPSULE PO SCH ×2 (08:49→20:59)
[2020-05-03] MEDS: TAMSULOSIN 0.4 MG CAP PO SCH (08:49)
--- NOTE | 2020-05-03 10:40 | IPNPDOC ---
Text Note Date of Service The patient was seen on 05/03/20. NOTE Subjective: She was seen and examined this morning at bedside. Patient tells me his abdominal pain continues to have resolved and is not bothering him anymore he denies any further nausea or vomiting no cough ground emesis. There was no acute overnight events reported to me. Patient still has NG tube in place. Objective: Constitutional: Awake and alert, in no apparent distress ENT: Sclera are clear. NG tube in place to intermittent suction Respiratory: Lungs CTA bilaterally. No respiratory distress. No use of accessory muscles. Saturating well on room air Cardiovascular: RRR S1 and S2 are normal, no murmur Gastrointestinal: Abdomen is soft, non distended, non tender, BS present. Musculoskeletal: No lower extremity edema. Neurologic: No focal neurological deficit. Mental Status: A&O x3, normal affect Skin: Warm, dry Assessment/plan: 84-year-old male history of coronary artery disease, atrial fibrillation, BPH, hypertension who presents with abdominal pain suspected to be secondary to possible peptic ulcer disease or gastritis with hiatal hernia. Surgery was consulted. Patient's abdominal pain resolved with NG tube. Patient is admitted for further medical or possible surgical management. # Abdominal pain: This is likely related to gastritis secondary to his hiatal hernia. Dr. White surgeries consulted and I appreciate his recommendations. NPO with NG tube to low intermittent suction. NG tube seems to have resolved patient's abdominal pain we will continue to monitor and follow surgeries recommendations. IV PPI, Carafate 4 times a day. INR is currently 3 this morning despite warfarin being stopped. # Lactic acidosis and leukocytosis: Both have resolved this was likely noninfectious pro calcitonin was only 0.1. I empirically started him on vancomycin and Zosyn which I will discontinue once we have preliminary blood culture results. # CKD: Creatinine appears to be close to baseline. We'll continue to monitor this and avoid nephrotoxins. # History of Covid 19 infection: This was back in March 2020, there doesn't seem to be active illness although his oxygen saturation does however in the low 90s but he has not required supplemental oxygen yet. Covid has been known to often cause residual symptoms for months after the illness. We will continue to monitor this. # Coronary artery disease: Continue statin and no aspirin at this time # Atrial fibrillation: Rate is controlled, continue amiodarone. Hold warfarin for now given coffee-ground emesis. INR 3 at time of admission. # Hypertension: Continue home meds. Monitor and titrate # BPH: Continue home medication. A Helene Hospitalist Felix LUIS, I+O Felix LUIS I+O Laboratory Tests 05/02/20 08:48 05/03/20 06:54 Vital Signs Date Time Temp Pulse Resp B/P (MAP) Pulse Ox O2 Delivery O2 Flow Rate FiO2 05/03/20 06:00 97.9 70 18 125/68 (87) 90 Room Air I&O- Last 24 Hours up to 6 AM 05/03/20 06:00 Intake Total 2350 ml Output Total 510 ml Balance 1840 ml CLAY SHARP MD May 03, 2020 08:01
--- NOTE | 2020-05-03 10:44 | REP ---
INDICATION: ng tube placement. COMPARISON: Comparison portable chest x-ray 02 May 2020.. Comparison is made with [address] study. TECHNIQUE: Four views obtained supine including cross-table lateral view of the abdomen. FINDINGS: AP chest x-ray shows cardiomegaly. Nasogastric tube is seen well to the left of midline below the left hilus in a position consistent with the intrathoracic stomach/hiatal hernia. The side hole is at the level of the jose juan. No free air is seen. Bilateral infiltrates are again noted. Supine and cross-table lateral views of the abdomen show no evidence of free air. Large and small bowel loops are unremarkable. There is formed stool in the rectum. Some vascular calcification. Psoas margins and flank stripes are intact. IMPRESSION: NG tube position is within the intrathoracic stomach in this patient with large hiatal hernia. The side hole is at the level of the jose juan. Bilateral infiltrates are again noted. Abdominal bowel gas pattern is unremarkable.. <Electronically signed by Ankur Perez > 05/03/20 [id number]
[2020-05-03] MEDS ORDERED: VANCOMYCIN HCL 1,000 MG, VIAL MATE ADAPTER 1 EACH in D5W 250 ML IV SCH (12:00)
[2020-05-03 14:00] VITALS: BP 122/67
--- NOTE | 2020-05-03 18:30 | IPN ---
PROGRESS NOTE DATE: 05/03/2020 Patient got up to use the bathroom and pulled out his nasogastric (NG) tube, and this morning states that he has no more abdominal pain, no nausea, no vomiting overnight. His white count has come down nicely, his hematocrit did come down as well, in looking at his overall numbers it may be partially dilutional but overall his lactic acid has come down quite nicely overnight. He has been afebrile, does not complain of any shortness of breath. On his physical exam, his abdomen is soft, nontender, nondistended. IMPRESSION/ PLAN: Patient has improved from a symptomatic standpoint of his hiatal hernia/gastritis issue. I do feel that keeping him nothing by mouth for right now is probably warranted. He wants to go home but I am not seeing a great deal of insight into his decision at this time. I would recommend that we see how he does over the ensuing few hours. It may be reasonable if he has no further abdominal pain or nausea/vomiting later on he could be started on a clear liquid diet.
[2020-05-03 22:00] VITALS: BP 133/75
[2020-05-04] MEDS: NS 1,000 ML IV SCH ×4 (03:36→21:48)
[2020-05-04] MEDS: SUCRALFATE SUSP 1GM/10ML UD PO SCH ×3 (05:05→17:22)
[2020-05-04] MEDS: PIPERACILLIN/TAZOBACTAM SOD 4.5 GM in D5W MINI-BAG PLUS 50 ML IV SCH (05:05)
[2020-05-04 06:00] VITALS: BP 139/84
[2020-05-04 06:26] LABS: BASO # 0.1 10^3/uL (0.0-0.2); BASO % 0.6 % (0.0-1.0); EOS # 0.7 10^3/uL (0.0-0.5); EOS % 8.1 % (0.0-3.0); HEMATOCRIT 33.3 % (42.0-52.0); HEMOGLOBIN 10.4 g/dl (13.5-17.5); LYMPH # 1.2 10^3/uL (1.5-5.0); LYMPH % 13.7 % (24.0-44.0); MEAN CORPUSCULAR HEMOGLOBIN 29.2 pg (27.0-33.0); MEAN CORPUSCULAR HGB CONC 31.2 g/dl (32.0-36.5); MEAN CORPUSCULAR VOLUME 93.5 fl (80.0-96.0); MONO # 0.7 10^3/uL (0.0-0.8); MONO % 8.1 % (0.0-5.0); NEUTROPHILS # 5.9 10^3/uL (1.5-8.5); NEUTROPHILS % 68.9 % (36.0-66.0); PLATELET COUNT, AUTOMATED 239 10^3/uL (150-450); RED BLOOD COUNT 3.56 10^6/uL (4.30-6.10); WHITE BLOOD COUNT 8.6 10^3/uL (4.0-10.0)
[2020-05-04 06:43] LABS: INR 2.55
[2020-05-04 07:03] LABS: CREATININE FOR GFR 1.5 MG/DL (0.70-1.30); GLOMERULAR FILTRATION RATE 47.5 (>35)
--- NOTE | 2020-05-04 07:47 | IPNPDOC ---
Text Note Date of Service The patient was seen on 05/04/20. NOTE Subjective: She was seen and examined this morning at bedside. Tells me his abdominal pain has resolved he denies any more nausea or vomiting denies coffee-ground emesis. Has tolerated not having the NG tube in place since yesterday. Patient will try some clear liquid diet today. I spoke to his Marisol yesterday and gave her an update. There was no acute overnight events reported to me. Objective: Constitutional: Awake and alert, in no apparent distress ENT: Sclera are clear. NG tube in place to intermittent suction Respiratory: Lungs CTA bilaterally. No respiratory distress. No use of accessory muscles. Saturating well on room air Cardiovascular: RRR S1 and S2 are normal, no murmur Gastrointestinal: Abdomen is soft, non distended, non tender, BS present. Musculoskeletal: No lower extremity edema. Neurologic: No focal neurological deficit. Mental Status: A&O x3, normal affect Skin: Warm, dry Assessment/plan: 84-year-old male history of coronary artery disease, atrial fibrillation, BPH, hypertension who presents with abdominal pain suspected to be secondary to possible peptic ulcer disease or gastritis with hiatal hernia. Surgery was consulted. Patient's abdominal pain resolved with NG tube. Patient is admitted for further medical or possible surgical management. # Abdominal pain: This is likely related to gastritis secondary to his hiatal he rnia. Dr. White surgery consulted and I appreciate his recommendations. IV PPI, Carafate 4 times a day. Patient will attempt clear liquid diet today and see how he does. Warfarin held due to coffee ground emesis (INR 2.5 today) # Lactic acidosis and leukocytosis: Both have resolved this was likely noninfectious pro calcitonin was only 0.1. I empirically started him on vancomycin and Zosyn initially but the preliminary blood cultures were negative and I discontinued his Abx today. # CKD: Creatinine appears to be close to baseline. We'll continue to monitor this and avoid nephrotoxins. # History of Covid 19 infection: This was back in March 2020, there doesn't seem to be active illness although his oxygen saturation does hover in the low 90s but he has not required supplemental oxygen yet. Covid has been known to often cause residual symptoms for months after the illness. We will continue to monitor this. # Coronary artery disease: Continue statin and no aspirin at this time # Atrial fibrillation: Rate is controlled, continue amiodarone. Hold warfarin for now given coffee-ground emesis. INR 2.5 at time of admission. Clear with surgery prior to restarting # Hypertension: Continue home meds. Monitor and titrate # BPH: Continue home medication. A Marcellussejuan diego VS,Fishbone, I+O VS, Fishbone, I+O Laboratory Tests 05/04/20 05:50 Vital Signs Date Time Temp Pulse Resp B/P (MAP) Pulse Ox O2 Delivery O2 Flow Rate FiO2 05/04/20 06:00 98.2 82 19 139/84 (102) 92 Room Air I&O- Last 24 Hours up to 6 AM 05/04/20 06:00 Intake Total 50 ml Output Total 750 ml Balance -700 ml CLAY SHARP MD May 04, 2020 07:47
[2020-05-04 09:00] VITALS: O2SAT 94
[2020-05-04] MEDS ORDERED: ATORVASTATIN 20 MG TAB PO SCH (09:00)
[2020-05-04] MEDS: PANTOPRAZOLE 40MG VIAL (C9113 PER 1) IV SCH ×2 (09:30→21:51)
[2020-05-04] MEDS: DOCUSATE SODIUM 100MG CAPSULE PO SCH ×2 (09:31→21:00)
[2020-05-04] MEDS: AMIODARONE 200 MG TAB (PACERONE) PO SCH (09:31)
[2020-05-04] MEDS: TAMSULOSIN 0.4 MG CAP PO SCH (09:31)
--- NOTE | 2020-05-04 11:14 | CR ---
CONSULTATION DATE: 05/02/2020 HISTORY OF PRESENT ILLNESS: The patient is being admitted through the Hospitalist service for coffee-ground emesis and some abdominal pain with nausea and vomiting. He was brought to the Emergency Room and was felt to probably have symptomatic large hiatal hernia. The major question is whether he had a GI bleed that caused nausea and vomiting or whether he had a partial obstruction of his hiatal hernia that caused some bleeding. In any case, he is still on anticoagulation at this time and he has been placed NPO and after initially seeing him he did have a NG-tube placed and after his NG-tube was placed he had significant improvement of his abdominal distention in the epigastric area and decreased abdominal pain and discomfort. He essentially states his abdominal pain has resolved completely since the NG-tube has been in place. He has had no more nausea and no more vomiting. He has some coffee-grounds in the NG-tube. PAST MEDICAL HISTORY: Significant for a history of atrial fibrillation, history of BPH, hypertension, history of recent admission for COVID positive and recent pneumonias, history of right inguinal hernia repair, history of hypoxia last month. His white count is 17,000. He has some infiltrates is his lungs on exam. PHYSICAL EXAMINATION: His lungs are diminished bilaterally with a few crackles appreciated bilaterally. Heart is regular with multiple irregular beats. Abdomen is soft, nondistended. No guarding. No rebound. No peritoneal signs are appreciated. No hepatosplenomegaly. Extremities are warm and well-perfused. IMPRESSION AND PLAN: The patient had abdominal pain, it is hard to know whether this was gastritis or marginal ulcer that bled and then with the blood caused nausea and vomiting and the abdominal pain or whether it was a partial incarceration of his hiatal hernia that caused pain and had some bleeding associated with this. In any case, he has had some improvement and his NG output is some minimal coffee-ground but no active bleeding. I would recommend holding off on is anticoagulation at this time, keep him NPO, keep the NG-tube in place. Obviously, I do feel that with his significant comorbidities and respiratory issue recently and his infiltrates appreciated on his chest x-ray that would should be diligent about optimizing his medical status prior to any operative intervention. Thus, at this point will keep him NPO, will see how he is doing tomorrow. If he is having decreased NG output it is not unreasonable to DC the NG-tube and continue him on some proton pump inhibitors and Carafate. If he has increasing bloody drainage or decreasing hematocrit, consideration for an endoscopy is warranted. Otherwise at this point, given that he is asymptomatic now after the NG-tube was placed I do feel it is reasonable not proceed with emergent operative intervention.
--- NOTE | 2020-05-04 12:25 | IPNPDOC ---
Text Note Date of Service The patient was seen on 05/04/20. NOTE General Surgery. Dr. White. Subjective. The patient is an 84-year-old male admitted 05/02/20 with abdominal pain etiology unclear, possible gastritis versus marginal ulcer which bled and then cause nausea and vomiting versus partial incarceration of hiatal hernia with pain and some bleeding. Initially the patient had improvement with NG tube with minimal coffee ground and no active bleeding. The patient inadvertently removed the NG tube when he got up to use the bathroom on the morning of 05/03/20. The patient however has been improving. This morning, the patient denies abdominal pain, nausea or vomiting. States he has had 2 bowel movements this morning, diarrhea. He was given clear liquids this morning and states he has no abdominal pain following this and tolerated clear liquids. Objective. Temperature 98.2. Heart rate 82, respiratory rate 19, blood pressure 139/84 and 92% on room air. Patient is resting comfortably in bed. Alert and responsive to questions. CV S1 and S2 irregularly irregular Respiratory. Clear to auscultation bilaterally. Abdomen. Soft, nontender, nondistended Extremities. No edema This morning's labs indicate WBC 8.6, hemoglobin 10.4, platelets 239 Serum creatinine 1.50 with GFR 47.5. Assessment and plan. Patient continues to improve from a symptomatic standpoint of his hiatal hernia/gastritis issue. The patient was advanced to clear liquids this morning which he states he is tolerating. The patient is reviewed and examined as per Dr. White. Plan to slowly advance diet, we will advance to full liquids for today with plan to advance to mechanical soft in the morning. Sucralfate by mouth, Protonix IV twice a day. Coumadin (Afib) remains on hold. Discussed with Dr. White, the patient would be cleared from surgical standpoint to restart Coumadin at this time. Continue to monitor. VS,Fishbone, I+O VS, Fishbone, I+O Laboratory Tests 05/04/20 05:50 Vital Signs Date Time Temp Pulse Resp B/P (MAP) Pulse Ox O2 Delivery O2 Flow Rate FiO2 05/04/20 06:00 98.2 82 19 139/84 (102) 92 Room Air I&O- Last 24 Hours up to 6 AM 05/04/20 06:00 Intake Total 50 ml Output Total 750 ml Balance -700 ml Ramos,Jyotsna PA May 04, 2020 12:25
[2020-05-04 14:00] VITALS: BP 119/56
[2020-05-04 22:00] VITALS: BP 143/81
[2020-05-05] MEDS: SUCRALFATE SUSP 1GM/10ML UD PO SCH ×3 (00:11→11:48)
[2020-05-05] MEDS: NS 1,000 ML IV SCH (05:08)
[2020-05-05 06:00] VITALS: BP 144/84
[2020-05-05 06:25] LABS: BASO % 0.5 % (0.0-1.0); EOS # 0.7 10^3/uL (0.0-0.5); EOS % 9.2 % (0.0-3.0); HEMATOCRIT 33.7 % (42.0-52.0); HEMOGLOBIN 10.7 g/dl (13.5-17.5); LYMPH # 1.4 10^3/uL (1.5-5.0); LYMPH % 17.3 % (24.0-44.0); MEAN CORPUSCULAR HEMOGLOBIN 29.4 pg (27.0-33.0); MEAN CORPUSCULAR HGB CONC 31.8 g/dl (32.0-36.5); MEAN CORPUSCULAR VOLUME 92.6 fl (80.0-96.0); MONO # 0.7 10^3/uL (0.0-0.8); MONO % 8.8 % (0.0-5.0); NEUTROPHILS % 62.9 % (36.0-66.0); PLATELET COUNT, AUTOMATED 271 10^3/uL (150-450); RED BLOOD COUNT 3.64 10^6/uL (4.30-6.10); WHITE BLOOD COUNT 7.9 10^3/uL (4.0-10.0)
[2020-05-05 06:34] LABS: INR 2.3; PROTHROMBIN TIME 25.8 SECONDS (12.5-14.3)
[2020-05-05 06:56] LABS: CALCIUM LEVEL 8.1 MG/DL (8.8-10.2); CREATININE FOR GFR 1.23 MG/DL (0.70-1.30); GLOMERULAR FILTRATION RATE 59.7 (>35)
[2020-05-05] MEDS: PANTOPRAZOLE 40MG VIAL (C9113 PER 1) IV SCH (08:41)
[2020-05-05] MEDS: DOCUSATE SODIUM 100MG CAPSULE PO SCH (08:42)
[2020-05-05] MEDS: TAMSULOSIN 0.4 MG CAP PO SCH (08:42)
[2020-05-05] MEDS: AMIODARONE 200 MG TAB (PACERONE) PO SCH (08:42)
[2020-05-05 10:01] VITALS: O2SAT 95
--- NOTE | 2020-05-05 10:01 | IPNPDOC ---
Text Note Date of Service The patient was seen on 05/05/20. NOTE General Surgery. Dr. White. Subjective. The patient is an 84-year-old male admitted 05/02/20 with abdominal pain etiology unclear, possible gastritis versus marginal ulcer which bled and then caused nausea and vomiting versus partial incarceration of hiatal hernia with pain and some bleeding. Initially the patient had improvement with NG tube with minimal coffee ground an d no active bleeding. The patient inadvertently removed the NG tube when he got up to use the bathroom on the morning of 05/03/20. The patient however has been improving. This morning, the patient denies abdominal pain, nausea or vomiting. The patient has had diarrhea, nursing his documented 6 episodes yesterday and 2 today. He was given full liquids yesterday and mechanical soft diet this morning. The patient states he had no abdominal pain or nausea with eating breakfast this morning. Objective. Temperature 96.9. Heart rate 70, respiratory rate 19, blood pressure 144/84 and 93% on room air. Patient is resting comfortably in bed. Alert and responsive to questions. CV S1 and S2 irregularly irregular Respiratory. Clear to auscultation bilaterally. Abdomen. Soft, nontender, nondistended Extremities. No edema This morning's labs indicate WBC 7.9, hemoglobin 10.7 which has been stable for the past 3 days, platelets 271 Serum creatinine 1.23 with GFR 59.7. INR 2.30 Assessment and plan. The patient is reviewed and examined by Dr. White. The patient continues to improve from a symptomatic standpoint of his hiatal hernia/gastritis issue. He has had some diarrhea, I have requested C. difficile. The patient was advanced to mechanical soft diet this morning which he states he is tolerating without any abdominal discomfort. Would recommend Carafate twice a day and PPI BID for discharge. Coumadin (Afib) remains on hold, INR this morning 2.30. Discussed with Dr. White, the patient would be cleared from surgical standpoint to restart Coumadin as per hospitalist. Recommend outpatient follow-up in approximately 2 weeks, we will discuss arranging outpatient endoscopy at follow-up. General Surgery will sign off, please contact if further assistance is needed. VS,Fishbone, I+O VS, Fishbone, I+O Laboratory Tests 05/05/20 06:05 Vital Signs Date Time Temp Pulse Resp B/P (MAP) Pulse Ox O2 Delivery O2 Flow Rate FiO2 05/05/20 06:00 96.9 70 19 144/84 (104) 93 Room Air I&O- Last 24 Hours up to 6 AM 05/05/20 05:59 Intake Total 4390 ml Output Total 425 ml Balance 3965 ml Jyotsna Ramos May 05, 2020 09:11
[2020-05-05 14:00] VITALS: BP 132/78
[2020-05-05] MEDS ORDERED: OMEP40CA97 PO (14:09)
[2020-05-05] MEDS ORDERED: CARA1TAB6 PO (14:09)
--- NOTE | 2020-05-05 20:44 | DS.PDOC ---
Discharge Summary General Date of Admission May 02, 2020 at 12:03 Date of Discharge 05/05/20 Discharge Summary PROCEDURES PERFORMED DURING STAY: [None]. ADMITTING DIAGNOSES: Abdominal pain Lactic acidosis and leukocytosis CKD History of Covid 19 infection Coronary artery disease Atrial fibrillation Hypertension BPH DISCHARGE DIAGNOSES: Abdominal pain Lactic acidosis and leukocytosis CKD History of Covid 19 infection Coronary artery disease Atrial fibrillation Hypertension BPH COMPLICATIONS/CHIEF COMPLAINT: Abdominal Pain. HISTORY OF PRESENT ILLNESS: 84-year-old male history of coronary artery disease, atrial fibrillation, BPH, hypertension who presents with abdominal pain suspected to be secondary to possible peptic ulcer disease or gastritis with hiatal hernia. Surgery was consulted. Patient's abdominal pain resolved with NG tube. Patient is admitted for further medical or possible surgical management. HOSPITAL COURSE: During hospital stay following issues addressed # Abdominal pain: This is likely related to gastritis secondary to his hiatal hernia. Dr. White surgery consulted and found no indication for abdominal surgery. Patient received IV PPI, Carafate 4 times a day with positive effect # Lactic acidosis and leukocytosis: Both have resolved this was likely noninfectious pro calcitonin was only 0.1. Patient empirically started him on vancomycin and Zosyn initially but the preliminary blood cultures were negative and I discontinued his Abx # CKD: Creatinine appears to be close to baseline. We'll continue to monitor this and avoid nephrotoxins. DISCHARGE MEDICATIONS: Please see below. ALLERGIES: Please see below. PHYSICAL EXAMINATION ON DISCHARGE: VITAL SIGNS: Please see below. Constitutional: Awake and alert, in no apparent distress ENT: Sclera are clear. NG tube in place to intermittent suction Respiratory: Lungs CTA bilaterally. No respiratory distress. No use of accessory muscles. Saturating well on room air Cardiovascular: RRR S1 and S2 are normal, no murmur Gastrointestinal: Abdomen is soft, non distended, non tender, BS present. Musculoskeletal: No lower extremity edema. Neurologic: No focal neurological deficit. Mental Status: A&O x3, normal affect Skin: Warm, dry LABORATORY DATA: Please see below. IMAGING: NAME: BRISA ROMO DATE OF : 1935 AGE: 84 SEX: M REPORT #: [id number] ROOM: ED TECHNOLOGIST: [id number] DOCTOR: JAQUELINE GOLDEN MD Ordered for Date&Time: 05/02/20 1010 cc: [~ rep ct ivnm] Service Date&Time: 05/02/20 1039 EXAMINATION REQUESTED: CT ABD/PEL W/IV CONTRAST ONLY REASON FOR PATIENT VISIT: ABDOMINAL PAIN REASON FOR EXAM/COMMENT: Peptic ulcer disease and coffee ground emesis INDICATION: Peptic ulcer disease and coffee ground emesis. COMPARISON: Comparison pelvic CT study January 01, 2016.. TECHNIQUE: Helical scanning was acquired and 4 mm axial images are re-formatted. Coronal and sagittal MPR images were generated and reviewed. The contrast enhancement dose is 50 mL of intravenous Isovue 370. FINDINGS: Preliminary digital nuclear test technician radiograph shows an unremarkable bowel gas pattern. Axial CT images with lung window settings demonstrate platelike atelectatic changes in the left base and bibasilar interstitial fibrosis. No pleural effusion is seen. The stomach is distended with fluid moderate in degree. The stomach is inverted into a large hiatal hernia and most of the body and antrum of the stomach are in the chest. The duodenum is not dilated. No abnormality is noted in the pancreas. Normal adrenal glands are seen. There is an opaque calcified gallstone in the gallbladder. The gallbladder is not distended. Small parapelvic cysts are seen in the left kidney. Mild bilateral cortical atrophy is seen in the kidneys. There is a cyst in the right kidney measuring 1.9 cm in greatest diameter. Small and large bowel loops are normal in the abdomen and pelvis except for some scattered diverticulosis in the distal colon. The prostate is moderately enlarged and elevates the bladder base unchanged from the [address] study. No bony destructive lesion is seen. No other abdominal wall defect is seen. No evidence of free air or free fluid. IMPRESSION: Large hiatal hernia containing most of the fluid dilated stomach. The esophagus is fluid dilated as well. Question functional gastric outlet obstruction. The duodenum and small intestine are normal in caliber. Cholelithiasis, prostate enlargement, and left colonic diverticulosis are additional findings. <Electronically signed by Ankur Perez > 05/02/20 1048 DD: Gregory Perez MD 05/02/20 1040 DT: AROLDO 05/02/20 1048 DS: BARBARA 05/02/20 1040 05/02/20 1040 PROGNOSIS: Fair ACTIVITY: [As tolerated]. DIET: Cardiac DISPOSITION: Home, Self-Care. ITEMS TO FOLLOWUP ON ON OUTPATIENT: With PCP in 3-5 days DISCHARGE CONDITION: [Stable]. TIME SPENT ON DISCHARGE: Greater than 30 minutes. Vital Signs/I&Os Vital Signs Date Time Temp Pulse Resp B/P (MAP) Pulse Ox O2 Delivery O2 Flow Rate FiO2 05/05/20 14:00 96.2 83 16 132/78 (96) 95 Room Air I&O- Last 24 Hours up to 6 AM 05/05/20 06:00 Intake Total 4390 ml Output Total 425 ml Balance 3965 ml Laboratory Data Labs 24H Laboratory Tests 2 05/05/20 06:05: Immature Granulocyte % (Auto) 1.3, Neutrophils (%) (Auto) 62.9, Lymphocytes (%) (Auto) 17.3L, Monocytes (%) (Auto) 8.8H, Eosinophils (%) (Auto) 9.2H, Basophils (%) (Auto) 0.5, Neutrophils # (Auto) 5.0, Lymphocytes # (Auto) 1.4L, Monocytes # (Auto) 0.7, Eosinophils # (Auto) 0.7H, Basophils # (Auto) 0.0, Nucleated Red Blood Cells % (auto) 0.0, Prothrombin Time 25.8H, Prothromb Time International Ratio 2.30, Anion Gap 7L, Glomerular Filtration Rate 59.7, Calcium Level 8.1L CBC/BMP Laboratory Tests 05/05/20 06:05 Microbiology Microbiology 05/02/20 Blood Culture - Preliminary, Resulted No Growth after 72 hours. All specime... 05/02/20 Blood Culture - Preliminary, Resulted No Growth after 72 hours. All specime... Discharge Medications Scheduled Acetaminophen (Tylenol Extra Strength) 500 Mg Tablet, 1,000 MG PO TID, (Reported) STARTED 04/04/[address] REA'S DIRECTION FOR FEVER Amiodarone HCl (Amiodarone HCl) 200 Mg Tablet, 200 MG PO 5XW, (Reported) TAKES MONDAY-MONDAY Atorvastatin Calcium (Lipitor) 80 Mg Tablet, 80 MG PO 2XW, (Reported) Mon & morning Ergocalciferol (Vitamin D2) (Vitamin D2) 50,000 Units Cap, 50,000 UNITS PO Q2WK, (Reported) EVERY OTHER MONDAY Multivit-Min/FA/Lycopen/Lutein (Centrum Silver Tablet) 1 Each Tablet, 1 TAB PO BID, (Reported) Omeprazole (Omeprazole) 40 Mg Capsule.dr, 40 MG PO DAILY Sucralfate (Carafate) 1 Gm Tablet, 1 TAB PO QID Tamsulosin Hcl (Tamsulosin HCl) 0.4 Mg Capsule, 0.4 MG PO DAILY, (Reported) Warfarin Sodium (Warfarin Sodium) 4 Mg Tablet, 4 MG PO QHS, (Reported) Allergies Coded Allergies: No Known Allergies (Unverified , 11/12/18) DARCY RODARTE DO May 05, 2020 20:44
== END 2020-05-05 16:02 | disposition home health service (06) | DRG 392 ==
LOC: M ED 08:23 → M ED INP 12:03 → M MSPAV 15:46
PROVIDERS: ADMIT Family Medicine; ATTEND Internal Medicine
DX: K29.70 Gastritis, unspecified, without bleeding (principal); E87.2 Acidosis; I25.10 Atherosclerotic heart disease of native coronary artery without angina pectoris; I48.91 Unspecified atrial fibrillation; N40.0 Benign prostatic hyperplasia without lower urinary tract symptoms; I12.9 Hypertensive chronic kidney disease with stage 1 through stage 4 chronic kidney disease, or unspecified chronic kidney disease; K44.9 Diaphragmatic hernia without obstruction or gangrene; D72.829 Elevated white blood cell count, unspecified; N18.9 Chronic kidney disease, unspecified; Z86.16 Personal history of COVID-19; Z79.01 Long term (current) use of anticoagulants; Z79.899 Other long term (current) drug therapy

== ENCOUNTER → 2020-05-18 | Outpatient (REF) | payer MEDICARE, OTHER ==
[~2020-05-18] MED LIST changes: +CARA1TAB6 PO; +OMEP40CA97 PO; +VITA50005 PO
[2020-05-18 13:34] LABS: INR 1.94; PROTHROMBIN TIME 22.6 SECONDS (12.5-14.3)
== END ==
LOC: M LAB REF 12:59
PROVIDERS: ATTEND Physician Assistant
DX: I48.0 Paroxysmal atrial fibrillation (principal)

== ENCOUNTER → 2020-06-22 | Outpatient (REF) | payer MEDICARE, OTHER ==
[2020-06-24 00:07] LABS: PSA % FREE 29.1 % (.); PSA FREE 1.86 ng/mL; PSA TOTAL 6.4 ng/mL (0.0-4.0)
== END ==
LOC: M LAB REF 12:51
PROVIDERS: ATTEND Family Medicine
DX: R97.20 Elevated prostate specific antigen [PSA] (principal)

== ENCOUNTER → 2020-10-02 | Outpatient (CLI) | payer MEDICARE, OTHER ==
[~2020-10-02] MED LIST changes: +ERGO500029 PO; +OMEP40CA4 PO; -OMEP40CA97 PO; -VITA50005 PO
--- NOTE | 2020-10-02 11:50 | REP ---
INDICATION: PAROXYSMAL ATRIAL FIBRILLATION COMPARISON: 05/02/2020 TECHNIQUE: PA and lateral. FINDINGS: Stable cardiomegaly and large hiatal hernia with air-fluid level noted. The lung brush demonstrate chronic stable interstitial changes. No focal consolidation, effusion, or pneumothorax. Skeletal structures intact. IMPRESSION: Chronic stable changes. <Electronically signed by Dilshad Erickson > 10/02/20 1147
== END ==
LOC: M PLAIMG 10:52
PROVIDERS: ATTEND Internal Medicine Cardiovascular Disease
DX: I48.0 Paroxysmal atrial fibrillation (principal); R05 Cough; J84.10 Pulmonary fibrosis, unspecified; K44.9 Diaphragmatic hernia without obstruction or gangrene; I51.7 Cardiomegaly

== ENCOUNTER → 2021-03-04 | Outpatient (REF) | payer MEDICARE, OTHER ==
[~2021-03-04] MED LIST changes: -AMIO200T3 PO; +AMIO200T49 PO
[2021-03-04 13:33] LABS: PHOSPHORUS LEVEL 3.6 MG/DL (2.5-4.9)
== END ==
LOC: M LAB REF 12:21
PROVIDERS: ATTEND Family Medicine
DX: N19 Unspecified kidney failure (principal); R06.02 Shortness of breath; I34.0 Nonrheumatic mitral (valve) insufficiency

== ENCOUNTER → 2021-03-16 | Outpatient (REF) | payer MEDICARE, OTHER ==
[~2021-03-16] MED LIST changes: +AMIO200T3 PO; -AMIO200T49 PO
== END ==
LOC: M LAB REF 12:45
PROVIDERS: ATTEND Internal Medicine Nephrology
DX: N18.4 Chronic kidney disease, stage 4 (severe) (principal); E83.42 Hypomagnesemia

== ENCOUNTER → 2021-05-03 | Outpatient (REF) | payer MEDICARE, OTHER ==
[~2021-05-03] MED LIST changes: -AMIO200T3 PO; +AMIO200T49 PO
== END ==
LOC: M LAB REF 16:19
PROVIDERS: ATTEND Family Medicine
DX: I48.0 Paroxysmal atrial fibrillation (principal); I51.7 Cardiomegaly; I12.9 Hypertensive chronic kidney disease with stage 1 through stage 4 chronic kidney disease, or unspecified chronic kidney disease; N18.4 Chronic kidney disease, stage 4 (severe); R06.02 Shortness of breath

== ENCOUNTER → 2021-06-02 | Outpatient (REF) | payer MEDICARE, OTHER ==
[2021-06-03 23:07] LABS: PSA % FREE 25.9 % (.); PSA FREE 2.41 ng/mL; PSA TOTAL 9.3 ng/mL (0.0-4.0)
== END ==
LOC: M LAB REF 11:24
PROVIDERS: ATTEND Family Medicine
DX: R97.20 Elevated prostate specific antigen [PSA] (principal)

== ENCOUNTER → 2021-09-28 | Outpatient (CLI) | payer MEDICARE, OTHER | LOC: M RAD 15:11 | PROVIDERS: ATTEND Physician Assistant Medical | DX: M79.661 Pain in right lower leg (principal); M79.89 Other specified soft tissue disorders; R60.0 Localized edema; M25.761 Osteophyte, right knee; M19.031 Primary osteoarthritis, right wrist ==

== ENCOUNTER 2021-10-01 15:04 | Emergency (ER) | payer MEDICARE, OTHER ==
[~2021-10-01] VITALS: Ht 177.8 cm; Wt 86.4 kg
[2021-10-01] MEDS ORDERED: LEVO25TA5 (15:21)
[2021-10-01] MEDS ORDERED: WARF-23 (15:21)
[2021-10-01 17:12] LABS: BASO % 0.5 % (0.0-1.0); EOS # 0.5 10^3/uL (0.0-0.5); EOS % 5.6 % (0.0-3.0); HEMATOCRIT 35.4 % (42.0-52.0); HEMOGLOBIN 11.5 g/dl (13.5-17.5); LYMPH # 1.6 10^3/uL (1.5-5.0); LYMPH % 19.2 % (24.0-44.0); MEAN CORPUSCULAR HEMOGLOBIN 30.7 pg (27.0-33.0); MEAN CORPUSCULAR HGB CONC 32.5 g/dl (32.0-36.5); MEAN CORPUSCULAR VOLUME 94.7 fl (80.0-96.0); MONO # 0.9 10^3/uL (0.0-0.8); MONO % 10.4 % (2.0-8.0); NEUTROPHILS # 5.3 10^3/uL (1.5-8.5); NEUTROPHILS % 63.9 % (36.0-66.0); PLATELET COUNT, AUTOMATED 326 10^3/uL (150-450); RED BLOOD COUNT 3.74 10^6/uL (4.30-6.10); WHITE BLOOD COUNT 8.3 10^3/uL (4.0-10.0)
[2021-10-01 17:23] LABS: INR 2.81; PROTHROMBIN TIME 29.9 SECONDS (12.7-14.5)
[2021-10-01 17:24] LABS: PARTIAL THROMBOPLASTIN TIME 46.6 SECONDS (25.9-37.0)
[2021-10-01 17:34] LABS: CALCIUM LEVEL 8.5 MG/DL (8.8-10.2); CREATININE FOR GFR 1.35 MG/DL (0.70-1.30); GLOMERULAR FILTRATION RATE 53.3 (>35); POTASSIUM SERUM 4.2 MEQ/L (3.5-5.1)
[2021-10-01 18:00] VITALS: BP 166/83
== END 2021-10-01 19:18 | disposition home or self-care (01) ==
LOC: M ED 15:04
DX: S92.354A Nondisplaced fracture of fifth metatarsal bone, right foot, initial encounter for closed fracture (principal); S90.121A Contusion of right lesser toe(s) without damage to nail, initial encounter; I45.19 Other right bundle-branch block; I48.91 Unspecified atrial fibrillation; I25.10 Atherosclerotic heart disease of native coronary artery without angina pectoris; I25.2 Old myocardial infarction; K21.9 Gastro-esophageal reflux disease without esophagitis; N40.0 Benign prostatic hyperplasia without lower urinary tract symptoms; E78.5 Hyperlipidemia, unspecified; Z79.899 Other long term (current) drug therapy

== ENCOUNTER → 2021-10-05 | Outpatient (CLI) | payer MEDICARE, OTHER ==
[~2021-10-05] MED LIST changes: +LEVO25TA5; +WARF-23
== END ==
LOC: M SOG 11:14
PROVIDERS: ATTEND Orthopaedic Surgery
DX: S92.351A Displaced fracture of fifth metatarsal bone, right foot, initial encounter for closed fracture (principal); M19.041 Primary osteoarthritis, right hand; M19.031 Primary osteoarthritis, right wrist; M11.232 Other chondrocalcinosis, left wrist; X58.XXXA Exposure to other specified factors, initial encounter; Y92.9 Unspecified place or not applicable; Y93.9 Activity, unspecified; Y99.9 Unspecified external cause status

== ENCOUNTER → 2021-10-11 | Outpatient (CLI) | payer MEDICARE, OTHER | LOC: M WUC 13:56 | PROVIDERS: ATTEND Internal Medicine Cardiovascular Disease | DX: I48.0 Paroxysmal atrial fibrillation (principal); I42.2 Other hypertrophic cardiomyopathy; I77.810 Thoracic aortic ectasia ==

== ENCOUNTER → 2021-11-29 | Outpatient (CLI) | payer MEDICARE, OTHER | LOC: M SOG 09:24 | PROVIDERS: ATTEND Orthopaedic Surgery Adult Reconstructive Orthopaedic Surgery | DX: M25.561 Pain in right knee (principal); M17.11 Unilateral primary osteoarthritis, right knee ==

== ENCOUNTER → 2022-01-19 | Outpatient (REF) | payer MEDICARE, OTHER ==
[2022-01-20 12:48] LABS: FERRITIN 258 NG/ML (26-388)
[2022-01-20 13:03] LABS: VITAMIN B12 LEVEL 988 PG/ML (247-911)
== END ==
LOC: M LAB REF 12:08
PROVIDERS: ATTEND Family Medicine
DX: D64.9 Anemia, unspecified (principal)

== ENCOUNTER → 2022-01-21 | Outpatient (REF) | payer MEDICARE, OTHER | LOC: M LAB REF 16:28 | PROVIDERS: ATTEND Family Medicine | DX: D64.9 Anemia, unspecified (principal) ==

== ENCOUNTER → 2022-09-20 | Outpatient (CLI) | payer MEDICARE, OTHER ==
[~2022-09-20] MED LIST changes: -SAW160CA9 PO; +SAW1CAP3 PO
[2022-09-20 12:38] LABS: BASO # 0.1 10^3/uL (0.0-0.2); BASO % 0.6 % (0.0-1.0); EOS # 0.4 10^3/uL (0.0-0.5); EOS % 4.7 % (0.0-3.0); HEMATOCRIT 36.6 % (42.0-52.0); HEMOGLOBIN 11.3 g/dl (13.5-17.5); LYMPH # 1.5 10^3/uL (1.5-5.0); LYMPH % 16.4 % (24.0-44.0); MEAN CORPUSCULAR HEMOGLOBIN 28.3 pg (27.0-33.0); MEAN CORPUSCULAR HGB CONC 30.9 g/dl (32.0-36.5); MEAN CORPUSCULAR VOLUME 91.5 fl (80.0-96.0); MONO # 0.9 10^3/uL (0.0-0.8); MONO % 9.8 % (2.0-8.0); NEUTROPHILS # 6.1 10^3/uL (1.5-8.5); NEUTROPHILS % 68.2 % (36.0-66.0); PLATELET COUNT, AUTOMATED 363 10^3/uL (150-450); WHITE BLOOD COUNT 8.9 10^3/uL (4.0-10.0)
[2022-09-20 13:14] LABS: ALBUMIN 3.3 G/DL (3.2-5.2); BILIRUBIN,TOTAL 0.4 MG/DL (0.3-1.2); CALCIUM LEVEL 8.3 MG/DL (8.3-10.6); CREATININE FOR GFR 1.75 MG/DL (0.70-1.30); GLOMERULAR FILTRATION RATE 39.4 (>35); POTASSIUM SERUM 4.1 MMOL/L (3.5-5.1); TOTAL PROTEIN 6.6 G/DL (5.7-8.2)
[2022-09-20 13:17] LABS: THYROID STIMULATING HORMONE 3.333 uIU/ML (0.55-4.78)
== END ==
LOC: M WUC 08:37
PROVIDERS: ATTEND Internal Medicine Cardiovascular Disease
DX: I48.0 Paroxysmal atrial fibrillation (principal); E03.9 Hypothyroidism, unspecified; I34.0 Nonrheumatic mitral (valve) insufficiency; I50.32 Chronic diastolic (congestive) heart failure; R94.31 Abnormal electrocardiogram [ECG] [EKG]

== ENCOUNTER → 2022-09-21 | Outpatient (CLI) | payer MEDICARE, OTHER | LOC: M WUC 10:15 | PROVIDERS: ATTEND Internal Medicine Cardiovascular Disease | DX: I50.32 Chronic diastolic (congestive) heart failure (principal); K44.9 Diaphragmatic hernia without obstruction or gangrene; J98.11 Atelectasis ==

== ENCOUNTER → 2023-02-06 | Outpatient (REF) | payer MEDICARE, OTHER | LOC: M LAB REF 09:17 | PROVIDERS: ATTEND Family Medicine | DX: I48.91 Unspecified atrial fibrillation (principal) ==

== ENCOUNTER → 2023-04-18 | Outpatient (CLI) | payer MEDICARE, OTHER ==
[~2023-04-18] MED LIST changes: +E-Z-GAS II EFFERVESCENT PACKET (SODIUM BICARB./CITRIC ACID/SIMETHICONE) As Ordered ONE; +E-Z-HD 98% w/w 340GM SUSP BTL As Ordered ONE; +E-Z-PAQUE 96% w/w SUSP 176GM BTL As Ordered ONE; +ISOVUE-370 76% 100ML VIAL As Ordered ONE
== END ==
LOC: M RAD 08:56
PROVIDERS: ATTEND Surgery
DX: K44.9 Diaphragmatic hernia without obstruction or gangrene (principal); J98.11 Atelectasis; N28.1 Cyst of kidney, acquired; K80.20 Calculus of gallbladder without cholecystitis without obstruction; K57.10 Diverticulosis of small intestine without perforation or abscess without bleeding
CPT/HCPCS: 71260; 74240; Q9967

== ENCOUNTER → 2023-07-28 | Outpatient (REF) | payer MEDICARE, OTHER ==
[~2023-07-28] MED LIST changes: -E-Z-GAS II EFFERVESCENT PACKET (SODIUM BICARB./CITRIC ACID/SIMETHICONE) As Ordered ONE; -E-Z-HD 98% w/w 340GM SUSP BTL As Ordered ONE; -E-Z-PAQUE 96% w/w SUSP 176GM BTL As Ordered ONE; -ISOVUE-370 76% 100ML VIAL As Ordered ONE
== END ==
LOC: M LAB REF 11:23
PROVIDERS: ATTEND Family Medicine
DX: I50.32 Chronic diastolic (congestive) heart failure (principal)

== ENCOUNTER → 2023-09-11 | Outpatient (CLI) | payer MEDICARE, OTHER | LOC: M EKG 09:52 | PROVIDERS: ATTEND Internal Medicine Cardiovascular Disease | DX: I48.0 Paroxysmal atrial fibrillation (principal); R00.1 Bradycardia, unspecified ==

== ENCOUNTER 2024-02-03 17:37 | Emergency (ER) | payer MEDICARE, OTHER ==
[~2024-02-03] VITALS: Ht 177.8 cm; Wt 81.8 kg
[2024-02-03] MEDS: LIDOCAINE 2% MDV 20ML VIAL SC ONE (19:05)
[2024-02-03] MEDS: CEPHALEXIN 500 MG CAP PO ONE ×2 (19:45→19:50)
[2024-02-03] MEDS ORDERED: CEPH500C PO (19:57)
[2024-02-03 20:04] VITALS: BP 192/90; TEMP 98; O2SAT 94
== END 2024-02-03 20:13 | disposition home or self-care (01) ==
LOC: M ED 17:37
DX: S61.211A Laceration without foreign body of left index finger without damage to nail, initial encounter (principal); S62.631B Displaced fracture of distal phalanx of left index finger, initial encounter for open fracture; W37.8XXA Explosion and rupture of other pressurized tire, pipe or hose, initial encounter; Y92.009 Unspecified place in unspecified non-institutional (private) residence as the place of occurrence of the external cause; Y93.89 Activity, other specified; Y99.9 Unspecified external cause status; Z79.1 Long term (current) use of non-steroidal anti-inflammatories (NSAID); Z79.02 Long term (current) use of antithrombotics/antiplatelets; Z79.2 Long term (current) use of antibiotics; Z79.899 Other long term (current) drug therapy; Z79.01 Long term (current) use of anticoagulants

== ENCOUNTER → 2024-02-07 | Outpatient (REF) | payer MEDICARE, OTHER ==
[~2024-02-07] MED LIST changes: +ATOR-398 PO; +CEPH500C PO; -LIPI80TA PO
== END ==
LOC: M LAB REF 16:52
PROVIDERS: ATTEND Family Medicine
DX: I50.32 Chronic diastolic (congestive) heart failure (principal)

== ENCOUNTER → 2024-03-05 | Outpatient (CLI) | payer MEDICARE, OTHER | LOC: M SOG 07:51 | PROVIDERS: ATTEND Physician Assistant | DX: M79.645 Pain in left finger(s) (principal); S61.211D Laceration without foreign body of left index finger without damage to nail, subsequent encounter ==

== ENCOUNTER → 2024-04-15 | Outpatient (REF) | payer MEDICARE, OTHER | LOC: M LAB REF 12:21 | PROVIDERS: ATTEND Family Medicine | DX: I48.0 Paroxysmal atrial fibrillation (principal) ==

== ENCOUNTER → 2024-10-21 | Outpatient (CLI) | payer MEDICARE, OTHER ==
[~2024-10-21] MED LIST changes: -AMIO200T49 PO; +AMIO200T54 PO; +SAW160CA22 PO; -SAW1CAP3 PO
== END ==
LOC: M CARPUL 13:24
PROVIDERS: ATTEND Registered Nurse
DX: I35.8 Other nonrheumatic aortic valve disorders (principal); I71.21 Aneurysm of the ascending aorta, without rupture

== ENCOUNTER → 2025-01-08 | Outpatient (REF) | payer MEDICARE, OTHER ==
[2025-01-08 14:27] LABS: IRON (FE) 47 UG/DL (65-175); PERCENT SATURATION 19.7 % (19.7-50.0)
[2025-01-08 14:28] LABS: VITAMIN B12 LEVEL 859 PG/ML (211-911)
== END ==
LOC: M LAB REF 12:38
PROVIDERS: ATTEND Family Medicine
DX: Z51.81 Encounter for therapeutic drug level monitoring (principal); D64.9 Anemia, unspecified

== ENCOUNTER → 2025-03-17 | Outpatient (REF) | payer MEDICARE, OTHER | LOC: M LAB REF 12:30 | PROVIDERS: ATTEND Family Medicine | DX: I50.32 Chronic diastolic (congestive) heart failure (principal) ==

== ENCOUNTER → 2025-03-21 | Outpatient (CLI) | payer MEDICARE, OTHER | LOC: M RAD 09:48 | PROVIDERS: ATTEND Nurse Practitioner Family | DX: R60.9 Edema, unspecified (principal); M71.22 Synovial cyst of popliteal space [Baker], left knee; I87.2 Venous insufficiency (chronic) (peripheral) ==